=== PATIENT | female | born 1930 | race Caucasian/White ===

== ENCOUNTER → 2016-12-28 | Outpatient (CLI) | payer OTHER, MEDICARE ==
[~2016-12-28] MED LIST: ALLO100T PO; ASPCH81 PO; ERGO1CAP41 PO; HYDR25TA4 PO; LEVO50TA PO; LOSA50TA6 PO; METO25TA56 PO; OMEP20TA14 PO; OXYB10TA PO; [UNRECOGNIZED DRUG - CODE] GT
[2016-12-28 15:58] LABS: URINE APPEARANCE CLEAR (CLEAR); URINE BILIRUBIN NEG (NEG); URINE COLOR YELLOW; URINE EPITHELIAL CELL AUTO 0-5 /lpf (0-5); URINE NITRITE NEG (NEG); URINE SPECIFIC GRAVITY 1.001 (1.000-1.030); UROBILINOGEN NEG (NEG)
[2016-12-28 16:00] LABS: MANUAL MICROSCOPIC REQUIRED? NO; REVIEW REQ? NO
[2016-12-28 16:13] LABS: HEMATOCRIT 38.8 % (37-47); MEAN CELL VOLUME 90.7 fL (80-100); MEAN CORPUSCULAR HEMOGLOBIN 30.4 pg (25-34); MEAN CORPUSCULAR HGB CONC 33.5 g/dl (32-36); MEAN PLATELET VOLUME 13.1 fL (7.4-10.4); PLATELET COUNT 180 K/uL (130-400); RED BLOOD COUNT 4.28 M/uL (4.2-5.4)
[2016-12-28 16:24] LABS: ALT/SGPT 13 U/L (12-78); AST/SGOT 10 U/L (15-37); BLOOD UREA NITROGEN 27 mg/dl (7-18); BUN/CREATININE RATIO 18.2 (10-20); CALCIUM 9.2 mg/dl (8.5-10.1); CARBON DIOXIDE 29 mmol/L (21-32); CHLORIDE 106 mmol/L (98-107); GLUCOSE 86 mg/dl (70-99); PHOSPHORUS 2.7 mg/dl (2.5-4.9); POTASSIUM 4.4 mmol/L (3.5-5.1); SODIUM 142 mmol/L (136-145)
[2016-12-28 16:27] LABS: URINE TOTAL PROTEIN < 5.0 mg/dl (0-11.9)
[2016-12-28 16:34] LABS: ALKALINE PHOSPHATASE 136 U/L (45-117)
== END | disposition home or self-care (01) ==
LOC: C.LAB 14:07
PROVIDERS: ATTEND Internal Medicine Cardiovascular Disease
DX: I48.0 Paroxysmal atrial fibrillation (principal); Z51.81 Encounter for therapeutic drug level monitoring; I12.9 Hypertensive chronic kidney disease with stage 1 through stage 4 chronic kidney disease, or unspecified chronic kidney disease; N18.3 Chronic kidney disease, stage 3 (moderate); N25.81 Secondary hyperparathyroidism of renal origin; E55.9 Vitamin D deficiency, unspecified; D64.9 Anemia, unspecified

== ENCOUNTER → 2017-02-13 | Outpatient (CLI) | payer OTHER, MEDICARE ==
[~2017-02-13] MED LIST changes: -ERGO1CAP41 PO; +ERGO500011 PO
[2017-02-13 12:57] LABS: CHOLESTEROL/HDL RATIO 4.2; THYROID STIMULATING HORMONE 1.31 uIu/ml (0.300-4.500); URIC ACID 6.7 mg/dl (2.6-7.2)
== END | disposition home or self-care (01) ==
LOC: C.LAB 11:15
PROVIDERS: ATTEND Internal Medicine
DX: M10.9 Gout, unspecified (principal); I48.91 Unspecified atrial fibrillation

== ENCOUNTER → 2017-03-02 | Outpatient (CLI) | payer OTHER, MEDICARE ==
--- NOTE | 2017-03-02 12:04 | DIAGNOSTIC IMAGING REPORT ---
RIGHT HIP 2 VIEWS HISTORY: Right hip pain. COMPARISON: None. FINDINGS: There is no fracture or dislocation. Soft tissues are unremarkable. No radiopaque foreign bodies. Mild osteoarthritis within the right hip. IMPRESSION: No fractures. Mild right hip osteoarthritis. Electronically signed by: Gabriel Omalley M.D. 03/02/2017 12:03 PM Dictated Date/Time: 03/02/2017 11:59 AM
== END | disposition home or self-care (01) ==
LOC: C.RADBC 11:35
PROVIDERS: ATTEND Physician Assistant
DX: M25.551 Pain in right hip (principal)

== ENCOUNTER → 2017-07-04 | Outpatient (CLI) | payer OTHER, MEDICARE ==
[~2017-07-04] MED LIST changes: +ERGO1CAP41 PO; -ERGO500011 PO
[2017-07-04 15:42] LABS: HEMATOCRIT 40.1 % (37-47); MEAN CELL VOLUME 95.7 fL (80-100); MEAN CORPUSCULAR HEMOGLOBIN 29.6 pg (25-34); MEAN CORPUSCULAR HGB CONC 30.9 g/dl (32-36); MEAN PLATELET VOLUME 12.4 fL (7.4-10.4); PLATELET COUNT 219 K/uL (130-400); RED BLOOD COUNT 4.19 M/uL (4.2-5.4); WHITE BLOOD COUNT 8.26 K/uL (4.8-10.8)
[2017-07-04 15:46] LABS: URINE APPEARANCE CLEAR (CLEAR); URINE BILIRUBIN NEG (NEG); URINE COLOR YELLOW; URINE EPITHELIAL CELL AUTO 20-30 /lpf (0-5); URINE NITRITE NEG (NEG); URINE SPECIFIC GRAVITY 1.017 (1.000-1.030); UROBILINOGEN NEG (NEG)
[2017-07-04 15:47] LABS: MANUAL MICROSCOPIC REQUIRED? NO; REVIEW REQ? NO
[2017-07-04 16:10] LABS: URINE TOTAL PROTEIN < 5.0 mg/dl (0-11.9)
[2017-07-04 16:11] LABS: ALT/SGPT 12 U/L (12-78); AST/SGOT 7 U/L (15-37); BLOOD UREA NITROGEN 29 mg/dl (7-18); BUN/CREATININE RATIO 19.1 (10-20); CALCIUM 9.3 mg/dl (8.5-10.1); CARBON DIOXIDE 26 mmol/L (21-32); CHLORIDE 110 mmol/L (98-107); GLUCOSE 108 mg/dl (70-99); POTASSIUM 4.3 mmol/L (3.5-5.1); SODIUM 141 mmol/L (136-145)
[2017-07-04 16:13] LABS: ALB/GLOB RATIO 0.9 (0.9-2); ALKALINE PHOSPHATASE 143 U/L (45-117)
== END | disposition home or self-care (01) ==
LOC: C.LAB 14:43
PROVIDERS: ATTEND Internal Medicine Nephrology
DX: I12.9 Hypertensive chronic kidney disease with stage 1 through stage 4 chronic kidney disease, or unspecified chronic kidney disease (principal); N18.3 Chronic kidney disease, stage 3 (moderate); N25.81 Secondary hyperparathyroidism of renal origin; D64.9 Anemia, unspecified; E55.9 Vitamin D deficiency, unspecified

== ENCOUNTER → 2017-07-24 | Outpatient (CLI) | payer OTHER, MEDICARE | END | disposition home or self-care (01) | LOC: C.PATHSPEC 17:22 | PROVIDERS: ATTEND Dermatology | DX: L82.0 Inflamed seborrheic keratosis (principal) ==

== ENCOUNTER → 2017-10-12 | Outpatient (CLI) | payer OTHER, MEDICARE ==
[~2017-10-12] MED LIST changes: -ERGO1CAP41 PO; +ERGO500011 PO
== END | disposition home or self-care (01) ==
LOC: C.PATHSPEC 16:59
PROVIDERS: ATTEND Dermatology
DX: L82.0 Inflamed seborrheic keratosis (principal)

== ENCOUNTER 2017-10-30 00:45 | Emergency (ER) | payer OTHER, MEDICARE ==
[~2017-10-30] VITALS: Ht 154.9 cm; Wt 103.1 kg
[~2017-10-30 00:45] MED LIST changes: -ALLO100T PO; -ERGO500011 PO; +FURO-85 PO; -LEVO50TA PO; -LOSA50TA6 PO; -METO25TA56 PO
[2017-10-30 00:48] VITALS: Ht 154.9 cm; Wt 103.1 kg
[2017-10-30] MEDS ORDERED: ASPI81TA28 PO (01:11)
[2017-10-30] MEDS ORDERED: AMIO200T4 PO (01:11)
[2017-10-30] MEDS ORDERED: OXGN (01:11)
[2017-10-30] MEDS ORDERED: PRLSR20 PO (01:11)
--- NOTE | 2017-10-30 01:40 | EMERGENCY ROOM VISIT NOTE ---
History Report prepared by Miguel: Ashutosh Dotson Under the Supervision of: Dr. Page Prakash D.O. First contact with patient: 00:55 Chief Complaint: CARDIAC ASSESSMENT Stated Complaint: PACEMAKER? History of Present Illness The patient is an 87 year old female who presents to the Emergency Room with complaints of palpitations that occurred this evening. She has a past medical history of atrial fibrillation that required a pacemaker that was placed 8 years ago and replaced 2 year ago. Recently, the patient began to experience her heat beating strongly with what felt like a vibration. Her vision then dimmed, but eventually came back to normal. She denies any chest pain or shortness of breath during this episode. She denies any swelling in her hands, but noticed that she had some swelling to her ankles bilaterally. She notes that she has had some right ankle pain intermittently that resolves with ambulation. She has been eating and drinking normally but denies any increased caffeine intake. She has been taking her medications normally and has not missed any dosages. Source of History: patient Onset: this evening Position: chest Symptom Intensity: moderate Quality: other (Palpitations) Timing: resolved Associated Symptoms: No chest pain, No SOB Note: She has some mild ankle swelling bilaterally. Review of Systems See HPI for pertinent positives & negatives. A total of 10 systems reviewed and were otherwise negative. Past Medical & Surgical Medical Problems: (1) A-fib (2) Heart disease (3) Hypertension (4) Kidney disease (5) Pacemaker (6) Pneumonia Surgical Problems: (1) History of hysterectomy Family History Diabetes mellitus Gout Heart disease Hypertension Social History Smoking Status: Never Smoker Alcohol Use: none Drug Use: none Marital Status: Occupation Status: retired Current/Historical Medications Scheduled Allopurinol (Zyloprim), 100 MG PO DAILY Amiodarone Hcl (Cordarone), 100 MG PO DAILY Aspirin (Aspirin Ec), 81 MG PO BID Ergocalciferol (Vitamin D 09927 Unit), 50,000 INTER.UNIT PO WK Furosemide (Lasix), 20 MG PO Q2D Home O2 Therapy (Oxygen), 2 LITERS NA HS Levothyroxine Sodium (Synthroid), 50 MCG PO DAILY Losartan Potassium (Cozaar), 50 MG PO BID Metoprolol Tartrate (Lopressor) (Lopressor), 25 MG PO BID Omeprazole (Prilosec), 20 MG PO DAILY Allergies Coded Allergies: Adhesives (Verified Allergy, Severe, SEVERE REDNESS/PAIN, 02/15/17) Amlodipine (Verified Allergy, Intermediate, Rash, 10/30/17) Sulfa Antibiotics (Verified Allergy, Intermediate, Rash, 10/30/17) Indomethacin (Verified Allergy, Unknown, 02/15/17) Physical Exam Vital Signs Date Time Temp Pulse Resp B/P (MAP) Pulse Ox O2 Delivery O2 Flow Rate FiO2 10/30/17 03:46 36.5 66 20 171/104 94 10/30/17 02:52 70 20 157/80 93 Room Air 10/30/17 01:10 93 Room Air 10/30/17 00:48 36.5 79 18 192/85 94 Room Air Physical Exam HEENT: Head - normocephalic and atraumatic Pupils are equal, round, and reactive to light. Extraocular eye muscles are intact, and sclera are anicteric. Nose - moist nasal mucosa without discharge. Mouth - moist buccal mucosa. Oropharynx is nonerythematous and there is no tonsillar exudate or edema noted. Neck: Supple; no JVD, nuchal rigidity, cervical lymphadenopathy. Heart: Regular rate and rhythm. There is a normal S1 and S2 with no murmurs, clicks, or gallops appreciated. Lungs: Clear to auscultation bilaterally with no wheezes, rales, or rhonchi. Abdomen: Soft, completely nontender, nondistended, with good bowel sounds. There are no palpable pulsatile masses or hepatosplenomegaly. There is no guarding, rigidity, or rebound noted. Extremities: No evidence of cyanosis or clubbing. Trace pedal edema bilaterally. There are easily palpable peripheral pulses. Skin: warm and dry with good turgor and no rashes. Medical Decision & Procedures ER Provider Diagnostic Interpretation: Radiology results as stated below per my review: CHEST X-RAY 1 VIEW: Pacemaker in place, significantly rotated, mild pulmonary edema. Laboratory Results 10/30/17 01:10 Red Blood Count 4.15, Mean Corpuscular Volume 91.8, Mean Corpuscular Hemoglobin 29.2, Mean Corpuscular Hemoglobin Concent 31.8, Mean Platelet Volume 12.3, Neutrophils (%) (Auto) 69.2, Lymphocytes (%) (Auto) 16.4, Monocytes (%) (Auto) 9.9, Eosinophils (%) (Auto) 3.9, Basophils (%) (Auto) 0.2, Neutrophils # (Auto) 6.40, Lymphocytes # (Auto) 1.52, Monocytes # (Auto) 0.92, Eosinophils # (Auto) 0.36, Basophils # (Auto) 0.02 10/30/17 01:10 Test 10/30/17 01:10 White Blood Count 9.26 K/uL (4.8-10.8) Red Blood Count 4.15 M/uL (4.2-5.4) Hemoglobin 12.1 g/dL (12.0-16.0) Hematocrit 38.1 % (37-47) Mean Corpuscular Volume 91.8 fL (80-100) Mean Corpuscular Hemoglobin 29.2 pg (25-34) Mean Corpuscular Hemoglobin Concent 31.8 g/dl (32-36) Platelet Count 216 K/uL (130-400) Mean Platelet Volume 12.3 fL (7.4-10.4) Neutrophils (%) (Auto) 69.2 % Lymphocytes (%) (Auto) 16.4 % Monocytes (%) (Auto) 9.9 % Eosinophils (%) (Auto) 3.9 % Basophils (%) (Auto) 0.2 % Neutrophils # (Auto) 6.40 K/uL (1.4-6.5) Lymphocytes # (Auto) 1.52 K/uL (1.2-3.4) Monocytes # (Auto) 0.92 K/uL (0.11-0.59) Eosinophils # (Auto) 0.36 K/uL (0-0.5) Basophils # (Auto) 0.02 K/uL (0-0.2) RDW Standard Deviation 48.7 fL (36.4-46.3) RDW Coefficient of Variation 14.5 % (11.5-14.5) Immature Granulocyte % (Auto) 0.4 % Immature Granulocyte # (Auto) 0.04 K/uL (0.00-0.02) Anion Gap 4.0 mmol/L (3-11) Est Creatinine Clear Calc Drug Dose 30.7 ml/min Estimated GFR () 37.0 Estimated GFR (Non- 32.0 BUN/Creatinine Ratio 19.1 (10-20) Calcium Level 9.0 mg/dl (8.5-10.1) Total Bilirubin 0.3 mg/dl (0.2-1) Aspartate Amino Transf (AST/SGOT) 12 U/L (15-37) Alanine Aminotransferase (ALT/SGPT) 14 U/L (12-78) Alkaline Phosphatase 132 U/L (45-117) Total Creatine Kinase 65 U/L (26-192) Creatine Kinase MB 1.8 ng/ml (0.5-3.6) Creatine Kinase MB Ratio 2.8 (0-3.0) Troponin I < 0.015 ng/ml (0-0.045) Total Protein 6.8 gm/dl (6.4-8.2) Albumin 3.2 gm/dl (3.4-5.0) Globulin 3.6 gm/dl (2.5-4.0) Albumin/Globulin Ratio 0.9 (0.9-2) Thyroid Stimulating Hormone (TSH) 2.550 uIu/ml (0.300-4.500) Laboratory results per my review. ECG Indication: palpitations Rate (beats per minute): 80 Rhythm: other (Atrial paced) Findings: RBBB, no acute ischemic change, no ectopy Comparison ECG Date: 13 Sep 2015 Change: Ventricular paced (old) is now atrial paced ED Course 0055: Past medical records reviewed. The patient was evaluated in room B12B. A complete history and physical exam was performed. A twelve-lead EKG was obtained as described above. 0240: The patient's pacemaker was interrogated by [employer], but we cannot get a hold of the foreign language interpreter. 0313: We successfully were able to contact the foreign language interpreter who states that her pacemaker was completely normal. No dysrhythmias were identified. The patient and no further symptoms while here in the emergency department. 0400: Upon reevaluation, the patient is resting. I discussed findings and results with her. She verbalized agreement of the treatment plan. She was discharged home. Medical Decision The patient is a 87 year old female who presents to the ED with resolved palpitations. Differential diagnosis includes malfunctioning pacer, cardiac dysrhythmia, and episode of tachycardia with pacemaker override. Laboratory Results: Normal white count, normal H&H, BUN 28, creatinine 1.4 which is baseline, glucose 126, LFTs normal, TSH normal. This is an 87-year-old female patient who presents to emergency department after having a vibration sensation in her chest and palpitations with an associated episode of feeling as if her level of consciousness was dimming. She did not lose consciousness. She is asymptomatic at this time. The patient had her pacemaker replaced one year ago and has had no problems since that time. I encouraged patient to sit down. Whenever she still doing if she has another episode like this in the future. Otherwise, she should follow-up with her PCP or cosmetic sales over the next couple of days for recheck. Medication Reconcilliation Current Medication List: was personally reviewed by me Blood Pressure Screening Patient's blood pressure: Elevated blood pressure Blood pressure disposition: Referred to PCP Impression Primary Impression: Palpitations Scribe Attestation The scribe's documentation has been prepared under my direction and personally reviewed by me in its entirety. I confirm that the note above accurately reflects all work, treatment, procedures, and medical decision making performed by me. Departure Information Dispostion Home / Self-Care Referrals No Doctor, Assigned (PCP) Forms IMPORTANT VISIT INFORMATION Patient Instructions ED Palpitations, My [facility] [address] Additional Instructions Follow up with cardiology. return to the ER for worsening symptoms
[2017-10-30 01:42] LABS: BASO % 0.2 %; BASO ABS # 0.02 K/uL (0-0.2); COMPLETE YES; EOS % 3.9 %; HEMATOCRIT 38.1 % (37-47); IG% 0.4 %; LYMPH % 16.4 %; LYMPH ABS # 1.52 K/uL (1.2-3.4); MEAN CELL VOLUME 91.8 fL (80-100); MEAN CORPUSCULAR HEMOGLOBIN 29.2 pg (25-34); MEAN CORPUSCULAR HGB CONC 31.8 g/dl (32-36); MEAN PLATELET VOLUME 12.3 fL (7.4-10.4); MONO % 9.9 %; NEUT % 69.2 %; PLATELET COUNT 216 K/uL (130-400); RED BLOOD COUNT 4.15 M/uL (4.2-5.4); WHITE BLOOD COUNT 9.26 K/uL (4.8-10.8)
[2017-10-30 01:55] LABS: ALT/SGPT 14 U/L (12-78); AST/SGOT 12 U/L (15-37); BLOOD UREA NITROGEN 28 mg/dl (7-18); BUN/CREATININE RATIO 19.1 (10-20); CARBON DIOXIDE 27 mmol/L (21-32); CHLORIDE 110 mmol/L (98-107); CREATININE 1.48 mg/dl (0.60-1.20); GLUCOSE 126 mg/dl (70-99); SODIUM 141 mmol/L (136-145)
[2017-10-30 02:05] LABS: ALB/GLOB RATIO 0.9 (0.9-2); ALKALINE PHOSPHATASE 132 U/L (45-117); CKMB/CK RATIO 2.8 (0-3.0)
[2017-10-30 03:46] VITALS: BP 171/104; PULSE 66; TEMP 36.5; O2SAT 94
--- NOTE | 2017-10-30 07:18 | DIAGNOSTIC IMAGING REPORT ---
SINGLE VIEW CHEST CLINICAL HISTORY: Palpitations. FINDINGS: An AP, portable, upright chest radiograph is compared to study dated 06/16/2008. The examination is degraded by portable technique and patient rotation. A 2-lead cardiac pacemaker partially secures the left upper chest. The heart is markedly enlarged and there is atherosclerotic calcification of the thoracic aorta. Mild pulmonary vascular congestion is observed. There is bibasilar consolidation. Small pleural effusions are noted. No pneumothorax is seen. The skeletal structures are osteopenic. The bony thorax is grossly intact. IMPRESSION: 1. Cardiomegaly and cardiac pacemaker. There is mild pulmonary vascular congestion. 2. There are small pleural effusions with bibasilar consolidation. This could represent atelectasis and/or pneumonia. Clinical correlation will be required. Radiographic follow-up to resolution is recommended. Electronically signed by: Sarbjit Stiles M.D. 10/30/2017 7:17 AM Dictated Date/Time: 10/30/2017 7:16 AM
[2017-10-30] MEDS ORDERED: METO25TA56 PO (20:18)
[2017-10-30] MEDS ORDERED: ERGO500011 PO (20:18)
[2017-10-30] MEDS ORDERED: ALLO100T PO (20:18)
[2017-10-30] MEDS ORDERED: LOSA50TA6 PO (20:18)
[2017-10-30] MEDS ORDERED: LEVO50TA PO (20:18)
== END 2017-10-30 03:47 | disposition home or self-care (01) ==
LOC: C.EDB 00:46
DX: R00.2 Palpitations (principal); I48.91 Unspecified atrial fibrillation; I12.9 Hypertensive chronic kidney disease with stage 1 through stage 4 chronic kidney disease, or unspecified chronic kidney disease; N18.9 Chronic kidney disease, unspecified; I51.9 Heart disease, unspecified; Z95.0 Presence of cardiac pacemaker; Z90.710 Acquired absence of both cervix and uterus; Z79.899 Other long term (current) drug therapy; Z88.2 Allergy status to sulfonamides; Z88.8 Allergy status to other drugs, medicaments and biological substances; Z91.09 Other allergy status, other than to drugs and biological substances; Z83.3 Family history of diabetes mellitus; Z82.49 Family history of ischemic heart disease and other diseases of the circulatory system

== ENCOUNTER → 2018-01-08 | Outpatient (CLI) | payer OTHER, MEDICARE ==
[~2018-01-08] MED LIST changes: +ALLO100T PO; +AMIO200T4 PO; -ASPCH81 PO; +ASPI81TA28 PO; +ERGO500011 PO; -HYDR25TA4 PO; +LEVO50TA PO; +LOSA50TA6 PO; +METO25TA56 PO; -OMEP20TA14 PO; +OXGN; -OXYB10TA PO; +PRLSR20 PO; -[UNRECOGNIZED DRUG - CODE] GT
[2018-01-08 15:39] LABS: HEMATOCRIT 39.8 % (37-47); HEMOGLOBIN 12.9 g/dL (12.0-16.0); MEAN CELL VOLUME 92.1 fL (80-100); MEAN CORPUSCULAR HEMOGLOBIN 29.9 pg (25-34); MEAN CORPUSCULAR HGB CONC 32.4 g/dl (32-36); MEAN PLATELET VOLUME 12.3 fL (7.4-10.4); PLATELET COUNT 206 K/uL (130-400); RED CELL DISTRIBUTION WIDTH CV 14.5 % (11.5-14.5); WHITE BLOOD COUNT 12.17 K/uL (4.8-10.8)
[2018-01-08 16:16] LABS: ALBUMIN 3.5 gm/dl (3.4-5.0); BLOOD UREA NITROGEN 34 mg/dl (7-18); CALCIUM 9.6 mg/dl (8.5-10.1); CARBON DIOXIDE 26 mmol/L (21-32); CREATININE 1.37 mg/dl (0.60-1.20); GLUCOSE 94 mg/dl (70-99); POTASSIUM 4.4 mmol/L (3.5-5.1); SODIUM 137 mmol/L (136-145)
== END | disposition home or self-care (01) ==
LOC: C.LAB 13:58
PROVIDERS: ATTEND Internal Medicine Nephrology
DX: I12.9 Hypertensive chronic kidney disease with stage 1 through stage 4 chronic kidney disease, or unspecified chronic kidney disease (principal); N18.3 Chronic kidney disease, stage 3 (moderate); N25.81 Secondary hyperparathyroidism of renal origin; E55.9 Vitamin D deficiency, unspecified; D64.9 Anemia, unspecified

== ENCOUNTER → 2018-02-25 | Outpatient (CLI) | payer OTHER, MEDICARE ==
[2018-02-25 12:28] LABS: BASO % 0.4 %; BASO ABS # 0.03 K/uL (0-0.2); EOS % 3.3 %; EOS ABS # 0.28 K/uL (0-0.5); HEMATOCRIT 39.8 % (37-47); HEMOGLOBIN 12.8 g/dL (12.0-16.0); IG# 0.04 K/uL (0.00-0.02); LYMPH % 17.3 %; LYMPH ABS # 1.45 K/uL (1.2-3.4); MEAN CELL VOLUME 92.3 fL (80-100); MEAN CORPUSCULAR HEMOGLOBIN 29.7 pg (25-34); MEAN CORPUSCULAR HGB CONC 32.2 g/dl (32-36); MEAN PLATELET VOLUME 12.6 fL (7.4-10.4); MONO % 9.7 %; MONO ABS # 0.81 K/uL (0.11-0.59); NEUT % 68.8 %; NEUT ABS # 5.76 K/uL (1.4-6.5); PLATELET COUNT 184 K/uL (130-400); RED CELL DISTRIBUTION WIDTH CV 14.3 % (11.5-14.5); RED CELL DISTRIBUTION WIDTH SD 48.2 fL (36.4-46.3); WHITE BLOOD COUNT 8.37 K/uL (4.8-10.8)
== END | disposition home or self-care (01) ==
LOC: C.LABBFT 10:22
PROVIDERS: ATTEND Internal Medicine
DX: D72.829 Elevated white blood cell count, unspecified (principal); E03.9 Hypothyroidism, unspecified; M10.9 Gout, unspecified

== ENCOUNTER 2021-06-25 22:02 | Inpatient (IN) ==
[2021-06-25] MEDS ORDERED: OPTIRAY 320 100ml IV ONE (23:20)
[2021-06-25] MEDS ORDERED: PIPERACILL/TAZOBAC CONSULT ACTIVE PRN (23:24)
[2021-06-25] MEDS ORDERED: PIPERACILLIN/TAZOBACTAM 4.5 GM/120 ML BAG IV ONE (23:24)
[2021-06-25] MEDS ORDERED: SODIUM CHLORIDE 0.9% 1000ML 1,000 ML IV ONE (23:24)
[2021-06-25 23:37] LABS: Basophils # (auto) 0.04 K/uL (0-0.2); Basophils % (auto) 0.2 %; Eosinophils # (auto) 0.27 K/uL (0-0.5); Eosinophils % (auto) 1.4 %; Hematocrit (blood only) 37.9 % (37-47); Hemoglobin 12.1 g/dL (12.0-16.0); Immature Granulocytes # (auto) 0.23 K/uL (0.00-0.02); Immature Granulocytes % (auto) 1.2 %; Lymphocytes # (auto) 1.06 K/uL (1.2-3.4); Lymphocytes % (auto) 5.4 %; Mean Corpuscular Hgb Conc 31.9 g/dL (32-36); Mean Corpuscular Volume 100.3 fL (80-100); Mean Platelet Volume 11.7 fL (7.4-10.4); Monocytes % (auto) 7.6 %; Neutrophils # (auto) 16.64 K/uL (1.4-6.5); Neutrophils % (auto) 84.2 %; Platelet Count 327 K/uL (130-400); RDW Coefficient of Variation 14.5 % (11.5-14.5); RDW Standard Deviation 52.4 fL (36.4-46.3); Red Blood Count 3.78 M/uL (4.2-5.4); White Blood Count 19.74 K/uL (4.8-10.8)
[2021-06-25 23:57] LABS: INR 1.1 (0.9-1.1); Partial Thromboplastin Time 27.4 Seconds (21.0-31.0); Prothrombin Time 11.1 Seconds (9.0-12.0)
[2021-06-26 00:07] LABS: Alanine Aminotransferase 12 U/L (12-78); Albumin Level 2.9 gm/dl (3.4-5.0); Aspartate Aminotransferase 11 U/L (15-37); BUN Creatinine Ratio 27.8 (10-20); Blood Urea Nitrogen 65 mg/dl (7-18); Calcium 9.9 mg/dl (8.5-10.1); Carbon Dioxide 23 mmol/L (21-32); Chloride 109 mmol/L (98-107); Creatinine Clr Calc Pharmacy 15.9 ml/min; Est GFR (African American) 20.6 ml/min; Est GFR (Non-African American) 17.8 ml/min; Glucose 114 mg/dl (70-99); Magnesium 1.9 mg/dl (1.8-2.4); Potassium 4.7 mmol/L (3.5-5.1); Sodium 138 mmol/L (136-145)
[2021-06-26 00:11] LABS: Albumin Globulin Ratio 0.8 (0.9-2); Alkaline Phosphatase 98 U/L (45-117); Bilirubin,Total 0.9 mg/dl (0.2-1); Globulin 3.6 gm/dl (2.5-4.0); Total Protein 6.5 gm/dl (6.4-8.2); Troponin I < 0.015 ng/ml (0-0.045)
--- NOTE | 2021-06-26 00:50 | Emergency Department Note ---
History of Present Illness General Chief complaint: Abdominal Pain Stated complaint: ABDOMINAL PAIN Time Seen by Provider: 06/25/21 22:52 History of Present Illness Maximum Pain Intensity: 9 This 89-year-old presents to the ER complaining of upper abdominal pain for the past week that is gotten much worse today who is now febrile and feels short of breath Location: Abdomen Quality: Painful Severity: Moderate Duration: 1 week Timing: Started a week ago Context: Patient was concerned and came in Modifying factors: better with nothing; worse with activity Patient also states she feels constipated. She had a very small bowel movement yesterday. She is try some stool softeners. Patient denies chest pain, flulike illness, urinary symptoms. Home Medications Medication Instructions Recorded Confirmed Type allopurinol 100 mg tablet 100 mg PO DAILY #90 tab 08/01/19 06/25/21 History amiodarone 200 mg tablet 100 mg PO DAILY #15 tab 08/01/19 06/25/21 History levothyroxine 50 mcg tablet 50 mcg PO DAILY #30 tab 08/01/19 06/25/21 History losartan 50 mg tablet 50 mg PO BID #60 tab 08/01/19 06/25/21 History metoprolol tartrate 25 mg tablet 25 mg PO BID #180 tab 08/01/19 06/25/21 History omeprazole 40 mg capsule,delayed 40 mg PO DAILY #30 cap 08/01/19 06/25/21 History release calcitriol 0.25 mcg capsule 0.25 mcg PO DAILY #90 cap 04/07/21 06/25/21 Rx aspirin 81 mg tablet,delayed 81 mg PO DAILY 06/25/21 06/25/21 History release (Aspirin Low Dose) torsemide 10 mg tablet 10 mg PO DAILY 06/25/21 06/25/21 History Allergies Allergy/AdvReac Type Severity Reaction Status Date / Time adhesive Allergy Severe SEVERE Verified 06/25/21 23:09 REDNESS/PAIN amlodipine Allergy Intermediate Rash Verified 06/25/21 23:09 Sulfa (Sulfonamide Allergy Intermediate Rash Verified 06/25/21 23:09 Antibiotics) indomethacin Allergy Unknown Unknown Verified 06/25/21 23:09 Past Med/Surg History Medical History Chronic kidney disease, stage III (moderate) Sick sinus syndrome Skin lesion of cheek Vitamin D deficiency Surgical History S/P cardiac pacemaker procedure S/P hysterectomy Family History Aunt Colorectal cancer Breast cancer Brother Myocardial infarction Denies family history of Ovarian cancer Prostate cancer Social History Smoking Status: Never smoker Second Hand Exposure: No; Hx Alcohol Use: No Hx Substance Use: No Preferred Language: Pashto Visual Impairment: No Limitations Hearing Ability: Use of Hearing Aid marital status: / Current Living Situation: Alone current occupational status: retired Feels Safe at Home: Yes Dental Care, Regularly: No Physical Activity Frequency: Does not Exercise Seatbelt Use: sometimes Review of Systems A total of 10 systems reviewed and were otherwise negative Physical Exam Vital Signs Vital Signs - 24 hr 06/25/21 22:06 06/25/21 22:58 06/25/21 23:00 Temperature 37.9 C H Temperature Source Temporal Artery Scan Pulse Rate 69 74 Pulse Rate [Right Finger] 69 Pulse Rate from SpO2 Sensor Pulse Rhythm Regular Respiratory Rate 18 20 20 Respiratory Effort / Characteristics Non-Labored Spontaneous Non-Labored Spontaneous Respiratory Depth Normal Normal Respiratory Pattern Regular Regular Blood Pressure 152/69 H Blood Pressure [Left Radial Artery] 174/100 H Blood Pressure Mean 96 Blood Pressure Mean [Left Radial Artery] 124 Blood Pressure Position [Left Radial Artery] Lying Pulse Oximetry 95 96 Oxygen Delivery Method Room Air Room Air Oxygen Flow Rate Sepsis Recent Fever Within 48 Hours No Sepsis New/Unexplained Change in Mental Status No Sepsis Action Taken by Nursing No Action Required 06/25/21 23:02 06/25/21 23:03 06/25/21 23:30 Temperature Temperature Source Pulse Rate 63 Pulse Rate [Right Finger] Pulse Rate from SpO2 Sensor Pulse Rhythm Respiratory Rate 20 20 18 Respiratory Effort / Characteristics Non-Labored Spontaneous Non-Labored Respiratory Depth Respiratory Pattern Blood Pressure Blood Pressure [Left Radial Artery] Blood Pressure Mean Blood Pressure Mean [Left Radial Artery] Blood Pressure Position [Left Radial Artery] Pulse Oximetry 94 94 95 Oxygen Delivery Method Room Air Room Air Room Air Oxygen Flow Rate Sepsis Recent Fever Within 48 Hours Sepsis New/Unexplained Change in Mental Status Sepsis Action Taken by Nursing 06/25/21 23:32 06/25/21 23:45 06/26/21 00:00 Temperature Temperature Source Pulse Rate 70 78 78 Pulse Rate [Right Finger] Pulse Rate from SpO2 Sensor 78 78 Pulse Rhythm Respiratory Rate 18 18 20 Respiratory Effort / Characteristics Non-Labored Spontaneous Respiratory Depth Respiratory Pattern Blood Pressure Blood Pressure [Left Radial Artery] Blood Pressure Mean Blood Pressure Mean [Left Radial Artery] Blood Pressure Position [Left Radial Artery] Pulse Oximetry 94 93 Oxygen Delivery Method Room Air Oxygen Flow Rate Sepsis Recent Fever Within 48 Hours Sepsis New/Unexplained Change in Mental Status Sepsis Action Taken by Nursing 06/26/21 00:05 06/26/21 00:44 06/26/21 01:25 Temperature Temperature Source Pulse Rate Pulse Rate [Right Finger] 76 Pulse Rate from SpO2 Sensor Pulse Rhythm Respiratory Rate 20 18 16 Respiratory Effort / Characteristics Non-Labored Spontaneous Non-Labored Non-Labored Respiratory Depth Normal Respiratory Pattern Blood Pressure Blood Pressure [Left Radial Artery] 178/62 H Blood Pressure Mean Blood Pressure Mean [Left Radial Artery] 100 Blood Pressure Position [Left Radial Artery] Pulse Oximetry 94 93 91 Oxygen Delivery Method Room Air Room Air Room Air Oxygen Flow Rate Sepsis Recent Fever Within 48 Hours Sepsis New/Unexplained Change in Mental Status Sepsis Action Taken by Nursing 06/26/21 01:55 06/26/21 02:19 Temperature Temperature Source Pulse Rate Pulse Rate [Right Finger] Pulse Rate from SpO2 Sensor Pulse Rhythm Respiratory Rate 16 16 Respiratory Effort / Characteristics Non-Labored Spontaneous Non-Labored Respiratory Depth Respiratory Pattern Blood Pressure Blood Pressure [Left Radial Artery] Blood Pressure Mean Blood Pressure Mean [Left Radial Artery] Blood Pressure Position [Left Radial Artery] Pulse Oximetry 96 94 Oxygen Delivery Method Nasal Cannula Room Air Oxygen Flow Rate 2 Sepsis Recent Fever Within 48 Hours Sepsis New/Unexplained Change in Mental Status Sepsis Action Taken by Nursing VITALS: Vitals are noted on the nurse's note and reviewed by myself. Vital signs low-grade fever. GENERAL: Elderly female who appears in pain SKIN: The skin was without rashes, erythema, edema, or bruising. There is no tenting of the skin. Capillary reflex less than 2 seconds. HEAD: Normocephalic atraumatic. EARS: External auditory canals clear, EYES: Pupils equal round and reactive to light and accommodation. Conjunctivae without injection, sclerae without icterus. Extraocular movements intact. NOSE: Patent, turbinates without inflammation or discharge. MOUTH: Mucous membranes moist. Pharynx without erythema or exudate. Uvula midline. Airway patent. Tongue does not deviate. NECK: Supple without nuchal rigidity. No lymphadenopathy. No thyromegaly. Cervical spine is nontender. No JVD. HEART: Regular rate and rhythm LUNGS: Clear to auscultation bilaterally without wheezes, rales or rhonchi. No retractions or accessory muscle use. ABDOMEN: Positive bowel sounds x 4. Normal tympanic percussion. Soft, tender to palpation diffusely with increased pain in the upper abdomen, without masses or organomegaly. No guarding or rebound tenderness. No CVA tenderness MUSCULOSKELETAL: No muscle atrophy, erythema, or edema noted. NEURO: Patient was alert and oriented to person place and time. Normal sensation to light and sharp touch. No focal neurological deficits. Course Administered Medications Discontinued Medications Famotidine (Famotidine 20mg/5ml Iv Push) 20 mg IV ONE STA Stop: 06/26/21 01:14 Last Admin: 06/26/21 01:21 Dose: 20 mg Documented by: [id number] Piperacillin Sod/Tazobactam Sod (Zosyn) 4.5 gm in 120 mls @ 240 mls/hr IV NOW ONE Stop: 06/25/21 23:53 Last Infusion: 06/26/21 00:46 Dose: 0 mls/hr Documented by: [id number] Admin: 06/25/21 23:35 Dose: 240 mls/hr Documented by: [id number] Sodium Chloride (Nss 1000ml) 1,000 mls @ 999 mls/hr IV .Q1H1M ONE Stop: 06/26/21 00:24 Last Infusion: 06/26/21 00:55 Dose: 0 mls/hr Documented by: [id number] Admin: 06/25/21 23:40 Dose: 999 mls/hr Documented by: [id number] Ioversol (Optiray 320 100ml) 95 ml IV ONCE ONE Stop: 06/25/21 23:21 Last Admin: 06/25/21 23:20 Dose: 95 ml Documented by: [id number] Ondansetron HCl (Ondansetron Inj 2 Mg/Ml 2 Ml Vial) 4 mg IV NOW STA Stop: 06/26/21 01:14 Last Admin: 06/26/21 01:18 Dose: 4 mg Documented by: [id number] Medical Decision Making Medical Records Attestation: I reviewed the patient's medical records. Home Medications Current Medication List: was personally reviewed by me Laboratory Data Attestation: I reviewed the patient's lab results. Result diagrams: 06/25/21 23:28 06/25/21 23:36 Lab Results 06/25/21 06/25/21 06/25/21 Range/Units 23:28 23:36 23:36 WBC 19.74 H (4.8-10.8) K/uL RBC 3.78 L (4.2-5.4) M/uL Hgb 12.1 (12.0-16.0) g/dL Hct 37.9 (37-47) % MCV 100.3 H (80-100) fL MCH 32.0 (25-34) pg MCHC 31.9 L (32-36) g/dL RDW Std Deviation 52.4 H (36.4-46.3) fL RDW Coeff of Lorenzo 14.5 (11.5-14.5) % Plt Count 327 (130-400) K/uL MPV 11.7 H (7.4-10.4) fL Immature Gran % (Auto) 1.2 % Neut % (Auto) 84.2 % Lymph % (Auto) 5.4 % Broome % (Auto) 7.6 % Eos % (Auto) 1.4 % Baso % (Auto) 0.2 % Neut # (Auto) 16.64 H (1.4-6.5) K/uL Lymph # (Auto) 1.06 L (1.2-3.4) K/uL Broome # (Auto) 1.50 H (0.11-0.59) K/uL Eos # (Auto) 0.27 (0-0.5) K/uL Baso # (Auto) 0.04 (0-0.2) K/uL Immature Gran # (Auto) 0.23 H (0.00-0.02) K/uL PT 11.1 (9.0-12.0) Seconds INR 1.1 (0.9-1.1) APTT 27.4 (21.0-31.0) Seconds PTT Ratio 1.0 Sodium 138 (136-145) mmol/L Potassium 4.7 (3.5-5.1) mmol/L Chloride 109 H (98-107) mmol/L Carbon Dioxide 23 (21-32) mmol/L Anion Gap 6.0 (3-11) BUN 65 H (7-18) mg/dl Creatinine 2.35 H (0.6-1.2) mg/dl Est Cr Clr Drug Dosing 15.9 ml/min Est GFR ( Amer) 20.6 ml/min Est GFR (Non-Af Amer) 17.8 ml/min BUN/Creatinine Ratio 27.8 H (10-20) Glucose 114 H (70-99) mg/dl Lactate (0.4-2.0) mmol/L Calcium 9.9 (8.5-10.1) mg/dl Magnesium 1.9 (1.8-2.4) mg/dl Total Bilirubin 0.9 (0.2-1) mg/dl AST 11 L (15-37) U/L ALT 12 (12-78) U/L Alkaline Phosphatase 98 (45-117) U/L Troponin I < 0.015 (0-0.045) ng/ml Total Protein 6.5 (6.4-8.2) gm/dl Albumin 2.9 L (3.4-5.0) gm/dl Globulin 3.6 (2.5-4.0) gm/dl Albumin/Globulin Ratio 0.8 L (0.9-2) Urine Color Urine Appearance (Clear) Urine pH (4.5-7.5) Ur Specific Gabbs (1.000-1.030) Urine Protein (Negative) Urine Glucose (UA) (Negative) Urine Ketones (Negative) Urine Blood (Negative) Urine Nitrite (Negative) Urine Bilirubin (Negative) Urine Urobilinogen (Negative) Ur Leukocyte Esterase (Negative) Urine WBC (Auto) (0-5) /hpf Urine RBC (Auto) (0-4) /hpf U Hyaline Cast (Auto) (0-5) /lpf U Epithel Cells (Auto) (0-5) /lpf Urine Bacteria (Auto) (Negative) COVID-19 Eval Order SARS-CoV-2 (PCR) (Negative) 06/25/21 06/25/21 06/25/21 Range/Units 23:36 23:45 23:45 WBC (4.8-10.8) K/uL RBC (4.2-5.4) M/uL Hgb (12.0-16.0) g/dL Hct (37-47) % MCV (80-100) fL MCH (25-34) pg MCHC (32-36) g/dL RDW Std Deviation (36.4-46.3) fL RDW Coeff of Lorenzo (11.5-14.5) % Plt Count (130-400) K/uL MPV (7.4-10.4) fL Immature Gran % (Auto) % Neut % (Auto) % Lymph % (Auto) % Broome % (Auto) % Eos % (Auto) % Baso % (Auto) % Neut # (Auto) (1.4-6.5) K/uL Lymph # (Auto) (1.2-3.4) K/uL Broome # (Auto) (0.11-0.59) K/uL Eos # (Auto) (0-0.5) K/uL Baso # (Auto) (0-0.2) K/uL Immature Gran # (Auto) (0.00-0.02) K/uL PT (9.0-12.0) Seconds INR (0.9-1.1) APTT (21.0-31.0) Seconds PTT Ratio Sodium (136-145) mmol/L Potassium (3.5-5.1) mmol/L Chloride (98-107) mmol/L Carbon Dioxide (21-32) mmol/L Anion Gap (3-11) BUN (7-18) mg/dl Creatinine (0.6-1.2) mg/dl Est Cr Clr Drug Dosing ml/min Est GFR ( Amer) ml/min Est GFR (Non-Af Amer) ml/min BUN/Creatinine Ratio (10-20) Glucose (70-99) mg/dl Lactate 0.7 (0.4-2.0) mmol/L Calcium (8.5-10.1) mg/dl Magnesium (1.8-2.4) mg/dl Total Bilirubin (0.2-1) mg/dl AST (15-37) U/L ALT (12-78) U/L Alkaline Phosphatase (45-117) U/L Troponin I (0-0.045) ng/ml Total Protein (6.4-8.2) gm/dl Albumin (3.4-5.0) gm/dl Globulin (2.5-4.0) gm/dl Albumin/Globulin Ratio (0.9-2) Urine Color Urine Appearance (Clear) Urine pH (4.5-7.5) Ur Specific Gabbs (1.000-1.030) Urine Protein (Negative) Urine Glucose (UA) (Negative) Urine Ketones (Negative) Urine Blood (Negative) Urine Nitrite (Negative) Urine Bilirubin (Negative) Urine Urobilinogen (Negative) Ur Leukocyte Esterase (Negative) Urine WBC (Auto) (0-5) /hpf Urine RBC (Auto) (0-4) /hpf U Hyaline Cast (Auto) (0-5) /lpf U Epithel Cells (Auto) (0-5) /lpf Urine Bacteria (Auto) (Negative) COVID-19 Eval Order Covid19 at [facility] SARS-CoV-2 (PCR) NEGATIVE (Negative) 06/26/21 Range/Units 01:49 WBC (4.8-10.8) K/uL RBC (4.2-5.4) M/uL Hgb (12.0-16.0) g/dL Hct (37-47) % MCV (80-100) fL MCH (25-34) pg MCHC (32-36) g/dL RDW Std Deviation (36.4-46.3) fL RDW Coeff of Lorenzo (11.5-14.5) % Plt Count (130-400) K/uL MPV (7.4-10.4) fL Immature Gran % (Auto) % Neut % (Auto) % Lymph % (Auto) % Broome % (Auto) % Eos % (Auto) % Baso % (Auto) % Neut # (Auto) (1.4-6.5) K/uL Lymph # (Auto) (1.2-3.4) K/uL Broome # (Auto) (0.11-0.59) K/uL Eos # (Auto) (0-0.5) K/uL Baso # (Auto) (0-0.2) K/uL Immature Gran # (Auto) (0.00-0.02) K/uL PT (9.0-12.0) Seconds INR (0.9-1.1) APTT (21.0-31.0) Seconds PTT Ratio Sodium (136-145) mmol/L Potassium (3.5-5.1) mmol/L Chloride (98-107) mmol/L Carbon Dioxide (21-32) mmol/L Anion Gap (3-11) BUN (7-18) mg/dl Creatinine (0.6-1.2) mg/dl Est Cr Clr Drug Dosing ml/min Est GFR ( Amer) ml/min Est GFR (Non-Af Amer) ml/min BUN/Creatinine Ratio (10-20) Glucose (70-99) mg/dl Lactate (0.4-2.0) mmol/L Calcium (8.5-10.1) mg/dl Magnesium (1.8-2.4) mg/dl Total Bilirubin (0.2-1) mg/dl AST (15-37) U/L ALT (12-78) U/L Alkaline Phosphatase (45-117) U/L Troponin I (0-0.045) ng/ml Total Protein (6.4-8.2) gm/dl Albumin (3.4-5.0) gm/dl Globulin (2.5-4.0) gm/dl Albumin/Globulin Ratio (0.9-2) Urine Color Yellow Urine Appearance Clear (Clear) Urine pH 5.0 (4.5-7.5) Ur Specific Gabbs 1.016 (1.000-1.030) Urine Protein Negative (Negative) Urine Glucose (UA) Negative (Negative) Urine Ketones Negative (Negative) Urine Blood Negative (Negative) Urine Nitrite Negative (Negative) Urine Bilirubin Negative (Negative) Urine Urobilinogen Negative (Negative) Ur Leukocyte Esterase 1+ H (Negative) Urine WBC (Auto) 5-10 H (0-5) /hpf Urine RBC (Auto) 0-4 (0-4) /hpf U Hyaline Cast (Auto) 1-5 (0-5) /lpf U Epithel Cells (Auto) >30 H (0-5) /lpf Urine Bacteria (Auto) Negative (Negative) COVID-19 Eval Order SARS-CoV-2 (PCR) (Negative) Imaging Data Attestation: I personally reviewed and interpreted this imaging study as follows: MDM Narrative Prior records/ancillary studies reviewed. Triage Nursing notes reviewed. Additional history obtained from family. The patient's history was concerning for abdominal pain. Differential diagnosis: Etiologies such as appendicitis, diverticulitis, PUD, biliary pathology, UTI, pancreatitis, obstruction, mesenteric ischemia, aortic pathology, infections, inflammatory bowel disease, renal colic, as well as others were entertained. Physical examination findings: As above. ER treatment provided: An order was placed for continuous cardiac monitoring. The monitor shows a rate of 60-100 with a sinus rhythm. IV fluids, Zosyn On reassessment the patient felt better. Diagnostics interpreted by me: ECG: Ordered for upper abdominal pain EKG: Normal sinus, right bundle branch block, no acute ST-T wave changes, rate of 67. Impression right bundle branch block interpreted by myself I think arrhythmia is unlikely. EKG shows with no interval abnormalities such as QT prolongation or WPW. There are no findings to suggest Brugada syndrome. Cardiac monitoring in the emergency department reveals no tachycardic or bradycardic dysrhythmia. Hypertrophic cardiomyopathy was considered but there are no clear historical elements pointing toward this. EKG is not suggestive. The QRS voltage is not extremely large and there are no suggestive Q waves. The labs revealed leukocytosis, pending blood cultures Imaging studies: Chest x-ray with pleural effusions without free air or pneumothorax my interpretation Patient: DEBBIE CONDE (Female) : 34 Status: ER Date: 06/26/21 00:43 Room #: History: DIFFUSE BD PAIN , CONSTIPATION , APPENIDX PRESENT , NO CONTRAST DUE TO ELEVATED LABS Slices: [phone] Priors: Tech: CamitoyaMerynt @ [id number] Exams: CT ABDOMEN & PELVIS Without Contrast Contrast: Accession Numbers: [id number] Referring Physician: REFERRED SELF PreliminaryFindingsOnly See Final Report For Complete Findings CT ABDOMEN & PELVIS Without Contrast: Inflammatorychanges around the gallbladder consistent with cholecystitis. Likelystones in the gallbladder. Correlate with right upper quadrant ultrasound. Reactive mucosal thickening within the hepatic flexure. Hiatal hernia. Colonic diverticulosiswithout diverticulitis. Remainder of the organs are unremarkable. Radiologist: Delvin Dacosta MD Consultation: A consultation was placed with the surgeon Dr. Swain and recommends medical admission and he will evaluate the patient in the morning. Hospitalist was consulted. The case was discussed and diagnostics were reviewed. The patient was evaluated in the ER for further treatment. Exam and history seem consistent with cholecystitis. Patient was given antibiotics. Medicine and surgery were consulted. She was admitted to the medical service. Surgery will evaluate in the morning. All questions were answered and patient is agreeable. By the evaluation outlined above emergent etiologies such as appendicitis, diverticulitis, PUD, biliary pathology, UTI, pancreatitis, obstruction, mesenteric ischemia, aortic pathology, inflammatory bowel disease, renal colic, as well as others were deemed relatively unlikely. The pt informed about the findings as listed above. All questions were answered and pleased with the treatment. The chart was completed utilizing [employer] Speech voice recognition software. Grammatical errors, random word insertions, pronoun errors, and incomplete sentences are an occassional consequence of this system due to software limitations, ambient noise, and hardware issues. Any formal questions or concerns about the content, text, or information contained within the body of this dictation should be directly addressed to the physician assistant professor of english for clarification. Impression & Plan Cholecystitis, Abdominal pain Discharge Plan Visit Data Chief Complaint: Abdominal Pain Stated Complaint: ABDOMINAL PAIN ED Provider: Kindra Vieira ED Midlevel Provider: Brandy Devi Discharge Problem: Cholecystitis, Abdominal pain Patient Disposition: Admitted As Inpatient Condition: Fair Forms Stand Alone Forms: [employer] Prescriptions Prescriptions: No Action allopurinol 100 mg tablet 100 mg PO DAILY Qty: 90 RF: 0 amiodarone 200 mg tablet 100 mg PO DAILY Qty: 15 RF: 0 levothyroxine 50 mcg tablet 50 mcg PO DAILY Qty: 30 RF: 0 losartan 50 mg tablet 50 mg PO BID Qty: 60 RF: 0 metoprolol tartrate 25 mg tablet 25 mg PO BID Qty: 180 RF: 0 omeprazole 40 mg capsule,delayed release(DR/EC) 40 mg PO DAILY Qty: 30 RF: 0 calcitriol 0.25 mcg capsule 0.25 mcg PO DAILY Qty: 90 RF: 3 torsemide 10 mg tablet 10 mg PO DAILY RF: 0 aspirin [Aspirin Low Dose] 81 mg Tablet,Delayed Release (Dr/Ec) 81 mg PO DAILY RF: 0 Referrals Referrals: PCP,NO [Primary Care Provider] -
--- NOTE | 2021-06-26 00:50 | Emergency Department Note ---
ED Visit Note Patient seen and evaluated in conjunction with physician driller's assistant, Millie Devi. Please refer to her note for additional details. Patient with complaints of abdominal pain. On my exam patient declining additional pain medication. Labs and CT were pending at that time. Patient is hemodynamically stable. .
[2021-06-26] MEDS ORDERED: ONDANSETRON INJ 2 MG/ML 2 ML VIAL IV STA (01:13)
[2021-06-26] MEDS ORDERED: FAMOTIDINE 20MG/5ML IV PUSH IV STA (01:13)
[2021-06-26 02:00] LABS: Appearance Urine Clear (Clear); Bacteria Urine Automated Negative (Negative); Bilirubin Urine Negative (Negative); Blood Urine Negative (Negative); Color Urine Yellow; Epithelial Cell Urine Auto >30 /lpf (0-5); Glucose Urine UA Negative (Negative); Ketones Urine Negative (Negative); Leukocyte Esterase Urine 1+ (Negative); Nitrite Urine Negative (Negative); Protein Urine Negative (Negative); RBC Urine Automated 0-4 /hpf (0-4); Specific Gravity Urine 1.016 (1.000-1.030); Urobilinogen Urine Negative (Negative)
--- NOTE | 2021-06-26 02:39 | History & Physical Report ---
Date of Service June 26, 2021 Assessment & Plan (1) Cholecystitis: Plan: Acute Cholecystitis - CT A/P showing inflammation around gallbladder consistent with cholecystitis - surgery consulted -- to go for surgical removal AM of 06/26 - NPO - zosyn - NS @125 for fluids - WBC elevated w/o transaminitis - Temp 37.9 C in ER - lactate negative, not septic appearing - blood cultures pending - trend CBC/CMP to follow WBC and transaminases NILAM on CKD - baseline Cr !2 - 2.35 today - gentle hydration as above - monitor I/O - GFR ~17, baseline 22 Chronic Medical Conditions Afib with pacer: cont amiodarone, metoprolol HTN: losartan, torsemide CAD: cont asa, statin GERD: omeprazole converted to IV PPI Hypothyroidism: levothyroxine Gout: allopurinol OK to give amiodarone/metoprolol morning of surgery otherwise hold medications until not NPO. Patient's daughter states she has had severe nausea after receiving anesthesia with colonoscopy and pacemaker placement in the past. No allergic reactions to anesthesia noted. DVt ppx: heparin FEn/GI: NPO, ppi IV Code Status: full code Dispo: Med/tele (2) Sensorineural hearing loss (SNHL) of both ears: (3) Hypothyroidism: (4) Gout, joint: (5) Gastroesophageal reflux disease: (6) Urinary incontinence: (7) Depression with anxiety: (8) Chronic kidney disease, stage III (moderate): History of Present Illness Primary Care Provider: NO PCP 89 yo F with hx AFib with pacemaker, GERD, gout, hypothyroidism, CKD4, SNHL in ER for 3 weeks of ongoing abdominal pain. Thought it was constipation, however was refractory to use of milk of magnesia, miralax etc. States she's had little to no appetite for a while. Will eat 2 bites of something and then feel full. Does attest to on and off nausea but no emesis. Denies any correlation of pain with eating or not eating. Only febrile in ER today, otherwise no fevers, chills, night sweats. Intentionally lost 50 pounds over 4 years. No fhmx gallbladder disease. prior abdominal surgeries include partial hysterectomy. Allergies Allergy/AdvReac Type Severity Reaction Status Date / Time adhesive Allergy Severe SEVERE Verified 06/25/21 23:09 REDNESS/PAIN amlodipine Allergy Intermediate Rash Verified 06/25/21 23:09 Sulfa (Sulfonamide Allergy Intermediate Rash Verified 06/25/21 23:09 Antibiotics) indomethacin Allergy Unknown Unknown Verified 06/25/21 23:09 Home Medications Medication Instructions Recorded Confirmed Type allopurinol 100 mg tablet 100 mg PO DAILY #90 tab 08/01/19 06/25/21 History amiodarone 200 mg tablet 100 mg PO DAILY #15 tab 08/01/19 06/25/21 History levothyroxine 50 mcg tablet 50 mcg PO DAILY #30 tab 08/01/19 06/25/21 History losartan 50 mg tablet 50 mg PO BID #60 tab 08/01/19 06/25/21 History metoprolol tartrate 25 mg tablet 25 mg PO BID #180 tab 08/01/19 06/25/21 History omeprazole 40 mg capsule,delayed 40 mg PO DAILY #30 cap 08/01/19 06/25/21 History release calcitriol 0.25 mcg capsule 0.25 mcg PO DAILY #90 cap 04/07/21 06/25/21 Rx aspirin 81 mg tablet,delayed 81 mg PO DAILY 06/25/21 06/25/21 History release (Aspirin Low Dose) torsemide 10 mg tablet 10 mg PO DAILY 06/25/21 06/25/21 History Past Med/Surg History Medical History Chronic kidney disease, stage III (moderate) Sick sinus syndrome Skin lesion of cheek Vitamin D deficiency Surgical History S/P cardiac pacemaker procedure S/P hysterectomy Family History Aunt Colorectal cancer Breast cancer Brother Myocardial infarction Denies family history of Ovarian cancer Prostate cancer Social History Smoking Status: Never smoker Second Hand Exposure: No; Hx Alcohol Use: No Hx Substance Use: No Preferred Language: Jamaican Communication Ability: Effective Visual Impairment: No Limitations Hearing Ability: Use of Hearing Aid Trimming [place] Required: No Beliefs That Will Affect Care: None marital status: / Current Living Situation: Alone current occupational status: retired Other Information That Helps Us Care for You: No Feels Safe at Home: Yes Safety Concerns: Feels Safe At This Time Dental Care, Regularly: No Physical Activity Frequency: Does not Exercise Seatbelt Use: sometimes Assistive Devices: Denture - Upper, Denture - Lower, Glasses, Hearing Aid - Bilateral, Oxygen - at Night and Walker Assistive Devices Comment: does not wear hearing aids Review of Systems Constitutional: no fever, no chills, no sweats and no fatigue Eyes: no blind spots and no discharge Ear, Nose, Mouth, Throat: no hearing loss and no nasal congestion Respiratory: no cough and no dyspnea Cardiovascular: no chest pain, no dyspnea on exertion and no edema Gastrointestinal: + abdominal pain, + early satiety, + nausea and + constipation; no bloating, no heartburn, no vomiting, no diarrhea/loose stools and no blood in stools Genitourinary: no dysuria Musculoskeletal: no joint pain and no myalgia Neurologic: no tingling, no numbness and no headache(s) Endocrine: no fatigue Physical Exam Physical Exam: Constitutional: thin elderly woman, fatigued but well apperaing Throat: trachea midline Eyes: EOMI, pupils equal and reactive bilaterally, no scleral icterus Cardiac: RRR, no murmurs, gallops or rubs. Normal S1, S2 Pulm: CTA BL, no wheezes, rhonchi, crackles or rubs, moving air well throughout both lungs Abd: soft, +peace's sign,TTP in RUQ and RLQ, normal bowel sounds, no rebound or guarding Extremities: 2+ peripheral pulses, 2+ pitting edema to midshin Neuro: no focal deficits, moving all 4 limbs, A&Ox3 Skin: thin, without tears Results & Data Results & Data ([facility]) Vital Signs (Past 12 Hours) Vital Signs Temp Pulse Pulse Resp BP BP Pulse Ox 06/26/21 02:19 16 94 06/26/21 01:55 16 96 06/26/21 01:25 16 91 06/26/21 00:44 18 93 06/26/21 00:05 76 20 178/62 H 94 06/26/21 00:00 78 20 93 06/25/21 23:45 78 18 94 06/25/21 23:32 70 18 06/25/21 23:30 18 95 06/25/21 23:03 20 94 06/25/21 23:02 63 20 94 06/25/21 23:00 74 20 06/25/21 22:58 69 20 174/100 H 96 06/25/21 22:06 37.9 C H 69 18 152/69 H 95 Laboratory Results Laboratory Results WBC 19.74 K/uL (4.8-10.8) H 06/25/21 23:28 RBC 3.78 M/uL (4.2-5.4) L 06/25/21 23:28 Hgb 12.1 g/dL (12.0-16.0) 06/25/21 23: Hct 37.9 % (37-47) 06/25/21 23: MCV 100.3 fL (80-100) H 06/25/21 23: MCH 32.0 pg (25-34) 06/25/21 23: MCHC 31.9 g/dL (32-36) L 06/25/21 23: RDW Std Deviation 52.4 fL (36.4-46.3) H 06/25/21 23:28 RDW Coeff of Lorenzo 14.5 % (11.5-14.5) 06/25/21 23: Plt Count 327 K/uL (130-400) 06/25/21 23:28 MPV 11.7 fL (7.4-10.4) H 06/25/21 23:28 Immature Gran % (Auto) 1.2 % 06/25/21 23:28 Neut % (Auto) 84.2 % 06/25/21 23:28 Lymph % (Auto) 5.4 % 06/25/21 23:28 [place] % (Auto) 7.6 % 06/25/21 23:28 Eos % (Auto) 1.4 % 06/25/21 23:28 Baso % (Auto) 0.2 % 06/25/21 23:28 Neut # (Auto) 16.64 K/uL (1.4-6.5) H 06/25/21 23:28 Lymph # (Auto) 1.06 K/uL (1.2-3.4) L 06/25/21 23:28 [place] # (Auto) 1.50 K/uL (0.11-0.59) H 06/25/21 23:28 Eos # (Auto) 0.27 K/uL (0-0.5) 06/25/21 23:28 Baso # (Auto) 0.04 K/uL (0-0.2) 06/25/21 23:28 Immature Gran # (Auto) 0.23 K/uL (0.00-0.02) H 06/25/21 23:28 PT 11.1 Seconds (9.0-12.0) 06/25/21 23:36 INR 1.1 (0.9-1.1) 06/25/21 23:36 APTT 27.4 Seconds (21.0-31.0) 06/25/21 23:36 PTT Ratio 1.0 06/25/21 23:36 Sodium 138 mmol/L (136-145) 06/25/21 23:36 Potassium 4.7 mmol/L (3.5-5.1) 06/25/21 23:36 Chloride 109 mmol/L (98-107) H 06/25/21 23:36 Carbon Dioxide 23 mmol/L (21-32) 06/25/21 23:36 Anion Gap 6.0 (3-11) 06/25/21 23:36 BUN 65 mg/dl (7-18) H 06/25/21 23:36 Creatinine 2.35 mg/dl (0.6-1.2) H 06/25/21 23:36 Est Cr Clr Drug Dosing 15.9 ml/min 06/25/21 23:36 Est GFR ( Amer) 20.6 ml/min 06/25/21 23:36 Est GFR (Non-Af Amer) 17.8 ml/min 06/25/21 23:36 BUN/Creatinine Ratio 27.8 (10-20) H 06/25/21 23:36 Glucose 114 mg/dl (70-99) H 06/25/21 23:36 Lactate 0.7 mmol/L (0.4-2.0) 06/25/21 23:36 Calcium 9.9 mg/dl (8.5-10.1) 06/25/21 23:36 Magnesium 1.9 mg/dl (1.8-2.4) 06/25/21 23:36 Total Bilirubin 0.9 mg/dl (0.2-1) 06/25/21 23:36 AST 11 U/L (15-37) L 06/25/21 23:36 ALT 12 U/L (12-78) 06/25/21 23:36 Alkaline Phosphatase 98 U/L (45-117) 06/25/21 23:36 Troponin I < 0.015 ng/ml (0-0.045) 06/25/21 23:36 Total Protein 6.5 gm/dl (6.4-8.2) 06/25/21 23:36 Albumin 2.9 gm/dl (3.4-5.0) L 06/25/21 23:36 Globulin 3.6 gm/dl (2.5-4.0) 06/25/21 23:36 Albumin/Globulin Ratio 0.8 (0.9-2) L 06/25/21 23:36 Urine Color Yellow 06/26/21 01:49 Urine Appearance Clear (Clear) 06/26/21 01:49 Urine pH 5.0 (4.5-7.5) 06/26/21 01:49 Ur Specific [place] 1.016 (1.000-1.030) 06/26/21 01:49 Urine Protein Negative (Negative) 06/26/21 01:49 Urine Glucose (UA) Negative (Negative) 06/26/21 01:49 Urine Ketones Negative (Negative) 06/26/21 01:49 Urine Blood Negative (Negative) 06/26/21 01:49 Urine Nitrite Negative (Negative) 06/26/21 01:49 Urine Bilirubin Negative (Negative) 06/26/21 01:49 Urine Urobilinogen Negative (Negative) 06/26/21 01:49 Ur Leukocyte Esterase 1+ (Negative) H 06/26/21 01:49 Urine WBC (Auto) 5-10 /hpf (0-5) H 06/26/21 01:49 Urine RBC (Auto) 0-4 /hpf (0-4) 06/26/21 01:49 U Hyaline Cast (Auto) 1-5 /lpf (0-5) 06/26/21 01:49 U Epithel Cells (Auto) >30 /lpf (0-5) H 06/26/21 01:49 Urine Bacteria (Auto) Negative (Negative) 06/26/21 01:49 COVID-19 Eval Order Covid19 at [facility] 06/25/21 23:45 SARS-CoV-2 (PCR) NEGATIVE (Negative) 06/25/21 23:45 Medications Administered Discontinued Medications Famotidine (Famotidine 20mg/5ml Iv Push) 20 mg IV ONE STA Stop: 06/26/21 01:14 Last Admin: 06/26/21 01:21 Dose: 20 mg Documented by: [id number] Piperacillin Sod/Tazobactam Sod (Zosyn) 4.5 gm in 120 mls @ 240 mls/hr IV NOW ONE Stop: 06/25/21 23:53 Last Infusion: 06/26/21 00:46 Dose: 0 mls/hr Documented by: [id number] Admin: 06/25/21 23:35 Dose: 240 mls/hr Documented by: [id number] Sodium Chloride (Nss 1000ml) 1,000 mls @ 999 mls/hr IV .Q1H1M ONE Stop: 06/26/21 00:24 Last Infusion: 06/26/21 00:55 Dose: 0 mls/hr Documented by: [id number] Admin: 06/25/21 23:40 Dose: 999 mls/hr Documented by: [id number] Ioversol (Optiray 320 100ml) 95 ml IV ONCE ONE Stop: 06/25/21 23:21 Last Admin: 06/25/21 23:20 Dose: 95 ml Documented by: [id number] Ondansetron HCl (Ondansetron Inj 2 Mg/Ml 2 Ml Vial) 4 mg IV NOW STA Stop: 06/26/21 01:14 Last Admin: 06/26/21 01:18 Dose: 4 mg Documented by: [id number] Supervising Physician Co-Signing Physician Notes Attending addendum: I have physically seen this patient, have supervised the medical residents activities, and agree with the H&P unless as otherwise noted. Assessment and Plan: Acute cholecystitis- NPO Zosyn 4.5 g IV every 8 hours NSS at 125 mils per hour Famotidine 20 mg IV every 12 hours Zofran 4 mg IV every 6 hours as needed General surgery consult, already aware NILAM on CKD- Creatinine 2.35 today, with baseline 1.2 Rehydrating with NSS, and recheck laboratories in a.m. Remaining orders and notations as noted Resident Activity Tracking Resident Involvement: Resident Care Provided Care Provided: Adult Hospital Medicine
[2021-06-26] MEDS ORDERED: PIPERACILL/TAZOBAC CONSULT ACTIVE PRN (03:58)
[2021-06-26] MEDS ORDERED: MAGNESIUM HYDROXIDE SUSP 30 ML UDC PO PRN (03:58)
[2021-06-26] MEDS ORDERED: ACETAMINOPHEN 325 MG TAB PO PRN (03:58)
[2021-06-26] MEDS: SODIUM CHLORIDE 0.9% 1000ML 1,000 ML IV SCH ×2 (04:30→16:03)
[2021-06-26] MEDS: LEVOTHYROXINE SODIUM 50 MCG TABLET PO SCH (06:24)
--- NOTE | 2021-06-26 06:48 | Hospitalist Progress Note ---
Date of Service June 26, 2021 Assessment & Plan (1) Cholecystitis: Plan: *cont IV fluids tonight, recheck labs in morning d/c fluids cont diet Acute Cholecystitis - CT A/P = inflammation around gallbladder consistent with cholecystitis - WBC elevated w/o transaminitis, Temp 37.9 C in ER, lactate negative, not septic appearing - placed NPO, zosyn, NS @125 for fluids - surgery consulted -- cholestectomy 06/26 - blood cultures pending - trend CBC/CMP to follow WBC and transaminases - currently liquid diet advance as tolerated, continue IVF and abx, - started IV acetaminophen 1000mg for pain control, PRN morphine oxycodone NILAM on CKD - baseline Cr 2 --> 2.35 -->2.17 (06/26) - gentle hydration as above, may be secondary to poor appetite - monitor I/O S/P Cholestecomy - trend CBC/CMP to follow WBC and transaminases - currently liquid diet advance as tolerated, continue IVF and abx, - started IV acetaminophen 1000mg for pain control, PRN morphine oxycodone - continue to check wound and drainage Chronic Medical Conditions Afib with pacer: cont amiodarone, metoprolol HTN: losartan, torsemide CAD: cont asa, statin GERD: omeprazole converted to IV PPI Hypothyroidism: levothyroxine Gout: allopurinol DVt ppx: heparin FEn/GI: clear liquid, ppi IV Code Status: full code Dispo: Med/tele (2) Sensorineural hearing loss (SNHL) of both ears: (3) Hypothyroidism: (4) Gout, joint: (5) Gastroesophageal reflux disease: (6) Urinary incontinence: (7) Depression with anxiety: (8) Chronic kidney disease, stage III (moderate): Admission and Anticipated Discharge Date Admission Date: June 26, 2021 Supervising Physician Co-Signing Physician Notes I personally examined the patient and verified all jensen points of history and exam, discussed case, and agree with decision making with Dr Blanco. Resting and a little bit sedated with medicinesapparently was having rather significant pain postop. Received several doses of IV narcotics, and is now more comfortable. No HPI review of systems obtainable from patient, nursing notes that she has settled quite nicely, and otherwise is appearing stable. Daughter at the bedsideupdated the best my ability/answered questions to the best my ability. Vitals noted, in general she is sedate but breathing unlabored and appears in no distress. HEENT normocephalic atraumatic mucous membranes moist. Breathing is unlabored, regular good chest rise and fall. No focal neuro deficits. Skin without rashes/pallor/icterus. Cholecystitisnow status post cholecystectomy. Pain control (follow clinically, unable to utilize NSAIDs due to CKD, will schedule Tylenol to try to reduce need for narcotics). Appreciate surgical input DVT prophylaxisheparin subcu Otherwise as above. Subjective 89yo Female presents to hospital with 3wks of abdominal pain, states last night the pain was so bad so had daughter bring her in. PMH afib with pacer, HTN, CAD, GERD, hypothyroidism, gout, partial hysterectomy. She originally thought pain due to constipation tried fiber milk of magnesium did not help, limited appetite during that time. Patient seen at bedside, pain well controlled on medication, calm cooperative pleasant to talk to. She understood the need for surgery to remove her gallbladder, underwent surgery in morning. Per telemetry she was sinus rate/rhythm with occasional IVC's. In afternoon patient laying in bed sleeping, daughter at bedside. Per nurse morphine and oxycodone have helped her post op pain, also would like a heating pad for her back. Review of Systems Review of Systems: Positive abd pain Positive constipation, chronic Negative fever chills Negative headache dizziness Negative chest pain palpitations SOB Negative nausea vomitting diarrhea Negative numbness tingling rash swelling Physical Exam Physical Exam: General: Well appearing, age appropriate, obese Heart: RRR, +S1 S2, no murmurs/gallops/rubs Lungs: cta b/l, no wheezes/rales/rhonchi Abd: tender to palpation RUQ, soft, nondistended, +BS --> post surgery drainage tube in place Extremities: no swelling, no rashes Results & Data Results & Data ([facility]) Vital Signs (Past 12 Hours) Vital Signs Temp Pulse Pulse Resp BP BP Pulse Ox 06/26/21 04:03 36.8 C 74 18 127/74 98 06/26/21 04:02 36.8 C 74 18 127/74 98 06/26/21 03:45 75 06/26/21 03:06 72 16 147/58 H 93 06/26/21 02:19 16 94 06/26/21 02:00 76 16 161/73 H 95 06/26/21 01:55 16 96 06/26/21 01:31 77 12 150/56 H 93 06/26/21 01:25 16 91 06/26/21 01:16 78 22 152/65 H 93 06/26/21 01:01 78 20 131/58 L 92 06/26/21 00:45 68 21 164/47 H 93 06/26/21 00:44 18 93 06/26/21 00:15 76 23 159/62 H 93 06/26/21 00:05 76 20 178/62 H 94 06/26/21 00:00 78 20 93 06/25/21 23:45 78 18 94 06/25/21 23:32 70 18 06/25/21 23:30 18 95 06/25/21 23:03 20 94 06/25/21 23:02 63 20 94 06/25/21 23:00 74 20 06/25/21 22:58 69 20 174/100 H 96 06/25/21 22:06 37.9 C H 69 18 152/69 H 95 Laboratory Results 06/26/21 06/26/21 06/26/21 Range/Units 07:44 07:44 01:49 WBC 13.45 H (4.8-10.8) K/uL RBC 3.16 L (4.2-5.4) M/uL Hgb 9.9 L (12.0-16.0) g/dL Hct 31.8 L (37-47) % MCV 100.6 H (80-100) fL MCH 31.3 (25-34) pg MCHC 31.1 L (32-36) g/dL RDW Std Deviation 52.4 H (36.4-46.3) fL RDW Coeff of Lorenzo 14.3 (11.5-14.5) % Plt Count 285 (130-400) K/uL MPV 11.7 H (7.4-10.4) fL Immature Gran % (Auto) 1.3 % Neut % (Auto) 82.8 % Lymph % (Auto) 6.1 % Sawyer % (Auto) 8.8 % Eos % (Auto) 0.9 % Baso % (Auto) 0.1 % Neut # (Auto) 11.13 H (1.4-6.5) K/uL Lymph # (Auto) 0.82 L (1.2-3.4) K/uL Sawyer # (Auto) 1.19 H (0.11-0.59) K/uL Eos # (Auto) 0.12 (0-0.5) K/uL Baso # (Auto) 0.01 (0-0.2) K/uL Immature Gran # (Auto) 0.18 H (0.00-0.02) K/uL PT (9.0-12.0) Seconds INR (0.9-1.1) APTT (21.0-31.0) Seconds PTT Ratio Sodium 143 (136-145) mmol/L Potassium 4.6 (3.5-5.1) mmol/L Chloride 111 H (98-107) mmol/L Carbon Dioxide 27 (21-32) mmol/L Anion Gap 5.0 (3-11) BUN 60 H (7-18) mg/dl Creatinine 2.17 H (0.6-1.2) mg/dl Est Cr Clr Drug Dosing 17.5 ml/min Est GFR ( Amer) 22.7 ml/min Est GFR (Non-Af Amer) 19.6 ml/min BUN/Creatinine Ratio 27.7 H (10-20) Glucose 103 H (70-99) mg/dl Lactate (0.4-2.0) mmol/L Calcium 9.2 (8.5-10.1) mg/dl Magnesium (1.8-2.4) mg/dl Total Bilirubin 0.6 (0.2-1) mg/dl AST 8 L (15-37) U/L ALT 8 L (12-78) U/L Alkaline Phosphatase 80 (45-117) U/L Troponin I (0-0.045) ng/ml Total Protein 5.3 L (6.4-8.2) gm/dl Albumin 2.2 L (3.4-5.0) gm/dl Globulin 3.1 (2.5-4.0) gm/dl Albumin/Globulin Ratio 0.7 L (0.9-2) Urine Color Yellow Urine Appearance Clear (Clear) Urine pH 5.0 (4.5-7.5) Ur Specific Stendal 1.016 (1.000-1.030) Urine Protein Negative (Negative) Urine Glucose (UA) Negative (Negative) Urine Ketones Negative (Negative) Urine Blood Negative (Negative) Urine Nitrite Negative (Negative) Urine Bilirubin Negative (Negative) Urine Urobilinogen Negative (Negative) Ur Leukocyte Esterase 1+ H (Negative) Urine WBC (Auto) 5-10 H (0-5) /hpf Urine RBC (Auto) 0-4 (0-4) /hpf U Hyaline Cast (Auto) 1-5 (0-5) /lpf U Epithel Cells (Auto) >30 H (0-5) /lpf Urine Bacteria (Auto) Negative (Negative) COVID-19 Eval Order SARS-CoV-2 (PCR) (Negative) 06/25/21 06/25/21 06/25/21 Range/Units 23:45 23:45 23:36 WBC (4.8-10.8) K/uL RBC (4.2-5.4) M/uL Hgb (12.0-16.0) g/dL Hct (37-47) % MCV (80-100) fL MCH (25-34) pg MCHC (32-36) g/dL RDW Std Deviation (36.4-46.3) fL RDW Coeff of Lorenzo (11.5-14.5) % Plt Count (130-400) K/uL MPV (7.4-10.4) fL Immature Gran % (Auto) % Neut % (Auto) % Lymph % (Auto) % Sawyer % (Auto) % Eos % (Auto) % Baso % (Auto) % Neut # (Auto) (1.4-6.5) K/uL Lymph # (Auto) (1.2-3.4) K/uL Sawyer # (Auto) (0.11-0.59) K/uL Eos # (Auto) (0-0.5) K/uL Baso # (Auto) (0-0.2) K/uL Immature Gran # (Auto) (0.00-0.02) K/uL PT (9.0-12.0) Seconds INR (0.9-1.1) APTT (21.0-31.0) Seconds PTT Ratio Sodium (136-145) mmol/L Potassium (3.5-5.1) mmol/L Chloride (98-107) mmol/L Carbon Dioxide (21-32) mmol/L Anion Gap (3-11) BUN (7-18) mg/dl Creatinine (0.6-1.2) mg/dl Est Cr Clr Drug Dosing ml/min Est GFR ( Amer) ml/min Est GFR (Non-Af Amer) ml/min BUN/Creatinine Ratio (10-20) Glucose (70-99) mg/dl Lactate 0.7 (0.4-2.0) mmol/L Calcium (8.5-10.1) mg/dl Magnesium (1.8-2.4) mg/dl Total Bilirubin (0.2-1) mg/dl AST (15-37) U/L ALT (12-78) U/L Alkaline Phosphatase (45-117) U/L Troponin I (0-0.045) ng/ml Total Protein (6.4-8.2) gm/dl Albumin (3.4-5.0) gm/dl Globulin (2.5-4.0) gm/dl Albumin/Globulin Ratio (0.9-2) Urine Color Urine Appearance (Clear) Urine pH (4.5-7.5) Ur Specific Stendal (1.000-1.030) Urine Protein (Negative) Urine Glucose (UA) (Negative) Urine Ketones (Negative) Urine Blood (Negative) Urine Nitrite (Negative) Urine Bilirubin (Negative) Urine Urobilinogen (Negative) Ur Leukocyte Esterase (Negative) Urine WBC (Auto) (0-5) /hpf Urine RBC (Auto) (0-4) /hpf U Hyaline Cast (Auto) (0-5) /lpf U Epithel Cells (Auto) (0-5) /lpf Urine Bacteria (Auto) (Negative) COVID-19 Eval Order Covid19 at [facility] SARS-CoV-2 (PCR) NEGATIVE (Negative) 06/25/21 06/25/21 06/25/21 Range/Units 23:36 23:36 23:28 WBC 19.74 H (4.8-10.8) K/uL RBC 3.78 L (4.2-5.4) M/uL Hgb 12.1 (12.0-16.0) g/dL Hct 37.9 (37-47) % MCV 100.3 H (80-100) fL MCH 32.0 (25-34) pg MCHC 31.9 L (32-36) g/dL RDW Std Deviation 52.4 H (36.4-46.3) fL RDW Coeff of Lorenzo 14.5 (11.5-14.5) % Plt Count 327 (130-400) K/uL MPV 11.7 H (7.4-10.4) fL Immature Gran % (Auto) 1.2 % Neut % (Auto) 84.2 % Lymph % (Auto) 5.4 % Sawyer % (Auto) 7.6 % Eos % (Auto) 1.4 % Baso % (Auto) 0.2 % Neut # (Auto) 16.64 H (1.4-6.5) K/uL Lymph # (Auto) 1.06 L (1.2-3.4) K/uL Sawyer # (Auto) 1.50 H (0.11-0.59) K/uL Eos # (Auto) 0.27 (0-0.5) K/uL Baso # (Auto) 0.04 (0-0.2) K/uL Immature Gran # (Auto) 0.23 H (0.00-0.02) K/uL PT 11.1 (9.0-12.0) Seconds INR 1.1 (0.9-1.1) APTT 27.4 (21.0-31.0) Seconds PTT Ratio 1.0 Sodium 138 (136-145) mmol/L Potassium 4.7 (3.5-5.1) mmol/L Chloride 109 H (98-107) mmol/L Carbon Dioxide 23 (21-32) mmol/L Anion Gap 6.0 (3-11) BUN 65 H (7-18) mg/dl Creatinine 2.35 H (0.6-1.2) mg/dl Est Cr Clr Drug Dosing 15.9 ml/min Est GFR ( Amer) 20.6 ml/min Est GFR (Non-Af Amer) 17.8 ml/min BUN/Creatinine Ratio 27.8 H (10-20) Glucose 114 H (70-99) mg/dl Lactate (0.4-2.0) mmol/L Calcium 9.9 (8.5-10.1) mg/dl Magnesium 1.9 (1.8-2.4) mg/dl Total Bilirubin 0.9 (0.2-1) mg/dl AST 11 L (15-37) U/L ALT 12 (12-78) U/L Alkaline Phosphatase 98 (45-117) U/L Troponin I < 0.015 (0-0.045) ng/ml Total Protein 6.5 (6.4-8.2) gm/dl Albumin 2.9 L (3.4-5.0) gm/dl Globulin 3.6 (2.5-4.0) gm/dl Albumin/Globulin Ratio 0.8 L (0.9-2) Urine Color Urine Appearance (Clear) Urine pH (4.5-7.5) Ur Specific Stendal (1.000-1.030) Urine Protein (Negative) Urine Glucose (UA) (Negative) Urine Ketones (Negative) Urine Blood (Negative) Urine Nitrite (Negative) Urine Bilirubin (Negative) Urine Urobilinogen (Negative) Ur Leukocyte Esterase (Negative) Urine WBC (Auto) (0-5) /hpf Urine RBC (Auto) (0-4) /hpf U Hyaline Cast (Auto) (0-5) /lpf U Epithel Cells (Auto) (0-5) /lpf Urine Bacteria (Auto) (Negative) COVID-19 Eval Order SARS-CoV-2 (PCR) (Negative) Diagnostic Findings Abdomen/Pelvis CT 06/25/21 22:58 CT OF THE ABDOMEN AND PELVIS WITHOUT CONTRAST CLINICAL HISTORY: Abdominal pain and fever. COMPARISON STUDY: Renal ultrasound May 21, 2016. TECHNIQUE: Axial images of the abdomen and pelvis were obtained without IV contrast. Images were reviewed in the axial, sagittal, and coronal planes. Aut omated exposure control was utilized for the study. A dose lowering technique was utilized adhering to the principles of ALARA. FINDINGS: A moderate sized hiatal hernia is present. Cardiomegaly is noted. Pacer lead is partially imaged. No pneumatosis, free air or portal venous gas is present. There is no biliary or pancreatic ductal dilatation. Evaluation of the abdomen and pelvis is suboptimal on this unenhanced exam. The gallbladder is distended. There is gallbladder wall thickening with moderate pericholecystic infiltration. There are gallstones within the gallbladder. There is no gas within the gallbladder wall. Wall thickening of the adjacent portion of the colon is likely secondary to cholecystitis. There is also possible edema within the adjacent portion of the liver. Spleen is borderline enlarged. There is colonic diverticulosis without evidence for acute diverticulitis. There is no evidence for a bowel obstruction. There is no lymphadenopathy. No acute fracture or suspicious lesion is identified within the visualized skeletal structures. IMPRESSION: 1. Findings consistent with moderate to severe acute cholecystitis. 2. Hiatal hernia. 3. Colonic diverticulosis without evidence for acute diverticulitis. ACT 112: Negative or not required by law. Electronically signed by: Pravin Bobby M.D. 06/26/2021 8:28 AM Chest X-Ray 06/25/21 22:58 XR chest 1V portable CLINICAL HISTORY: SEPSIS COMPARISON STUDY: Chest radiograph October 30, 2017. FINDINGS: Dual lead left subclavian pacemaker is in place. There is cardiomegaly without evidence for pulmonary edema. Minimal bibasilar opacities favor atelectasis. There is no pneumothorax or pleural effusion. A hiatal hernia is present. No consolidation is identified. IMPRESSION: No acute cardiopulmonary findings. ACT 112: Negative or not required by law. Electronically signed by: Pravin Bobby M.D. 06/26/2021 8:54 AM Medications Administered Current Inpatient Medications Allopurinol (Allopurinol 100 Mg Tab) 100 mg PO DAILY [facility] Stop: 07/26/21 08:59 Last Admin: 06/26/21 09:29 Dose: Not Given Documented by: Amiodarone HCl (Amiodarone 200 Mg Tab) 100 mg PO DAILY [facility] Stop: 07/26/21 08:59 Last Admin: 06/26/21 09:24 Dose: 100 mg Documented by: Aspirin (Aspirin 81 Mg Ectab) 81 mg PO DAILY [facility] Stop: 07/26/21 08:59 Last Admin: 06/26/21 09:29 Dose: Not Given Documented by: Atropine Sulfate (Atropine Sulfate 0.1 Mg/Ml 10ml Syr) 0.5 mg IV Q1M PRN PRN Reason: PACU Use-HR<40 &/or Bradycardi Stop: 06/26/21 19:08 Calcitriol (Calcitriol 0.25 Mcg Capsule) 0.25 mcg PO DAILY [facility] Stop: 07/26/21 08:59 Last Admin: 06/26/21 09:29 Dose: Not Given Documented by: Ephedrine Sulfate (Ephedrine Sulfate 50 Mg/Ml Amp) 5 mg IV Q5M PRN PRN Reason: PACU Use Only-SBP<90 mmHg Stop: 06/26/21 19:08 Fentanyl Citrate (Fentanyl Citrate 100 Mcg/2 Ml Vial) 25 mcg IV Q5M PRN PRN Reason: PACU Use Only-Pain Stop: 06/26/21 19:08 Last Admin: 06/26/21 13:18 Dose: 25 mcg Documented by: Heparin Sodium (Porcine) (Heparin Sod 5,000 Unit/0.5 Ml Vial) 5,000 units SQ Q12 [facility] Stop: 07/26/21 08:59 Last Admin: 06/26/21 09:29 Dose: Not Given Documented by: Piperacillin Sod/Tazobactam (Sod 4.5 gm/ Dextrose) 120 mls @ 30 mls/hr IV Q12H [facility]; Protocol Stop: 07/06/21 07:59 Last Infusion: 06/26/21 14:48 Dose: Infused Documented by: Pantoprazole Sodium 40 mg/ (Syringe) 10 mls @ 5 mls/min IV DAILY@1100 [facility] Stop: 07/26/21 10:59 Last Admin: 06/26/21 14:05 Dose: 5 mls/min Documented by: Sodium Chloride (Nss 1000ml) 1,000 mls @ 125 mls/hr IV .Q8H [facility] Stop: 06/26/21 19:57 Last Admin: 06/26/21 16:03 Dose: 125 mls/hr Documented by: Acetaminophen (Ofirmev) 1,000 mg in 100 mls @ 400 mls/hr IV Q8H [facility] Stop: 06/29/21 14:59 Last Admin: 06/26/21 16:03 Dose: 400 mls/hr Documented by: Levothyroxine Sodium (Levothyroxine Sodium 50 Mcg Tablet) 50 mcg PO DAILYBB [facility] Stop: 07/26/21 06:29 Last Admin: 06/26/21 06:24 Dose: Not Given Documented by: Losartan Potassium (Losartan Potassium 50 Mg Tab) 50 mg PO BID [facility] Stop: 07/26/21 08:59 Last Admin: 06/26/21 09:29 Dose: Not Given Documented by: Magnesium Hydroxide (Magnesium Hydroxide Susp 30 Ml Udc) 30 ml PO Q12H PRN PRN Reason: Constipation Stop: 07/26/21 03:57 Metoprolol Tartrate (Metoprolol Tartrate 25 Mg Tab) 25 mg PO BID [facility] Stop: 07/26/21 08:59 Last Admin: 06/26/21 09:24 Dose: 25 mg Documented by: Miscellaneous Information (Piperacill/Tazobac Consult Active) 1 ea N/A UD PRN PRN Reason: Consult Stop: 07/26/21 03:57 Morphine Sulfate (Morphine Sulfate 2 Mg/Ml Carp) 2 mg IV Q3H PRN PRN Reason: Pain (1,2,3,4,5) & Pre PT Stop: 07/10/21 13:56 Last Admin: 06/26/21 14:01 Dose: 2 mg Documented by: Morphine Sulfate (Morphine Sulfate 4 Mg/Ml 1 Ml Carp\Vial) 4 mg IV Q3H PRN PRN Reason: Pain (6,7,8,9,10) Stop: 07/10/21 13:56 Ondansetron HCl (Ondansetron Inj 2 Mg/Ml 2 Ml Vial) 4 mg IV Q6H PRN PRN Reason: Nausea Stop: 07/26/21 03:57 Ondansetron HCl (Ondansetron Inj 2 Mg/Ml 2 Ml Vial) 4 mg IV ONCE PRN PRN Reason: PACU Use Only-Nausea/Vomiting Stop: 06/26/21 19:08 Last Admin: 06/26/21 13:19 Dose: 4 mg Documented by: Oxycodone HCl (Oxycodone Hcl Ir 5 Mg Tab (Immediate Release)) 5 mg PO Q4H PRN PRN Reason: MODERATE Pain (4,5,6) & Pre PT Stop: 07/10/21 13:56 Last Admin: 06/26/21 14:45 Dose: 5 mg Documented by: Oxycodone HCl (Oxycodone Hcl Ir 5 Mg Tab (Immediate Release)) 10 mg PO Q4H PRN PRN Reason: SEVERE Pain (7,8,9,10) Stop: 07/10/21 13:56 Polyethylene Glycol (Polyethylene (Miralax) 17 Gm Pack) 17 gm PO DAILY@1400 [facility] Stop: 07/26/21 13:59 Last Admin: 06/26/21 14:11 Dose: Not Given Documented by: Torsemide (Torsemide 10 Mg Tab) 10 mg PO DAILY [facility] Stop: 07/26/21 08:59 Last Admin: 06/26/21 09:29 Dose: Not Given Documented by: Resident Activity Tracking Resident Involvement: Resident Care Provided Care Provided: Adult Hospital Medicine
--- NOTE | 2021-06-26 07:58 | Anesthesiology Consultation ---
Date of Service June 26, 2021 Assessment & Plan Chart Review Chart Review: Acceptable Risk for Surgery and Patient NOT seen in Pre Admission Testing Consults Requested none History Surgery Operation Date: 06/26/21 13:00 Proposed Procedures p Laparoscopic Cholecystectomy - Rupert Duong MD Height/Weight Height: 5 ft 1.5 in Weight: 84.3 kg Allergies Allergy/AdvReac Type Severity Reaction Status Date / Time adhesive Allergy Severe SEVERE Verified 06/25/21 23:09 REDNESS/PAIN amlodipine Allergy Intermediate Rash Verified 06/25/21 23:09 Sulfa (Sulfonamide Allergy Intermediate Rash Verified 06/25/21 23:09 Antibiotics) indomethacin Allergy Unknown Unknown Verified 06/25/21 23:09 Medications Home Medications Medication Instructions Recorded Confirmed Last Taken allopurinol 100 mg tablet 100 mg PO DAILY #90 tab 08/01/19 06/25/21 Unknown amiodarone 200 mg tablet 100 mg PO DAILY #15 tab 08/01/19 06/25/21 Unknown levothyroxine 50 mcg tablet 50 mcg PO DAILY #30 tab 08/01/19 06/25/21 Unknown losartan 50 mg tablet 50 mg PO BID #60 tab 08/01/19 06/25/21 Unknown metoprolol tartrate 25 mg tablet 25 mg PO BID #180 tab 08/01/19 06/25/21 Unknown omeprazole 40 mg capsule,delayed 40 mg PO DAILY #30 cap 08/01/19 06/25/21 Unknown release calcitriol 0.25 mcg capsule 0.25 mcg PO DAILY #90 cap 04/07/21 06/25/21 Unknown aspirin 81 mg tablet,delayed 81 mg PO DAILY 06/25/21 06/25/21 Unknown release (Aspirin Low Dose) torsemide 10 mg tablet 10 mg PO DAILY 06/25/21 06/25/21 Unknown Active Medications Generic Name Dose Route Start Last Admin Trade Name Freq PRN Reason Stop Dose Admin Sodium Chloride 1,000 mls @ 125 mls/hr 06/26/21 03:58 06/26/21 04:30 Nss 1000ml IV 06/26/21 19:57 125 mls/hr .Q8H [facility] Administration Levothyroxine Sodium 50 mcg 06/26/21 06:30 06/26/21 06:24 Levothyroxine Sodium 50 Mcg Tablet PO 07/26/21 06:29 Not Given DAILYBB [facility]IZA NPO Date Last Intake of Solids: 06/25/21 Past Medical History Medical History Chronic kidney disease, stage III (moderate) Sick sinus syndrome Skin lesion of cheek Vitamin D deficiency Past Family History Family History Aunt Colorectal cancer Breast cancer Brother Myocardial infarction Denies family history of Ovarian cancer Prostate cancer Past Surgical History Surgical History S/P cardiac pacemaker procedure S/P hysterectomy Past Anesthesia History No Hx of Anesthesia Complications History of PONV History of PONV Social History Smoking Status: Never smoker Hx Alcohol Use: No Hx Substance Use: No Physical Exam Vital Signs Last Vital Signs Temp 36.8 C 06/26/21 04:03 Pulse 74 06/26/21 04:03 Resp 18 06/26/21 04:03 BP 127/74 06/26/21 04:03 Pulse Ox 98 06/26/21 04:03 Testing Laboratory Results 06/25/21 23:28 06/25/21 23:36 PT 11.1 Seconds (9.0-12.0) 06/25/21 23:36 INR 1.1 (0.9-1.1) 06/25/21 23:36 APTT 27.4 Seconds (21.0-31.0) 06/25/21 23:36 Urine Color Yellow 06/26/21 01:49 Urine Appearance Clear (Clear) 06/26/21 01:49 Urine pH 5.0 (4.5-7.5) 06/26/21 01:49 Ur Specific Krypton 1.016 (1.000-1.030) 06/26/21 01:49 Urine Protein Negative (Negative) 06/26/21 01:49 Urine Glucose (UA) Negative (Negative) 06/26/21 01:49 Urine Ketones Negative (Negative) 06/26/21 01:49 Urine Nitrite Negative (Negative) 06/26/21 01:49 Ur Leukocyte Esterase 1+ (Negative) H 06/26/21 01:49 Urine WBC (Auto) 5-10 /hpf (0-5) H 06/26/21 01:49 Urine RBC (Auto) 0-4 /hpf (0-4) 06/26/21 01:49 U Hyaline Cast (Auto) 1-5 /lpf (0-5) 06/26/21 01:49 U Epithel Cells (Auto) >30 /lpf (0-5) H 06/26/21 01:49 Urine Bacteria (Auto) Negative (Negative) 06/26/21 01:49
[2021-06-26 08:14] LABS: Basophils # (auto) 0.01 K/uL (0-0.2); Basophils % (auto) 0.1 %; Eosinophils # (auto) 0.12 K/uL (0-0.5); Eosinophils % (auto) 0.9 %; Hematocrit (blood only) 31.8 % (37-47); Hemoglobin 9.9 g/dL (12.0-16.0); Immature Granulocytes # (auto) 0.18 K/uL (0.00-0.02); Immature Granulocytes % (auto) 1.3 %; Lymphocytes # (auto) 0.82 K/uL (1.2-3.4); Lymphocytes % (auto) 6.1 %; Mean Corpuscular Hemoglobin 31.3 pg (25-34); Mean Corpuscular Hgb Conc 31.1 g/dL (32-36); Mean Corpuscular Volume 100.6 fL (80-100); Mean Platelet Volume 11.7 fL (7.4-10.4); Monocytes # (auto) 1.19 K/uL (0.11-0.59); Monocytes % (auto) 8.8 %; Neutrophils # (auto) 11.13 K/uL (1.4-6.5); Neutrophils % (auto) 82.8 %; Platelet Count 285 K/uL (130-400); RDW Coefficient of Variation 14.3 % (11.5-14.5); RDW Standard Deviation 52.4 fL (36.4-46.3); Red Blood Count 3.16 M/uL (4.2-5.4); White Blood Count 13.45 K/uL (4.8-10.8)
--- NOTE | 2021-06-26 08:29 | CT Scan Report ---
CT OF THE ABDOMEN AND PELVIS WITHOUT CONTRAST CLINICAL HISTORY: Abdominal pain and fever. COMPARISON STUDY: Renal ultrasound May 21, 2016. TECHNIQUE: Axial images of the abdomen and pelvis were obtained without IV contrast. Images were revi ewed in the axial, sagittal, and coronal planes. Automated exposure control was utilized for the natali dy. A dose lowering technique was utilized adhering to the principles of ALARA. FINDINGS: A moderate sized hiatal hernia is present. Cardiomegaly is noted. Pacer lead is partially i janae. No pneumatosis, free air or portal venous gas is present. There is no biliary or pancreatic du ctal dilatation. Evaluation of the abdomen and pelvis is suboptimal on this unenhanced exam. The gall bladder is distended. There is gallbladder wall thickening with moderate pericholecystic infiltration . There are gallstones within the gallbladder. There is no gas within the gallbladder wall. Wall thic kening of the adjacent portion of the colon is likely secondary to cholecystitis. There is also possi ble edema within the adjacent portion of the liver. Spleen is borderline enlarged. There is colonic d iverticulosis without evidence for acute diverticulitis. There is no evidence for a bowel obstruction . There is no lymphadenopathy. No acute fracture or suspicious lesion is identified within the visual ized skeletal structures. IMPRESSION: 1. Findings consistent with moderate to severe acute cholecystitis. 2. Hiatal hernia. 3. Colonic diverticulosis without evidence for acute diverticulitis. ACT 112: Negative or not required by law. Electronically signed by: Pravin Bobby M.D. 06/26/2021 8:28 AM
[2021-06-26 08:48] LABS: Albumin Level 2.2 gm/dl (3.4-5.0); BUN Creatinine Ratio 27.7 (10-20); Calcium 9.2 mg/dl (8.5-10.1); Creatinine Clr Calc Pharmacy 17.5 ml/min; Est GFR (African American) 22.7 ml/min; Est GFR (Non-African American) 19.6 ml/min; Potassium 4.6 mmol/L (3.5-5.1)
[2021-06-26 08:54] LABS: Albumin Globulin Ratio 0.7 (0.9-2); Bilirubin,Total 0.6 mg/dl (0.2-1); Globulin 3.1 gm/dl (2.5-4.0); Total Protein 5.3 gm/dl (6.4-8.2)
--- NOTE | 2021-06-26 08:55 | XRay Report ---
XR chest 1V portable CLINICAL HISTORY: SEPSIS COMPARISON STUDY: Chest radiograph October 30, 2017. FINDINGS: Dual lead left subclavian pacemaker is in place. There is cardiomegaly without evidence for pulmonary edema. Minimal bibasilar opacities favor atelectasis. There is no pneumothorax or pleural effusion. A hiatal hernia is present. No consolidation is identified. IMPRESSION: No acute cardiopulmonary findings. ACT 112: Negative or not required by law. Electronically signed by: Pravin Bobby M.D. 06/26/2021 8:54 AM
--- NOTE | 2021-06-26 09:23 | Surgery Consultation ---
Date of Consultation June 26, 2021 Assessment & Plan (1) Cholecystitis: IVF and IV abx medically cleared to OR for lap johnny consent obtained History of Present Illness Attending Physician: Woody Champion DO History of Present Illness This is a 89 yo seen in ED for 3 weeks of ongoing abdominal pain. She has hac nausea but no vomiting. Subjective fevers but no chills, night sweats, dysuria or back pain. Has had a prior MNOROE. The pain not associated with food intake and no radiation. A CT scan shows acute cholecystitis and has elevated WBC, but down this AM. Allergies Allergy/AdvReac Type Severity Reaction Status Date / Time adhesive Allergy Severe SEVERE Verified 06/25/21 23:09 REDNESS/PAIN amlodipine Allergy Intermediate Rash Verified 06/25/21 23:09 Sulfa (Sulfonamide Allergy Intermediate Rash Verified 06/25/21 23:09 Antibiotics) indomethacin Allergy Unknown Unknown Verified 06/25/21 23:09 Home Medications Medication Instructions Recorded Confirmed Type allopurinol 100 mg tablet 100 mg PO DAILY #90 tab 08/01/19 06/25/21 History amiodarone 200 mg tablet 100 mg PO DAILY #15 tab 08/01/19 06/25/21 History levothyroxine 50 mcg tablet 50 mcg PO DAILY #30 tab 08/01/19 06/25/21 History losartan 50 mg tablet 50 mg PO BID #60 tab 08/01/19 06/25/21 History metoprolol tartrate 25 mg tablet 25 mg PO BID #180 tab 08/01/19 06/25/21 History omeprazole 40 mg capsule,delayed 40 mg PO DAILY #30 cap 08/01/19 06/25/21 History release calcitriol 0.25 mcg capsule 0.25 mcg PO DAILY #90 cap 04/07/21 06/25/21 Rx aspirin 81 mg tablet,delayed 81 mg PO DAILY 06/25/21 06/25/21 History release (Aspirin Low Dose) torsemide 10 mg tablet 10 mg PO DAILY 06/25/21 06/25/21 History Patient History Medical History Chronic kidney disease, stage III (moderate) Sick sinus syndrome Skin lesion of cheek Vitamin D deficiency Surgical History S/P cardiac pacemaker procedure S/P hysterectomy Family History Aunt Colorectal cancer Breast cancer Brother Myocardial infarction Denies family history of Ovarian cancer Prostate cancer Social History Smoking Status: Never smoker Second Hand Exposure: No; Hx Alcohol Use: No Hx Substance Use: No Preferred Language: Khmer Communication Ability: Effective Visual Impairment: No Limitations Hearing Ability: Use of Hearing Aid Search Consultant Required: No Beliefs That Will Affect Care: None marital status: / Current Living Situation: Alone current occupational status: retired Other Information That Helps Us Care for You: No Feels Safe at Home: Yes Safety Concerns: Feels Safe At This Time Dental Care, Regularly: No Physical Activity Frequency: Does not Exercise Seatbelt Use: sometimes Assistive Devices: Denture - Upper, Denture - Lower, Glasses and Hearing Aid - Bilateral Assistive Devices Comment: does not wear hearing aids Review of Systems Constitutional: + fever and + anorexia; no chills and no sweats Respiratory: no dyspnea Cardiovascular: no chest pain Gastrointestinal: + abdominal pain and + nausea; no vomiting and no change in bowel habits Genitourinary: no dysuria Musculoskeletal: no back pain Integumentary: no rash and no yellowing of the skin Neurologic: no localized weakness and no generalized weakness Endocrine: no fatigue Hematologic / Lymphatic: no easy bleeding and no easy bruising Physical Exam Constitutional: well developed and well nourished; no acute distress Eyes: PERRL, conjunctivae normal, anicteric sclerae ENMT: external ear and nose normal, oropharynx normal Neck: trachea midline Respiratory: normal respiratory effort, lungs clear to auscultation Cardiovascular: RRR, no murmur, no edema Gastrointestinal (Abdomen): Inspection/Auscultation: abdomen normal to inspection, normal bowel sounds and + abdominal surgical scar (low midline); abdomen not distended Percussion/Palpation: + abdomen tender and abdomen soft; no guarding and abdomen not rigid Musculoskeletal: Head/Neck/Chest: normocephalic and head atraumatic Skin: no rashes, warm and dry no jaundice Psychiatric: Orientation: alert and oriented x 3 Results & Data ([facility]) Vital Signs (Past 12 Hours) Vital Signs Temp Pulse Pulse Resp BP BP BP 06/26/21 08:00 36.4 C L 65 18 114/64 06/26/21 04:03 36.8 C 74 18 127/74 06/26/21 04:02 36.8 C 74 18 127/74 06/26/21 03:45 75 06/26/21 03:06 72 16 147/58 H 06/26/21 02:19 16 06/26/21 02:00 76 16 161/73 H 06/26/21 01:55 16 06/26/21 01:31 77 12 150/56 H 06/26/21 01:25 16 06/26/21 01:16 78 22 152/65 H 06/26/21 01:01 78 20 131/58 L 06/26/21 00:45 68 21 164/47 H 06/26/21 00:44 18 06/26/21 00:15 76 23 159/62 H 06/26/21 00:05 76 20 178/62 H 06/26/21 00:00 78 20 06/25/21 23:45 78 18 06/25/21 23:32 70 18 06/25/21 23:30 18 06/25/21 23:03 20 06/25/21 23:02 63 20 06/25/21 23:00 74 20 06/25/21 22:58 69 20 174/100 H 06/25/21 22:06 37.9 C H 69 18 152/69 H Pulse Ox 06/26/21 08:00 97 06/26/21 04:03 98 06/26/21 04:02 98 06/26/21 03:45 06/26/21 03:06 93 06/26/21 02:19 94 06/26/21 02:00 95 06/26/21 01:55 96 06/26/21 01:31 93 06/26/21 01:25 91 06/26/21 01:16 93 06/26/21 01:01 92 06/26/21 00:45 93 06/26/21 00:44 93 06/26/21 00:15 93 06/26/21 00:05 94 06/26/21 00:00 93 06/25/21 23:45 94 06/25/21 23:32 06/25/21 23:30 95 06/25/21 23:03 94 06/25/21 23:02 94 06/25/21 23:00 06/25/21 22:58 96 06/25/21 22:[address] OF THE ABDOMEN AND PELVIS WITHOUT CONTRAST CLINICAL HISTORY: Abdominal pain and fever. COMPARISON STUDY: Renal ultrasound May 21, 2016. TECHNIQUE: Axial images of the abdomen and pelvis were obtained without IV contrast. Images were reviewed in the axial, sagittal, and coronal planes. Automated exposure control was utilized for the study. A dose lowering technique was utilized adhering to the principles of ALARA. FINDINGS: A moderate sized hiatal hernia is present. Cardiomegaly is noted. Pacer lead is partially imaged. No pneumatosis, free air or portal venous gas is present. There is no biliary or pancreatic ductal dilatation. Evaluation of the abdomen and pelvis is suboptimal on this unenhanced exam. The gallbladder is distended. There is gallbladder wall thickening with moderate pericholecystic infiltration. There are gallstones within the gallbladder. There is no gas within the gallbladder wall. Wall thickening of the adjacent portion of the colon is likely secondary to cholecystitis. There is also possible edema within the adjacent portion of the liver. Spleen is borderline enlarged. There is colonic diverticulosis without evidence for acute diverticulitis. There is no evidence for a bowel obstruction. There is no lymphadenopathy. No acute fracture or suspicious lesion is identified within the visualized skeletal structures. IMPRESSION: 1. Findings consistent with moderate to severe acute cholecystitis. 2. Hiatal hernia. 3. Colonic diverticulosis without evidence for acute diverticulitis.
[2021-06-26] MEDS: METOPROLOL TARTRATE 25 MG TAB PO SCH ×2 (09:24→21:15)
[2021-06-26] MEDS: AMIODARONE 200 MG TAB PO SCH (09:24)
[2021-06-26] MEDS: TORSEMIDE 10 MG TAB PO SCH (09:29)
[2021-06-26] MEDS: allopurinoL 100 MG TAB PO SCH (09:29)
[2021-06-26] MEDS: HEPARIN SOD 5,000 UNIT/0.5 ML VIAL SQ SCH ×2 (09:29→21:18)
[2021-06-26] MEDS: CALCITRIOL 0.25 MCG CAPSULE PO SCH (09:29)
[2021-06-26] MEDS: LOSARTAN POTASSIUM 50 MG TAB PO SCH ×2 (09:29→21:18)
[2021-06-26] MEDS: ASPIRIN 81 MG ECTAB PO SCH (09:29)
[2021-06-26] MEDS ORDERED: PROPOFOL IV EMULSION 10 MG/ML 20 ML VIAL IV ONE (09:33)
[2021-06-26] MEDS ORDERED: LIDOCAINE 2% 2 ML VIAL/AMP(20MG/ML) INFIL ONE (09:33)
[2021-06-26] MEDS ORDERED: ONDANSETRON INJ 2 MG/ML 2 ML VIAL ONE ×2 (09:33→11:02)
[2021-06-26] MEDS ORDERED: fentaNYL citrate 100 MCG/2 ML VIAL ONE ×2 (09:34→12:23)
[2021-06-26] MEDS ORDERED: EPINEPHrine INJ 1 MG/ML AMP ONE (10:43)
[2021-06-26] MEDS ORDERED: BUPIVACAINE 0.5 % 5 MG/1 ML MPF 30ML VIAL ONE (10:44)
[2021-06-26] MEDS: PIPERACILLIN/TAZOBACTAM 4.5 GM in DEXTROSE 5% 100 ML IV SCH ×2 (10:48→21:12)
[2021-06-26] MEDS ORDERED: DEXAMETHASONE SOD INJ 4 MG/ML VIAL ONE (11:01)
[2021-06-26] MEDS ORDERED: fentaNYL citrate 100 MCG/2 ML VIAL IV PRN (11:08)
[2021-06-26] MEDS ORDERED: ePHEDrine sulfate 50 MG/ML AMP IV PRN (11:08)
[2021-06-26] MEDS ORDERED: ONDANSETRON INJ 2 MG/ML 2 ML VIAL IV PRN (11:08)
[2021-06-26] MEDS ORDERED: ATROPINE SULFATE 0.1 MG/ML 10ML SYR IV PRN (11:08)
[2021-06-26] MEDS ORDERED: GLYCOPYRROLATE 0.2 MG/ML VIAL ONE (11:13)
[2021-06-26] MEDS ORDERED: NEOSTIGMINE METHYLSULFATE 1 MG/ML 10ML VIAL ONE (11:13)
--- NOTE | 2021-06-26 12:37 | Post Operative Brief Note ---
Immediate Post Op Note v1 Date of Surgery June 26, 2021 Pre & Post Diagnosis Operation Date: 06/26/21 13:00 Pre-Op Diagnosis: Acute Cholecystitis Post-Op Diagnosis: Acute Gangrenous Cholecystitis with abscess I identified the patient and participated in the time-out.: Yes Procedure Operation Date: 06/26/21 13:00 Actual Procedures p Laparoscopic Cholecystectomy(Not Applicable) - Rupert Duong MD Surgeon Rupert Duong MD Electrical Estimator none Estimated Blood Loss 75 Findings See Below Gangrenous perforated cholecystitis with abscess cavity between transverse colon and GB Drains Lito-Richardson Drain
--- NOTE | 2021-06-26 13:18 | Operative Report (OR) ---
DATE OF PROCEDURE: 06/26/2021. PREOPERATIVE DIAGNOSIS: Acute cholecystitis. POSTOPERATIVE DIAGNOSIS: Acute gangrenous cholecystitis with perforation and abscess. PROCEDURE PERFORMED: Laparoscopic cholecystectomy, difficult procedure. SURGEON: Rupert Duong MD. ANESTHESIA: General endotracheal with 0.5% Marcaine with epinephrine local. BREAKER TABLE WORKER: None. DRAINS: ASHLEY drain left in the abscess cavity and gallbladder fossa. ESTIMATED BLOOD LOSS: 75 mL. COMPLICATIONS: None. INDICATIONS FOR THE PROCEDURE: This is an 89-year-old female admitted through the ED last night with acute abdominal pain, which has been going on for a week. She had a workup, which included a CT sca n, which showed acute cholecystitis. She was placed on the medicine service. She was medically na red and will be taken to the OR for laparoscopic cholecystectomy. We talked about the risk of open p rocedure, common bile duct injury, retained common bile duct stones, bleeding, infection, bowel and b lood vessel injury. She understands this and wishes to proceed. DESCRIPTION OF PROCEDURE: The patient was taken to the OR and underwent excellent general endotrache al anesthesia. Abdomen was prepped and draped in normal sterile fashion. Transverse supraumbilical incision was made. Dissection was taken down to identify her fascia. 2-0 Vicryls were placed on eit her side of the midline fascia. The fascia was excised. The peritoneal cavity was entered then blun tly. Jayme trocar was inserted. Good pneumoperitoneum was achieved to 15 mmHg pressure. An 11 sub xiphoid and two 5 lateral ports were space in a normal fashion. She was placed in head up and rolled to the left. There was an obvious inflammatory process in her right upper quadrant. The gallbladder could be iden tified with transverse colon appeared to be adherent. Using blunt dissection, this was entered. Th ere was an obvious abscess cavity here. Using blunt dissection and no cautery and any kind of heat a t all, this was taken down sharply and bluntly using hydrodissection and sharp dissection. The absce ss cavity was then taken down to the base of the gallbladder neck. This was an extremely difficult d issection, took more than 30 minutes to completely dissect this and make sure that no injury was made to the transverse colon. The gallbladder itself was incredibly inflamed. A grasper was then used to grasp the fundus of the g allbladder and this was retracted superiorly. The neck was then taken down. There were dense adhesi ons, which were taken down slowly with cautery. This was done along the medial and lateral wall of t he gallbladder. A window was then created between the gallbladder fossa and the gallbladder. In thi s dissection, a small injury was made to the artery and bleeding could be seen. This was then clippe d with a clip speech professor. Once this was done, using lateral tension on the neck, dissection was taken down and a critical view was seen where the cystic duct was identified. It was extremely inflamed and dilated. Because of th e tissues, it was elected to place a GARRY stapler across the cystic duct. Therefore, a 12 port repla frank the 11 port in the subxiphoid incision. An Endo-GARRY vascular 30 load was then used and this was placed across the cystic duct. This was done after the critical view was seen with the medial and la teral windows showing the structure going straight to the gallbladder. The GARRY stapler was then used to transect the duct. Once this was done, cautery was then used to remove the gallbladder off the g allbladder fossa. This was also a difficult dissection, but the entire gallbladder was removed witho ut difficulty. The gallbladder was brought out with an Endobag and sent for pathologic evaluation. The pneumoperitoneum was reestablished. The abdomen was then irrigated and suctioned to clear. Ther e was no active bleeding. There was about 75 mL of blood loss. The abscess cavity was checked. No further infection was seen. The transverse colon could be seen with no obvious injury. Once this wa s done, a Valentin drain was then placed in the abscess bed also adjacent to the gallbladder fossa. Thi s was secured with a nylon suture. Pneumoperitoneum was then decompressed. The ports were removed. Fascia was then closed with interrupted 0 Vicryl sutures. The skin was closed with interrupted Vicr yl sutures. Steri-Strips and benzoin were used to reinforce the incision. Sterile dressings were ap plied. The patient tolerated the procedure without any complications and sent to the postop recovery for a period of observation and will be sent to the floor for her care. Job ID: [id number]
--- NOTE | 2021-06-26 13:30 | Anesthesiology Progress Note ---
Date of Service June 26, 2021 Anesthesia Post Procedure Vital Signs Vital Signs: Temp Pulse Pulse Pulse Resp BP BP 06/26/21 13:25 60 16 124/55 L 06/26/21 13:15 36.2 C L 63 16 113/48 L 06/26/21 13:05 64 16 116/47 L 06/26/21 12:55 62 16 102/32 L 06/26/21 12:45 74 16 94/38 L 06/26/21 12:39 36.0 C L 64 16 105/48 L 06/26/21 09:00 65 06/26/21 08:00 36.4 C L 65 18 114/64 06/26/21 04:03 36.8 C 74 18 06/26/21 04:02 36.8 C 74 18 06/26/21 03:45 75 06/26/21 03:06 72 16 147/58 H 06/26/21 02:19 16 06/26/21 02:00 76 16 161/73 H 06/26/21 01:55 16 06/26/21 01:31 77 12 150/56 H 06/26/21 01:25 16 06/26/21 01:16 78 22 152/65 H 06/26/21 01:01 78 20 131/58 L 06/26/21 00:45 68 21 164/47 H 06/26/21 00:44 18 06/26/21 00:15 76 23 159/62 H 06/26/21 00:05 76 20 06/26/21 00:00 78 20 06/25/21 23:45 78 18 06/25/21 23:32 70 18 06/25/21 23:30 18 06/25/21 23:03 20 06/25/21 23:02 63 20 06/25/21 23:00 74 20 06/25/21 22:58 69 20 06/25/21 22:06 37.9 C H 69 18 152/69 H BP Pulse Ox 06/26/21 13:25 94 06/26/21 13:15 93 06/26/21 13:05 95 06/26/21 12:55 95 06/26/21 12:45 92 06/26/21 12:39 92 06/26/21 09:00 06/26/21 08:00 97 06/26/21 04:03 127/74 98 08/22/21 04:02 127/74 98 06/26/21 03:45 06/26/21 03:06 93 06/26/21 02:19 94 06/26/21 02:00 95 06/26/21 01:55 96 06/26/21 01:31 93 06/26/21 01:25 91 06/26/21 01:16 93 06/26/21 01:01 92 06/26/21 00:45 93 06/26/21 00:44 93 06/26/21 00:15 93 06/26/21 00:05 178/62 H 94 06/26/21 00:00 93 06/25/21 23:45 94 06/25/21 23:32 06/25/21 23:30 95 06/25/21 23:03 94 06/25/21 23:02 94 06/25/21 23:00 06/25/21 22:58 174/100 H 96 06/25/21 22:06 95 Pain Intensity Abdomen: Pain Intensity: 6 Transfer of Care Handoff Completed per policy Notes Mental Status: alert / awake / arousable and participated in evaluation Patient Amnestic to Procedure: Yes Nausea / Vomiting: adequately controlled Pain: improving with treatment Airway Patency, RR, SpO2: stable & adequate BP & HR: stable & adequate Hydration State: stable & adequate Anesthetic Complications: no major complications apparent and Pt Satisfied with anesthetic care
[2021-06-26] MEDS ORDERED: oxyCODONE HCL IR 5 MG TAB (IMMEDIATE RELEASE) PO PRN (13:57)
[2021-06-26] MEDS ORDERED: MoRPHine SULFATE 2 MG/ML CARP IV PRN (13:57)
[2021-06-26] MEDS ORDERED: MoRPHine SULFATE 4 MG/ML 1 ML CARP\\VIAL IV PRN (13:57)
[2021-06-26] MEDS: PANTOprazole 40 MG in SYRINGE 0 ML IV SCH (14:05)
[2021-06-26] MEDS: POLYETHYLENE (MIRALAX) 17 GM PACK PO SCH (14:11)
[2021-06-26] MEDS: oxyCODONE HCL IR 5 MG TAB (IMMEDIATE RELEASE) PO PRN (14:45)
[2021-06-26] MEDS: ACETAMINOPHEN 1,000 MG/100 ML VIAL IV SCH (16:03)
--- NOTE | 2021-06-26 17:28 | Billing Data ---
Date of Service June 26, 2021 Coding Level of Care Code 03307 Subseq Hosp Care Lvl 2
--- NOTE | 2021-06-26 21:25 | Billing Data ---
Date of Service June 26, 2021 Coding Level of Care Code 53703 Initial Inpt Care Lvl 3
[2021-06-26] MEDS: ONDANSETRON INJ 2 MG/ML 2 ML VIAL IV PRN (21:47)
[2021-06-27] MEDS: ACETAMINOPHEN 1,000 MG/100 ML VIAL IV SCH ×3 (00:21→18:56)
[2021-06-27] MEDS: LEVOTHYROXINE SODIUM 50 MCG TABLET PO SCH (06:11)
[2021-06-27] MEDS: oxyCODONE HCL IR 5 MG TAB (IMMEDIATE RELEASE) PO PRN (06:14)
[2021-06-27] MEDS: ASPIRIN 81 MG ECTAB PO SCH (08:19)
[2021-06-27] MEDS: CALCITRIOL 0.25 MCG CAPSULE PO SCH (08:19)
[2021-06-27] MEDS: AMIODARONE 200 MG TAB PO SCH (08:19)
[2021-06-27] MEDS: METOPROLOL TARTRATE 25 MG TAB PO SCH (08:22)
[2021-06-27] MEDS: TORSEMIDE 10 MG TAB PO SCH (08:22)
[2021-06-27] MEDS: allopurinoL 100 MG TAB PO SCH (08:23)
[2021-06-27] MEDS: HEPARIN SOD 5,000 UNIT/0.5 ML VIAL SQ SCH ×2 (08:23→20:45)
[2021-06-27] MEDS: LOSARTAN POTASSIUM 50 MG TAB PO SCH (08:24)
[2021-06-27] MEDS: ONDANSETRON INJ 2 MG/ML 2 ML VIAL IV PRN (08:29)
[2021-06-27] MEDS: PIPERACILLIN/TAZOBACTAM 4.5 GM in DEXTROSE 5% 100 ML IV SCH ×2 (08:32→20:42)
[2021-06-27] MEDS: PANTOprazole 40 MG in SYRINGE 0 ML IV SCH (12:11)
--- NOTE | 2021-06-27 12:43 | Hospitalist Progress Note ---
Date of Service June 27, 2021 Assessment & Plan (1) Cholecystitis: Plan: Acute gangrenous cholecystitis with intraabdominal abscess - s/p johnny -S/p cholecystectomy yesterday 06/26/2021 - tolerated procedure well -Pain controlled this morning but has some discomfort. -Pt is not tolerating current diet, discontinue morphine, reassess later today -continue IV zosyn -Trend CBC/CMP. -Continue IV tylenol 1000mg for pain control -Continue checking surgical wounds Elevated WBC in the setting of having vomited -WBC 26.93 today. -possibly sec to aspiration/intraabdominal infection/demargination sec to stress reaction. -Blood Cultures ordered -KUB and chest Xray done today, pleural effusions noted b/l, no SBO seen. -Switched to NPO, reassess in AM NILAM on CKD 3 -Creatinine 2.48 today, continue to monitor Atrial Fibrillation -amiodarone, blockers on hold due to NPO status. follow HTN -losarton on hold while NPO. - unclear why on Torsemide- on hold. follow. DVt ppx: heparin Diet: NPO Code Status: full code Dispo: Med/tele (2) Elevated white blood cell count: (3) Acute kidney injury superimposed on chronic kidney disease: Admission and Anticipated Discharge Date Admission Date: June 26, 2021 Supervising Physician Co-Signing Physician Notes Resident Physician Supervision Note: I independently interviewed and examined the patient and verified the jensen history and physical, reviewed labs and image studies and agree with resident Dr. Mtital findings and care plan. Subjective 89yo Female s/p cholecystectomy seen at bedside this morning. Pt is cooperative and is pleasant. Pt states she feels well, but she has been unable to keep any of her diet down this morning. She states that as soon as she swallows it, the food comes right back up. At her bedside is a gordon with regurgitated jello. She denies nausea, she just seems to think it is simply regurgitation. She reports some abdominal pain and lower back pain. She feels it may have to do with sliding down in her bed when she is sat up. She states that this pain is tolerable and she has had no pain medication this morning. Review of Systems Review of Systems: Positive abd pain Positive constipation, chronic Negative fever chills Negative headache dizziness Negative chest pain palpitations SOB Negative nausea vomitting diarrhea Negative numbness tingling rash swelling Gastrointestinal: + abdominal pain, + early satiety, + nausea and + constipation; no bloating, no heartburn, no vomiting, no diarrhea/loose stools and no blood in stools Genitourinary: no dysuria Physical Exam Constitutional: well developed, well nourished, cooperative and comfortable; no acute distress Eyes: + anicteric sclerae ENMT: Ears: + hearing impairment Neck: trachea midline Respiratory: normal respiratory effort, lungs clear to auscultation Cardiovascular: RRR, no murmur, no edema Gastrointestinal (Abdomen): normal bowel sounds, soft, nontender, no hepatosplenomegaly Skin: no rashes, warm and dry Psychiatric: A+Ox3, euthymic affect Speech: normal rate/rhythm/volume of speech Results & Data Results & Data ([facility]) Vital Signs (Past 12 Hours) Vital Signs Temp Pulse Pulse Pulse Resp BP Pulse Ox 06/27/21 11:18 36.6 C 77 16 138/80 95 06/27/21 07:20 36.4 C L 68 16 115/63 90 06/27/21 04:10 36.7 C 63 18 123/65 92 06/27/21 00:58 61
[2021-06-27 13:32] LABS: Hematocrit (blood only) 37.8 % (37-47); Hemoglobin 11.6 g/dL (12.0-16.0); Mean Corpuscular Hemoglobin 31.4 pg (25-34); Mean Corpuscular Hgb Conc 30.7 g/dL (32-36); Mean Corpuscular Volume 102.4 fL (80-100); Mean Platelet Volume 11.8 fL (7.4-10.4); Platelet Count 338 K/uL (130-400); RDW Coefficient of Variation 14.6 % (11.5-14.5); RDW Standard Deviation 53.8 fL (36.4-46.3); Red Blood Count 3.69 M/uL (4.2-5.4); White Blood Count 26.93 K/uL (4.8-10.8)
[2021-06-27 13:40] LABS: Est GFR (African American) 19.3 ml/min; Potassium 4.5 mmol/L (3.5-5.1)
[2021-06-27 13:41] LABS: Albumin Level 2.4 gm/dl (3.4-5.0); BUN Creatinine Ratio 23.6 (10-20); Calcium 9.5 mg/dl (8.5-10.1); Creatinine Clr Calc Pharmacy 15.3 ml/min; Est GFR (Non-African American) 16.6 ml/min
[2021-06-27 13:43] LABS: Albumin Globulin Ratio 0.6 (0.9-2); Bilirubin,Total 0.7 mg/dl (0.2-1); Globulin 3.7 gm/dl (2.5-4.0); Total Protein 6.1 gm/dl (6.4-8.2)
--- NOTE | 2021-06-27 15:07 | Surgery Progress Note ---
Date of Service June 27, 2021 Assessment & Plan (1) Cholecystitis: Plan: POD # 1 s/p laparoscopic cholecystectomy (severe cholecystitis with contained perforation and transverse colon adhered to gallbladder) -afebrile, vss - belem drain with 575 cc output, bloody - Hg down to 9.9 from 12.1 but hemodynamically stable - leukocytosis improved Plan: continue pain management as needed, IV Tylenol added Continue IV Zofran Continue clear liquids given the vomiting Continue belem drain to bulb suction Continue IV Abx repeat am labs continue scds/heparin for dvt prophylaxis Dr. Sandhu has seen patient and agrees with above Admission and Anticipated Discharge Date Admission Date: June 26, 2021 Subjective feeling tired this morning having some pain at incision sites and right side of abdomen but pain medicaiton helped unable to keep her liquids down this morning, vomited the jell-o back up urinating okay no bowel movement or flatus no chest pain or shortness of breath Physical Exam Constitutional: no acute distress and not ill appearing Respiratory: normal respiratory effort; no respiratory distress, no labored breathing and no retractions Gastrointestinal (Abdomen): Inspection/Auscultation: abdomen normal to inspection, + abdominal surgical drain present (bloody output) and + hypoactive bowel sounds; abdomen not distended and + abnormal bowel sounds Percussion/Palpation: + abdomen tender (at incision sites and drain site) and abdomen soft; no guarding and abdomen not rigid Skin: no rashes, warm and dry + incision (covered with dry dressings) Psychiatric: Orientation: alert, oriented to person and oriented to place Results & Data ([facility]) Vital Signs (Past 12 Hours) Vital Signs Temp Pulse Pulse Resp BP Pulse Ox 06/27/21 11:18 36.6 C 77 16 138/80 95 06/27/21 07:20 36.4 C L 68 16 115/63 90 06/27/21 04:10 36.7 C 63 18 123/65 92 Laboratory Results 06/27/21 06/27/21 Range/Units 13:01 13:01 WBC 26.93 H (4.8-10.8) K/uL RBC 3.69 L (4.2-5.4) M/uL Hgb 11.6 L (12.0-16.0) g/dL Hct 37.8 (37-47) % MCV 102.4 H (80-100) fL MCH 31.4 (25-34) pg MCHC 30.7 L (32-36) g/dL RDW Std Deviation 53.8 H (36.4-46.3) fL RDW Coeff of Lorenzo 14.6 H (11.5-14.5) % Plt Count 338 (130-400) K/uL MPV 11.8 H (7.4-10.4) fL Sodium 140 (136-145) mmol/L Potassium 4.5 (3.5-5.1) mmol/L Chloride 109 H (98-107) mmol/L Carbon Dioxide 23 (21-32) mmol/L Anion Gap 8.0 (3-11) BUN 59 H (7-18) mg/dl Creatinine 2.48 H D (0.6-1.2) mg/dl Est Cr Clr Drug Dosing 15.3 ml/min Est GFR ( Amer) 19.3 ml/min Est GFR (Non-Af Amer) 16.6 ml/min BUN/Creatinine Ratio 23.6 H (10-20) Glucose 149 H (70-99) mg/dl Calcium 9.5 (8.5-10.1) mg/dl Total Bilirubin 0.7 (0.2-1) mg/dl AST 22 (15-37) U/L ALT 17 (12-78) U/L Alkaline Phosphatase 71 (45-117) U/L Total Protein 6.1 L (6.4-8.2) gm/dl Albumin 2.4 L (3.4-5.0) gm/dl Globulin 3.7 (2.5-4.0) gm/dl Albumin/Globulin Ratio 0.6 L (0.9-2)
--- NOTE | 2021-06-27 16:22 | XRay Report ---
SINGLE VIEW CHEST CLINICAL HISTORY: Leukocytosis. FINDINGS: An AP, portable, semi-erect chest radiograph is compared to study dated 06/25/2021. The exam ination is degraded by portable technique and patient rotation. A 2-lead cardiac pacemaker partially obscures the left upper chest. The heart is enlarged noting atherosclerotic calcification of the thor acic aorta. The pulmonary vascular structures noncongested. Small pleural effusions are suspected wit h dependent atelectasis. No airspace consolidation is seen typical for pneumonia. No pneumothorax is seen. The skeletal structures are osteopenic. The bony thorax is grossly intact. IMPRESSION: 1. Cardiomegaly and cardiac pacemaker. There is no radiographic evidence of congestive failure. 2. Suspect small pleural effusions. ACT 112: Negative or not required by law. Electronically signed by: Sarbjit Stiles M.D. 06/27/2021 4:20 PM
--- NOTE | 2021-06-27 16:53 | XRay Report ---
KUB HISTORY: elevated WBC COMPARISON: Abdomen and pelvis CT 06/26/2021. FINDINGS: There is a surgical drain within the right side the abdomen. No dilated loops of bowel to s uggest an obstruction. Evidence for interval cholecystectomy. A pacemaker wire is noted. No renal ca lculi. No ureteral calculi. No pneumoperitoneum or pneumatosis. IMPRESSION: Interval cholecystectomy with a surgical drain within the right side of the abdomen. No evidence for bowel obstruction. ACT 112: Negative or not required by law. Electronically signed by: Gabriel Omalley M.D. 06/27/2021 4:52 PM
[2021-06-27] MEDS: POLYETHYLENE (MIRALAX) 17 GM PACK PO SCH (17:20)
[2021-06-28] MEDS: ACETAMINOPHEN 1,000 MG/100 ML VIAL IV SCH ×3 (00:33→16:25)
[2021-06-28] MEDS: DICLOFENAC SOD 1% GEL 100 GM TUBE EXT PRN (05:51)
[2021-06-28 07:25] LABS: Hematocrit (blood only) 32.7 % (37-47); Hemoglobin 10.1 g/dL (12.0-16.0); Mean Corpuscular Hemoglobin 31.3 pg (25-34); Mean Corpuscular Hgb Conc 30.9 g/dL (32-36); Mean Corpuscular Volume 101.2 fL (80-100); Mean Platelet Volume 11.6 fL (7.4-10.4); Platelet Count 313 K/uL (130-400); RDW Coefficient of Variation 14.8 % (11.5-14.5); RDW Standard Deviation 54.3 fL (36.4-46.3); Red Blood Count 3.23 M/uL (4.2-5.4); White Blood Count 25.67 K/uL (4.8-10.8)
--- NOTE | 2021-06-28 07:50 | XRay Report ---
XR chest 1V portable HISTORY: 89 years-old Female elevated WBC acute leukocytosis COMPARISON: Chest radiograph 06/27/2021 TECHNIQUE: Portable AP view of the chest FINDINGS: Cardiac silhouette is enlarged, unchanged. Left subclavian pacer. Layering pleural effusions. Linear bibasilar opacities. No pneumothorax or overt pulmonary edema. Mild chronic interstitial coarsening. Degenerative changes of the shoulders and spine. IMPRESSION: 1. Cardiomegaly without pulmonary edema. 2. Unchanged small pleural effusions with bibasilar atelectasis. ACT 112: Negative or not required by law. The above report was generated using voice recognition software. It may contain grammatical, syntax o r spelling errors. Electronically signed by: Braxton Martinez M.D. 06/28/2021 7:48 AM
[2021-06-28 07:59] LABS: Albumin Level 1.9 gm/dl (3.4-5.0); BUN Creatinine Ratio 22.3 (10-20); Calcium 9.2 mg/dl (8.5-10.1); Creatinine Clr Calc Pharmacy 13.1 ml/min; Est GFR (Non-African American) 13.8 ml/min; Potassium 4.6 mmol/L (3.5-5.1)
[2021-06-28 08:02] LABS: Albumin Globulin Ratio 0.6 (0.9-2); Bilirubin,Total 0.5 mg/dl (0.2-1); Globulin 3.4 gm/dl (2.5-4.0); Total Protein 5.3 gm/dl (6.4-8.2)
--- NOTE | 2021-06-28 08:22 | XRay Report ---
KUB HISTORY: elevated wbc COMPARISON: KUB 06/27/2021. FINDINGS: Prior cholecystectomy. A right mid abdominal drain is again noted. This is unchanged in pos ition. There are small bilateral pleural effusions. Pacemaker wires are noted. No dilated loops of concepción wel to suggest an obstruction. No renal calculi. No ureteral calculi. No pneumoperitoneum or pneumat osis. IMPRESSION: No significant change compared to the prior study. No evidence of bowel obstruction. A right-sided poole rgical drain is unchanged in position. ACT 112: Negative or not required by law. Electronically signed by: Gabriel Omalley M.D. 06/28/2021 8:21 AM
[2021-06-28] MEDS: HEPARIN SOD 5,000 UNIT/0.5 ML VIAL SQ SCH ×2 (08:37→20:23)
[2021-06-28] MEDS: PIPERACILLIN/TAZOBACTAM 4.5 GM in DEXTROSE 5% 100 ML IV SCH ×2 (08:42→20:21)
[2021-06-28] MEDS ORDERED: SODIUM CHLORIDE 0.9% 1000ML 250 ML IV ONE (09:00)
[2021-06-28] MEDS: SODIUM CHLORIDE 0.9% 1000ML 1,000 ML IV SCH ×2 (10:40→19:44)
--- NOTE | 2021-06-28 11:14 | Hospitalist Progress Note ---
Date of Service June 28, 2021 Assessment & Plan (1) Cholecystitis: Plan: Acute Cholecystitis -S/p cholecystectomy 2 days ago, tolerated procedure well -Pain controlled this morning but has some discomfort. -Advanced diet to clear liquids, general surgery is agreeable, resume home medications. -Trend CBC/CMP. -Switched scheduled IV tylenol to oral prn tylenol for mild pain -Continue checking surgical wounds Elevated WBC -WBC 25.67 today. -Blood Cultures pending -KUB and chest Xray done today, pleural effusions noted b/l, no SBO seen, no changes from yesterday. -Ordered Procalcitonin which came back at over 20. MRSA nasal swab was negative -clinically stable. follow wbc. NILAM on CKD -Creatinine 2.90 today, -likely prerenal in nature -IVF maintenance and follow bmp RLE Swelling -2+ pitting edema of RLE -Well's score of 3 putting her at high risk for DVT -US doppler of RLE revealed no DVT Atrial Fibrillation -resume amiodarone and beta franklin as she is now on clear liquids. follow HTN -resume losartan and torsemide. DVt ppx: heparin Diet: Clear liquids Code Status: full code Dispo: Med/tele (2) Elevated white blood cell count: (3) Acute kidney injury superimposed on chronic kidney disease: (4) Right leg swelling: Admission and Anticipated Discharge Date Admission Date: June 26, 2021 Supervising Physician Co-Signing Physician Notes Resident Physician Supervision Note: I independently interviewed and examined the patient and verified the jensen history and physical, reviewed labs and image studies and agree with resident Dr. Mittal findings and care plan. Subjective Pt is a pleasant 89 year old female seen at bedside. Today she states that she is overall well, but she had difficulty with sleeping last night. She states that she had some abdominal discomfort throughout the night that was moderately relieved with IV tylenol. She otherwise has no new complaints that she would like to go over. She denies n/v, sob, fevers, chills, or chest pain. Review of Systems Review of Systems: All systems reviewed & are unremarkable except as noted in HPI & below Physical Exam Constitutional: WD/WN, vitals as above cooperative and comfortable Eyes: + anicteric sclerae Neck: trachea midline, no thyromegaly Respiratory: normal respiratory effort, lungs clear to auscultation Cardiovascular: Rate/Rhythm: regular rate and regular rhythm Heart Sounds: normal S1 and normal S2 Extremities: + edema (2+ pitting edema on the RLE. Negative Lizz Sign.); no calf tenderness Gastrointestinal (Abdomen): Inspection/Auscultation: normal bowel sounds, + abdominal surgical incision and + abdominal surgical drain present Percussion/Palpation: + abdomen tender (Mild tenderness to palpation on the R abdomen) and + dullness to percussion Skin: no rashes, warm and dry Psychiatric: A+Ox3, euthymic affect Results & Data Results & Data ([facility]) Vital Signs (Past 12 Hours) Vital Signs Temp Pulse Pulse Resp BP BP Pulse Ox 06/28/21 08:15 36.6 C 68 20 120/70 93 06/28/21 07:27 64 06/28/21 03:30 36.5 C 71 20 138/83 96 06/27/21 23:36 60 06/27/21 23:15 36.4 C L 66 20 115/67 97 Resident Activity Tracking Resident Involvement: Resident Care Provided Care Provided: Adult Hospital Medicine
--- NOTE | 2021-06-28 11:23 | Ultrasound Report ---
RIGHT LOWER EXTREMITY VENOUS DOPPLER HISTORY: Right leg swelling. COMPARISON STUDY: None. FINDINGS: There is normal compressibility, flow, and augmentation within the right lower extremity de ep venous system. IMPRESSION: No DVT within the right lower extremity ACT 112: Negative or not required by law. Electronically signed by: Gabriel Omalley M.D. 06/28/2021 11:22 AM
[2021-06-28] MEDS: PANTOprazole 40 MG in SYRINGE 0 ML IV SCH (11:50)
--- NOTE | 2021-06-28 13:31 | Surgery Progress Note ---
Date of Service June 28, 2021 Assessment & Plan (1) Cholecystitis: Plan: POD # 2 s/p laparoscopic cholecystectomy (severe cholecystitis with contained perforation and transverse colon adhered to gallbladder) - afebrile, vss - belem drain with 105 cc output, serosanguineous - Hg down to stable 10.1 today - leukocytosis up to 26K yesterday afternoon, stable this morning at 25K, procalcitonin elevated at 20 Plan: continue pain management as needed Continue IV Zofran Continue belem drain to bulb suction Continue IV Abx repeat am labs, monitor wbc okay for clear liquids, no signs of obstruction on KUB continue scds/heparin for dvt prophylaxis Admission and Anticipated Discharge Date Admission Date: June 26, 2021 Subjective sleeping sitting up in chair upon entering room feeling okay today, some soreness in abdomen, had rough night with abdominal pain but controlled with pain medication no n/v no chest pain or shortness of breath has not passed flatus or bowel movement yet Physical Exam Constitutional: WD/WN, vitals as above no acute distress Gastrointestinal (Abdomen): Inspection/Auscultation: abdomen normal to inspection and + abdominal surgical drain present (serosanguineous ); abdomen not distended Percussion/Palpation: + abdomen tender (at incision sites) and abdomen soft; no guarding and abdomen not rigid Skin: no rashes, warm and dry + incision (covered with dry intact dressings) Psychiatric: A+Ox3, euthymic affect Results & Data ([facility]) Vital Signs (Past 12 Hours) Vital Signs Temp Pulse Pulse Resp BP BP Pulse Ox 06/28/21 12:55 36.3 C L 69 20 121/71 92 06/28/21 08:15 36.6 C 68 20 120/70 93 06/28/21 07:27 64 06/28/21 03:30 36.5 C 71 20 138/83 96 Laboratory Results 06/28/21 06/28/21 06/28/21 Range/Units 10:30 07:02 07:02 WBC 25.67 H (4.8-10.8) K/uL RBC 3.23 L (4.2-5.4) M/uL Hgb 10.1 L (12.0-16.0) g/dL Hct 32.7 L (37-47) % MCV 101.2 H (80-100) fL MCH 31.3 (25-34) pg MCHC 30.9 L (32-36) g/dL RDW Std Deviation 54.3 H (36.4-46.3) fL RDW Coeff of Lorenzo 14.8 H (11.5-14.5) % Plt Count 313 (130-400) K/uL MPV 11.6 H (7.4-10.4) fL Sodium 141 (136-145) mmol/L Potassium 4.6 (3.5-5.1) mmol/L Chloride 109 H (98-107) mmol/L Carbon Dioxide 22 (21-32) mmol/L Anion Gap 9.0 (3-11) BUN 65 H (7-18) mg/dl Creatinine 2.90 H D (0.6-1.2) mg/dl Est Cr Clr Drug Dosing 13.1 ml/min Est GFR ( Amer) 16.0 ml/min Est GFR (Non-Af Amer) 13.8 ml/min BUN/Creatinine Ratio 22.3 H (10-20) Glucose 99 (70-99) mg/dl Calcium 9.2 (8.5-10.1) mg/dl Total Bilirubin 0.5 (0.2-1) mg/dl AST 12 L (15-37) U/L ALT 14 (12-78) U/L Alkaline Phosphatase 60 (45-117) U/L Total Protein 5.3 L (6.4-8.2) gm/dl Albumin 1.9 L (3.4-5.0) gm/dl Globulin 3.4 (2.5-4.0) gm/dl Albumin/Globulin Ratio 0.6 L (0.9-2) Procalcitonin 20.55 H (0-0.5) ng/ml 06/27/21 06/27/21 Range/Units 13:01 13:01 WBC 26.93 H (4.8-10.8) K/uL RBC 3.69 L (4.2-5.4) M/uL Hgb 11.6 L (12.0-16.0) g/dL Hct 37.8 (37-47) % MCV 102.4 H (80-100) fL MCH 31.4 (25-34) pg MCHC 30.7 L (32-36) g/dL RDW Std Deviation 53.8 H (36.4-46.3) fL RDW Coeff of Lorenzo 14.6 H (11.5-14.5) % Plt Count 338 (130-400) K/uL MPV 11.8 H (7.4-10.4) fL Sodium 140 (136-145) mmol/L Potassium 4.5 (3.5-5.1) mmol/L Chloride 109 H (98-107) mmol/L Carbon Dioxide 23 (21-32) mmol/L Anion Gap 8.0 (3-11) BUN 59 H (7-18) mg/dl Creatinine 2.48 H D (0.6-1.2) mg/dl Est Cr Clr Drug Dosing 15.3 ml/min Est GFR ( Amer) 19.3 ml/min Est GFR (Non-Af Amer) 16.6 ml/min BUN/Creatinine Ratio 23.6 H (10-20) Glucose 149 H (70-99) mg/dl Calcium 9.5 (8.5-10.1) mg/dl Total Bilirubin 0.7 (0.2-1) mg/dl AST 22 (15-37) U/L ALT 17 (12-78) U/L Alkaline Phosphatase 71 (45-117) U/L Total Protein 6.1 L (6.4-8.2) gm/dl Albumin 2.4 L (3.4-5.0) gm/dl Globulin 3.7 (2.5-4.0) gm/dl Albumin/Globulin Ratio 0.6 L (0.9-2) Procalcitonin (0-0.5) ng/ml Diagnostic Findings KUB HISTORY: elevated wbc COMPARISON: KUB 06/27/2021. FINDINGS: Prior cholecystectomy. A right mid abdominal drain is again noted. This is unchanged in position. There are small bilateral pleural effusions. Pacemaker wires are noted. No dilated loops of bowel to suggest an obstruction. No renal calculi. No ureteral calculi. No pneumoperitoneum or pneumatosis. IMPRESSION: No significant change compared to the prior study. No evidence of bowel obstruction. A right-sided surgical drain is unchanged in position.
[2021-06-28] MEDS ORDERED: ACETAMINOPHEN 325 MG TAB PO PRN (18:22)
[2021-06-28] MEDS ORDERED: COUGH DROP (SUGAR FREE) LOZ 24 LOZ/1 BOX BUCCAL PRN (20:06)
[2021-06-28] MEDS ORDERED: CHLORASEPTIC 1.4% SOLN 180 ML BTL MT PRN (20:06)
[2021-06-28] MEDS ORDERED: COUGH DROP (SUGAR FREE) LOZ 24 LOZ/1 BOX BUCCAL ONE (20:32)
[2021-06-29] MEDS ORDERED: Nursing to Pharmacy Communication SCH (02:45)
[2021-06-29] MEDS: SODIUM CHLORIDE 0.9% 1000ML 1,000 ML IV SCH ×3 (05:27→21:50)
[2021-06-29 08:28] LABS: Hematocrit (blood only) 33.6 % (37-47); Hemoglobin 10.4 g/dL (12.0-16.0); Mean Corpuscular Hemoglobin 31.4 pg (25-34); Mean Corpuscular Volume 101.5 fL (80-100); Mean Platelet Volume 11.6 fL (7.4-10.4); Platelet Count 335 K/uL (130-400); RDW Standard Deviation 55.2 fL (36.4-46.3); Red Blood Count 3.31 M/uL (4.2-5.4); White Blood Count 23.67 K/uL (4.8-10.8)
[2021-06-29 09:06] LABS: BUN Creatinine Ratio 19.4 (10-20); Basophils # (auto) 0.02 K/uL (0-0.2); Basophils % (auto) 0.1 %; Calcium 9.3 mg/dl (8.5-10.1); Creatinine Clr Calc Pharmacy 10.9 ml/min; Eosinophils % (auto) 0.8 %; Est GFR (African American) 12.5 ml/min; Est GFR (Non-African American) 10.8 ml/min; Immature Granulocytes # (auto) 0.17 K/uL (0.00-0.02); Immature Granulocytes % (auto) 0.7 %; Lymphocytes # (auto) 1.13 K/uL (1.2-3.4); Lymphocytes % (auto) 4.8 %; Monocytes # (auto) 1.27 K/uL (0.11-0.59); Monocytes % (auto) 5.4 %; Neutrophils # (auto) 20.88 K/uL (1.4-6.5); Neutrophils % (auto) 88.2 %; Potassium 4.3 mmol/L (3.5-5.1)
[2021-06-29] MEDS: PIPERACILLIN/TAZOBACTAM 4.5 GM in DEXTROSE 5% 100 ML IV SCH ×2 (09:17→21:39)
[2021-06-29] MEDS: allopurinoL 100 MG TAB PO SCH (09:18)
[2021-06-29] MEDS: ASPIRIN 81 MG ECTAB PO SCH (09:19)
[2021-06-29] MEDS: AMIODARONE 200 MG TAB PO SCH (09:19)
[2021-06-29] MEDS: HEPARIN SOD 5,000 UNIT/0.5 ML VIAL SQ SCH ×2 (09:20→21:49)
[2021-06-29] MEDS: LOSARTAN POTASSIUM 50 MG TAB PO SCH (09:20)
[2021-06-29] MEDS: METOPROLOL TARTRATE 25 MG TAB PO SCH ×2 (09:21→21:50)
[2021-06-29] MEDS: TORSEMIDE 10 MG TAB PO SCH (09:22)
--- NOTE | 2021-06-29 09:35 | Electrocardiogram Report ---
Test Reason : Blood Pressure : / mmHG Vent. Rate : 067 BPM Atrial Rate : 067 BPM P-R Int : 182 ms QRS Dur : 140 ms QT Int : 492 ms P-R-T Axes : 074 047 038 degrees QTc Int : 519 ms Poor data quality, interpretation may be adversely affected Normal sinus rhythm Right bundle branch block Abnormal ECG When compared with ECG of 30-OCT-2017 00:59, Sinus rhythm has replaced Electronic atrial pacemaker Confirmed by Marcos Wright [id number]) on 06/29/2021 9:34:35 AM Referred By: REFERRED SELF Confirmed By:Marcos Wright
[2021-06-29] MEDS: PANTOprazole 40 MG in SYRINGE 0 ML IV SCH (10:33)
[2021-06-29] MEDS: SENNA 8.6 MG TAB PO SCH (11:39)
[2021-06-29] MEDS: POLYETHYLENE (MIRALAX) 17 GM PACK PO SCH ×6 (11:39→21:52)
--- NOTE | 2021-06-29 11:58 | Hospitalist Progress Note ---
Date of Service June 29, 2021 Assessment & Plan (1) Cholecystitis: Plan: Acute Cholecystitis -S/p cholecystectomy 3 days ago, tolerated procedure well -Pain controlled this morning but has minimal discomfort over surgical incisions. -Pt still on clear liquid diet. -oral prn tylenol for mild pain -Continue checking surgical wounds Constipation -Aggressive bowel regimen -continue clear liquid diet in the meantime. NILAM on CKD -Worse Creatinine level - 2.9 to 3.58 today, -? ATN with prerenal -IVF maintenance and follow. -recheck bmp in the afternoon. Leukocytosis -WBC 23.67 today. -Blood Cultures came back negative -clinically stable. follow wbc. RLE Swelling -US doppler of RLE yesterday revealed no DVT Atrial Fibrillation -resume amiodarone and beta franklin as she is now on clear liquids. follow HTN -holding losartan and torsemide because of NILAM DVt ppx: heparin Diet: Clear liquids Code Status: full code Dispo: Med/tele Admission and Anticipated Discharge Date Admission Date: June 26, 2021 Supervising Physician Co-Signing Physician Notes Resident Physician Supervision Note: I independently interviewed and examined the patient and verified the jensen history and physical, reviewed labs and image studies and agree with resident Dr. Mittal findings and care plan. Subjective Pt is a pleasant 89 year old female seen at bedside. Today she states that she is overall well, and she slept much better last night. She states that she had less abdominal discomfort than yesterday. Her only complaint is that she would like more foods than liquids. She states that she has not had a bowel movement in almost 10 days and is concerned that she has not gone. She denies n/v, sob, fevers, chills, or chest pain. Pt has no other complaints today. Review of Systems Review of Systems: Positive abd pain Positive constipation, chronic Negative fever chills Negative headache dizziness Negative chest pain palpitations SOB Negative nausea vomitting diarrhea Negative numbness tingling rash swelling Constitutional: no fever, no chills, no sweats and no fatigue Eyes: no blind spots and no discharge Ear, Nose, Mouth, Throat: no hearing loss and no nasal congestion Respiratory: no cough and no dyspnea Cardiovascular: no chest pain, no dyspnea on exertion and no edema Gastrointestinal: + abdominal pain, + early satiety, + nausea and + constipation; no bloating, no heartburn, no vomiting, no diarrhea/loose stools and no blood in stools Genitourinary: no dysuria Musculoskeletal: no joint pain and no myalgia Neurologic: no tingling, no numbness and no headache(s) Endocrine: no fatigue Physical Exam Constitutional: WD/WN, vitals as above well developed, well nourished, cooperative and comfortable; no acute distress Eyes: + anicteric sclerae ENMT: Ears: + hearing impairment Neck: trachea midline, no thyromegaly trachea midline Respiratory: normal respiratory effort, lungs clear to auscultation Cardiovascular: RRR, no murmur, no edema Rate/Rhythm: regular rate and regular rhythm Heart Sounds: normal S1 and normal S2 Extremities: + edema (2+ pitting edema on the RLE. Negative Lizz Sign.); no calf tenderness Gastrointestinal (Abdomen): normal bowel sounds, soft, nontender, no hepatosplenomegaly Inspection/Auscultation: normal bowel sounds, + abdominal surgical incision and + abdominal surgical drain present Percussion/Palpation: + abdomen tender (Mild tenderness to palpation on the R abdomen) and + dullness to percussion Skin: no rashes, warm and dry Psychiatric: A+Ox3, euthymic affect Speech: normal rate/rhythm/volume of speech Results & Data Results & Data ([facility]) Vital Signs (Past 12 Hours) Vital Signs Temp Pulse Pulse Pulse Resp BP Pulse Ox 06/29/21 11:27 36.5 C 62 15 114/66 95 06/29/21 08:00 36.6 C 66 16 132/68 95 06/29/21 06:53 36.7 C 65 19 99/62 L 94 06/29/21 02:55 36.7 C 71 19 129/75 93 06/29/21 01:35 88
--- NOTE | 2021-06-29 12:59 | Surgery Progress Note ---
Date of Service June 29, 2021 Assessment & Plan (1) Cholecystitis: Plan: POD # 3 s/p laparoscopic cholecystectomy (severe cholecystitis with contained perforation and transverse colon adhered to gallbladder) - afebrile, vss - belem drain with 30 cc output, bloody serosanguineous - Hgb stable 10.4 today - leukocytosis persists but improving 23K today Plan: continue pain management as needed Continue IV Zofran Continue belem drain to bulb suction Continue IV Abx repeat am labs, monitor wbc okay for clear liquids, no signs of obstruction on KUB continue scds/heparin for dvt prophylaxis needs bowel regimen given constipation and now bowel movement for [address] Sandhu has seen patient on rounds and agrees with above Admission and Anticipated Discharge Date Admission Date: June 26, 2021 Subjective feeling okay abdominal soreness at incision sites no nausea or vomiting tolerated clear liquids passed some gas but no bowel movement for past 10 days. Physical Exam Constitutional: WD/WN, vitals as above no acute distress and not ill appearing Respiratory: normal respiratory effort; no respiratory distress, no labored breathing and no retractions Gastrointestinal (Abdomen): Inspection/Auscultation: abdomen normal to inspection, normal bowel sounds, + abdominal surgical incision (clean and intact) and + abdominal surgical drain present (serosanguineous adn bloody); abdomen not distended Percussion/Palpation: + abdomen tender (at incisions and drain site) and abdomen soft; no guarding and abdomen not rigid Skin: no rashes, warm and dry Psychiatric: Orientation: alert and oriented x 3 Results & Data ([facility]) Vital Signs (Past 12 Hours) Vital Signs Temp Pulse Pulse Pulse Resp BP Pulse Ox 06/29/21 11:27 36.5 C 62 15 114/66 95 06/29/21 08:00 36.6 C 66 16 132/68 95 06/29/21 06:53 36.7 C 65 19 99/62 L 94 06/29/21 02:55 36.7 C 71 19 129/75 93 06/29/21 01:35 88 Laboratory Results 06/29/21 06/29/21 06/29/21 Range/Units 08:04 08:04 08:04 WBC 23.67 H (4.8-10.8) K/uL RBC 3.31 L (4.2-5.4) M/uL Hgb 10.4 L (12.0-16.0) g/dL Hct 33.6 L (37-47) % MCV 101.5 H (80-100) fL MCH 31.4 (25-34) pg MCHC 31.0 L (32-36) g/dL RDW Std Deviation 55.2 H (36.4-46.3) fL RDW Coeff of Lorenzo 15.0 H (11.5-14.5) % Plt Count 335 (130-400) K/uL MPV 11.6 H (7.4-10.4) fL Immature Gran % (Auto) 0.7 % Neut % (Auto) 88.2 % Lymph % (Auto) 4.8 % Dickinson % (Auto) 5.4 % Eos % (Auto) 0.8 % Baso % (Auto) 0.1 % Neut # (Auto) 20.88 H (1.4-6.5) K/uL Lymph # (Auto) 1.13 L (1.2-3.4) K/uL Dickinson # (Auto) 1.27 H (0.11-0.59) K/uL Eos # (Auto) 0.20 (0-0.5) K/uL Baso # (Auto) 0.02 (0-0.2) K/uL Immature Gran # (Auto) 0.17 H (0.00-0.02) K/uL Sodium 139 (136-145) mmol/L Potassium 4.3 (3.5-5.1) mmol/L Chloride 110 H (98-107) mmol/L Carbon Dioxide 19 L (21-32) mmol/L Anion Gap 10.0 (3-11) BUN 69 H (7-18) mg/dl Creatinine 3.56 H D (0.6-1.2) mg/dl Est Cr Clr Drug Dosing 10.9 ml/min Est GFR ( Amer) 12.5 ml/min Est GFR (Non-Af Amer) 10.8 ml/min BUN/Creatinine Ratio 19.4 (10-20) Glucose 89 (70-99) mg/dl Calcium 9.3 (8.5-10.1) mg/dl Procalcitonin 14.34 H (0-0.5) ng/ml Nasal Screen MRSA (PCR) (Negative) 06/28/21 Range/Units 15:00 WBC (4.8-10.8) K/uL RBC (4.2-5.4) M/uL Hgb (12.0-16.0) g/dL Hct (37-47) % MCV (80-100) fL MCH (25-34) pg MCHC (32-36) g/dL RDW Std Deviation (36.4-46.3) fL RDW Coeff of Lorenzo (11.5-14.5) % Plt Count (130-400) K/uL MPV (7.4-10.4) fL Immature Gran % (Auto) % Neut % (Auto) % Lymph % (Auto) % Dickinson % (Auto) % Eos % (Auto) % Baso % (Auto) % Neut # (Auto) (1.4-6.5) K/uL Lymph # (Auto) (1.2-3.4) K/uL Dickinson # (Auto) (0.11-0.59) K/uL Eos # (Auto) (0-0.5) K/uL Baso # (Auto) (0-0.2) K/uL Immature Gran # (Auto) (0.00-0.02) K/uL Sodium (136-145) mmol/L Potassium (3.5-5.1) mmol/L Chloride (98-107) mmol/L Carbon Dioxide (21-32) mmol/L Anion Gap (3-11) BUN (7-18) mg/dl Creatinine (0.6-1.2) mg/dl Est Cr Clr Drug Dosing ml/min Est GFR ( Amer) ml/min Est GFR (Non-Af Amer) ml/min BUN/Creatinine Ratio (10-20) Glucose (70-99) mg/dl Calcium (8.5-10.1) mg/dl Procalcitonin (0-0.5) ng/ml Nasal Screen MRSA (PCR) Negative (Negative)
[2021-06-29 14:49] LABS: BUN Creatinine Ratio 19.5 (10-20); Creatinine Clr Calc Pharmacy 10.8 ml/min; Est GFR (African American) 12.4 ml/min; Est GFR (Non-African American) 10.7 ml/min; Potassium 4.3 mmol/L (3.5-5.1)
[2021-06-29] MEDS: DICLOFENAC SOD 1% GEL 100 GM TUBE EXT PRN (22:01)
[2021-06-30] MEDS: LEVOTHYROXINE SODIUM 50 MCG TABLET PO SCH (05:42)
[2021-06-30 08:10] LABS: Basophils # (auto) 0.01 K/uL (0-0.2); Basophils % (auto) 0.1 %; Eosinophils # (auto) 0.21 K/uL (0-0.5); Eosinophils % (auto) 1.3 %; Hematocrit (blood only) 32.2 % (37-47); Hemoglobin 9.8 g/dL (12.0-16.0); Immature Granulocytes # (auto) 0.15 K/uL (0.00-0.02); Immature Granulocytes % (auto) 0.9 %; Lymphocytes % (auto) 3.7 %; Mean Corpuscular Hemoglobin 31.4 pg (25-34); Mean Corpuscular Hgb Conc 30.4 g/dL (32-36); Mean Corpuscular Volume 103.2 fL (80-100); Mean Platelet Volume 11.9 fL (7.4-10.4); Monocytes # (auto) 1.51 K/uL (0.11-0.59); Monocytes % (auto) 9.2 %; Neutrophils # (auto) 13.94 K/uL (1.4-6.5); Neutrophils % (auto) 84.8 %; Nucleated RBC # (auto) 0.03 K/uL (0-0); Nucleated RBC % (auto) 0.2 %; Platelet Count 323 K/uL (130-400); RDW Coefficient of Variation 15.2 % (11.5-14.5); RDW Standard Deviation 57.5 fL (36.4-46.3); Red Blood Count 3.12 M/uL (4.2-5.4); White Blood Count 16.42 K/uL (4.8-10.8)
[2021-06-30 08:44] LABS: BUN Creatinine Ratio 18.3 (10-20); Calcium 9.2 mg/dl (8.5-10.1); Creatinine Clr Calc Pharmacy 9.8 ml/min; Est GFR (Non-African American) 9.5 ml/min; Potassium 4.4 mmol/L (3.5-5.1)
[2021-06-30 08:47] LABS: Albumin Globulin Ratio 0.6 (0.9-2); Bilirubin,Total 0.5 mg/dl (0.2-1); Globulin 3.3 gm/dl (2.5-4.0); Total Protein 5.3 gm/dl (6.4-8.2)
[2021-06-30] MEDS: CALCITRIOL 0.25 MCG CAPSULE PO SCH (08:47)
[2021-06-30] MEDS: ASPIRIN 81 MG ECTAB PO SCH (08:48)
[2021-06-30] MEDS: allopurinoL 100 MG TAB PO SCH (08:48)
[2021-06-30] MEDS: AMIODARONE 200 MG TAB PO SCH (08:48)
[2021-06-30] MEDS: SENNA 8.6 MG TAB PO SCH (08:49)
[2021-06-30] MEDS: HEPARIN SOD 5,000 UNIT/0.5 ML VIAL SQ SCH ×2 (08:50→21:12)
[2021-06-30] MEDS: PIPERACILLIN/TAZOBACTAM 4.5 GM in DEXTROSE 5% 100 ML IV SCH ×2 (08:51→19:49)
[2021-06-30] MEDS: POLYETHYLENE (MIRALAX) 17 GM PACK PO SCH ×6 (08:52→22:49)
--- NOTE | 2021-06-30 11:47 | Surgery Progress Note ---
Date of Service June 30, 2021 Assessment & Plan (1) Cholecystitis: Plan: POD # 4 s/p laparoscopic cholecystectomy (severe cholecystitis with contained perforation and transverse colon adhered to gallbladder) - afebrile, vss - belem drain with 85 cc output, serosanguineous - leukocytosis improving 16K today (23 K yesterday) NILAM creatinine continues to increase up to 3.95 today Plan: continue pain management as needed, try to limit narcotics Continue IV Zofran Continue belem drain to bulb suction Continue IV Abx repeat am labs, monitor wbc Nephrology consulted for NILAM okay to advance to low sodium/fiber diet continue bowel regimen Dr. Sandhu has seen patient on rounds and agrees with above Admission and Anticipated Discharge Date Admission Date: June 26, 2021 Subjective very tired today, did not get much sleep last night having pain at incision sites no n/v tolerated clear liquids had two liquid bowel movements Physical Exam Constitutional: + obese, + frail appearing and + lethargic; no acute distress, not ill appearing and not in distress Respiratory: normal respiratory effort; no respiratory distress, no labored breathing and no retractions Gastrointestinal (Abdomen): Inspection/Auscultation: abdomen normal to inspection, normal bowel sounds, + abdominal surgical incision (clean/dry/intact) and + abdominal surgical drain present (serosanguineous); a bdomen not distended Percussion/Palpation: + abdomen tender (at incision sites and drain site) and abdomen soft; no guarding and abdomen not rigid Skin: no rashes, warm and dry Psychiatric: Orientation: alert and oriented x 3 Results & Data ([facility]) Vital Signs (Past 12 Hours) Vital Signs Temp Pulse Pulse Resp BP BP Pulse Ox 06/30/21 11:21 36.3 C L 60 18 119/62 92 06/30/21 08:05 36.7 C 60 18 92/42 L 90 06/30/21 07:19 75 06/30/21 03:14 36.4 C L 60 18 97/59 L 96 06/30/21 02:37 60 Laboratory Results 06/30/21 06/30/21 06/29/21 Range/Units 07:13 07:13 14:10 WBC 16.42 H (4.8-10.8) K/uL RBC 3.12 L (4.2-5.4) M/uL Hgb 9.8 L (12.0-16.0) g/dL Hct 32.2 L (37-47) % MCV 103.2 H (80-100) fL MCH 31.4 (25-34) pg MCHC 30.4 L (32-36) g/dL RDW Std Deviation 57.5 H (36.4-46.3) fL RDW Coeff of Lorenzo 15.2 H (11.5-14.5) % Plt Count 323 (130-400) K/uL MPV 11.9 H (7.4-10.4) fL Immature Gran % (Auto) 0.9 % Neut % (Auto) 84.8 % Lymph % (Auto) 3.7 % Fergus % (Auto) 9.2 % Eos % (Auto) 1.3 % Baso % (Auto) 0.1 % Neut # (Auto) 13.94 H (1.4-6.5) K/uL Lymph # (Auto) 0.60 L (1.2-3.4) K/uL Fergus # (Auto) 1.51 H (0.11-0.59) K/uL Eos # (Auto) 0.21 (0-0.5) K/uL Baso # (Auto) 0.01 (0-0.2) K/uL Immature Gran # (Auto) 0.15 H (0.00-0.02) K/uL Absolute Nucleated RBC 0.03 H (0-0) K/uL Nucleated RBC % (auto) 0.2 % Sodium 139 139 (136-145) mmol/L Potassium 4.4 4.3 (3.5-5.1) mmol/L Chloride 112 H 110 H (98-107) mmol/L Carbon Dioxide 19 L 21 (21-32) mmol/L Anion Gap 8.0 9.0 (3-11) BUN 72 H 70 H (7-18) mg/dl Creatinine 3.95 H D 3.58 H (0.6-1.2) mg/dl Est Cr Clr Drug Dosing 9.8 10.8 ml/min Est GFR ( Amer) 11.0 12.4 ml/min Est GFR (Non-Af Amer) 9.5 10.7 ml/min BUN/Creatinine Ratio 18.3 19.5 (10-20) Glucose 94 106 H (70-99) mg/dl Calcium 9.2 9.0 (8.5-10.1) mg/dl Total Bilirubin 0.5 (0.2-1) mg/dl AST 9 L (15-37) U/L ALT 13 (12-78) U/L Alkaline Phosphatase 65 (45-117) U/L Total Protein 5.3 L (6.4-8.2) gm/dl Albumin 2.0 L (3.4-5.0) gm/dl Globulin 3.3 (2.5-4.0) gm/dl Albumin/Globulin Ratio 0.6 L (0.9-2) Microbiology 06/27/21 16:44 Aerobic Blood Culture - Preliminary Blood No growth in Aerobic bottle after 48 hours. Anaerobic Blood Culture - Preliminary No growth in Anaerobic bottle after 48 hours. 06/27/21 16:44 Aerobic Blood Culture - Preliminary Blood No growth in Aerobic bottle after 48 hours. Anaerobic Blood Culture - Final
--- NOTE | 2021-06-30 13:25 | Nephrology Consultation ---
Date of Consultation June 30, 2021 Assessment & Plan (1) Acute kidney injury superimposed on chronic kidney disease: (2) Hypertension: (3) Chronic kidney disease, stage 4 (severe): (4) Cholecystitis: (5) Secondary hyperparathyroidism: 89-year-old female with stage IV CKD, hypertension, AFib, admitted to the hospital with acute cholecystitis and had laparoscopic cholecystectomy On 06/26/2021. Baseline creatinine has been 1.8-2.0 with no significant proteinuria, was on ARB. Admission creatinine was slightly above baseline at 2.2 which rapidly worsened over last 4 days to 4.0 this morning. became oliguric over last 24-48 hours and has more than 9 L net positive since admiss ion. Acute kidney injury most likely prerenal versus ATN with repeated episodes of hypotension, variability in blood pressure. Non gap metabolic acidosis with acute kidney injury. -- discontinue IV fluid, maintain normal p.o. intake -- continue to monitor renal function and volume status. So far respiratory status has been acceptable, if there is any worsening of respiratory status, okay to use diuretics. If renal function worsen and urine output remains low may need to consider dialysis in next 24-48 hours however no indication at this time. -- Recommend Stinson catheter for accurate intake and output -- dose all medications for GFR less than 10, continue to hold losartan and torsemide for now. Will follow Thank you for allowing me to participate in your patient's care. It was a pleasure to see Carine. History of Present Illness Reason for Consultation: Oliguric Acute kidney injury with history of CKD. Attending Physician: Abena Mckeon MD History of Present Illness Mrs Carine Paniagua is a 89-year-old female with past medical history significant for stage IV CKD, hypertension, AFib, GERD admitted to the hospital with acute cholecystitis. Nephrology consult was requested to manage oliguric NILAM. EMR records are reviewed in detail during patient's visit. Carine presented to hospital on 06/26/2021 with several days history of abdominal pain which progressively worsened. on admission imaging showed acute cholecystitis and she had cholecystectomy on the same day. She has been slowly recovering from the surgery, has been tolerating liquid diet. She still has drainage 2 with minimum output. 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 Lopez). Urinalysis previously showed low-grade proteinuria, has been on losartan. Prior renal imaging showed bilateral otherwise normal size kidney. Has history of secondary hyperparathyroidism, has been on calcitriol. On admission creatinine was 2.2 which worsened rather rapidly over last few days and creatinine this morning was 4.0. Has non gap metabolic acidosis but potassium has been normal. Urinalysis on admission was negative for proteinuria hematuria. CT abdomen pelvis on admission was done without contrast. No NSAID exposure. Her blood pressure was quite variable throat hospital course with repeated episode of hypotension. Because of surgery and NPO status her p.o. intake was low she so she was continued on IV Normal saline which was stopped this morning. She is total net positive more than 9 L since admission. Her urine output has dropped over last 24-48 hours, overnight she had only 85 cc urine output however intake and output is not measured correctly as she had some unmeasured void. Chest x-ray yesterday was otherwise unremarkable without any significant pulmonary vascular congestion. Hypertension seems to be well controlled, at home she was on losartan 50 twice a day and metoprolol 25 twice a day as well as torsemide 10 mg daily. Has history of AFib however off of anticoagulation because of prior history of fall. On amiodarone and beta-franklin. Has history of gout, has been on allopurinol 100 mg daily. On levothyroxine 50 mcg for hypothyroidism. She does report some shortness of breath but not overtly volume overloaded clinically. Both torsemide and losartan currently on hold. Allergies Allergy/AdvReac Type Severity Reaction Status Date / Time adhesive Allergy Severe SEVERE Verified 06/25/21 23:09 REDNESS/PAIN amlodipine Allergy Intermediate Rash Verified 06/25/21 23:09 Sulfa (Sulfonamide Allergy Intermediate Rash Verified 06/25/21 23:09 Antibiotics) indomethacin Allergy Unknown Unknown Verified 06/25/21 23:09 Home Medications Medication Instructions Recorded Confirmed Type allopurinol 100 mg tablet 100 mg PO DAILY #90 tab 08/01/19 06/25/21 History amiodarone 200 mg tablet 100 mg PO DAILY #15 tab 08/01/19 06/25/21 History levothyroxine 50 mcg tablet 50 mcg PO DAILY #30 tab 08/01/19 06/25/21 History losartan 50 mg tablet 50 mg PO BID #60 tab 08/01/19 06/25/21 History metoprolol tartrate 25 mg tablet 25 mg PO BID #180 tab 08/01/19 06/25/21 History omeprazole 40 mg capsule,delayed 40 mg PO DAILY #30 cap 08/01/19 06/25/21 History release calcitriol 0.25 mcg capsule 0.25 mcg PO DAILY #90 cap 04/07/21 06/25/21 Rx aspirin 81 mg tablet,delayed 81 mg PO DAILY 06/25/21 06/25/21 History release (Aspirin Low Dose) torsemide 10 mg tablet 10 mg PO DAILY 06/25/21 06/25/21 History Patient History Medical History (Updated 06/30/21 @ 13:38 by Laney Rahman MD) Chronic kidney disease, stage 4 (severe) Chronic kidney disease, stage III (moderate) Sick sinus syndrome Skin lesion of cheek Vitamin D deficiency Surgical History S/P cardiac pacemaker procedure S/P hysterectomy Family History Aunt Colorectal cancer Breast cancer Brother Myocardial infarction Denies family history of Ovarian cancer Prostate cancer Social History Smoking Status: Never smoker Second Hand Exposure: No; Hx Alcohol Use: No Hx Substance Use: No Preferred Language: Chinese Communication Ability: Effective Visual Impairment: No Limitations Hearing Ability: Use of Hearing Aid [employer] Operator Required: No Beliefs That Will Affect Care: None marital status: / Current Living Situation: Alone current occupational status: retired Other Information That Helps Us Care for You: No Feels Safe at Home: Yes Safety Concerns: Feels Safe At This Time Dental Care, Regularly: No Physical Activity Frequency: Does not Exercise Seatbelt Use: sometimes Assistive Devices: Oxygen - Continuous and Walker Assistive Devices Comment: does not wear hearing aids Review of Systems Review of Systems: Detailed review of system was otherwise unremarkable except mentioned in HPI. Physical Exam Constitutional: WD/WN, vitals as above well developed and well nourished; no acute distress Eyes: PERRL, conjunctivae normal, anicteric sclerae ENMT: external ear and nose normal, oropharynx normal Ears: no hearing impairment Neck: trachea midline Respiratory: no cough Auscultation: + diminished lung sounds and + crackles; no wheezes Mild conversational dyspnea. Cardiovascular: RRR, no murmur, no edema Gastrointestinal (Abdomen): normal bowel sounds, soft, nontender, no hepatosplenomegaly Percussion/Palpation: abdomen nontender, no guarding and abdomen not rigid Musculoskeletal: Extremities: extremities normal to inspection Skin: no rashes, warm and dry Neurologic: no focal motor deficits and not confused Psychiatric: A+Ox3, euthymic affect Results & Data ([facility]) Vital Signs (Past 12 Hours) Vital Signs Temp Pulse Pulse Resp BP BP Pulse Ox 06/30/21 11:21 36.3 C L 60 18 119/62 92 06/30/21 08:05 36.7 C 60 18 92/42 L 90 06/30/21 07:19 75 06/30/21 03:14 36.4 C L 60 18 97/59 L 96 06/30/21 02:37 60 PG Care Time/CCT Total # of Minutes Spent Total Time Spent with Patient: Total time spent is greater than 50% in coordination of care (as documented) at patient's floor/unit and/or counseling patient: Coding Level of Care Code 37712 Initial Inpt Care Lvl 3 Diagnoses Acute kidney injury superimposed on chronic kidney disease N17.9; N18.9 Hypertension I10 Chronic kidney disease, stage 4 (severe) N18.4 Cholecystitis K81.9 Secondary hyperparathyroidism N25.81
[2021-06-30] MEDS: METOPROLOL TARTRATE 25 MG TAB PO SCH ×2 (13:44→21:13)
[2021-06-30] MEDS: PANTOprazole 40 MG in SYRINGE 0 ML IV SCH (13:44)
--- NOTE | 2021-06-30 16:17 | Hospitalist Progress Note ---
Date of Service June 30, 2021 Assessment & Plan (1) Cholecystitis: Plan: Acute gangrenous cholecystitis with intra-abdominal abscess -S/p cholecystectomy 4 days ago, tolerated procedure well -Pain controlled this morning but has some mild discomfort. -Pt moved from liquids to low sodium, low fiber diet. NILAM on CKD 4 -Creatinine 3.98 today. -Prerenal vs ATN -nephrology consultation ordered. They recommended discontinuation of IV fluids and if there is no improvement in NILAM in 24-48 hours, she may require dialysis. -I and Os. -Daily BMP and follow creatinine. Leukocytosis -WBC 16.42 today. -Blood Cultures came back negative -clinically stable. follow wbc. RLE Swelling -2+ pitting edema LE b/l -IV fluids d/c'd -stable Atrial Fibrillation -continue beta franklin and amiodarone HTN -discontinued losartan and torsemide because of NILAM DVt ppx: heparin Diet: low fiber, low sodium Code Status: full code Dispo: Med/tele Admission and Anticipated Discharge Date Admission Date: June 26, 2021 Supervising Physician Co-Signing Physician Notes Resident Physician Supervision Note: I independently interviewed and examined the patient and verified the jensen history and physical, reviewed labs and image studies and agree with resident Dr. Mittal findings and care plan. Subjective Pt is a pleasant 89 year old female seen at bedside. She is crying when I came to see her at bedside today. She states she is a little depressed today and she gets sad sometimes. She reports that this happens to her some times and she fe els it is a combination of being in the hospital and wanting a full meal rather than liquids. She states that she had less abdominal discomfort than yesterday. Her only complaint is that she would like more foods than liquids. She reports that she had 2 bowel movements last night. She denies n/v, sob, fevers, chills, or chest pain. Pt has no other complaints today. Review of Systems Review of Systems: All systems reviewed & are unremarkable except as noted in HPI & below Physical Exam Constitutional: WD/WN, vitals as above well developed, well nourished, cooperative and comfortable Eyes: + anicteric sclerae ENMT: Ears: + hearing impairment Neck: trachea midline, no thyromegaly trachea midline Respiratory: normal respiratory effort, lungs clear to auscultation Cardiovascular: RRR, no murmur, no edema Rate/Rhythm: regular rate and regular rhythm Heart Sounds: normal S1 and normal S2 Extremities: + edema (2+ pitting edema to knee b/l); no calf tenderness Gastrointestinal (Abdomen): normal bowel sounds, soft, nontender, no hepatosplenomegaly Inspection/Auscultation: normal bowel sounds, + abdominal surgical incision and + abdominal surgical drain present Percussion/Palpation: + abdomen tender (Mild tenderness to palpation on the R abdomen) and + dullness to percussion Skin: no rashes, warm and dry Psychiatric: A+Ox3, euthymic affect Speech: normal rate/rhythm/volume of speech Results & Data Results & Data ([facility]) Vital Signs (Past 12 Hours) Vital Signs Temp Pulse Pulse Pulse Resp BP BP 06/30/21 15:37 60 06/30/21 15:00 36.6 C 62 18 118/64 06/30/21 11:21 36.3 C L 60 18 119/62 06/30/21 08:05 36.7 C 60 18 92/42 L 06/30/21 07:19 75 Pulse Ox 06/30/21 15:37 06/30/21 15:00 90 06/30/21 11:21 92 06/30/21 08:05 90 06/30/21 07:19
[2021-06-30] MEDS: SODIUM CHLORIDE 0.9% 1000ML 1,000 ML IV SCH (18:59)
[2021-06-30] MEDS: oxyCODONE HCL IR 5 MG TAB (IMMEDIATE RELEASE) PO PRN (23:14)
[2021-07-01] MEDS: POLYETHYLENE (MIRALAX) 17 GM PACK PO SCH ×3 (02:56→13:27)
[2021-07-01] MEDS: LEVOTHYROXINE SODIUM 50 MCG TABLET PO SCH (05:43)
[2021-07-01 07:26] LABS: Basophils # (auto) 0.02 K/uL (0-0.2); Basophils % (auto) 0.1 %; Eosinophils # (auto) 0.24 K/uL (0-0.5); Eosinophils % (auto) 1.5 %; Hematocrit (blood only) 32.8 % (37-47); Hemoglobin 10.1 g/dL (12.0-16.0); Immature Granulocytes # (auto) 0.38 K/uL (0.00-0.02); Immature Granulocytes % (auto) 2.3 %; Lymphocytes # (auto) 0.63 K/uL (1.2-3.4); Lymphocytes % (auto) 3.8 %; Mean Corpuscular Hemoglobin 30.9 pg (25-34); Mean Corpuscular Hgb Conc 30.8 g/dL (32-36); Mean Corpuscular Volume 100.3 fL (80-100); Mean Platelet Volume 11.4 fL (7.4-10.4); Monocytes # (auto) 1.27 K/uL (0.11-0.59); Monocytes % (auto) 7.8 %; Neutrophils # (auto) 13.83 K/uL (1.4-6.5); Neutrophils % (auto) 84.5 %; Nucleated RBC # (auto) 0.04 K/uL (0-0); Nucleated RBC % (auto) 0.2 %; Platelet Count 287 K/uL (130-400); RDW Coefficient of Variation 15.1 % (11.5-14.5); RDW Standard Deviation 55.6 fL (36.4-46.3); Red Blood Count 3.27 M/uL (4.2-5.4); White Blood Count 16.37 K/uL (4.8-10.8)
[2021-07-01] MEDS: allopurinoL 100 MG TAB PO SCH (08:39)
[2021-07-01] MEDS: AMIODARONE 200 MG TAB PO SCH (08:39)
[2021-07-01] MEDS: CALCITRIOL 0.25 MCG CAPSULE PO SCH (08:40)
[2021-07-01] MEDS: HEPARIN SOD 5,000 UNIT/0.5 ML VIAL SQ SCH ×2 (08:40→20:44)
[2021-07-01] MEDS: ASPIRIN 81 MG ECTAB PO SCH (08:40)
[2021-07-01] MEDS: SENNA 8.6 MG TAB PO SCH (08:40)
[2021-07-01] MEDS: METOPROLOL TARTRATE 25 MG TAB PO SCH ×2 (08:40→20:43)
[2021-07-01 08:41] LABS: Albumin Level 1.9 gm/dl (3.4-5.0); Creatinine Clr Calc Pharmacy 8.4 ml/min; Est GFR (African American) 9.1 ml/min; Est GFR (Non-African American) 7.9 ml/min; Ferritin 278.1 ng/ml (8-388); Phosphorus 5.8 mg/dl (2.5-4.9); Potassium 4.6 mmol/L (3.5-5.1)
[2021-07-01] MEDS: PIPERACILLIN/TAZOBACTAM 4.5 GM in DEXTROSE 5% 100 ML IV SCH ×2 (08:42→20:43)
--- NOTE | 2021-07-01 10:33 | Nephrology Progress Note ---
Date of Service July 01, 2021 Assessment & Plan (1) Acute kidney injury superimposed on chronic kidney disease: (2) Hypertension: (3) Chronic kidney disease, stage 4 (severe): (4) Cholecystitis: (5) Secondary hyperparathyroidism: Plan: 89-year-old female with stage IV CKD, hypertension, AFib, admitted to the hospital with acute cholecystitis and had laparoscopic cholecystectomy On 06/26/2021. Baseline creatinine has been 1.8-2.0 with no significant prote inuria, was on ARB. Admission creatinine was slightly above baseline at 2.2 which rapidly worsened over last 4 days to 4.0 this morning. became oliguric over last 24-48 hours and has more than 9 L net positive since admission. Acute kidney injury most likely secondary to ATN with repeated episodes of hypotension, variability in blood pressure, although nephrotoxicity from Zosyn ( Incidence is pretty rare anyway) is a possibility however seems less likely. Non gap metabolic acidosis with acute kidney injury. Rapid rise in creatinine consistent with ATN, considering recent abdominal poole rgery, will get ultrasound to exclude possibility for any intra-abdominal pathology causing postrenal obstruction. -- continue to monitor renal function and volume status. Respiratory status has been acceptable, has been making urine and no significant uremic symptoms. Potassium has been normal. No acute indication for dialysis at this time. -- Recommend Stinson catheter for accurate intake and output -- dose all medications for GFR less than 10, continue to hold losartan and torsemide for now. Will follow. Admission and Anticipated Discharge Date Admission Date: June 26, 2021 Subjective Carine was seen this morning, she was very anxious, tearful and fell ov erwhelmed with so many things going on at the same time. denies shortness of breath or chest pain. Blood pressure has been stable. Had 1 L urine output. renal function continues to worsen rapidly creatinine up to 4.6 this morning. Potassium normal. Review of Systems Review of Systems: Review of system otherwise negative except mentioned above. Physical Exam Constitutional: + ill appearing; no acute distress Respiratory: normal respiratory effort; no respiratory distress Auscultation: + diminished lung sounds; no crackles and no wheezes Cardiovascular: RRR, no murmur, no edema Neurologic: awake; no focal motor deficits and not confused Psychiatric: Affect: + anxious affect and + tearful affect Results & Data ([facility]) Vital Signs (Past 12 Hours) Vital Signs Temp Pulse Pulse Resp BP BP Pulse Ox 07/01/21 07:59 36.4 C L 60 16 125/72 91 07/01/21 00:19 36.5 C 60 18 130/64 90 06/30/21 23:21 60 PG Care Time/CCT Total # of Minutes Spent Total Time Spent with Patient: Total time spent is greater than 50% in coordination of care (as documented) at patient's floor/unit and/or counseling patient: Coding Level of Care Code 67182 Subseq Hosp Care Lvl 3 Diagnoses Acute kidney injury superimposed on chronic kidney disease N17.9; N18.9 Hypertension I10 Chronic kidney disease, stage 4 (severe) N18.4 Cholecystitis K81.9 Secondary hyperparathyroidism N25.81
--- NOTE | 2021-07-01 11:15 | Surgery Progress Note ---
Date of Service July 01, 2021 Assessment & Plan (1) Cholecystitis: Plan: POD # 5 s/p laparoscopic cholecystectomy (severe cholecystitis with contained perforation and transverse colon adhered to gallbladder) - afebrile, vss - belem drain with 150 cc output, serosanguineous - leukocytosis stable at 16K today (23 K yesterday) NILAM creatinine continues to increase up to 4.60 today Plan: continue pain management as needed, try to limit narcotics Continue IV Zofran Continue belem drain to bulb suction Continue IV Abx repeat am labs, monitor wbc Nephrology on board for NILAM Continue low sodium/fiber diet, boost supplementation BID recommended PT/OT DVT prohylaxis with heparin and SCDs continue bowel regimen as needed Dr. Burris with [facility] covering this weekend Dr. Sandhu was present during my examination and agrees with above. Admission and Anticipated Discharge Date Admission Date: June 26, 2021 Subjective feeling overwhelmed with everything going on at once not having any abdominal pain right now no nausea or vomiting able to urinate on her own had liquid bowel movements Physical Exam Constitutional: + ill appearing, + obese, + frail appearing and + lethargic; no acute distress Respiratory: normal respiratory effort; no respiratory distress, no labored breathing, no retractions and no cough Gastrointestinal (Abdomen): Inspection/Auscultation: normal bowel sounds, + abdominal wall ecchymosis (at site of Heparin injections), + abdominal surgical incision (clean/dry/intact) and + abdominal surgical drain present (serosanguineous output); abdomen not distended Percussion/Palpation: abdomen soft; abdomen nontender, no guarding and abdomen not rigid Skin: no rashes, warm and dry Psychiatric: Orientation: alert, oriented to person and cooperative Affect: + depressed affect and + tearful affect Results & Data ([facility]) Vital Signs (Past 12 Hours) Vital Signs Temp Pulse Pulse Resp BP BP Pulse Ox 07/01/21 07:59 36.4 C L 60 16 125/72 91 07/01/21 00:19 36.5 C 60 18 130/64 90 06/30/21 23:21 60 Laboratory Results 07/01/21 07/01/21 Range/Units 07:05 07:05 WBC 16.37 H (4.8-10.8) K/uL RBC 3.27 L (4.2-5.4) M/uL Hgb 10.1 L (12.0-16.0) g/dL Hct 32.8 L (37-47) % MCV 100.3 H (80-100) fL MCH 30.9 (25-34) pg MCHC 30.8 L (32-36) g/dL RDW Std Deviation 55.6 H (36.4-46.3) fL RDW Coeff of Lorenzo 15.1 H (11.5-14.5) % Plt Count 287 (130-400) K/uL MPV 11.4 H (7.4-10.4) fL Immature Gran % (Auto) 2.3 % Neut % (Auto) 84.5 % Lymph % (Auto) 3.8 % Billings % (Auto) 7.8 % Eos % (Auto) 1.5 % Baso % (Auto) 0.1 % Neut # (Auto) 13.83 H (1.4-6.5) K/uL Lymph # (Auto) 0.63 L (1.2-3.4) K/uL Billings # (Auto) 1.27 H (0.11-0.59) K/uL Eos # (Auto) 0.24 (0-0.5) K/uL Baso # (Auto) 0.02 (0-0.2) K/uL Immature Gran # (Auto) 0.38 H (0.00-0.02) K/uL Absolute Nucleated RBC 0.04 H (0-0) K/uL Nucleated RBC % (auto) 0.2 % Sodium 137 (136-145) mmol/L Potassium 4.6 (3.5-5.1) mmol/L Chloride 110 H (98-107) mmol/L Carbon Dioxide 19 L (21-32) mmol/L Anion Gap 8.0 (3-11) BUN 78 H (7-18) mg/dl Creatinine 4.60 H* D (0.6-1.2) mg/dl Est Cr Clr Drug Dosing 8.4 ml/min Est GFR ( Amer) 9.1 ml/min Est GFR (Non-Af Amer) 7.9 ml/min BUN/Creatinine Ratio 17.0 (10-20) Glucose 84 (70-99) mg/dl Calcium 9.0 (8.5-10.1) mg/dl Phosphorus 5.8 H (2.5-4.9) mg/dl Iron 40 (35-150) mcg/dl Transferrin 128 L (200-360) mg/dl Transferrin % Sat 22 (15-50) % Ferritin 278.1 (8-388) ng/ml Albumin 1.9 L (3.4-5.0) gm/dl
[2021-07-01] MEDS: PANTOprazole 40 MG in SYRINGE 0 ML IV SCH (12:07)
--- NOTE | 2021-07-01 12:21 | Hospitalist Progress Note ---
Date of Service July 01, 2021 Assessment & Plan (1) Cholecystitis: Plan: Acute gangrenous cholecystitis with intra-abdominal abscess -S/p cholecystectomy 5 days ago, tolerated procedure well -Pain controlled this morning. -Pt on low sodium, low fiber diet. -Trend CBC/BMP. -oral prn tylenol for mild pain -Continue checking surgical wounds NILAM on CKD -Creatinine 4.6 today. -nephrology suspects ATN. At this time, dialysis is not indicated. -Stinson catheter ordered for accurate I&O's -Daily BMP, follow creatinine. Leukocytosis -WBC 16.37 today. -Blood Cultures came back negative -clinically stable. follow wbc. RLE Swelling -1+ pitting edema LE b/l -No SOB -stable Atrial Fibrillation -continue beta franklin and amiodarone HTN -discontinued losartan and torsemide because of NILAM DVt ppx: heparin Diet: low fiber, low sodium Code Status: full code Dispo: Med/tele Admission and Anticipated Discharge Date Admission Date: June 26, 2021 Supervising Physician Co-Signing Physician Notes Resident Physician Supervision Note: I independently interviewed and examined the patient and verified the jensen history and physical, reviewed labs and image studies and agree with resident Dr. Mittal findings and care plan. Subjective Pt seen at bedside while she is eating her breakfast. Pt is pleasant today, but seems more tired than normal. She is happy about being able to eat solid food without any issues. She reports that she has had several bowel movements and would like her laxatives reduced or discontinued. They have been soft, reports no blood in the stool. She denies n/v, fevers, chills, or fatigue. Pt is curious about whether or not she needs dialysis. Otherwise she has no complaints at this time. Review of Systems Constitutional: no fever, no chills, no sweats and no fatigue Eyes: no blind spots and no discharge Ear, Nose, Mouth, Throat: no hearing loss and no nasal congestion Respiratory: no cough and no dyspnea Cardiovascular: no chest pain, no dyspnea on exertion and no edema Gastrointestinal: + abdominal pain, + early satiety, + nausea and + constipation; no bloating, no heartburn, no vomiting, no diarrhea/loose stools and no blood in stools Genitourinary: no dysuria Musculoskeletal: no joint pain and no myalgia Neurologic: no tingling, no numbness and no headache(s) Endocrine: no fatigue Physical Exam Constitutional: WD/WN, vitals as above well developed, well nourished, cooperative and comfortable Eyes: + anicteric sclerae ENMT: Ears: + hearing impairment Neck: trachea midline, no thyromegaly trachea midline Respiratory: normal respiratory effort, lungs clear to auscultation Cardiovascular: RRR, no murmur, no edema Rate/Rhythm: regular rate and regular rhythm Heart Sounds: normal S1 and normal S2 Extremities: + edema (2+ pitting edema to knee b/l); no calf tenderness Gastrointestinal (Abdomen): normal bowel sounds, soft, nontender, no hepatosplenomegaly Inspection/Auscultation: normal bowel sounds, + abdominal surgical incision and + abdominal surgical drain present Percussion/Palpation: + abdomen tender (Mild tenderness to palpation on the R abdomen) and + dullness to percussion Skin: no rashes, warm and dry Psychiatric: A+Ox3, euthymic affect Speech: normal rate/rhythm/volume of speech Results & Data Results & Data ([facility]) Vital Signs (Past 12 Hours) Vital Signs Temp Pulse Resp BP BP Pulse Ox 07/01/21 11:23 36.8 C 62 16 139/75 99 07/01/21 07:59 36.4 C L 60 16 125/72 91 07/01/21 00:19 36.5 C 60 18 130/64 90
--- NOTE | 2021-07-01 15:58 | Ultrasound Report ---
RENAL ULTRASOUND CLINICAL HISTORY: Acute kidney injury. COMPARISON STUDY: CT of the abdomen and pelvis June 26, 2021. Renal ultrasound May 21, 2006. TECHNIQUE: Sonography of the kidneys and the urinary bladder was performed. FINDINGS: There is no hydronephrosis. The right kidney measures 8.3 x 3.8 x 3.8 cm and the left measu res 8.3 x 3.8 x 4 cm. There is mild renal atrophy. A 7 mm left renal cyst is noted. Spleen is at the upper limits of normal for size. The liver is heterogeneous. Septated perihepatic fluid collection is partially imaged on this examination. This measures 2 cm in thickness. IMPRESSION: 1. No hydronephrosis. Mild bilateral renal atrophy. 2. Heterogeneity of the liver with irregularity of the liver surface. This may reflect cirrhosis. 3. Partially visualized septated perihepatic fluid collection. The sonographic appearance is nonspeci fic, but this may reflect a resolving hematoma. ACT 112: Negative or not required by law. Electronically signed by: Pravin Bobby M.D. 07/01/2021 3:57 PM
[2021-07-02] MEDS: LEVOTHYROXINE SODIUM 50 MCG TABLET PO SCH (05:41)
--- NOTE | 2021-07-02 06:18 | Surgery Progress Note ---
Date of Service July 02, 2021 Assessment & Plan (1) Cholecystitis: Plan: Postop day #6 laparoscopic cholecystectomy Continue ASHLEY drain while patient is in the hospital Continue analgesics Continue antiemetics Continue antibiotics in form of Zosyn Continue diet as tolerated Mobilize as able Acute kidney injury Nephrology is following Labs this morning are pending Stinson is in place for accurate I's and O's Subcu heparin is in place for DVT prevention pt seen. as above. will continue to follow from the periphery. nothing to add surgically at this time Admission and Anticipated Discharge Date Admission Date: June 26, 2021 Subjective Patient is resting comfortably in bed. She denies any abdominal pain. She denies any nausea or vomiting. I discussed with the rn case management RN. She denies any issues that are surgical in nature. She notes that the patient is tolerating regular diet without difficulty. Physical Exam Gastrointestinal (Abdomen): Incisions are noted to be clean, dry, and intact. Abdomen is soft and nondistended. Bowel sounds are present. There is minimal pain with palpation. A ASHLEY drain is in place with serous drainage. Has drained approximately 160 cc last 24 hours and 80 cc last shift. Results & Data ([facility]) Vital Signs (Past 12 Hours) Vital Signs Temp Pulse Resp BP Pulse Ox 07/02/21 02:51 36.6 C 62 18 121/64 91 07/01/21 22:18 36.6 C 60 18 121/57 L 93 07/01/21 19:26 36.8 C 62 18 124/71 95 PG Care Time/CCT Total # of Minutes Spent Total Time Spent with Patient: Total time spent is greater than 50% in coordination of care (as documented) at patient's floor/unit and/or counseling patient: Coding Level of Care Code None Diagnoses Cholecystitis K81.9
[2021-07-02 07:53] LABS: Hematocrit (blood only) 32.3 % (37-47); Hemoglobin 10.4 g/dL (12.0-16.0); Mean Corpuscular Hemoglobin 31.7 pg (25-34); Mean Corpuscular Hgb Conc 32.2 g/dL (32-36); Mean Corpuscular Volume 98.5 fL (80-100); Mean Platelet Volume 11.3 fL (7.4-10.4); Nucleated RBC # (auto) 0.04 K/uL (0-0); Nucleated RBC % (auto) 0.2 %; Platelet Count 360 K/uL (130-400); RDW Standard Deviation 53.4 fL (36.4-46.3); Red Blood Count 3.28 M/uL (4.2-5.4); White Blood Count 17.27 K/uL (4.8-10.8)
[2021-07-02] MEDS: METOPROLOL TARTRATE 25 MG TAB PO SCH ×2 (07:59→20:34)
[2021-07-02] MEDS: allopurinoL 100 MG TAB PO SCH (08:00)
[2021-07-02] MEDS: CALCITRIOL 0.25 MCG CAPSULE PO SCH (08:00)
[2021-07-02] MEDS: AMIODARONE 200 MG TAB PO SCH (08:01)
[2021-07-02] MEDS: ONDANSETRON INJ 2 MG/ML 2 ML VIAL IV PRN ×2 (08:17→16:36)
[2021-07-02] MEDS: ASPIRIN 81 MG ECTAB PO SCH (08:24)
[2021-07-02 08:26] LABS: BUN Creatinine Ratio 18.2 (10-20); Calcium 9.3 mg/dl (8.5-10.1); Creatinine Clr Calc Pharmacy 8.1 ml/min; Est GFR (African American) 8.7 ml/min; Est GFR (Non-African American) 7.5 ml/min; Potassium 4.4 mmol/L (3.5-5.1)
[2021-07-02] MEDS: HEPARIN SOD 5,000 UNIT/0.5 ML VIAL SQ SCH ×2 (08:30→20:34)
[2021-07-02] MEDS: PIPERACILLIN/TAZOBACTAM 4.5 GM in DEXTROSE 5% 100 ML IV SCH ×2 (08:34→20:35)
[2021-07-02] MEDS ORDERED: IRON SUCROSE 200 MG in 0.9 % SODIUM CHLORIDE 100 ML IV SCH (09:00)
--- NOTE | 2021-07-02 11:39 | Nephrology Progress Note ---
Date of Service July 02, 2021 Assessment & Plan (1) Acute kidney injury superimposed on chronic kidney disease: Plan: * NILAM on CKD related to severe inflammation related to gangrenous cholecystitis in the setting of ARB therapy. * 07/01/21 Renal US: No hydronephrosis. R 8.3, L 8.3 cm * Continue to hold Losartan * Patient is net 10L volume positive. Hold IVF. Encourage oral hydration * UO 175 cc overnight. Cr relatively stable at 4.8. Electrolyte balance is acceptable. No acute indication for HD. Will monitor. Patient may be nearing recovery stage * Will start NaHCO3 650 mg po BID to correct metabolic acidosis (2) Chronic kidney disease, stage 4 (severe): Plan: * Baseline Cr 1.8 - 2.0 (3) Hypertension: Plan: * Hold Losartan due to NILAM * BP is acceptable. Continue Metoprolol therapy (4) Cholecystitis: Plan: * Gangrenous cholecystitis w/ perforation and abscess formation s/p laparoscopic cholecystectomy 06/26/21 * Remains on IV Zosyn * 07/01 US reveals a septated perihepatic fluid collection measuring 2 cm in thickness - possible resolving hematoma (5) Secondary hyperparathyroidism: Plan: * On oral Calcitriol therapy Admission and Anticipated Discharge Date Admission Date: June 26, 2021 Subjective Ms. Paniagua was evaluated in her hospital room this morning. She awoke to voice but is extremely SHISHMAREF IRA. She voiced no medical concerns. Review of Systems Constitutional: + weakness; no fever Eyes: no problem reported Ear, Nose, Mouth, Throat: no problem reported Respiratory: no dyspnea Cardiovascular: no chest pain Gastrointestinal: no abdominal pain Physical Exam Constitutional: + frail appearing; not in distress Eyes: PERRL, conjunctivae normal, anicteric sclerae ENMT: external ear and nose normal, oropharynx normal Neck: trachea midline, no thyromegaly Respiratory: normal respiratory effort, lungs clear to auscultation Cardiovascular: RRR, no murmur, no edema Gastrointestinal (Abdomen): Inspection/Auscultation: + hypoactive bowel sounds (RUQ drain in place) Percussion/Palpation: no guarding Results & Data ([facility]) Vital Signs (Past 12 Hours) Vital Signs Temp Pulse Pulse Pulse Resp BP BP 07/02/21 11:30 36.6 C 63 20 148/83 H 07/02/21 07:44 36.4 C L 68 20 132/64 07/02/21 07:21 64 07/02/21 02:51 36.6 C 62 18 121/64 Pulse Ox 07/02/21 11:30 92 07/02/21 07:44 90 07/02/21 07:21 07/02/21 02:51 91 Laboratory Results Laboratory Tests 06/26/21 07/02/21 07/02/21 01:49 07:27 07:27 WBC 17.27 H Hgb 10.4 L Hct 32.3 L Plt Count 360 Sodium 138 Potassium 4.4 Chloride 110 H Carbon Dioxide 16 L BUN 83 H Creatinine 4.78 H* Calcium 9.3 Phosphorus 6.0 H Albumin 2.0 L Urine Color Yellow Ur Specific [place] 1.016 Urine Protein Negative Urine Glucose (UA) Negative Urine Blood Negative Urine Nitrite Negative Urine WBC (Auto) 5-10 H Urine RBC (Auto) 0-4 PG Care Time/CCT Total # of Minutes Spent Total Time Spent with Patient: Total time spent is greater than 50% in coordination of care (as documented) at patient's floor/unit and/or counseling patient: Coding Level of Care Code 48153 Subseq Hosp Care Lvl 3 Diagnoses Acute kidney injury superimposed on chronic kidney disease N17.9; N18.9 Hypertension I10 Chronic kidney disease, stage 4 (severe) N18.4 Cholecystitis K81.9 Secondary hyperparathyroidism N25.81
[2021-07-02] MEDS: PANTOprazole 40 MG in SYRINGE 0 ML IV SCH (12:23)
[2021-07-02] MEDS: SODIUM BICARBONATE 650 MG TAB PO SCH ×2 (12:43→20:34)
[2021-07-02] MEDS: POLYETHYLENE (MIRALAX) 17 GM PACK PO SCH (14:22)
--- NOTE | 2021-07-02 16:23 | Hospitalist Progress Note ---
Date of Service July 02, 2021 Assessment & Plan (1) Cholecystitis: Plan: Acute gangrenous cholecystitis with intra-abdominal abscess -S/p cholecystectomy 6 days ago, tolerated procedure well -Pain controlled this morning. -Pt on low sodium, low fiber diet. -Trend CBC/BMP. -oral prn tylenol for mild pain -Continue checking surgical wounds NILAM on CKD -Creatinine 4.78 today. -nephrology suspects ATN. At this time, dialysis is not indicated as electrolytes are stable. -Stinson catheter present for accurate I&O's -Daily BMP, follow creatinine. -Nephro added IV iron supplementation for anemia, as the anemia has been stable and a second IV could not be established, iron was placed on hold. Nausea -Poor oral intake -? sec to amiodarone. has been on it for a while though. (causes cholestasis as well) -follow. -Zofran prn -If continue to not able to tolerate PO, may need IVF supplementation. Leukocytosis -WBC 17.27 today. -Blood Cultures are negative. -possibly sec to poor oral intake -clinically stable. follow wbc. RLE Swelling -1+ pitting edema LE b/l -No SOB -stable Atrial Fibrillation -continue beta franklin and amiodarone HTN -discontinued losartan and torsemide because of NILAM DVt ppx: heparin Diet: low fiber, low sodium Code Status: full code Dispo: Med/tele Admission and Anticipated Discharge Date Admission Date: June 26, 2021 Supervising Physician Co-Signing Physician Notes Resident Physician Supervision Note: I independently interviewed and examined the patient and verified the jensen history and physical, reviewed labs and image studies and agree with resident Dr. Mittal findings and care plan. Subjective Patient seen today at bedside. Patient seems to be a bit more confused than usual. She recognizes who I am and where she is, but she reports that she is upset because she did not get her typical amount of sleep last night because there were attempts at getting a second IV site in 4 additional IV medications that were ordered. She states that she was left in an elevator for what seems like a long period of time to her. She keeps claiming that she feels like e veryone thinks that she is crazy. She is very frustrated about still being in the hospital and wants to go home so that she can be with her sister. Patient's daughter was called today to update her about the patient. The daughter states that when she calls her mom she feels that she has been more confused than normal and is concerned. She reports that the patient seems to be paranoid and making claims that "there is something really wrong with me and they will not tell me what ". Pt keeps attempting to bargain to get discharged today. She reports no medical complaints today. Review of Systems Review of Systems: All systems reviewed & are unremarkable except as noted in HPI & below Physical Exam Constitutional: WD/WN, vitals as above well developed, well nourished, + frail appearing and cooperative Eyes: + anicteric sclerae ENMT: Ears: + hearing impairment Neck: trachea midline, no thyromegaly Respiratory: normal respiratory effort, lungs clear to auscultation Cardiovascular: RRR, no murmur, no edema Rate/Rhythm: regular rate and regular rhythm Heart Sounds: normal S1 and normal S2 Extremities: + edema (1+ pitting edema to knee b/l); no calf tenderness Gastrointestinal (Abdomen): normal bowel sounds, soft, nontender, no hepatosplenomegaly Inspection/Auscultation: normal bowel sounds, + abdominal surgical incision and + abdominal surgical drain present Percussion/Palpation: + abdomen tender (Mild tenderness to palpation on the R abdomen) and + dullness to percussion Skin: no rashes, warm and dry Psychiatric: A+Ox3, euthymic affect Speech: normal rate/rhythm/volume of speech Genitourinary: Stinson catheter present with yellow, clear urine present. Results & Data Results & Data ([facility]) Vital Signs (Past 12 Hours) Vital Signs Temp Pulse Pulse Resp BP Pulse Ox 07/02/21 16:00 69 07/02/21 15:00 36.5 C 61 20 120/66 92 07/02/21 11:30 36.6 C 63 20 148/83 H 92 07/02/21 07:44 36.4 C L 68 20 132/64 90 07/02/21 07:21 64
[2021-07-02] MEDS ORDERED: D5W AND NSS 1,000 ML IV SCH (18:45)
--- NOTE | 2021-07-02 18:57 | Communication Note ---
Date of Service: July 02, 2021 Added IV fluids for the night due to poor PO today in the form of 5% Dextrose in NSS at 50cc per hour. 1 L bag.
[2021-07-02 22:19] LABS: Cdiff Antigen Positive; Cdiff Toxin A+B Negative Cdiff Toxin (Negative)
--- NOTE | 2021-07-03 06:30 | Surgery Progress Note ---
Date of Service July 03, 2021 Assessment & Plan (1) Cholecystitis: Plan: Postop day #7 laparoscopic cholecystectomy. Continue analgesics Continue antiemetics Continue ASHLEY drain while in the hospital. Continue to mobilize as able Acute kidney injury Nephrology is following A.m. labs are pending. Patient's nausea vomiting may be related to her underlying acute kidney injury. At the present time her abdominal exam is benign. Admission and Anticipated Discharge Date Admission Date: June 26, 2021 Subjective Patient is resting in bed. The present time she does not report any nausea or vomiting and denies any abdominal pain. She is having loose bowel movements Discussed with nurse. Patient is having some nausea without vomiting and is not eating very much. She also notes patient is having loose bowel movements. No other issues noted. Physical Exam Gastrointestinal (Abdomen): Abdomen is soft and nondistended. There is minimal pain with palpation. Her incisions are clean dry and intact. ASHLEY drain is in place it is drained 135 cc over last 24 hours. Results & Data ([facility]) Vital Signs (Past 12 Hours) Vital Signs Temp Pulse Resp BP Pulse Ox 07/02/21 22:32 36.6 C 65 18 120/64 92 07/02/21 19:56 36.5 C 69 20 122/58 L 91 PG Care Time/CCT Total # of Minutes Spent Total Time Spent with Patient: Total time spent is greater than 50% in coordination of care (as documented) at patient's floor/unit and/or counseling patient: Coding Level of Care Code None Diagnoses Cholecystitis K81.9
[2021-07-03] MEDS: LEVOTHYROXINE SODIUM 50 MCG TABLET PO SCH (06:34)
[2021-07-03 07:45] LABS: Basophils # (auto) 0.02 K/uL (0-0.2); Basophils % (auto) 0.1 %; Eosinophils # (auto) 0.16 K/uL (0-0.5); Eosinophils % (auto) 1.2 %; Hematocrit (blood only) 31.2 % (37-47); Hemoglobin 9.9 g/dL (12.0-16.0); Immature Granulocytes # (auto) 0.23 K/uL (0.00-0.02); Immature Granulocytes % (auto) 1.7 %; Lymphocytes # (auto) 1.07 K/uL (1.2-3.4); Lymphocytes % (auto) 7.7 %; Mean Corpuscular Hgb Conc 31.7 g/dL (32-36); Mean Corpuscular Volume 97.8 fL (80-100); Mean Platelet Volume 11.4 fL (7.4-10.4); Monocytes # (auto) 1.08 K/uL (0.11-0.59); Monocytes % (auto) 7.8 %; Neutrophils # (auto) 11.29 K/uL (1.4-6.5); Neutrophils % (auto) 81.5 %; Nucleated RBC # (auto) 0.03 K/uL (0-0); Nucleated RBC % (auto) 0.2 %; Platelet Count 333 K/uL (130-400); RDW Coefficient of Variation 14.8 % (11.5-14.5); RDW Standard Deviation 53.1 fL (36.4-46.3); Red Blood Count 3.19 M/uL (4.2-5.4); White Blood Count 13.85 K/uL (4.8-10.8)
[2021-07-03 08:26] LABS: BUN Creatinine Ratio 18.6 (10-20); Calcium 9.2 mg/dl (8.5-10.1); Creatinine Clr Calc Pharmacy 8.5 ml/min; Est GFR (African American) 9.2 ml/min; Potassium 4.5 mmol/L (3.5-5.1)
[2021-07-03] MEDS: METOPROLOL TARTRATE 25 MG TAB PO SCH ×2 (10:32→20:06)
[2021-07-03] MEDS: allopurinoL 100 MG TAB PO SCH (10:32)
[2021-07-03] MEDS: AMIODARONE 200 MG TAB PO SCH (10:32)
[2021-07-03] MEDS: CALCITRIOL 0.25 MCG CAPSULE PO SCH (10:33)
[2021-07-03] MEDS: ASPIRIN 81 MG ECTAB PO SCH (10:33)
[2021-07-03] MEDS: SODIUM BICARBONATE 650 MG TAB PO SCH ×3 (10:35→20:05)
--- NOTE | 2021-07-03 11:37 | Nephrology Progress Note ---
Date of Service July 03, 2021 Assessment & Plan (1) Acute kidney injury superimposed on chronic kidney disease: Plan: * NILAM on CKD related to severe inflammation related to gangrenous cholecystitis in the setting of ARB therapy. * 07/01/21 Renal US: No hydronephrosis. R 8.3, L 8.3 cm * Continue to hold Losartan * Patient is net 10L volume positive. Hold IVF. Encourage oral hydration * UO 375 cc overnight. Cr relatively stable at 4.8. Electrolyte balance is acceptable. No acute indication for HD. Will monitor. Patient may be nearing recovery stage * Increase NaHCO3 to 650 mg po TID to correct metabolic acidosis (2) Chronic kidney disease, stage 4 (severe): Plan: * Baseline Cr 1.8 - 2.0 (3) Hypertension: Plan: * Hold Losartan due to NILAM * BP is acceptable. Continue Metoprolol therapy (4) Cholecystitis: Plan: * Gangrenous cholecystitis w/ perforation and abscess formation s/p laparoscopic cholecystectomy 06/26/21 * Remains on IV Zosyn * 07/01 US reveals a septated perihepatic fluid collection measuring 2 cm in thickness - possible resolving hematoma (5) Secondary hyperparathyroidism: Plan: * On oral Calcitriol therapy Admission and Anticipated Discharge Date Admission Date: June 26, 2021 Subjective Ms. Paniagua was evaluated in her hospital room this morning. She was sitting up in a chair. She voiced no new medical concerns. Review of Systems Review of Systems: Review of system otherwise negative except mentioned above. Constitutional: + weakness; no fever Eyes: no problem reported Ear, Nose, Mouth, Throat: no problem reported Respiratory: no dyspnea Cardiovascular: no chest pain Gastrointestinal: no abdominal pain Physical Exam Constitutional: + frail appearing; not in distress Eyes: PERRL, conjunctivae normal, anicteric sclerae ENMT: external ear and nose normal, oropharynx normal Neck: trachea midline, no thyromegaly Respiratory: normal respiratory effort, lungs clear to auscultation Cardiovascular: RRR, no murmur, no edema Gastrointestinal (Abdomen): Inspection/Auscultation: + hypoactive bowel sounds (RUQ drain in place) Percussion/Palpation: no guarding Results & Data ([facility]) Vital Signs (Past 12 Hours) Vital Signs Temp Pulse Resp BP Pulse Ox 07/03/21 07:28 36.4 C L 72 20 155/76 H 93 Laboratory Results Laboratory Tests 07/03/21 07/03/21 07:16 07:16 WBC 13.85 H Hgb 9.9 L Hct 31.2 L Plt Count 333 Sodium 139 Potassium 4.5 Chloride 112 H Carbon Dioxide 16 L Creatinine 4.56 H* Glucose 103 H Calcium 9.2 PG Care Time/CCT Total # of Minutes Spent Total Time Spent with Patient: Total time spent is greater than 50% in coordination of care (as documented) at patient's floor/unit and/or counseling patient: Coding Level of Care Code 01137 Subseq Hosp Care Lvl 3 Diagnoses Acute kidney injury superimposed on chronic kidney disease N17.9; N18.9 Chronic kidney disease, stage 4 (severe) N18.4 Hypertension I10 Cholecystitis K81.9 Secondary hyperparathyroidism N25.81
[2021-07-03] MEDS: PANTOprazole 40 MG in SYRINGE 0 ML IV SCH (11:50)
[2021-07-03] MEDS: HEPARIN SOD 5,000 UNIT/0.5 ML VIAL SQ SCH ×2 (11:50→20:01)
[2021-07-03] MEDS: PIPERACILLIN/TAZOBACTAM 4.5 GM in DEXTROSE 5% 100 ML IV SCH ×2 (11:50→20:00)
--- NOTE | 2021-07-03 12:05 | Hospitalist Progress Note ---
Date of Service July 03, 2021 Assessment & Plan (1) Cholecystitis: Plan: Acute gangrenous cholecystitis with intra-abdominal abscess -S/p cholecystectomy 7 days ago, tolerated procedure well -Continue Zosyn -Pain controlled this morning. -Pt on low sodium, low fiber diet. -Trend CBC/BMP. -oral prn tylenol for mild pain -Continue checking surgical wounds -Leukocytosis improved from 17.27 to 13.85 today -Pt had 2-3 loose stools last night, Cdiff gene was positive, toxin negative -No BM today, loose stools yesterday likely related to cholecystectomy -D/C'd daily miralax NILAM on CKD -Creatinine 4.56 today which is an improvement from yesterday. -nephrology suspects ATN. At this time, dialysis is not indicated as electrolytes are stable. -Stinson catheter present for accurate I&O's -Daily BMP, follow creatinine. -Nephro added IV iron supplementation for anemia, as the anemia has been stable and a second IV could not be established, iron was placed on hold. Nausea -Poor oral intake yesterday, seems to improved today. Pt ate breakfast and half of lunch, no nausea reported. D/C IVF. -Cardiology recommended continuing amiodarone as they have low suspicion of it causing pt's nausea -Zofran prn Chronic CHF -Positive fluid balance -Monitor for now until renal function improves -Holding diuretics Atrial Fibrillation -continue beta franklin and amiodarone -Cardiology recommended continuation of amiodarone. HTN -discontinued losartan and torsemide because of NILAM DVt ppx: heparin Diet: low fiber, low sodium Code Status: full code Dispo: Med/tele Admission and Anticipated Discharge Date Admission Date: June 26, 2021 Supervising Physician Co-Signing Physician Notes Resident Physician Supervision Note: I independently interviewed and examined the patient and verified the jensen history and physical, reviewed labs and image studies and agree with resident Dr. Mittal findings and care plan. Subjective Patient seen at bedside this morning prior to being paced. Patient states that she is doing okay this morning. The patient is seems to be a little bit more quiet than usual as she usually holds some sort of conversation in the morning, but seems not to want to converse today. She is aware of where she is and what she is here for. She reports that her stools have been loose but the last one being last night. She had been tested for C. difficile due to concern by the nurses and she came back positive for the C. difficile gene, but not the C. difficile toxin. She is now currently on contact isolation. She reports that she has not had a bowel movement this morning. She denies any abdominal pain and she reports that she was able to eat her breakfast this morning without difficulty. Patient has no other complaints at this time. Review of Systems Review of Systems: All systems reviewed & are unremarkable except as noted in HPI & below Physical Exam Constitutional: WD/WN, vitals as above well nourished and + frail appearing Eyes: + anicteric sclerae Neck: trachea midline, no thyromegaly Respiratory: normal respiratory effort, lungs clear to auscultation Cardiovascular: Rate/Rhythm: regular rate and regular rhythm Extremities: + edema (2+ on RLE, 1+ LLE) Gastrointestinal (Abdomen): normal bowel sounds, soft, nontender, no hepatosplenomegaly Skin: no rashes, warm and dry Surgical incisions present on the R abdomen. Healing well. Surgical drain is present. Neurologic: moves all extremities Psychiatric: A+Ox3, euthymic affect Results & Data Results & Data ([facility]) Vital Signs (Past 12 Hours) Vital Signs Temp Pulse Resp BP Pulse Ox 07/03/21 07:28 36.4 C L 72 20 155/76 H 93 Resident Activity Tracking Resident Involvement: Resident Care Provided Care Provided: Adult Hospital Medicine
--- NOTE | 2021-07-03 12:42 | Cardiology Consultation ---
Date of Consultation July 03, 2021 Assessment & Plan (1) Paroxysmal atrial fibrillation: (2) On amiodarone therapy: (3) S/P cholecystectomy: (4) Acute kidney injury superimposed on chronic kidney disease: Complex 89-year-old female reports resolution of abdominal discomfort. Amiodarone is an unlikely cause of patient's abdominal pain given her current medical issues including acute gangrenous cholecystitis status post cholecystectomy. Episodes of paroxysmal atrial fibrillation recorded per most recent pacemaker interrogation 04/21/2021 with a total burden of 16%. Longest episode lasting 20 hours. I would recommend continuing low-dose amiodarone 100 mg daily. She has maintained sinus rhythm throughout hospitalization. Per review of records, she is not a candidate for long-term anticoagulation due to fall risk. More than 4 years of pacemaker battery life noted per most recent interrogation. Prominent edema noted on exam. Diuretic on hold per direction of nephrology due to acute on chronic renal insufficiency. Recommend resuming diuretic therapy, however, will defer to nephrology at this time. Thank you for allow me to participate in the care of your patient. History of Present Illness Reason for Consultation: Abdominal discomfort, questionable side effect of amiodarone Requesting Physician: Dr. Mckeon Attending Physician: Abena Mckeon MD History of Present Illness 89-year-old female admitted to the hospital 06/26/2021 with acute cholecystitis and acute on chronic renal insufficiency. She was taken to the OR 06/26/[address] Duong. Found to have acute gangrenous cholecystitis with perforation and abscess. A ASHLEY drain was placed in the left abscess cavity and gallbladder fossa. Complex cardiovascular history listed below. Consult is requested due to chronic amiodarone use and ongoing abdominal discomfort postoperative c holecystectomy. Creatinine has trended upward significantly since admission. Her baseline creatinine was approximately 1.7-2.0 prior to admission. Currently her creatinine is 4.56. Diuretic therapy currently on hold per direction of nephrology. Patient seen exam at the bedside. She denies any abdominal discomfort today. States that she had pain and discomfort yesterday, however, this has im proved/resolved. She has been treated with low-dose amiodarone for several years due to symptomatic paroxysmal atrial fibrillation. Anticoagulation discontinued in the past due to fall risk. Telemetry since admission demonstrates sinus rhythm with ventricular pacing. She notes mild improvement of her appetite today. No orthopnea or PND, however, significant bilateral lower extremity edema is present. Denies chest pain or shortness of breath. Medical problems as copied from the [facility] cardiology medical record: 1. Angiographically normal coronary arteries by June 2005 cardiac catheterization. 2. Symptomatic paroxysmal atrial fibrillation with a rapid ventricular response, controlled on low dose amiodarone. 3. Coumadin previously discontinued secondary to ambulatory dysfunction, following multiple falls. 4. 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 5. Hypertensive cardiovascular disease. 6. Moderate renal insufficiency, followed by Dr. Lopez. 7. Osteoarthritis, chronic lower back pain. 8. Gout. 9. Depression/anxiety. 10. GERD, followed by Dr. Alejandre. Allergies Allergy/AdvReac Type Severity Reaction Status Date / Time adhesive Allergy Severe SEVERE Verified 06/25/21 23:09 REDNESS/PAIN amlodipine Allergy Intermediate Rash Verified 06/25/21 23:09 Sulfa (Sulfonamide Allergy Intermediate Rash Verified 06/25/21 23:09 Antibiotics) indomethacin Allergy Unknown Unknown Verified 06/25/21 23:09 Home Medications Medication Instructions Recorded Confirmed Type allopurinol 100 mg tablet 100 mg PO DAILY #90 tab 08/01/19 06/25/21 History amiodarone 200 mg tablet 100 mg PO DAILY #15 tab 08/01/19 06/25/21 History levothyroxine 50 mcg tablet 50 mcg PO DAILY #30 tab 08/01/19 06/25/21 History losartan 50 mg tablet 50 mg PO BID #60 tab 08/01/19 06/25/21 History metoprolol tartrate 25 mg tablet 25 mg PO BID #180 tab 08/01/19 06/25/21 History omeprazole 40 mg capsule,delayed 40 mg PO DAILY #30 cap 08/01/19 06/25/21 History release calcitriol 0.25 mcg capsule 0.25 mcg PO DAILY #90 cap 04/07/21 06/25/21 Rx aspirin 81 mg tablet,delayed 81 mg PO DAILY 06/25/21 06/25/21 History release (Aspirin Low Dose) torsemide 10 mg tablet 10 mg PO DAILY 06/25/21 06/25/21 History Patient History Medical History Chronic kidney disease, stage 4 (severe) Chronic kidney disease, stage III (moderate) Sick sinus syndrome Skin lesion of cheek Vitamin D deficiency Surgical History S/P cardiac pacemaker procedure S/P hysterectomy Family History Aunt Colorectal cancer Breast cancer Brother Myocardial infarction Denies family history of Ovarian cancer Prostate cancer Social History Smoking Status: Never smoker Second Hand Exposure: No; Hx Alcohol Use: No Hx Substance Use: No Preferred Language: Cymraes Communication Ability: Effective Visual Impairment: No Limitations Hearing Ability: Use of Hearing Aid [employer] Required: No Beliefs That Will Affect Care: None marital status: / Current Living Situation: Alone current occupational status: retired Other Information That Helps Us Care for You: No Feels Safe at Home: Yes Safety Concerns: Feels Safe At This Time Dental Care, Regularly: No Physical Activity Frequency: Does not Exercise Seatbelt Use: sometimes Assistive Devices: Walker Assistive Devices Comment: does not wear hearing aids Review of Systems Review of Systems: All systems reviewed & are unremarkable except as noted in Subjective Physical Exam Constitutional: well developed, well nourished and + obese; no acute distress Respiratory: normal respiratory effort; no respiratory distress and no labored breathing Auscultation: lungs clear to auscultation bilaterally; no crackles, no rales, no rhonchi and no wheezes Cardiovascular: Rate/Rhythm: regular rate and regular rhythm Heart Sounds: normal S1 and normal S2; no murmur Vessels: radial pulses present; no JVD Extremities: + edema (2+ bilateral pretibial edema) Gastrointestinal (Abdomen): Inspection/Auscultation: + abdomen distended and normal bowel sounds Percussion/Palpation: abdomen nontender, no guarding and abdomen not rigid Neurologic: moves all extremities; no focal motor deficits Motor/Sensory: no tremor Results & Data ([facility]) Vital Signs (Past 12 Hours) Vital Signs Temp Pulse Resp BP Pulse Ox 07/03/21 12:02 36.6 C 105 H 20 158/89 H 99 07/03/21 07:28 36.4 C L 72 20 155/76 H 93
[2021-07-04] MEDS: LEVOTHYROXINE SODIUM 50 MCG TABLET PO SCH (06:40)
[2021-07-04 07:33] LABS: Hematocrit (blood only) 29.8 % (37-47); Hemoglobin 9.5 g/dL (12.0-16.0); Mean Corpuscular Hgb Conc 31.9 g/dL (32-36); Mean Corpuscular Volume 97.4 fL (80-100); Mean Platelet Volume 11.7 fL (7.4-10.4); Platelet Count 334 K/uL (130-400); RDW Coefficient of Variation 14.9 % (11.5-14.5); RDW Standard Deviation 52.9 fL (36.4-46.3); Red Blood Count 3.06 M/uL (4.2-5.4); White Blood Count 15.48 K/uL (4.8-10.8)
[2021-07-04 08:07] LABS: BUN Creatinine Ratio 18.9 (10-20); Calcium 9.4 mg/dl (8.5-10.1); Est GFR (Non-African American) 8.6 ml/min; Potassium 4.4 mmol/L (3.5-5.1)
--- NOTE | 2021-07-04 08:34 | Progress Note ---
Date of Service July 04, 2021 Assessment & Plan (1) Cholecystitis: Plan: POD # 5 s/p laparoscopic cholecystectomy (severe cholecystitis with contained perforation and transverse colon adhered to gallbladder) - afebrile, vss - belem drain with 150 cc output, serosanguineous - leukocytosis stable at 16K today (23 K yesterday) NILAM creatinine continues to increase up to 4.60 today Plan: continue pain management as needed, try to limit narcotics Continue IV Zofran Continue belem drain to bulb suction Continue IV Abx repeat am labs, monitor wbc Nephrology on board for NILAM Continue low sodium/fiber diet, boost supplementation BID recommended PT/OT DVT prohylaxis with heparin and SCDs continue bowel regimen as needed Dr. Burris with [place] [facility] covering this weekend Dr. Sandhu was present during my examination and agrees with above. 07/04/2021 8:32AM stable, tolerated diet, continue treatment, will F/U Admission and Anticipated Discharge Date Admission Date: June 26, 2021 Supervising Physician Co-Signing Physician Notes Resident Physician Supervision Note: I independently interviewed and examined the patient and verified the jensen history and physical, reviewed labs and image studies and agree with resident Dr. Mittal findings and care plan. Subjective Patient seen at bedside this morning prior to being paced. Patient states that she is doing okay this morning. The patient is seems to be a little bit more quiet than usual as she usually holds some sort of conversation in the morning, but seems not to want to converse today. She is aware of where she is and what she is here for. She reports that her stools have been loose but the last one being last night. She had been tested for C. difficile due to concern by the nurses and she came back positive for the C. difficile gene, but not the C. difficile toxin. She is now currently on contact isolation. She reports that she has not had a bowel movement this morning. She denies any abdominal pain and she reports that she was able to eat her breakfast this morning without difficulty. Patient has no other complaints at this time. 07/04/2021 8:[address] Sandhu doing better, tolerated diet, no nausea, no vomiting, no abdominal pain, BELEM 60ml clear, Review of Systems Constitutional: + fever and + anorexia; no chills and no sweats Respiratory: no dyspnea Cardiovascular: no chest pain Gastrointestinal: + abdominal pain and + nausea; no vomiting and no change in bowel habits Genitourinary: no dysuria Musculoskeletal: no back pain Integumentary: no rash and no yellowing of the skin Neurologic: no localized weakness and no generalized weakness Endocrine: no fatigue Hematologic / Lymphatic: no easy bleeding and no easy bruising Physical Exam Constitutional: WD/WN, vitals as above Eyes: PERRL, conjunctivae normal, anicteric sclerae Neck: trachea midline, no thyromegaly Respiratory: normal respiratory effort, lungs clear to auscultation Gastrointestinal (Abdomen): fost, NT, ND BELEM intact, incision heals well, no redness, Skin: no rashes, warm and dry Neurologic: patellar DTR's 2+ bilat, sensation intact Psychiatric: A+Ox3, euthymic affect Results & Data ([facility]) Vital Signs (Past 12 Hours) Vital Signs Temp Pulse Pulse Resp BP BP Pulse Ox 07/04/21 07:51 36.3 C L 66 18 159/74 H 96 07/04/21 03:11 36.3 C L 68 20 165/82 H 90 07/03/21 23:19 36.5 C 59 L 16 139/74 95 Laboratory Results Abnormal lab results 07/04/21 07/04/21 Range/Units 06:51 06:51 WBC 15.48 H (4.8-10.8) K/uL RBC 3.06 L (4.2-5.4) M/uL Hgb 9.5 L (12.0-16.0) g/dL Hct 29.8 L (37-47) % MCHC 31.9 L (32-36) g/dL RDW Std Deviation 52.9 H (36.4-46.3) fL RDW Coeff of Lorenzo 14.9 H (11.5-14.5) % MPV 11.7 H (7.4-10.4) fL Chloride 109 H (98-107) mmol/L Carbon Dioxide 19 L (21-32) mmol/L BUN 81 H (7-18) mg/dl Creatinine 4.28 H (0.6-1.2) mg/dl
[2021-07-04] MEDS: PIPERACILLIN/TAZOBACTAM 4.5 GM in DEXTROSE 5% 100 ML IV SCH ×2 (08:55→19:40)
[2021-07-04] MEDS: AMIODARONE 200 MG TAB PO SCH (09:26)
[2021-07-04] MEDS: CALCITRIOL 0.25 MCG CAPSULE PO SCH (09:26)
[2021-07-04] MEDS: allopurinoL 100 MG TAB PO SCH (09:26)
[2021-07-04] MEDS: METOPROLOL TARTRATE 25 MG TAB PO SCH ×2 (09:26→19:41)
[2021-07-04] MEDS: ASPIRIN 81 MG ECTAB PO SCH (09:27)
[2021-07-04] MEDS: SODIUM BICARBONATE 650 MG TAB PO SCH ×3 (09:27→19:41)
[2021-07-04] MEDS: HEPARIN SOD 5,000 UNIT/0.5 ML VIAL SQ SCH ×2 (09:28→19:41)
--- NOTE | 2021-07-04 10:05 | Nephrology Progress Note ---
Date of Service July 04, 2021 Assessment & Plan (1) Acute kidney injury superimposed on chronic kidney disease: Plan: * NILAM on CKD related to severe inflammation from gangrenous cholecystitis in the setting of ARB therapy * 07/01/21 Renal US: No hydronephrosis. R 8.3, L 8.3 cm * Continue to hold Losartan * Hold IVF. Encourage oral hydration * Patient is entering the recovery phase of ATN. UO 550 cc overnight. Cr has improved from 4.8 down to 4.2. Electrolyte balance is acceptable. No acute indication for HD today * Continue NaHCO3 650 mg po TID to correct metabolic acidosis (2) Chronic kidney disease, stage 4 (severe): Plan: * Baseline Cr 1.8 - 2.0 (3) Hypertension: Plan: * Hold Losartan due to NILAM * BP is acceptable. Continue Metoprolol therapy (4) Cholecystitis: Plan: * Gangrenous cholecystitis w/ perforation and abscess formation s/p laparoscopic cholecystectomy 06/26/21 * Remains on IV Zosyn * 07/01 US reveals a septated perihepatic fluid collection measuring 2 cm in thickness - possible resolving hematoma (5) Secondary hyperparathyroidism: Plan: * On oral Calcitriol therapy Admission and Anticipated Discharge Date Admission Date: June 26, 2021 Subjective Ms. Paniagua was evaluated in her hospital room this morning. She remains weak but voices no new medical concerns. Review of Systems Constitutional: + weakness; no fever Eyes: no problem reported Ear, Nose, Mouth, Throat: no problem reported Respiratory: no dyspnea Cardiovascular: no chest pain Gastrointestinal: no abdominal pain Physical Exam Constitutional: + frail appearing; not in distress Eyes: PERRL, conjunctivae normal, anicteric sclerae ENMT: external ear and nose normal, oropharynx normal Neck: trachea midline, no thyromegaly Respiratory: normal respiratory effort, lungs clear to auscultation Cardiovascular: RRR, no murmur, no edema Gastrointestinal (Abdomen): Inspection/Auscultation: + hypoactive bowel sounds (RUQ drain in place) Percussion/Palpation: no guarding Results & Data ([facility]) Vital Signs (Past 12 Hours) Vital Signs Temp Pulse Pulse Resp BP BP Pulse Ox 07/04/21 07:51 36.3 C L 66 18 159/74 H 96 07/04/21 03:11 36.3 C L 68 20 165/82 H 90 07/03/21 23:19 36.5 C 59 L 16 139/74 95 Laboratory Results Laboratory Tests 07/04/21 07/04/21 06:51 06:51 WBC 15.48 H Hgb 9.5 L Hct 29.8 L Plt Count 334 Sodium 137 Potassium 4.4 Chloride 109 H Carbon Dioxide 19 L BUN 81 H Creatinine 4.28 H Glucose 85 Calcium 9.4 PG Care Time/CCT Total # of Minutes Spent Total Time Spent with Patient: Total time spent is greater than 50% in coordination of care (as documented) at patient's floor/unit and/or counseling patient: Coding Level of Care Code 41396 Subseq Hosp Care Lvl 3 Diagnoses Acute kidney injury superimposed on chronic kidney disease N17.9; N18.9 Chronic kidney disease, stage 4 (severe) N18.4 Hypertension I10 Cholecystitis K81.9 Secondary hyperparathyroidism N25.81
--- NOTE | 2021-07-04 12:03 | Cardiology Progress Note ---
Date of Service July 04, 2021 Assessment & Plan (1) Paroxysmal atrial fibrillation: (2) On amiodarone therapy: (3) S/P cholecystectomy: (4) Acute kidney injury superimposed on chronic kidney disease: Plan: Continue low-dose amiodarone 100 mg daily. Restart diuretic therapy per direction of nephrology. No further inpatient cardiology testing or intervention at this time. Thank you for allow me to participate in the care of your patient. Cardiology will sign off. Please call with questions. Admission and Anticipated Discharge Date Admission Date: June 26, 2021 Subjective Patient seen examined the bedside. Denies recurrent abdominal discomfort. Telemetry reveals atrial paced rhythm in the 60s. No evidence of atrial fibr illation. No chest pain or unusual shortness of breath. Edema unchanged. Review of Systems Review of Systems: All systems reviewed & are unremarkable except as noted in Subjective Physical Exam Constitutional: well developed, well nourished and + obese; no acute distress Respiratory: normal respiratory effort; no respiratory distress and no labored breathing Auscultation: lungs clear to auscultation bilaterally; no crackles, no rales, no rhonchi and no wheezes Cardiovascular: Rate/Rhythm: regular rate and regular rhythm Heart Sounds: normal S1 and normal S2; no murmur Vessels: radial pulses present; no JVD Extremities: + edema (2+ bilateral pretibial edema) Gastrointestinal (Abdomen): Inspection/Auscultation: + abdomen distended and normal bowel sounds Percussion/Palpation: abdomen nontender, no guarding and abdomen not rigid Neurologic: moves all extremities; no focal motor deficits Motor/Sensory: no tremor Results & Data ([facility]) Vital Signs (Past 12 Hours) Vital Signs Temp Pulse Pulse Resp BP Pulse Ox 07/04/21 11:36 36.7 C 66 18 130/75 99 07/04/21 07:51 36.3 C L 66 18 159/74 H 96 07/04/21 03:11 36.3 C L 68 20 165/82 H 90
[2021-07-04] MEDS: PANTOprazole 40 MG in SYRINGE 0 ML IV SCH (13:12)
[2021-07-04] MEDS: ADVANCED PROBIOTIC 1250 MG CAPSULE PO SCH (17:57)
--- NOTE | 2021-07-04 18:09 | Hospitalist Progress Note ---
Date of Service July 04, 2021 Assessment & Plan (1) Cholecystitis: Plan: Acute gangrenous cholecystitis with intra-abdominal abscess -S/p cholecystectomy 7 days ago, tolerated procedure well -Continue Zosyn -Pain controlled this morning. -Pt on low sodium, low fiber diet. Added Boost for additional nutrients. -Trend CBC/BMP. -oral prn tylenol for mild pain -Continue checking surgical wounds -Leukocytosis, WBC: 15.48 today -Cdiff gene was positive, toxin negative, likely a carrier -One loose stool today. Added Probiotic. -D/C'd daily miralax NILAM on CKD -Creatinine 4.28 today which is an improvement from yesterday. -nephrology suspects ATNin the recovery phase. At this time, dialysis is not indicated as electrolytes are stable. -Stinson catheter present for accurate I&O's -Daily BMP, follow creatinine. -Nephro added IV iron supplementation for anemia, as the anemia has been stable and a second IV could not be established, iron was placed on hold. Nausea -Pt ate some breakfast, added Boost as noted above. -Cardiology recommended continuing amiodarone as they have low suspicion of it causing pt's nausea -follow. -Zofran prn -If she is unable to tolerate PO intake, consider adding IVF again. RLE Swelling -2+ pitting edema b/l -No SOB -stable Atrial Fibrillation -continue beta franklin and amiodarone -Cardiology recommended continuation of amiodarone. HTN -discontinued losartan and torsemide because of NILAM DVt ppx: heparin Diet: low fiber, low sodium Code Status: full code Dispo: Med/tele Admission and Anticipated Discharge Date Admission Date: June 26, 2021 Supervising Physician Co-Signing Physician Notes I personally examined the patient and verified all jensen points of history and exam, discussed case, and agree with decision making with Dr Mittal. Sleeping, awakens a little in grunts whenever I examine her. That said, minimal real HPI or review of systems obtainable. Vitals noted, in general she is sleeping in no distress, stirs with some gr unting. Does not appear to be in any pain, discomfort, respiratory distress. Breathing unlabored no accessory muscle use good effort. Abdomen soft nontender no guarding rebound or rigidity. Extremities with bilateral approximately 1+ edema, not asymmetric, no erythema. Gangrenous cholecystitis with abscessnow greater than a week postop. Appears to overall be recovering physically, leukocytosis somewhat nonspecificdoubt ongoing infection, but ongoing vigilance. Likely physiologic stress response. ARFmost likely ATN. Continue to follow closely. Hopefully is starting to improve. Withdrawn mentationcontinue to follow closelynot clear if she has a little bit of situational depression versus a mild hospital-acquired delirium. Reassurance/supportive care. Otherwise as above. Subjective Patient seen at bedside this morning. Patient had defecated herself prior to my arrival. Help patient get to the bathroom and get cleaned up with assistance from nurses aide. After this was completed had a discussion with her about how she was feeling today. Patient says that she is doing "fine ". She seems to be nonengaging today and appears to not want to have a discussion today. The nurses aide reports that she has been eating very little of her meals. She reports that this is not due to feeling nauseous, but just does not have an appetite. When asked if she is having any pain, she reports that she is not. She reports not having any bowel movements overnight. She is not appear enthusiastic when stating that her kidney function has improved and we are headed in the right direction. Patient denies chest pain, shortness of breath, nausea, vomiting, or calf pain. Patient has no other complaints at this time Review of Systems Review of Systems: All systems reviewed & are unremarkable except as noted in HPI & below Physical Exam Constitutional: WD/WN, vitals as above Respiratory: normal respiratory effort, lungs clear to auscultation Cardiovascular: Rate/Rhythm: regular rate and regular rhythm Extremities: + edema (2+ LE edema b/l) Gastrointestinal (Abdomen): normal bowel sounds, soft, nontender, no hepatosplenomegaly Skin: no rashes, warm and dry There are 3 healing incisions on the right abdomen with a drain present. There is no purulent fluid in the drain. Neurologic: moves all extremities Psychiatric: Orientation: alert and oriented x 3 Eye Contact: + fair eye contact Affect: + depressed affect Results & Data Results & Data ([facility]) Vital Signs (Past 12 Hours) Vital Signs Temp Pulse Resp BP Pulse Ox 07/04/21 11:36 36.7 C 66 18 130/75 99 07/04/21 07:51 36.3 C L 66 18 159/74 H 96
--- NOTE | 2021-07-04 18:30 | Billing Data ---
Date of Service July 04, 2021 Coding Level of Care Code 89021 Subseq Hosp Care Lvl 2
[2021-07-05] MEDS: LEVOTHYROXINE SODIUM 50 MCG TABLET PO SCH (05:28)
[2021-07-05] MEDS: CALCITRIOL 0.25 MCG CAPSULE PO SCH (08:45)
[2021-07-05] MEDS: METOPROLOL TARTRATE 25 MG TAB PO SCH ×2 (08:45→21:16)
[2021-07-05] MEDS: PIPERACILLIN/TAZOBACTAM 4.5 GM in DEXTROSE 5% 100 ML IV SCH (08:45)
[2021-07-05] MEDS: HEPARIN SOD 5,000 UNIT/0.5 ML VIAL SQ SCH ×2 (08:45→21:16)
[2021-07-05] MEDS: ASPIRIN 81 MG ECTAB PO SCH (08:45)
[2021-07-05] MEDS: SODIUM BICARBONATE 650 MG TAB PO SCH ×3 (08:45→21:17)
[2021-07-05] MEDS: allopurinoL 100 MG TAB PO SCH (08:46)
[2021-07-05] MEDS: ADVANCED PROBIOTIC 1250 MG CAPSULE PO SCH (08:46)
[2021-07-05] MEDS: AMIODARONE 200 MG TAB PO SCH (08:46)
[2021-07-05 09:09] LABS: Basophils # (auto) 0.02 K/uL (0-0.2); Basophils % (auto) 0.1 %; Eosinophils # (auto) 0.44 K/uL (0-0.5); Eosinophils % (auto) 2.8 %; Hemoglobin 9.9 g/dL (12.0-16.0); Immature Granulocytes # (auto) 0.27 K/uL (0.00-0.02); Immature Granulocytes % (auto) 1.7 %; Lymphocytes % (auto) 6.3 %; Mean Corpuscular Hemoglobin 31.2 pg (25-34); Mean Corpuscular Hgb Conc 31.9 g/dL (32-36); Mean Corpuscular Volume 97.8 fL (80-100); Mean Platelet Volume 11.6 fL (7.4-10.4); Monocytes # (auto) 1.16 K/uL (0.11-0.59); Monocytes % (auto) 7.3 %; Neutrophils # (auto) 13.02 K/uL (1.4-6.5); Neutrophils % (auto) 81.8 %; Nucleated RBC # (auto) 0.04 K/uL (0-0); Nucleated RBC % (auto) 0.3 %; Platelet Count 339 K/uL (130-400); RDW Coefficient of Variation 15.2 % (11.5-14.5); RDW Standard Deviation 54.6 fL (36.4-46.3); Red Blood Count 3.17 M/uL (4.2-5.4); White Blood Count 15.91 K/uL (4.8-10.8)
[2021-07-05 09:35] LABS: BUN Creatinine Ratio 18.5 (10-20); Calcium 9.2 mg/dl (8.5-10.1); Est GFR (African American) 9.9 ml/min; Est GFR (Non-African American) 8.5 ml/min; Potassium 4.4 mmol/L (3.5-5.1)
--- NOTE | 2021-07-05 11:00 | Nephrology Progress Note ---
Date of Service July 05, 2021 Assessment & Plan (1) Acute kidney injury superimposed on chronic kidney disease: Plan: * NILAM on CKD related to severe inflammation from gangrenous cholecystitis in the setting of ARB therapy * 07/01/21 Renal US: No hydronephrosis. R 8.3, L 8.3 cm * Continue to hold Losartan * Hold IVF. Encourage oral hydration * Patient is entering the recovery phase of ATN. UO 650 cc overnight. Cr has improved from 4.8 down to 4.2. Electrolyte balance is acceptable. No acute indication for HD today * Continue NaHCO3 650 mg po TID to correct metabolic acidosis (2) Chronic kidney disease, stage 4 (severe): Plan: * Baseline Cr 1.8 - 2.0 (3) Hypertension: Plan: * Hold Losartan due to NILAM * BP is acceptable. Continue Metoprolol therapy (4) Cholecystitis: Plan: * Gangrenous cholecystitis w/ perforation and abscess formation s/p laparoscopic cholecystectomy 06/26/21 * Remains on IV Zosyn * 07/01 US reveals a septated perihepatic fluid collection measuring 2 cm in thickness - possible resolving hematoma (5) Secondary hyperparathyroidism: Plan: * On oral Calcitriol therapy Admission and Anticipated Discharge Date Admission Date: June 26, 2021 Subjective Ms. Paniagua was evaluated in her hospital room this morning. She reports that she is tolerating her diet, UO is improving Review of Systems Constitutional: + weakness; no fever Eyes: no problem reported Ear, Nose, Mouth, Throat: no problem reported Respiratory: no dyspnea Cardiovascular: no chest pain Gastrointestinal: no abdominal pain Physical Exam Constitutional: + frail appearing; not in distress Eyes: PERRL, conjunctivae normal, anicteric sclerae ENMT: external ear and nose normal, oropharynx normal Neck: trachea midline, no thyromegaly Respiratory: normal respiratory effort, lungs clear to auscultation Cardiovascular: RRR, no murmur, no edema Gastrointestinal (Abdomen): Inspection/Auscultation: + hypoactive bowel sounds (RUQ drain in place) Percussion/Palpation: no guarding Results & Data ([facility]) Vital Signs (Past 12 Hours) Vital Signs Temp Pulse Pulse Pulse Resp BP Pulse Ox 07/05/21 07:00 36.3 C L 69 18 130/56 L 96 07/05/21 03:01 36.8 C 60 18 122/60 97 08/30/21 23:45 60 07/04/21 23:02 36.3 C L 64 18 120/64 98 Laboratory Results Laboratory Tests 07/05/21 07/05/21 08:47 08:47 WBC 15.91 H Hgb 9.9 L Hct 31.0 L Plt Count 339 Sodium 138 Potassium 4.4 Chloride 110 H Carbon Dioxide 22 BUN 80 H Creatinine 4.31 H Glucose 147 H Calcium 9.2 PG Care Time/CCT Total # of Minutes Spent Total Time Spent with Patient: Total time spent is greater than 50% in coordination of care (as documented) at patient's floor/unit and/or counseling patient: Coding Level of Care Code 71367 Subseq Hosp Care Lvl 3 Diagnoses Acute kidney injury superimposed on chronic kidney disease N17.9; N18.9 Chronic kidney disease, stage 4 (severe) N18.4 Hypertension I10 Cholecystitis K81.9 Secondary hyperparathyroidism N25.81
[2021-07-05] MEDS: PANTOprazole 40 MG in SYRINGE 0 ML IV SCH (11:39)
--- NOTE | 2021-07-05 12:16 | Progress Note ---
Date of Service July 05, 2021 Assessment & Plan (1) Cholecystitis: Plan: POD # 5 s/p laparoscopic cholecystectomy (severe cholecystitis with contained perforation and transverse colon adhered to gallbladder) - afebrile, vss - belem drain with 150 cc output, serosanguineous - leukocytosis stable at 16K today (23 K yesterday) NILAM creatinine continues to increase up to 4.60 today Plan: continue pain management as needed, try to limit narcotics Continue IV Zofran Continue belem drain to bulb suction Continue IV Abx repeat am labs, monitor wbc Nephrology on board for NILAM Continue low sodium/fiber diet, boost supplementation BID recommended PT/OT DVT prohylaxis with heparin and SCDs continue bowel regimen as needed Dr. Burris with [facility] covering this weekend Dr. Rodarte was present during my examination and agrees with above. 07/04/2021 8:32AM stable, tolerated diet, continue treatment, will F/U 07/05/2021 12:14PM Dr. rodarte stable, tolerated diet, stop zosyn, add on Cipro + flagyl, continue treatment, will F/U Admission and Anticipated Discharge Date Admission Date: June 26, 2021 Supervising Physician Co-Signing Physician Notes I personally examined the patient and verified all jensen points of history and exam, discussed case, and agree with decision making with Dr Mittal. Sleeping, awakens a little in grunts whenever I examine her. That said, minimal real HPI or review of systems obtainable. Vitals noted, in general she is sleeping in no distress, stirs with some grunting. Does not appear to be in any pain, discomfort, respiratory distress. Breathing unlabored no accessory muscle use good effort. Abdomen soft nontender no guarding rebound or rigidity. Extremities with bilateral approximately 1+ edema, not asymmetric, no erythema. Gangrenous cholecystitis with abscessnow greater than a week postop. Appears to overall be recovering physically, leukocytosis somewhat nonspecificdoubt ongoing infection, but ongoing vigilance. Likely physiologic stress response. ARFmost likely ATN. Continue to follow closely. Hopefully is starting to improve. Withdrawn mentationcontinue to follow closelynot clear if she has a little bit of situational depression versus a mild hospital-acquired delirium. Reassurance/supportive care. Otherwise as above. Subjective Ms. Paniagua was evaluated in her hospital room this morning. She reports that she is tolerating her diet, UO is improving 07/05/2021 12:12PM Dr. Rodarte stable, tolerated diet, no nausea, no vomiting, no fever, WBC 15.000, BELEM 140ml, clear color Review of Systems Constitutional: + fever and + anorexia; no chills and no sweats Respiratory: no dyspnea Cardiovascular: no chest pain Gastrointestinal: + abdominal pain and + nausea; no vomiting and no change in bowel habits Genitourinary: no dysuria Musculoskeletal: no back pain Integumentary: no rash and no yellowing of the skin Neurologic: no localized weakness and no generalized weakness Endocrine: no fatigue Hematologic / Lymphatic: no easy bleeding and no easy bruising Physical Exam Constitutional: WD/WN, vitals as above Eyes: PERRL, conjunctivae normal, anicteric sclerae Neck: trachea midline, no thyromegaly Respiratory: normal respiratory effort, lungs clear to auscultation Gastrointestinal (Abdomen): soft, nT, ND, BELEM intact, BS + Skin: no rashes, warm and dry Neurologic: patellar DTR's 2+ bilat, sensation intact Psychiatric: A+Ox3, euthymic affect Results & Data ([facility]) Vital Signs (Past 12 Hours) Vital Signs Temp Pulse Pulse Resp BP Pulse Ox 07/05/21 11:00 36.2 C L 61 20 109/63 96 07/05/21 07:00 36.3 C L 69 18 130/56 L 96 07/05/21 03:01 36.8 C 60 18 122/60 97 Laboratory Results Abnormal lab results 07/05/21 07/05/21 07/05/21 Range/Units 08:47 08:47 08:47 WBC 15.91 H (4.8-10.8) K/uL RBC 3.17 L (4.2-5.4) M/uL Hgb 9.9 L (12.0-16.0) g/dL Hct 31.0 L (37-47) % MCHC 31.9 L (32-36) g/dL RDW Std Deviation 54.6 H (36.4-46.3) fL RDW Coeff of Lorenzo 15.2 H (11.5-14.5) % MPV 11.6 H (7.4-10.4) fL Neut # (Auto) 13.02 H (1.4-6.5) K/uL Lymph # (Auto) 1.00 L (1.2-3.4) K/uL [place] # (Auto) 1.16 H (0.11-0.59) K/uL Immature Gran # (Auto) 0.27 H (0.00-0.02) K/uL Absolute Nucleated RBC 0.04 H (0-0) K/uL Chloride 110 H (98-107) mmol/L BUN 80 H (7-18) mg/dl Creatinine 4.31 H (0.6-1.2) mg/dl Glucose 147 H (70-99) mg/dl Procalcitonin 1.00 H (0-0.5) ng/ml
--- NOTE | 2021-07-05 19:05 | Hospitalist Progress Note ---
Date of Service July 05, 2021 Assessment & Plan (1) Cholecystitis: Plan: Acute gangrenous cholecystitis with intra-abdominal abscess -S/p cholecystectomy 7 days ago, tolerated procedure well -Continue Zosyn, today is last day-->surgery recommends Flagyl and cipro for oral continuation of antibiotics. -Pain controlled this morning. -Pt on low sodium, low fiber diet. Added Boost for additional nutrients. -Trend CBC/BMP. 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 -nephrology suspects ATN in the recovery phase. At this time, dialysis is not indicated as electrolytes are stable. -Stinson catheter present for accurate I&O's -Daily BMP, follow creatinine. -Nephro added IV iron supplementation for anemia, as the anemia has been stable and a second IV could not be established, iron was placed on hold. Nausea -Pt has had some ow meal consumption, Boost supplementation in orders. -Cardiology recommended continuing amiodarone as they have low suspicion of it causing pt's nausea -follow. -Zofran prn -If she is unable to tolerate PO intake, consider adding IVF again. RLE Swelling -2+ pitting edema b/l -No SOB -stable Atrial Fibrillation -continue beta franklin and amiodarone -Cardiology recommended continuation of amiodarone. HTN -discontinued losartan and torsemide because of NILAM DVt ppx: heparin Diet: low fiber, low sodium Code Status: full code Dispo: Med/tele Admission and Anticipated Discharge Date Admission Date: June 26, 2021 Supervising Physician Co-Signing Physician Notes I personally examined the patient and verified all jensen points of history and exam, discussed case, and agree with decision making with Dr Mittal. Sitting up eating, in good spirits. Notes no abdominal pain or nausea. Notes she was nauseated this morning but not now. Wonders about being able to get home, but understands what we are watching for. No other new complaints. Vitals noted, in general she is awake alert pleasant no distress. HEENT normocephalic atraumatic mucous membranes moist. Breathing unlabored no accessory muscle use good effort. Skin shows no rashes no pallor or icterus. Neuro without focal deficits. Gangrenous cholecystitis with abscessnow greater than a week postop. Appears to overall be recovering physically, leukocytosis somewhat nonspecificdoubt ongoing infection, but ongoing vigilance. Likely physiologic stress response, particularly with pro calcitonin level improving so dramatically, that said low threshold for repeat imaging given that intra-abdominal abscesses can sometimes create a smoldering picture like this. Continue antibiotics. Reassuring input from surgery. ARFmost likely ATN. Continue to follow closely. Hopefully is starting to improve, but right now creatinine has stalled out. Fortunately no acute indications for dialysis. Withdrawn mentationcontinue to follow closelynot clear if she has a little bit of situational depression versus a mild hospital-acquired delirium. Reassurance/supportive care. Today she is much better. Otherwise as above. Subjective Patient seen at bedside this morning. Patient reports no overnight events. Patient states that she really wants to go home so she can be with her sister. She reports a loose bowel movement overnight. She states that she has been eating her meals okay, but SLIDE FASTENER CHAIN ASSEMBLER reports that she has only been eating about one third of her trays. In comparison to last week this is decreased that she was eating her entire meals at that time. She reports that she feels "fine ", but she seems apprehensive about talking once again today. Patient voices no other complaints at this time. Review of Systems Review of Systems: Positive abd pain Positive constipation, chronic Negative fever chills Negative headache dizziness Negative chest pain palpitations SOB Negative nausea vomitting diarrhea Negative numbness tingling rash swelling Constitutional: no fever, no chills, no sweats and no fatigue Eyes: no blind spots and no discharge Ear, Nose, Mouth, Throat: no hearing loss and no nasal congestion Respiratory: no cough and no dyspnea Cardiovascular: no chest pain, no dyspnea on exertion and no edema Gastrointestinal: + abdominal pain, + early satiety, + nausea and + constipat ion; no bloating, no heartburn, no vomiting, no diarrhea/loose stools and no blood in stools Genitourinary: no dysuria Musculoskeletal: no joint pain and no myalgia Neurologic: no tingling, no numbness and no headache(s) Endocrine: no fatigue Physical Exam Constitutional: WD/WN, vitals as above well developed, well nourished, + frail appearing and cooperative Eyes: + anicteric sclerae ENMT: Ears: + hearing impairment Neck: trachea midline, no thyromegaly trachea midline Respiratory: normal respiratory effort, lungs clear to auscultation Cardiovascular: RRR, no murmur, no edema Rate/Rhythm: regular rate and regular rhythm Heart Sounds: normal S1 and normal S2 Extremities: + edema (2+ LE edema b/l); no calf tenderness Gastrointestinal (Abdomen): normal bowel sounds, soft, nontender, no hepatosplenomegaly Inspection/Auscultation: normal bowel sounds, + abdominal surgical incision and + abdominal surgical drain present Percussion/Palpation: + abdomen tender (Mild tenderness to palpation on the R abdomen) and + dullness to percussion Skin: no rashes, warm and dry Neurologic: moves all extremities Psychiatric: A+Ox3, euthymic affect Orientation: alert and oriented x 3 Eye Contact: + fair eye contact Speech: normal rate/rhythm/volume of speech Affect: + depressed affect Results & Data Results & Data ([facility]) Vital Signs (Past 12 Hours) Vital Signs Temp Pulse Pulse Resp BP Pulse Ox 07/05/21 16:00 70 07/05/21 15:00 36.6 C 64 18 137/73 100 07/05/21 11:00 36.2 C L 61 20 109/63 96 07/05/21 08:00 63 07/05/21 07:00 36.3 C L 69 18 130/56 L 96
--- NOTE | 2021-07-05 19:16 | Billing Data ---
Date of Service July 05, 2021 Coding Level of Care Code 04030 Subseq Hosp Care Lvl 2
[2021-07-05] MEDS: CIPROFLOXACIN 500 MG TAB PO SCH (21:16)
[2021-07-06] MEDS: LEVOTHYROXINE SODIUM 50 MCG TABLET PO SCH (05:43)
[2021-07-06 07:24] LABS: Basophils # (auto) 0.01 K/uL (0-0.2); Basophils % (auto) 0.1 %; Eosinophils # (auto) 0.38 K/uL (0-0.5); Eosinophils % (auto) 3.1 %; Hematocrit (blood only) 28.9 % (37-47); Hemoglobin 9.2 g/dL (12.0-16.0); Immature Granulocytes # (auto) 0.19 K/uL (0.00-0.02); Immature Granulocytes % (auto) 1.6 %; Lymphocytes # (auto) 0.78 K/uL (1.2-3.4); Lymphocytes % (auto) 6.4 %; Mean Corpuscular Hemoglobin 31.3 pg (25-34); Mean Corpuscular Hgb Conc 31.8 g/dL (32-36); Mean Corpuscular Volume 98.3 fL (80-100); Mean Platelet Volume 11.7 fL (7.4-10.4); Monocytes # (auto) 1.26 K/uL (0.11-0.59); Monocytes % (auto) 10.4 %; Neutrophils % (auto) 78.4 %; Platelet Count 282 K/uL (130-400); RDW Coefficient of Variation 15.2 % (11.5-14.5); Red Blood Count 2.94 M/uL (4.2-5.4); White Blood Count 12.12 K/uL (4.8-10.8)
[2021-07-06 07:50] LABS: BUN Creatinine Ratio 18.4 (10-20); Est GFR (Non-African American) 8.6 ml/min; Potassium 4.2 mmol/L (3.5-5.1)
[2021-07-06] MEDS: METOPROLOL TARTRATE 25 MG TAB PO SCH ×2 (08:34→21:43)
[2021-07-06] MEDS: AMIODARONE 200 MG TAB PO SCH (08:34)
[2021-07-06] MEDS: CALCITRIOL 0.25 MCG CAPSULE PO SCH (08:34)
[2021-07-06] MEDS: SODIUM BICARBONATE 650 MG TAB PO SCH ×3 (08:34→21:43)
[2021-07-06] MEDS: allopurinoL 100 MG TAB PO SCH (08:34)
[2021-07-06] MEDS: ADVANCED PROBIOTIC 1250 MG CAPSULE PO SCH (08:35)
[2021-07-06] MEDS: HEPARIN SOD 5,000 UNIT/0.5 ML VIAL SQ SCH ×2 (08:35→21:45)
[2021-07-06] MEDS: ASPIRIN 81 MG ECTAB PO SCH (08:35)
[2021-07-06] MEDS: metroNIDAZOLE 500 MG TAB PO SCH ×3 (08:35→21:43)
--- NOTE | 2021-07-06 10:01 | Progress Note ---
Date of Service July 06, 2021 Assessment & Plan (1) Cholecystitis: Plan: POD # 5 s/p laparoscopic cholecystectomy (severe cholecystitis with contained perforation and transverse colon adhered to gallbladder) - afebrile, vss - belem drain with 150 cc output, serosanguineous - leukocytosis stable at 16K today (23 K yesterday) NILAM creatinine continues to increase up to 4.60 today Plan: continue pain management as needed, try to limit narcotics Continue IV Zofran Continue belem drain to bulb suction Continue IV Abx repeat am labs, monitor wbc Nephrology on board for NILAM Continue low sodium/fiber diet, boost supplementation BID recommended PT/OT DVT prohylaxis with heparin and SCDs continue bowel regimen as needed Dr. Burris with [place] [facility] surgery covering this weekend Dr. Rodarte was present during my examination and agrees with above. 07/04/2021 8:32AM stable, tolerated diet, continue treatment, will F/U 07/05/2021 12:14PM Dr. rodarte stable, tolerated diet, stop zosyn, add on Cipro + flagyl, continue treatment, will F/U 07/06/2021 10:00AM DR. Rodarte continue treatment, may pull out BELEM tomorrow, case camillee consult for plan discharge, will F/U Admission and Anticipated Discharge Date Admission Date: June 26, 2021 Supervising Physician Co-Signing Physician Notes I personally examined the patient and verified all jensen points of history and exam, discussed case, and agree with decision making with Dr Mittal. Sitting up eating, in good spirits. Notes no abdominal pain or nausea. Notes she was nauseated this morning but not now. Wonders about being able to get home, but understands what we are watching for. No other new complaints. Vitals noted, in general she is awake alert pleasant no distress. HEENT normocephalic atraumatic mucous membranes moist. Breathing unlabored no accessory muscle use good effort. Skin shows no rashes no pallor or icterus. Neuro without focal deficits. Gangrenous cholecystitis with abscessnow greater than a week postop. Appears to overall be recovering physically, leukocytosis somewhat nonspecificdoubt ongoing infection, but ongoing vigilance. Likely physiologic stress response, particularly with pro calcitonin level improving so dramatically, that said low threshold for repeat imaging given that intra-abdominal abscesses can sometimes create a smoldering picture like this. Continue antibiotics. Reassuring input from surgery. ARFmost likely ATN. Continue to follow closely. Hopefully is starting to improve, but right now creatinine has stalled out. Fortunately no acute indications for dialysis. Withdrawn mentationcontinue to follow closelynot clear if she has a little bit of situational depression versus a mild hospital-acquired delirium. Reassurance/supportive care. Today she is much better. Otherwise as above. Subjective Patient seen at bedside this morning. Patient reports no overnight events. Patient states that she really wants to go home so she can be with her sister. She reports a loose bowel movement overnight. She states that she has been eating her meals okay, but TRUCK LEASING MANAGER reports that she has only been eating about one third of her trays. In comparison to last week this is decreased that she was eating her entire meals at that time. She reports that she feels "fine ", but she seems apprehensive about talking once again today. Patient voices no other complaints at this time. 07/06/2021 9:[address] Rodarte, doing fine, no abdominal pain, tolerated diet, no fever, WBC down to 12,000, BELEM 160ml clear color, Review of Systems Constitutional: + fever and + anorexia; no chills and no sweats Respiratory: no dyspnea Cardiovascular: no chest pain Gastrointestinal: + abdominal pain and + nausea; no vomiting and no change in bowel habits Genitourinary: no dysuria Musculoskeletal: no back pain Integumentary: no rash and no yellowing of the skin Neurologic: no localized weakness and no generalized weakness Endocrine: no fatigue Hematologic / Lymphatic: no easy bleeding and no easy bruising Physical Exam Constitutional: WD/WN, vitals as above Eyes: PERRL, conjunctivae normal, anicteric sclerae Neck: trachea midline, no thyromegaly Respiratory: normal respiratory effort, lungs clear to auscultation Gastrointestinal (Abdomen): normal bowel sounds, soft, nontender, no hepatosplenomegaly all incision heal well. Skin: no rashes, warm and dry Neurologic: patellar DTR's 2+ bilat, sensation intact Psychiatric: A+Ox3, euthymic affect Results & Data ([facility]) Vital Signs (Past 12 Hours) Vital Signs Temp Pulse Pulse Resp BP Pulse Ox 07/06/21 07:41 63 07/06/21 07:04 36.5 C 63 18 126/69 95 07/06/21 02:37 36.4 C L 63 18 122/68 97 07/06/21 00:55 63 07/05/21 22:24 36.4 C L 66 18 157/69 H 97 Laboratory Results Abnormal lab results 07/06/21 07/06/21 Range/Units 06:47 06:47 WBC 12.12 H (4.8-10.8) K/uL RBC 2.94 L (4.2-5.4) M/uL Hgb 9.2 L (12.0-16.0) g/dL Hct 28.9 L (37-47) % MCHC 31.8 L (32-36) g/dL RDW Std Deviation 54.0 H (36.4-46.3) fL RDW Coeff of Lorenzo 15.2 H (11.5-14.5) % MPV 11.7 H (7.4-10.4) fL Neut # (Auto) 9.50 H (1.4-6.5) K/uL Lymph # (Auto) 0.78 L (1.2-3.4) K/uL [place] # (Auto) 1.26 H (0.11-0.59) K/uL Immature Gran # (Auto) 0.19 H (0.00-0.02) K/uL Chloride 108 H (98-107) mmol/L BUN 79 H (7-18) mg/dl Creatinine 4.28 H (0.6-1.2) mg/dl
--- NOTE | 2021-07-06 10:19 | Nephrology Progress Note ---
Date of Service July 06, 2021 Assessment & Plan (1) Acute kidney injury superimposed on chronic kidney disease: Plan: * NILAM on CKD related to severe inflammation from gangrenous cholecystitis in the setting of ARB therapy * 07/01/21 Renal US: No hydronephrosis. R 8.3, L 8.3 cm * Continue to hold Losartan * Hold IVF. Encourage oral hydration * Patient is entering the recovery phase of ATN. UO 840 cc overnight. Cr has improved from 4.8 down to 4.2. Electrolyte balance is acceptable. No acute indication for HD today * Continue NaHCO3 650 mg po TID to correct metabolic acidosis (2) Chronic kidney disease, stage 4 (severe): Plan: * Baseline Cr 1.8 - 2.0 (3) Hypertension: Plan: * Hold Losartan due to NILAM * BP is acceptable. Continue Metoprolol therapy (4) Cholecystitis: Plan: * Gangrenous cholecystitis w/ perforation and abscess formation s/p laparoscopic cholecystectomy 06/26/21 * Completed course of IV Zosyn * 07/01 US reveals a septated perihepatic fluid collection measuring 2 cm in thi ckness - possible resolving hematoma (5) Secondary hyperparathyroidism: Plan: * On oral Calcitriol therapy Admission and Anticipated Discharge Date Admission Date: June 26, 2021 Subjective Ms. Paniagua was evaluated in her hospital room this morning. She reports that she is tolerating small meals without abdominal pain or GI upset. She denies fever, abdominal discomfort, angina or dyspnea Review of Systems Constitutional: + weakness; no fever Eyes: no problem reported Ear, Nose, Mouth, Throat: no problem reported Respiratory: no dyspnea Cardiovascular: no chest pain Gastrointestinal: no abdominal pain Physical Exam Constitutional: + frail appearing; not in distress Eyes: PERRL, conjunctivae normal, anicteric sclerae ENMT: external ear and nose normal, oropharynx normal Neck: trachea midline, no thyromegaly Respiratory: normal respiratory effort, lungs clear to auscultation Cardiovascular: RRR, no murmur, no edema Gastrointestinal (Abdomen): Inspection/Auscultation: + hypoactive bowel sounds (RUQ drain in place) Percussion/Palpation: no guarding Results & Data ([facility]) Vital Signs (Past 12 Hours) Vital Signs Temp Pulse Pulse Resp BP Pulse Ox 07/06/21 07:41 63 07/06/21 07:04 36.5 C 63 18 126/69 95 07/06/21 02:37 36.4 C L 63 18 122/68 97 07/06/21 00:55 63 07/05/21 22:24 36.4 C L 66 18 157/69 H 97 Laboratory Results Laboratory Tests 07/06/21 07/06/21 06:47 06:47 WBC 12.12 H Hgb 9.2 L Hct 28.9 L Plt Count 282 Sodium 137 Potassium 4.2 Chloride 108 H Carbon Dioxide 21 BUN 79 H Creatinine 4.28 H Glucose 85 PG Care Time/CCT Total # of Minutes Spent Total Time Spent with Patient: Total time spent is greater than 50% in coordination of care (as documented) at patient's floor/unit and/or counseling patient: Coding Level of Care Code 28631 Subseq Hosp Care Lvl 3 Diagnoses Acute kidney injury superimposed on chronic kidney disease N17.9; N18.9 Chronic kidney disease, stage 4 (severe) N18.4 Hypertension I10 Cholecystitis K81.9 Secondary hyperparathyroidism N25.81
[2021-07-06] MEDS: PANTOprazole 40 MG in SYRINGE 0 ML IV SCH (13:01)
[2021-07-06] MEDS ORDERED: MELATONIN 3 MG TAB PO PRN (14:20)
[2021-07-06] MEDS: SUCRALFATE 1 GM/10 ML UDC PO SCH ×2 (16:48→21:45)
--- NOTE | 2021-07-06 18:37 | Hospitalist Progress Note ---
Date of Service July 06, 2021 Assessment & Plan (1) Cholecystitis: Plan: Acute gangrenous cholecystitis with intra-abdominal abscess -S/p cholecystectomy 9 days ago, tolerated procedure well -Zosyn changed to Flagyl and cipro for oral continuation of antibiotics. -Pain controlled this morning. -Pt on low sodium, low fiber diet. Added Boost for additional nutrients. -Trend CBC/BMP. 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 -nephrology suspects ATN in the recovery phase. At this time, dialysis is not indicated as electrolytes are stable. -Stinson catheter present for accurate I&O's -Daily BMP, follow creatinine. -Nephro added IV iron supplementation for anemia, as the anemia has been stable and a second IV could not be established, iron was placed on hold. Nausea -Pt has had some low meal consumption, Boost supplementation in orders. -Cardiology recommended continuing amiodarone as they have low suspicion of it causing pt's nausea -follow. -Zofran prn -If she is unable to tolerate PO intake, consider adding IVF again. RLE Swelling -2+ pitting edema b/l -No SOB -stable Atrial Fibrillation -continue beta franklin and amiodarone -Cardiology recommended continuation of amiodarone. HTN -discontinued losartan and torsemide because of NILAM DVt ppx: heparin Diet: low fiber, low sodium Code Status: full code Dispo: Med/tele Admission and Anticipated Discharge Date Admission Date: June 26, 2021 Supervising Physician Co-Signing Physician Notes I personally examined the patient and verified all jensen points of history and exam, discussed case, and agree with decision making with Dr Mittal. Sitting up and eating lunch. Notes that she has had early satiety for quite a while. She did mention it yesterday, but notes that actually right after I left was about the last that she was able to eat. She occasionally feels a little bit of nausea although that is not a dominant part of the picturemostly it is just the fact she feels full very easily. She notes this was going on probably about a month prior to admission. Vitals noted, in general she is awake alert pleasant no distress. HEENT no rmocephalic atraumatic mucous membranes moist. Breathing unlabored no accessory muscle use good effort. Epigastric tenderness without guarding rebound or rigidity. Skin shows no rashes no pallor or icterus. Neuro without focal deficits. Gangrenous cholecystitis with abscessnow greater than a week postop. Appears to overall be recovering physically, leukocytosis somewhat nonspecificdoubt on going infection, but ongoing vigilance. Is showing improvement, was likely physiologic stress response, particularly with pro calcitonin level improving so dramatically as additional reassurance. Low threshold for repeat imaging if she has any worsening, but does not appear indicated at this time. Early satietygiven that comes in the context of gangrenous cholecystitis, and she does not seem to show anything else overly ominoushopefully just indigestion/reflux. We will give a trial of aggressive acid suppression and stomach management with Pepcid and Protonix twice daily and Carafate 4 times dailyif this does not help over few days, then we may need to investigate further. ARFmost likely ATN. Continue to follow closely. Not showing any acute indications for dialysis, but also not really showing any improvement either. Withdrawn mentationcontinue to follow closelynot clear if she has a little bit of situational depression versus a mild hospital-acquired delirium. Reassura nce/supportive care. The last 2 days she has been much brighter. Otherwise as above. Subjective Patient seen at bedside this morning. Patient seems to be in better spirits than she was yesterday. She reports that she is feeling well, but wonders when she is going to be able to go home. After some talking [id number] she seems to understand that she is here because of her kidney function that we are trying to get back to baseline. She reports that her bowel movements have still been a little bit loose but have been improving. She states that she has the occasional nausea every once in a while, but for the most part this seems to have resolved. When she eats her meals, she does report that she gets full relatively quickly. She has been drinking her boost supplementation. Patient has no other complaints at this time. Review of Systems Review of Systems: All systems reviewed & are unremarkable except as noted in HPI & below Physical Exam Constitutional: WD/WN, vitals as above well developed, well nourished, + frail appearing and cooperative Eyes: + anicteric sclerae ENMT: Ears: + hearing impairment Neck: trachea midline, no thyromegaly Respiratory: normal respiratory effort, lungs clear to auscultation Cardiovascular: RRR, no murmur, no edema Rate/Rhythm: regular rate and regular rhythm Heart Sounds: normal S1 and normal S2 Extremities: + edema (2+ LE edema b/l); no calf tenderness Gastrointestinal (Abdomen): normal bowel sounds, soft, nontender, no hepatosplenomegaly Inspection/Auscultation: normal bowel sounds, + abdominal surgical incision and + abdominal surgical drain present Percussion/Palpation: + abdomen tender (Mild tenderness to palpation on the R abdomen) and + dullness to percussion Skin: no rashes, warm and dry Neurologic: moves all extremities Psychiatric: A+Ox3, euthymic affect Orientation: alert and oriented x 3 Eye Contact: + fair eye contact Speech: normal rate/rhythm/volume of speech Affect: + depressed affect Results & Data Results & Data ([facility]) Vital Signs (Past 12 Hours) Vital Signs Temp Pulse Pulse Pulse Resp BP BP 07/06/21 16:00 36.4 C L 60 20 112/62 07/06/21 15:17 60 07/06/21 11:00 36.5 C 64 22 114/62 07/06/21 07:41 63 07/06/21 07:04 36.5 C 63 18 126/69 Pulse Ox 07/06/21 16:00 97 07/06/21 15:17 07/06/21 11:00 97 07/06/21 07:41 07/06/21 07:04 95 Resident Activity Tracking Resident Involvement: Resident Care Provided Care Provided: Adult Hospital Medicine
--- NOTE | 2021-07-06 19:02 | Billing Data ---
Date of Service July 06, 2021 Coding Level of Care Code 08988 Subseq Hosp Care Lvl 3
[2021-07-06] MEDS: CIPROFLOXACIN 500 MG TAB PO SCH (21:43)
[2021-07-06] MEDS: PANTOprazole 40 MG TAB PO SCH (21:43)
[2021-07-06] MEDS: FAMOTIDINE 20 MG TAB PO SCH (21:43)
[2021-07-07] MEDS: LEVOTHYROXINE SODIUM 50 MCG TABLET PO SCH (05:20)
[2021-07-07 07:21] LABS: Basophils # (auto) 0.01 K/uL (0-0.2); Basophils % (auto) 0.1 %; Eosinophils # (auto) 0.24 K/uL (0-0.5); Eosinophils % (auto) 2.1 %; Hematocrit (blood only) 26.7 % (37-47); Hemoglobin 8.6 g/dL (12.0-16.0); Immature Granulocytes # (auto) 0.13 K/uL (0.00-0.02); Immature Granulocytes % (auto) 1.1 %; Lymphocytes # (auto) 0.78 K/uL (1.2-3.4); Lymphocytes % (auto) 6.8 %; Mean Corpuscular Hemoglobin 31.6 pg (25-34); Mean Corpuscular Hgb Conc 32.2 g/dL (32-36); Mean Corpuscular Volume 98.2 fL (80-100); Mean Platelet Volume 12.1 fL (7.4-10.4); Monocytes # (auto) 1.16 K/uL (0.11-0.59); Monocytes % (auto) 10.1 %; Neutrophils % (auto) 79.8 %; Platelet Count 256 K/uL (130-400); RDW Coefficient of Variation 15.2 % (11.5-14.5); RDW Standard Deviation 53.7 fL (36.4-46.3); Red Blood Count 2.72 M/uL (4.2-5.4); White Blood Count 11.52 K/uL (4.8-10.8)
[2021-07-07 07:49] LABS: BUN Creatinine Ratio 20.2 (10-20); Creatinine Clr Calc Pharmacy 10.9 ml/min; Est GFR (African American) 12.1 ml/min; Est GFR (Non-African American) 10.4 ml/min; Potassium 4.2 mmol/L (3.5-5.1)
[2021-07-07] MEDS: SUCRALFATE 1 GM/10 ML UDC PO SCH ×3 (08:47→17:43)
[2021-07-07] MEDS: allopurinoL 100 MG TAB PO SCH (08:48)
[2021-07-07] MEDS: AMIODARONE 200 MG TAB PO SCH (08:48)
[2021-07-07] MEDS: SODIUM BICARBONATE 650 MG TAB PO SCH ×3 (08:49→21:04)
[2021-07-07] MEDS: METOPROLOL TARTRATE 25 MG TAB PO SCH ×2 (08:49→21:03)
[2021-07-07] MEDS: CALCITRIOL 0.25 MCG CAPSULE PO SCH (08:49)
[2021-07-07] MEDS: ASPIRIN 81 MG ECTAB PO SCH (08:49)
[2021-07-07] MEDS: metroNIDAZOLE 500 MG TAB PO SCH ×3 (08:50→21:04)
[2021-07-07] MEDS: ADVANCED PROBIOTIC 1250 MG CAPSULE PO SCH (08:50)
[2021-07-07] MEDS: PANTOprazole 40 MG TAB PO SCH ×2 (08:51→21:05)
[2021-07-07] MEDS: HEPARIN SOD 5,000 UNIT/0.5 ML VIAL SQ SCH ×2 (08:52→21:04)
--- NOTE | 2021-07-07 10:50 | Nephrology Progress Note ---
Date of Service July 07, 2021 Assessment & Plan (1) Acute kidney injury superimposed on chronic kidney disease: Plan: * NILAM on CKD related to severe inflammation from gangrenous cholecystitis in the setting of ARB therapy * 07/01/21 Renal US: No hydronephrosis. R 8.3, L 8.3 cm * Continue to hold Losartan * Hold IVF. Encourage oral hydration * Patient is entering the recovery phase of ATN. UO 735 cc overnight. Cr has improved from 4.8 down to 3.6. Electrolyte balance is acceptable. No acute indication for HD today * Continue NaHCO3 650 mg po TID to correct metabolic acidosis (2) Chronic kidney disease, stage 4 (severe): Plan: * Baseline Cr 1.8 - 2.0 (3) Hypertension: Plan: * Hold Losartan due to NILAM * BP is acceptable. Continue Metoprolol therapy (4) Cholecystitis: Plan: * Gangrenous cholecystitis w/ perforation and abscess formation s/p laparoscopic cholecystectomy 06/26/21 * Completed course of IV Zosyn * 07/01 US reveals a septated perihepatic fluid collection measuring 2 cm in thi ckness - possible resolving hematoma (5) Secondary hyperparathyroidism: Plan: * On oral Calcitriol therapy Admission and Anticipated Discharge Date Admission Date: June 26, 2021 Subjective Ms. Paniagua was evaluated in her hospital room this morning. She c/o diarrhea but reports that she is tolerating small meals without abdominal pain. She denies fever, abdominal discomfort, angina or dyspnea Review of Systems Constitutional: + weakness; no fever Eyes: no problem reported Ear, Nose, Mouth, Throat: no problem reported Respiratory: no dyspnea Cardiovascular: no chest pain Gastrointestinal: no abdominal pain Physical Exam Constitutional: + frail appearing; not in distress Eyes: PERRL, conjunctivae normal, anicteric sclerae ENMT: external ear and nose normal, oropharynx normal Neck: trachea midline, no thyromegaly Respiratory: normal respiratory effort, lungs clear to auscultation Cardiovascular: Rate/Rhythm: regular rate and regular rhythm Extremities: + edema (3+ pretibial pitting edema) Gastrointestinal (Abdomen): Inspection/Auscultation: + hypoactive bowel sounds (RUQ drain in place) Percussion/Palpation: no guarding Results & Data ([facility]) Vital Signs (Past 12 Hours) Vital Signs Temp Pulse Pulse Resp BP BP Pulse Ox 07/07/21 07:41 68 07/07/21 07:00 36.4 C L 67 18 149/64 H 96 07/07/21 03:00 36.5 C 67 16 114/63 96 07/06/21 23:33 36.4 C L 60 18 115/69 98 Laboratory Results Laboratory Tests 07/07/21 07/07/21 06:36 06:36 WBC 11.52 H Hgb 8.6 L Hct 26.7 L Plt Count 256 Sodium 136 Potassium 4.2 Chloride 108 H Carbon Dioxide 19 L BUN 74 H Creatinine 3.65 H D Glucose 86 PG Care Time/CCT Total # of Minutes Spent Total Time Spent with Patient: Total time spent is greater than 50% in coordination of care (as documented) at patient's floor/unit and/or counseling patient: Coding Level of Care Code 61628 Subseq Hosp Care Lvl 3 Diagnoses Acute kidney injury superimposed on chronic kidney disease N17.9; N18.9 Chronic kidney disease, stage 4 (severe) N18.4 Hypertension I10 Cholecystitis K81.9 Secondary hyperparathyroidism N25.81
--- NOTE | 2021-07-07 12:24 | Progress Note ---
Date of Service July 07, 2021 Assessment & Plan (1) Cholecystitis: Plan: POD # 5 s/p laparoscopic cholecystectomy (severe cholecystitis with contained perforation and transverse colon adhered to gallbladder) - afebrile, vss - belem drain with 150 cc output, serosanguineous - leukocytosis stable at 16K today (23 K yesterday) NILAM creatinine continues to increase up to 4.60 today Plan: continue pain management as needed, try to limit narcotics Continue IV Zofran Continue belem drain to bulb suction Continue IV Abx repeat am labs, monitor wbc Nephrology on board for NILAM Continue low sodium/fiber diet, boost supplementation BID recommended PT/OT DVT prohylaxis with heparin and SCDs continue bowel regimen as needed Dr. Burris with [place] [facility] covering this weekend Dr. Rodarte was present during my examination and agrees with above. 07/04/2021 8:32AM stable, tolerated diet, continue treatment, will F/U 07/05/2021 12:14PM Dr. rodarte stable, tolerated diet, stop zosyn, add on Cipro + flagyl, continue treatment, will F/U 07/06/2021 10:00AM DR. Rodarte continue treatment, may pull out BELEM tomorrow, case mange consult for plan discharge, will F/U 07/07/2021 12:20PM DR. Rodarte, pulled BELEM, WBC down to 11.9 sign off today, F/U Dr. Duong 2-3 weeks, or Dr. Rodarte please call with questions, Thanks, Admission and Anticipated Discharge Date Admission Date: June 26, 2021 Supervising Physician Co-Signing Physician Notes I personally examined the patient and verified all jensen points of history and exam, discussed case, and agree with decision making with Dr Mittal. Sitting up and eating lunch. Notes that she has had early satiety for quite a while. She did mention it yesterday, but notes that actually right after I left was about the last that she was able to eat. She occasionally feels a little bit of nausea although that is not a dominant part of the picturemostly it is just the fact she feels full very easily. She notes this was going on probably about a month prior to admission. Vitals noted, in general she is awake alert pleasant no distress. HEENT normocephalic atraumatic mucous membranes moist. Breathing unlabored no accessory muscle use good effort. Epigastric tenderness without guarding rebound or rigidity. Skin shows no rashes no pallor or icterus. Neuro without focal deficits. Gangrenous cholecystitis with abscessnow greater than a week postop. Appears to overall be recovering physically, leukocytosis somewhat nonspecificdoubt ongoing infection, but ongoing vigilance. Is showing improvement, was likely physiologic stress response, particularly with pro calcitonin level improving so dramatically as additional reassurance. Low threshold for repeat imaging if she has any worsening, but does not appear indicated at this time. Early satietygiven that comes in the context of gangrenous cholecystitis, and she does not seem to show anything else overly ominoushopefully just indigestion/reflux. We will give a trial of aggressive acid suppression and stomach management with Pepcid and Protonix twice daily and Carafate 4 times dailyif this does not help over few days, then we may need to investigate further. ARFmost likely ATN. Continue to follow closely. Not showing any acute indications for dialysis, but also not really showing any improvement either. Withdrawn mentationcontinue to follow closelynot clear if she has a little bit of situational depression versus a mild hospital-acquired delirium. Reassurance/supportive care. The last 2 days she has been much brighter. Otherwise as above. Subjective Ms. Paniagua was evaluated in her hospital room this morning. She c/o diarrhea but reports that she is tolerating small meals without abdominal pain. She denies fever, abdominal discomfort, angina or dyspnea 07/07/2021 12:20PM Dr. Rodarte, stable, no fever, tolerated diet, no abdominal pain, BELEM 130ml clear color, Review of Systems Constitutional: + fever and + anorexia; no chills and no sweats Respiratory: no dyspnea Cardiovascular: no chest pain Gastrointestinal: + abdominal pain and + nausea; no vomiting and no change in bowel habits Genitourinary: no dysuria Musculoskeletal: no back pain Integumentary: no rash and no yellowing of the skin Neurologic: no localized weakness and no generalized weakness Endocrine: no fatigue Hematologic / Lymphatic: no easy bleeding and no easy bruising Physical Exam Constitutional: WD/WN, vitals as above Eyes: PERRL, conjunctivae normal, anicteric sclerae Neck: trachea midline, no thyromegaly Respiratory: normal respiratory effort, lungs clear to auscultation Gastrointestinal (Abdomen): normal bowel sounds, soft, nontender, no hepatosplenomegaly the incisions heal well, Skin: no rashes, warm and dry Neurologic: patellar DTR's 2+ bilat, sensation intact Psychiatric: A+Ox3, euthymic affect Results & Data ([facility]) Vital Signs (Past 12 Hours) Vital Signs Temp Pulse Pulse Resp BP BP Pulse Ox 07/07/21 11:42 36.3 C L 60 20 146/55 H 98 07/07/21 07:41 68 07/07/21 07:00 36.4 C L 67 18 149/64 H 96 07/07/21 03:00 36.5 C 67 16 114/63 96 Laboratory Results Abnormal lab results 07/07/21 07/07/21 Range/Units 06:36 06:36 WBC 11.52 H (4.8-10.8) K/uL RBC 2.72 L (4.2-5.4) M/uL Hgb 8.6 L (12.0-16.0) g/dL Hct 26.7 L (37-47) % RDW Std Deviation 53.7 H (36.4-46.3) fL RDW Coeff of Lorenzo 15.2 H (11.5-14.5) % MPV 12.1 H (7.4-10.4) fL Neut # (Auto) 9.20 H (1.4-6.5) K/uL Lymph # (Auto) 0.78 L (1.2-3.4) K/uL [place] # (Auto) 1.16 H (0.11-0.59) K/uL Immature Gran # (Auto) 0.13 H (0.00-0.02) K/uL Chloride 108 H (98-107) mmol/L Carbon Dioxide 19 L (21-32) mmol/L BUN 74 H (7-18) mg/dl Creatinine 3.65 H D (0.6-1.2) mg/dl BUN/Creatinine Ratio 20.2 H (10-20)
--- NOTE | 2021-07-07 20:12 | Hospitalist Progress Note ---
Date of Service July 07, 2021 Assessment & Plan (1) Cholecystitis: Plan: Acute gangrenous cholecystitis with intra-abdominal abscess -Now well over a week from cholecystectomy, was on Zosyn for about a week, now Cipro Flagyl, overall appears to be improving from this standpoint. NILAM on CKD -Most likely ATN, fortunately with creatinine starting to improve significantly and urine output picking up, does appear to be in recovery phase. Continue to follow. Nausea and early satiety and metallic taste -Escalated acid suppression medicines due to the strong possibility she is having some upper GI distress simply related to having had cholecystitis, likely ongoing some reflux/indigestion pathologycontinue twice daily H2 and PPI, given that the Carafate does not taste very good, will switch to Mylanta before meals at bedtime. Continue to follow stoolsit is also possible she has a bit of constipation with overflowlow threshold to check KUB. RLE Swelling - most consistent with venous stasis Atrial Fibrillation -continue beta franklin and amiodarone -Cardiology recommended continuation of amiodarone. -Rate controlled HTN -discontinued losartan and torsemide because of NILAM DVt ppx: heparin Diet: low fiber, low sodium Code Status: full code Dispo: Hopefully home as renal recovery improves. Admission and Anticipated Discharge Date Admission Date: June 26, 2021 Subjective Feeling about the samenotes that she has some loose stools whenever she eats. Still early satiety, still metallic taste in her mouth. Did not particularly like the Carafate. Otherwise no new complaints. Appears she has made about 800 mL of urine since last emptied, which she believes was no more than 2 hours ago. Review of Systems Review of Systems: All systems reviewed & are unremarkable except as noted in HPI & below Physical Exam Physical Exam: In general she is awake and alert pleasant no distress. HEENT normocephalic atraumatic mucous membranes moist. Breathing unlabored no accessory muscle use good effort. Skin shows no rashes no pallor or icterus. Neuro without focal deficits. Abdomen soft mild distention no guarding or rebound Results & Data Results & Data ([facility]) Vital Signs (Past 12 Hours) Vital Signs Temp Pulse Pulse Pulse Resp BP BP 07/07/21 19:49 97.3 F L 63 18 163/72 H 07/07/21 16:00 59 L 07/07/21 15:00 97.5 F L 62 20 137/57 L 07/07/21 11:42 97.3 F L 60 20 146/55 H 07/07/21 09:22 Pulse Ox 07/07/21 19:49 95 07/07/21 16:00 07/07/21 15:00 98 07/07/21 11:42 98 07/07/21 09:22 97 PG Care Time/CCT Total # of Minutes Spent Total Time Spent with Patient: Total time spent is greater than 50% in coordination of care (as documented) at patient's floor/unit and/or counseling patient: Coding Level of Care Code 45329 Subseq Hosp Care Lvl 3 Diagnoses Cholecystitis K81.9
[2021-07-07] MEDS: ALUMINUM/MAGNESIUM/SIMETH (MAALOX MAX) 30 ML UDC PO SCH (21:04)
[2021-07-07] MEDS: FAMOTIDINE 20 MG TAB PO SCH (21:05)
[2021-07-07] MEDS: CIPROFLOXACIN 500 MG TAB PO SCH (22:07)
[2021-07-08] MEDS: LEVOTHYROXINE SODIUM 50 MCG TABLET PO SCH (05:50)
[2021-07-08 07:11] LABS: BUN Creatinine Ratio 23.2 (10-20); Calcium 8.9 mg/dl (8.5-10.1); Creatinine Clr Calc Pharmacy 13.9 ml/min; Est GFR (African American) 16.7 ml/min; Est GFR (Non-African American) 14.4 ml/min; Potassium 4.1 mmol/L (3.5-5.1)
[2021-07-08] MEDS: ALUMINUM/MAGNESIUM/SIMETH (MAALOX MAX) 30 ML UDC PO SCH ×2 (08:57→12:16)
[2021-07-08] MEDS: allopurinoL 100 MG TAB PO SCH (08:57)
[2021-07-08] MEDS: AMIODARONE 200 MG TAB PO SCH (08:57)
[2021-07-08] MEDS: ASPIRIN 81 MG ECTAB PO SCH (08:58)
[2021-07-08] MEDS: HEPARIN SOD 5,000 UNIT/0.5 ML VIAL SQ SCH (08:58)
[2021-07-08] MEDS: CALCITRIOL 0.25 MCG CAPSULE PO SCH (08:58)
[2021-07-08] MEDS: metroNIDAZOLE 500 MG TAB PO SCH ×2 (08:59→14:13)
[2021-07-08] MEDS: ADVANCED PROBIOTIC 1250 MG CAPSULE PO SCH (08:59)
[2021-07-08] MEDS: METOPROLOL TARTRATE 25 MG TAB PO SCH (08:59)
[2021-07-08] MEDS: PANTOprazole 40 MG TAB PO SCH (09:00)
[2021-07-08] MEDS: SODIUM BICARBONATE 650 MG TAB PO SCH (09:00)
[2021-07-08 09:03] LABS: Hematocrit (blood only) 26.6 % (37-47); Hemoglobin 8.6 g/dL (12.0-16.0); Mean Corpuscular Hemoglobin 31.5 pg (25-34); Mean Corpuscular Hgb Conc 32.3 g/dL (32-36); Mean Corpuscular Volume 97.4 fL (80-100); Mean Platelet Volume 12.5 fL (7.4-10.4); Platelet Count 284 K/uL (130-400); RDW Coefficient of Variation 15.5 % (11.5-14.5); RDW Standard Deviation 53.6 fL (36.4-46.3); Red Blood Count 2.73 M/uL (4.2-5.4); White Blood Count 12.43 K/uL (4.8-10.8)
--- NOTE | 2021-07-08 10:58 | Nephrology Progress Note ---
Date of Service July 08, 2021 Assessment & Plan (1) Acute kidney injury superimposed on chronic kidney disease: Plan: * NILAM on CKD related to severe inflammation from gangrenous cholecystitis in the setting of ARB therapy * 07/01/21 Renal US: No hydronephrosis. R 8.3, L 8.3 cm * Continue to hold Losartan * Hold IVF. Encourage oral hydration * Patient is now in the recovery phase of ATN. UO 950 cc overnight. Cr has improved from 4.8 down to 2.8. Electrolyte balance is acceptable. No acute indication for HD today * Continue NaHCO3 650 mg po daily to correct metabolic acidosis * If discharge is anticipated, please have patient follow up in my office in ~2 weeks for reevaluation [phone] (2) Chronic kidney disease, stage 4 (severe): Plan: * Baseline Cr 1.8 - 2.0 (3) Hypertension: Plan: * Hold Losartan due to NILAM * BP is acceptable. Continue Metoprolol therapy (4) Cholecystitis: Plan: * Gangrenous cholecystitis w/ perforation and abscess formation s/p laparoscopic cholecystectomy 06/26/21 * Completed course of IV Zosyn * 07/01 US reveals a septated perihepatic fluid collection measuring 2 cm in thickness - possible resolving hematoma (5) Secondary hyperparathyroidism: Plan: * On oral Calcitriol therapy Admission and Anticipated Discharge Date Admission Date: June 26, 2021 Subjective Ms. Paniagua was evaluated in her hospital room this morning. She is tolerating small meals without abdominal pain. She denies fever, abdominal discomfort, angina or dyspnea Review of Systems Constitutional: + weakness; no fever Eyes: no problem reported Ear, Nose, Mouth, Throat: no problem reported Respiratory: no dyspnea Cardiovascular: no chest pain Gastrointestinal: no abdominal pain Physical Exam Constitutional: + frail appearing; not in distress Eyes: PERRL, conjunctivae normal, anicteric sclerae ENMT: external ear and nose normal, oropharynx normal Neck: trachea midline, no thyromegaly Respiratory: normal respiratory effort, lungs clear to auscultation Cardiovascular: RRR, no murmur, no edema Rate/Rhythm: regular rate and regular rhythm Extremities: + edema (3+ pretibial pitting edema) Gastrointestinal (Abdomen): Inspection/Auscultation: + hypoactive bowel sounds (RUQ drain in place) Percussion/Palpation: no guarding Results & Data ([facility]) Vital Signs (Past 12 Hours) Vital Signs Temp Pulse Resp BP Pulse Ox 07/08/21 06:55 36.7 C 69 18 146/72 H 96 07/08/21 02:40 36.5 C 63 18 146/69 H 96 Laboratory Results Laboratory Tests 07/07/21 07/08/21 06:36 06:14 WBC 11.52 H Hgb 8.6 L Hct 26.7 L Plt Count 256 Sodium 138 Potassium 4.1 Chloride 111 H Carbon Dioxide 21 BUN 65 H Creatinine 2.79 H D Glucose 96 PG Care Time/CCT Total # of Minutes Spent Total Time Spent with Patient: Total time spent is greater than 50% in coordination of care (as documented) at patient's floor/unit and/or counseling patient: Coding Level of Care Code 41769 Subseq Hosp Care Lvl 3 Diagnoses Acute kidney injury superimposed on chronic kidney disease N17.9; N18.9 Chronic kidney disease, stage 4 (severe) N18.4 Hypertension I10 Cholecystitis K81.9 Secondary hyperparathyroidism N25.81
--- NOTE | 2021-07-08 16:20 | Discharge Summary ---
Date of Service July 08, 2021 Admission HPI Per Admitting Provider 89 yo F with hx AFib with pacemaker, GERD, gout, hypothyroidism, CKD4, SNHL in ER for 3 weeks of ongoing abdominal pain. Thought it was constipation, however was refractory to use of milk of magnesia, miralax etc. States she's had little to no appetite for a while. Will eat 2 bites of something and then feel full. Does attest to on and off nausea but no emesis. Denies any correlation of pain with eating or not eating. Only febrile in ER today, otherwise no fevers, chills, night sweats. Intentionally lost 50 pounds over 4 years. No fhmx gallbladder disease. prior abdominal surgeries include partial hysterectomy. Principal Diagnosis Cholecystitis, status post cholecystectomy postop day 12. Discharge Exam Constitutional WD/WN, vitals as above well developed, well nourished, + frail appearing and cooperative Eyes + anicteric sclerae ENMT Ears: + hearing impairment Neck trachea midline, no thyromegaly trachea midline Respiratory normal respiratory effort, lungs clear to auscultation Cardiovascular RRR, no murmur, no edema Rate/Rhythm: regular rate and regular rhythm Heart Sounds: normal S1 and normal S2 Extremities: + edema (2+ LE edema b/l); no calf tenderness Gastrointestinal (Abdomen) normal bowel sounds, soft, nontender, no hepatosplenomegaly Inspection/Auscultation: normal bowel sounds, + abdominal surgical incision and + abdominal surgical drain present Percussion/Palpation: + abdomen tender (Mild tenderness to palpation on the R abdomen) and + dullness to percussion Skin no rashes, warm and dry Neurologic moves all extremities Psychiatric A+Ox3, euthymic affect Orientation: alert and oriented x 3 Eye Contact: good eye contact and + fair eye contact Speech: normal rate/rhythm/volume of speech Affect: euthymic affect Discharge Data Allergies Allergy/AdvReac Type Severity Reaction Status Date / Time adhesive Allergy Severe SEVERE Verified 06/25/21 23:09 REDNESS/PAIN amlodipine Allergy Intermediate Rash Verified 06/25/21 23:09 Sulfa (Sulfonamide Allergy Intermediate Rash Verified 06/25/21 23:09 Antibiotics) indomethacin Allergy Unknown Unknown Verified 06/25/21 23:09 Consultations 06/26/21 02:28 ED Decision to Admit Stat 06/30/21 09:06 Consult Nephrology Routine 07/03/21 08:56 Consult Cardiology Routine Procedures Performed Operation Date: 06/26/21 13:00 Actual Procedures p Laparoscopic Cholecystectomy(Not Applicable) - Rupert Duong MD Ordered Studies 06/25/21 22:58 CT abd pelvis wo con Urgent 06/28/21 11:00 US venous doppler LE RT Stat 07/01/21 15:00 US renal/blad retro comp Routine Hospital Course (1) Cholecystitis: Acute gangrenous cholecystitis with intra-abdominal abscess -S/p cholecystectomy 9 days ago, tolerated procedure well -Zosyn changed to Flagyl and cipro for oral continuation of antibiotics continue this for 2 days after discharge. -Pain controlled this morning. -BMP 2 days and 4 days from now for NILAM -oral prn tylenol for mild pain -Leukocytosis, WBC: 12.43 today, stable -Cdiff gene was positive, toxin negative, likely a carrier -Probiotic on order for loose stools -D/C'd daily miralax NILAM on CKD -Creatinine 2.85 which is approaching her baseline. -nephrology suspects ATN in the recovery phase. -Stinson catheter removed and the patient was able to void. Nausea -Pt has had some low meal consumption, Boost supplementation recommended until consumption increases. -Cardiology recommended continuing amiodarone as they have low suspicion of it causing pt's nausea RLE Swelling -2+ pitting edema b/l -No SOB -stable Atrial Fibrillation -continue beta franklin and amiodarone HTN -discontinued losartan and torsemide because of NILAM DVt ppx: home eliquis Diet: low fat, low sodium Code Status: full code Dispo: Home with home pt Total Time Total Time Spent Total Time Spent (In Minutes): <30 Discharge Plan Discharge Items Patient Disposition: Home - Self-Care Reason For Visit: CHOLECYSTITIS Discharge Diagnosis: Cholecystitis/ S/p cholecystectomy Condition on Discharge: Fair Activity: Per Instructions section Non-emergency contact: Primary Care Provider, Surgeon and Cutting Machine Tender Call non-emergency contact if: you have any medication questions, your symptoms worsen and your temperature is above 101 Follow-up/Referrals: Merle Snell PARicharC [Primary Care Provider] - Rupert Duong MD [Physician] - Diet: Low Fat and Low Sodium (2gm) Ambulatory Orders: Basic Metabolic Panel (Routine) Timeframe: 4 Days Location: Determined by Patient Ordered By: Kristian Mittal Basic Metabolic Panel (Routine) Timeframe: 2 Days Location: Determined by Patient Ordered By: Kristian Gonzales Attending Provider Instructions: You were seen in the hospital for cholecystitis. It was deemed that you needed a cholecystectomy or a removal of your gallbladder. When he had the gallbladder removed by your surgeon it was found that your gallbladder was gangrenous and had a surrounding abscess. After your surgery you developed an acute kidney injury. You were treated with antibiotics for after the surgery and you were given IV fluids for the acute kidney injury. Two additional days of antibiotics were sent to your pharmacy in [place]. As you stayed in the hospital, your acute kidney injury eventually improved to the point that it was deemed safe for you to return home. Please do not take your torsemide or losartan until you follow-up with your primary care provider as this may worsen your acute kidney injury. To monitor the progression of your kidney recovery, you are to have a BMP done both 2 days from now and 4 days from now at the lab of your choice. You had worked with physical therapy who deemed it was appropriate for you to return home with home physical therapy. It was a pleasure to participate in your care and we wish you the best in your recovery. Janet Disease Case Manager Rn Provider Instructions: Post-Surgical ~Discharge Instructions Activity Recommendations: - lifting limitation: (20 pounds for 4 weeks), - exercise/sex/sports limit: (nonstrenuous for 2 weeks), - driving or machine use limit: (none for 1 week or until pain free), - Shower/bathe limit: (may shower) Diet: - Resume previous diet SPECIAL CARE INSTRUCTIONS: - May shower. Let water run over area and pat dry. - Steri strips can be removed 7 days after your surgery - Drain site will heal on its own. Keep covered and change daily until healed. - Call the surgeon's office with any questions or concerns - - (ex. temperature higher than 101 degrees F, excessive bleeding or pain). MEDICATIONS: - Resume previous medications unless instructed otherwise by your surgeon - May take extra strength Tylenol as needed for pain -500 mg every 6 hours as needed FOLLOW UP VISIT: - If not already scheduled, please call the office to schedule a 1 week follow- up appointment. Office number Pending Studies at Discharge: No Stand-Alone Forms: [facility] [employer], Smoking Cessation Medications and DC Order Prescriptions: New metronidazole 500 mg Tablet 500 mg PO TID Qty: 2 RF: 0 ciprofloxacin HCl 500 mg Tablet 500 mg PO Q24H Qty: 2 RF: 0 Continued allopurinol 100 mg tablet 100 mg PO DAILY Qty: 90 RF: 0 amiodarone 200 mg tablet 100 mg PO DAILY Qty: 15 RF: 0 levothyroxine 50 mcg tablet 50 mcg PO DAILY Qty: 30 RF: 0 metoprolol tartrate 25 mg tablet 25 mg PO BID Qty: 180 RF: 0 omeprazole 40 mg capsule,delayed release(DR/EC) 40 mg PO DAILY Qty: 30 RF: 0 calcitriol 0.25 mcg capsule 0.25 mcg PO DAILY Qty: 90 RF: 3 aspirin [Aspirin Low Dose] 81 mg Tablet,Delayed Release (Dr/Ec) 81 mg PO DAILY RF: 0 Discontinued losartan 50 mg tablet 50 mg PO BID Qty: 60 RF: 0 torsemide 10 mg tablet 10 mg PO DAILY RF: 0 Discharge Orders: Discharge Order (Routine); Ordered 07/08/21 Ordered By: Kristian Mittal Admission Data Admit Date/Time: 06/26/21 02:34 Attending Provider: Woody Champion Admit Provider: Marina Birch Primary Care Provider: Merle Snell Other Providers: Matthew Wiggins ; Woody Champion ; [facility] ; Laney Rahman ; Nik Royal ; Abena Mckeon Other Interventions: Discharge Summary Assessment (RN) Last Done: 07/08/21 16:08 Supervising Physician Co-Signing Physician Notes I personally examined the patient and verified all jensen points of history and exam, discussed case, and agree with decision making with Dr Mittal. Feeling better. Still not eating great, but definitely feels up to going home. Comfortable with following up as an outpatient. Vitals noted, in general she is awake alert pleasant no distress. HEENT normocephalic atraumatic mucous membranes moist. Breathing unlabored no accessory muscle use good effort. Skin shows no rashes no pallor or icterus. Neuro without focal deficits. Gangrenous cholecystitis with abscessnow greater than a week postop. Finally appearing stable for home. Finish out 14 days of antibioticsCipro Flagyl. Early satietygiven that comes in the context of gangrenous cholecystitis, and she does not seem to show anything else overly ominoushopefully just indigestion/reflux. We will continue a trial of aggressive acid suppression and stomach management with Pepcid and Protonix twice daily and Mylanta 4 times tami lyif this does not help over the next week or so, then at follow-up further investigation may be warranted ARFmost likely ATN. Finally improving, appears to be stable for home. Otherwise as above.
--- NOTE | 2021-07-08 17:47 | Billing Data ---
Date of Service July 08, 2021 Coding Level of Care Code D/C DAY MANAGEMENT <30 MINS
[2021-07-09] MEDS ORDERED: SODIUM BICARBONATE 650 MG TAB PO SCH (09:00)
== END 2021-07-08 16:41 | disposition home health service (06) | DRG 417 ==
LOC: ED 22:02 → SUATTDRO 06-26 02:34 → 2W 06-26 02:34
DX: E66.9 Obesity, unspecified; N17.9 Acute kidney failure, unspecified; Z88.2 Allergy status to sulfonamides; K82.8 Other specified diseases of gallbladder; E55.9 Vitamin D deficiency, unspecified; Z68.37 Body mass index [BMI] 37.0-37.9, adult; K65.1 Peritoneal abscess; Z51.81 Encounter for therapeutic drug level monitoring; K21.9 Gastro-esophageal reflux disease without esophagitis; K81.0 Acute cholecystitis; E87.2 Acidosis; D72.829 Elevated white blood cell count, unspecified; K82.A1 Gangrene of gallbladder in cholecystitis; M10.9 Gout, unspecified; K82.A2 Perforation of gallbladder in cholecystitis; I48.0 Paroxysmal atrial fibrillation; I25.10 Atherosclerotic heart disease of native coronary artery without angina pectoris; Z79.82 Long term (current) use of aspirin; Z79.899 Other long term (current) drug therapy; Z95.0 Presence of cardiac pacemaker; E03.9 Hypothyroidism, unspecified; N18.4 Chronic kidney disease, stage 4 (severe); Z22.1 Carrier of other intestinal infectious diseases; Z91.048 Other nonmedicinal substance allergy status; N17.0 Acute kidney failure with tubular necrosis; R11.0 Nausea; H90.3 Sensorineural hearing loss, bilateral; Z79.890 Hormone replacement therapy; I49.5 Sick sinus syndrome; K59.09 Other constipation; I13.0 Hypertensive heart and chronic kidney disease with heart failure and stage 1 through stage 4 chronic kidney disease, or unspecified chronic kidney disease; M79.89 Other specified soft tissue disorders; N25.81 Secondary hyperparathyroidism of renal origin; I50.9 Heart failure, unspecified; Z88.8 Allergy status to other drugs, medicaments and biological substances; Z82.49 Family history of ischemic heart disease and other diseases of the circulatory system

== ENCOUNTER 2022-02-07 16:01 | Inpatient (IN) ==
[2022-02-07 17:27] LABS: Hemoglobin 11.6 g/dL (12.0-16.0); Mean Corpuscular Hemoglobin 30.4 pg (25-34); Mean Corpuscular Hgb Conc 31.4 g/dL (32-36); Mean Corpuscular Volume 96.9 fL (80-100); Mean Platelet Volume 12.1 fL (7.4-10.4); Platelet Count 225 K/uL (130-400); RDW Coefficient of Variation 16.4 % (11.5-14.5); RDW Standard Deviation 57.3 fL (36.4-46.3); Red Blood Count 3.82 M/uL (4.2-5.4); White Blood Count 23.83 K/uL (4.8-10.8)
[2022-02-07] MEDS ORDERED: VANCOMYCIN CONSULT ACTIVE PRN (17:37)
[2022-02-07] MEDS ORDERED: VANCOMYCIN HCL 2,250 MG in SODIUM CHLORIDE 0.9% 500 ML IV ONE (17:37)
--- NOTE | 2022-02-07 17:37 | Emergency Department Note ---
History of Present Illness General Chief complaint: Leg Injury/Pain Stated complaint: EDEMA/INFECTION IN R LEG Time Seen by Provider: 02/07/22 16:14 History of Present Illness Provider complaint: Right leg redness and swelling Onset (ago): day(s) 2 Location: lower extremity and right Radiation: non-radiation Severity: moderate Pain Consistency: + constant Quality: + stabbing and + aching Relieved By: + none Exacerbated By: + none Associated symptoms: no chest pain, no cough, no fever/chills, no headaches, no nausea/vomiting or no shortness of breath 89-year-old female presents emergency department for right lower extremity swelling and redness. Daughter states the symptoms are gone for last 2 days. Patient's daughter states the patient has lymphedema however the redness is very significant and streaking all the way up her thigh. No fevers reported. There is drainage from both bilateral lower extremities. Home Medications Medication Instructions Recorded Confirmed Type allopurinol 100 mg tablet 100 mg PO DAILY #90 tab 08/01/19 12/10/21 History levothyroxine 50 mcg tablet 50 mcg PO DAILY #30 tab 08/01/19 12/10/21 History metoprolol tartrate 25 mg tablet 25 mg PO BID #180 tab 08/01/19 12/10/21 History calcitriol 0.25 mcg capsule 0.25 mcg PO DAILY #90 cap 07/22/21 12/10/21 Rx torsemide 20 mg tablet 20 mg PO DAILY 08/18/21 12/10/21 History acetaminophen 500 mg tablet 1,000 mg PO BID PRN tab 10/07/21 12/10/21 History (Tylenol Extra Strength) omeprazole 40 mg capsule,delayed 40 mg PO DAILY #30 cap 10/07/21 12/10/21 History release apixaban 2.5 mg tablet (Eliquis) 2.5 mg PO BID 12/10/21 12/10/21 History Allergies Allergy/AdvReac Type Severity Reaction Status Date / Time adhesive Allergy Severe SEVERE Verified 12/10/21 15:26 REDNESS/PAIN amlodipine Allergy Intermediate Rash Verified 12/10/21 15:26 Sulfa (Sulfonamide Allergy Intermediate Rash Verified 12/10/21 15:26 Antibiotics) indomethacin Allergy Unknown Unknown Verified 12/10/21 15:26 Past Med/Surg History Medical History Chronic kidney disease, stage 4 (severe) Chronic kidney disease, stage III (moderate) Sick sinus syndrome Skin lesion of cheek Vitamin D deficiency Surgical History S/P cardiac pacemaker procedure S/P hysterectomy Family History Aunt Colorectal cancer Breast cancer Brother Myocardial infarction Denies family history of Ovarian cancer Prostate cancer Social History Smoking Status: Never smoker Second Hand Exposure: No; Hx Alcohol Use: No Hx Substance Use: No Preferred Language: Namibian Communication Ability: Effective Visual Impairment: No Limitations Hearing Ability: Use of Hearing Aid Net Web Developer Required: No Beliefs That Will Affect Care: None marital status: / Current Living Situation: Alone current occupational status: retired Feels Safe at Home: Yes Dental Care, Regularly: No Physical Activity Frequency: Does not Exercise Seatbelt Use: sometimes Assistive Devices: Walker Review of Systems A total of 10 systems reviewed and were otherwise negative Physical Exam Vital Signs Vital Signs - 24 hr 02/07/22 16:08 02/07/22 17:21 02/07/22 18:25 Temperature 36.9 C Temperature Source Temporal Artery Scan Pulse Rate 89 Pulse Rate [Apical] 80 Pulse Rhythm [Apical] Irregular Respiratory Rate 18 16 Blood Pressure 98/57 L Blood Pressure [Right Arm] 101/64 Blood Pressure Mean 70 Blood Pressure Mean [Right Arm] 76 Blood Pressure Position Sitting Blood Pressure Position [Right Arm] Lying Pulse Oximetry 98 99 94 Oxygen Delivery Method Room Air Room Air Sepsis Recent Fever Within 48 Hours No Sepsis New/Unexplained Change in Mental Status No Sepsis Action Taken by Nursing No Action Required 02/07/22 19:10 Temperature Temperature Source Pulse Rate Pulse Rate [Apical] 121 H Pulse Rhythm [Apical] Respiratory Rate 16 Blood Pressure Blood Pressure [Right Arm] 109/63 Blood Pressure Mean Blood Pressure Mean [Right Arm] 78 Blood Pressure Position Blood Pressure Position [Right Arm] Lying Pulse Oximetry Oxygen Delivery Method Sepsis Recent Fever Within 48 Hours Sepsis New/Unexplained Change in Mental Status Sepsis Action Taken by Nursing Physical Exam HENT: Exam performed. -Head: Normocephalic and atraumatic. -Right Ear: External ear normal. No mastoid tenderness. -Left Ear: External ear normal. No mastoid tenderness. -Mouth/Throat: The oropharynx is clear and moist. No trismus in the jaw. No dental abscesses or uvula swelling. No oropharyngeal exudate or tonsillar abscesses. EYES: Conjunctivae and EOM are normal. Pupils are equal, round, and reactive to light. Right eye exhibits no discharge. Left eye exhibits no discharge. No scleral icterus. NECK: Normal range of motion. Neck supple. No JVD present. No spinous process tenderness present. No carotid bruit present. No rigidity. No tracheal deviation and normal range of motion present. No Brudzinski's sign and no Kernig's sign noted. CV: Normal rate, regular rhythm, normal heart sounds and intact distal pulses. Palpable radial pulses bue. PULM/CHEST: Effort normal and breath sounds normal. No respiratory distress. No stridor. She has no wheezes. She has no rales. -Chest Wall: She exhibits no tenderness. ABD: The abdomen is soft. Bowel sounds are normal. She has no distension. No mass is present. There is no tenderness. There is no rebound, no guarding, no Ruelas's sign and no tenderness at McBurney's point. Rovsig negative MUSC/SKEL: Edema of the bilateral lower extremities. There is drainage and weeping from bilateral lower extremities 3 bandages. The right lower extremity is markedly more swollen than left lower extremity with erythema streaking up the thigh. Palpable DP pulses bilateral lower extremities. LYMPH: No cervical adenopathy. NEURO: She has normal strength. No cranial nerve deficit or sensory deficit. GCS eye subscore is 4. GCS verbal subscore is 5. GCS motor subscore is 6. Cerebellar tests wnl. Course Course 161: The patient was evaluated in room C2. A complete history and physical exam was performed Cardiac monitoring: An order was placed for continuous cardiac monitoring. The monitor shows a rate of 90 with sinus rhythm 1958: Vital signs stable. Labs show leukocytosis of 23. Creatinine elevated at 3.12 up from her baseline of around 2. Potassium 5.9. Patient treated with vancomycin for cellulitis and calcium gluconate for hyperkalemia. Patient will be admitted to the [facility]ist team Dr. duran has been notified. Administered Medications Vancomycin HCl 2,250 mg/ (Sodium Chloride) 545 mls @ 200 mls/hr IV NOW ONE Stop: 02/07/22 20:20 Last Admin: 02/07/22 18:42 Dose: 200 mls/hr Documented by: [id number] Miscellaneous Information (Vancomycin Consult Active) 1 ea N/A UD PRN PRN Reason: Consult Stop: 03/09/22 17:36 Last Admin: 02/07/22 18:42 Dose: 1 ea Documented by: [id number] Discontinued Medications Calcium Gluconate 1,000 mg/ (Dextrose) 60 mls @ 240 mls/hr IV ONCE STA Stop: 02/07/22 18:15 Last Infusion: 02/07/22 18:56 Dose: 0 mls/hr Documented by: [id number] Admin: 02/07/22 18:42 Dose: 240 mls/hr Documented by: [id number] Miscellaneous (Stat Iv) 1 ea N/A NOW STA Stop: 02/07/22 18:02 Last Admin: 02/07/22 18:42 Dose: 1 ea Documented by: [id number] Medical Decision Making Laboratory Data Result diagrams: 02/07/22 17:14 02/07/22 17:14 Lab Results 02/07/22 02/07/22 02/07/22 Range/Units 16:28 17:14 17:14 WBC 23.83 H (4.8-10.8) K/uL RBC 3.82 L (4.2-5.4) M/uL Hgb 11.6 L (12.0-16.0) g/dL Hct 37.0 (37-47) % MCV 96.9 (80-100) fL MCH 30.4 (25-34) pg MCHC 31.4 L (32-36) g/dL RDW Std Deviation 57.3 H (36.4-46.3) fL RDW Coeff of Lorenzo 16.4 H (11.5-14.5) % Plt Count 225 (130-400) K/uL MPV 12.1 H (7.4-10.4) fL Immature Gran % (Auto) 0.3 % Neut % (Auto) 91.4 % Lymph % (Auto) 3.0 % Bryan % (Auto) 5.0 % Eos % (Auto) 0.3 % Baso % (Auto) 0.0 % Neut # (Auto) 21.76 H (1.4-6.5) K/uL Lymph # (Auto) 0.72 L (1.2-3.4) K/uL Bryan # (Auto) 1.18 H (0.11-0.59) K/uL Eos # (Auto) 0.08 (0-0.5) K/uL Baso # (Auto) 0.01 (0-0.2) K/uL Immature Gran # (Auto) 0.08 H (0.00-0.02) K/uL Ovalocytes 1+ Echinocytes 1+ Sodium 136 (136-145) mmol/L Potassium 5.9 H (3.5-5.1) mmol/L Chloride 101 (98-107) mmol/L Carbon Dioxide 26 (21-32) mmol/L Anion Gap 9 (3-11) BUN 73 H (6-23) mg/dl Creatinine 3.12 H (0.6-1.2) mg/dl Est Cr Clr Drug Dosing 12.3 ml/min Est GFR ( Amer) 14.6 ml/min Est GFR (Non-Af Amer) 12.6 ml/min BUN/Creatinine Ratio 23.4 H (10-20) Glucose 113 H (70-99(Fasting)) mg/dl Lactate (0.4-2.0) mmol/L Calcium 10.0 (8.5-10.1) mg/dl SARS-CoV-2, RNA, NAAT NEGATIVE (NEGATIVE) 02/07/22 Range/Units 17:14 WBC (4.8-10.8) K/uL RBC (4.2-5.4) M/uL Hgb (12.0-16.0) g/dL Hct (37-47) % MCV (80-100) fL MCH (25-34) pg MCHC (32-36) g/dL RDW Std Deviation (36.4-46.3) fL RDW Coeff of Lorenzo (11.5-14.5) % Plt Count (130-400) K/uL MPV (7.4-10.4) fL Immature Gran % (Auto) % Neut % (Auto) % Lymph % (Auto) % Bryan % (Auto) % Eos % (Auto) % Baso % (Auto) % Neut # (Auto) (1.4-6.5) K/uL Lymph # (Auto) (1.2-3.4) K/uL Bryan # (Auto) (0.11-0.59) K/uL Eos # (Auto) (0-0.5) K/uL Baso # (Auto) (0-0.2) K/uL Immature Gran # (Auto) (0.00-0.02) K/uL Ovalocytes Echinocytes Sodium (136-145) mmol/L Potassium (3.5-5.1) mmol/L Chloride (98-107) mmol/L Carbon Dioxide (21-32) mmol/L Anion Gap (3-11) BUN (6-23) mg/dl Creatinine (0.6-1.2) mg/dl Est Cr Clr Drug Dosing ml/min Est GFR ( Amer) ml/min Est GFR (Non-Af Amer) ml/min BUN/Creatinine Ratio (10-20) Glucose (70-99(Fasting)) mg/dl Lactate 2.0 (0.4-2.0) mmol/L Calcium (8.5-10.1) mg/dl SARS-CoV-2, RNA, NAAT (NEGATIVE) Imaging Data Radiologist's Impression: Venous Doppler Study 02/07/22 16:24 US venous doppler LE BI CLINICAL HISTORY: ro dvt TECHNIQUE: Bilateral lower extremity real-time compression venous ultrasound with Color Doppler imaging. Utilizing real-time ultrasonic imaging multiple real time high-resolution ultrasonic images with compression and noncompression maneuvers of the deep venous system in addition to color doppler imaging were performed from the common femoral vein through the proximal calf veins. COMPARISON: None available at the time of this dictation. FINDINGS: Currently there is normal compressibility of the deep venous system from the common femoral vein through the proximal calf veins. No current evidence of acute thrombosis is identified. Exam is limited by soft tissue edema bilaterally. Impression: No evidence of deep venous thrombus. ACT 112: Negative or not required by law. Electronically signed by: Montrell Anand M.D. 02/07/2022 7:53 PM ECG Data Indication: + other (arrythmia) Rate (beats per minute): 80 Rhythm: + atrial fibrillation ECG Intervals/blocks: + Right Bundle branch block ECG ST segments: + Normal ST segments Additional Comments: QRS 140 QTC 501 MDM Narrative Vital signs stable. Labs show leukocytosis of 23. Creatinine elevated at 3.12 up from her baseline of around 2. Potassium 5.9. Patient treated with vancomycin for cellulitis and calcium gluconate for hyperkalemia. Patient will be admitted to the [facility] hospitalist team Dr. duran has been notified. Impression & Plan Cellulitis, Acute hyperkalemia Discharge Plan Visit Data Chief Complaint: Leg Injury/Pain Stated Complaint: EDEMA/INFECTION IN R LEG ED Provider: Jose Patrick Discharge Problem: Cellulitis, Acute hyperkalemia Patient Disposition: Admitted As Inpatient Forms Stand Alone Forms: [facility] Prescriptions Prescriptions: No Action calcitriol 0.25 mcg capsule 0.25 mcg PO DAILY Qty: 90 RF: 3 allopurinol 100 mg tablet 100 mg PO DAILY Qty: 90 RF: 0 levothyroxine 50 mcg tablet 50 mcg PO DAILY Qty: 30 RF: 0 metoprolol tartrate 25 mg tablet 25 mg PO BID Qty: 180 RF: 0 omeprazole 40 mg capsule,delayed release(DR/EC) 40 mg PO DAILY Qty: 30 RF: 0 torsemide 20 mg tablet 20 mg PO DAILY RF: 0 acetaminophen [Tylenol Extra Strength] 500 mg tablet 1,000 mg PO BID PRN (Reason: Pain) RF: 0 Eliquis 2.5 mg tablet 2.5 mg PO BID RF: 0 Referrals Referrals: Amalia Thomas MD [Primary Care Provider] -
[2022-02-07 17:48] LABS: BUN Creatinine Ratio 23.4 (10-20); Creatinine Clr Calc Pharmacy 12.3 ml/min; Est GFR (African American) 14.6 ml/min; Est GFR (Non-African American) 12.6 ml/min; Potassium 5.9 mmol/L (3.5-5.1)
[2022-02-07 17:51] LABS: Basophils # (auto) 0.01 K/uL (0-0.2); Echinocytes 1+; Eosinophils # (auto) 0.08 K/uL (0-0.5); Eosinophils % (auto) 0.3 %; Immature Granulocytes # (auto) 0.08 K/uL (0.00-0.02); Immature Granulocytes % (auto) 0.3 %; Lymphocytes # (auto) 0.72 K/uL (1.2-3.4); Monocytes # (auto) 1.18 K/uL (0.11-0.59); Neutrophils # (auto) 21.76 K/uL (1.4-6.5); Neutrophils % (auto) 91.4 %; Ovalocytes 1+
[2022-02-07] MEDS ORDERED: CALCIUM GLUCONATE 10% 1,000 MG in DEXTROSE 5% 50 ML IV STA (18:01)
[2022-02-07] MEDS ORDERED: STAT IV STA (18:01)
--- NOTE | 2022-02-07 19:54 | Ultrasound Report ---
US venous doppler LE BI CLINICAL HISTORY: ro dvt TECHNIQUE: Bilateral lower extremity real-time compression venous ultrasound with Color Doppler imagi ng. Utilizing real-time ultrasonic imaging multiple real time high-resolution ultrasonic images with compression and noncompression maneuvers of the deep venous system in addition to color doppler imagi ng were performed from the common femoral vein through the proximal calf veins. COMPARISON: None available at the time of this dictation. FINDINGS: Currently there is normal compressibility of the deep venous system from the common femoral vein thro ugh the proximal calf veins. No current evidence of acute thrombosis is identified. Exam is limited b y soft tissue edema bilaterally. Impression: No evidence of deep venous thrombus. ACT 112: Negative or not required by law. Electronically signed by: Montrell Anand M.D. 02/07/2022 7:53 PM
[2022-02-07] MEDS ORDERED: SODIUM POLYSTYRENE SULFONATE 15G/60ML SUSP PO STA (21:32)
[2022-02-07] MEDS ORDERED: NovoLIN-R INSULIN PER UNIT CHARGE IV STA (21:32)
[2022-02-07] MEDS ORDERED: DEXTROSE 50% 50 ML SYRINGE IV STA (21:32)
--- NOTE | 2022-02-07 23:02 | History and Physical Report ---
CHIEF COMPLAINT: Right lower extremity pain and swelling. HISTORY OF PRESENT ILLNESS: This is an 89-year-old female with past medical history significant for multinodular goiter; hypothyroidism; sinus node dysfunction; atrial fibrillation, status post pacemaker; hypertension; obesity; chronic kidney disease, stage IV; bilateral lower extremity edema; lymphedema; noncardiac chest pain; who lives alone at home, ambulates with a walker, presents with right lower extremity erythematous changes and pain. The patient has lymphedema because she has been wrapped lower extremity, there is redness noted from friction in right lower extremity upto knee, but the swelling and erythema were spread up to groin region, which prompted her daughter to bring her to the hospital. Leg is also weeping as per daughter. Denies any fevers or chills.Left leg is also swollen with mild erythematous changes present.Has pain in the legs. Denies any other complaints. Takes MiraLax,and bowel movements are okay. Denies black stools. Micturating fine. Denies any abdominal pain. No chest pain. Had short of breath with minimal exertion, no cough, no fevers. She has a headache for the last couple of days on and off. Vision is okay. There is some runny nose from allergies and some sore throat. Appetite is okay. The patient is somewhat hard of hearing. ALLERGIES: ADHESIVES, AMLODIPINE, SULFA ANTIBIOTICS, AND INDOMETHACIN. PAST MEDICAL HISTORY: As mentioned above. PAST SURGICAL HISTORY: Colonoscopy, dual chamber pacemaker insertion. Partial hysterectomy. MEDICATIONS: The patient is on Tylenol 1000 mg p.o. b.i.d. p.r.n., allopurinol 100 mg p.o. daily, Eliquis 2.5 mg p.o. b.i.d., calcitriol 0.25 mcg p.o. daily, levothyroxine 50 mcg p.o. daily, metoprolol tartrate 100mg p.o. b.i.d., omeprazole 40 mg p.o. daily, torsemide 20 mg p.o. daily. FAMILY HISTORY: Significant for brother has heart disorder, father has hypertension, cerebral hemorrhage; mother has CHF. SOCIAL HISTORY: , lives alone. No smoking, no alcohol, no drug use. REVIEW OF SYSTEMS: As per HPI. Rest of review of systems is negative. PHYSICAL EXAMINATION: GENERAL: The patient is old, not in acute distress. VITAL SIGNS: Temperature 36.9, pulse 92, respiratory rate 18, blood pressure 118/57, oxygen 96% on room air. HEENT: Pupils equal, round and reactive to light. Oral mucosa dry. NECK: No JVD. No neck masses. CARDIOVASCULAR: S1 and S2 heard. Regular rate and rhythm. No murmur, no gallop. RESPIRATORY SYSTEM: Normal AP diameter. No accessory muscle use. No wheezing or crackles. ABDOMEN: Soft, bowel sounds present, no distention. CENTRAL NERVOUS SYSTEM: Cranial nerves II-XII are grossly intact, nonfocal. EXTREMITIES: Bilateral lower extremity lymphedema present, reddish erythematous changes on the right lower extremity up to the knee and somewhat mild erythematous changes and swelling until the groin region. The left lower extremity are swollen and mild erythematous changes seen on the smith region. LABORATORY DATA: WBC 23, hemoglobin 11.6, hematocrit 37, platelets 225. Sodium 136, potassium 5.9, chloride 101, bicarbonate 26, BUN 37 with creatinine 3.12, serum glucose 113. Lactate 2, calcium 10. Rapid COVID test negative. IMAGING DATA: Bilateral lower extremity venous Doppler, no DVT. EKG: Poor quality interpretation, atrial fibrillation with PVCs at a rate of 84, right bundle-branch block. ASSESSMENT AND PLAN: An 89-year-old female who presents with worsening right lower extremity redness and swelling and found to have acute kidney injury and hyperkalemia. 1. Bilateral lower extremity cellulitis. White count is 23,000, will place, ER started on vancomycin. Continue vancomycin and will also start on iv zosyn and follow the response. Monitor in the hospital, PT, OT when stable. 2. Acute kidney injury on chronic kidney disease stage IV. Baseline creatinine around 2-2.9, presently with creatinine of 3.1. Holding her torsemide. We will follow the repeat labs and consult nephrology in the a.m. 3. Hyperkalemia, potassium 5.9. Emergency Room gave a dose of calcium gluconate. We will give one dose of Kayexalate and also insulin/dextrose, low- potassium diet. Consult nephrology in the a.m. 4. Hypothyroidism: Continue Synthroid. 5. Atrial fibrillation, sick sinus syndrome, status post pacemaker, on metoprolol and Eliquis. Monitor the heart rates. 6. Deep venous thrombosis prophylaxis, on Eliquis. DISPOSITION: Closely monitor in the tele floor. Level 1 full code. PT/OT prior to discharge. Social service to help with discharge planning. Job ID: [id number] [facility]
[2022-02-07] MEDS ORDERED: POLYETHYLENE (MIRALAX) 17 GM PACK PO PRN (23:34)
[2022-02-07] MEDS ORDERED: PIPERACILL/TAZOBAC CONSULT ACTIVE PRN (23:34)
[2022-02-07] MEDS ORDERED: ACETAMINOPHEN 325 MG TAB PO PRN (23:34)
[2022-02-07] MEDS ORDERED: NITROGLYCERIN SL 0.4 MG/TAB TAB SL PRN (23:34)
[2022-02-08] MEDS ORDERED: PIPERACILLIN/TAZOBACTAM 3.375 GM in DEXTROSE 5% 100 ML IV ONE (01:00)
[2022-02-08] MEDS: APIXABAN 2.5 MG TAB PO SCH ×3 (01:41→20:35)
[2022-02-08] MEDS: LEVOTHYROXINE SODIUM 50 MCG TABLET PO SCH (06:04)
[2022-02-08 07:54] LABS: Creatinine Clr Calc Pharmacy 11.5 ml/min; Est GFR (Non-African American) 12.1 ml/min
[2022-02-08] MEDS: PIPERACILLIN/TAZOBACTAM 3.375 GM in DEXTROSE 5% 100 ML IV SCH ×2 (09:32→20:26)
[2022-02-08] MEDS: PANTOprazole 40 MG TAB PO SCH (09:32)
[2022-02-08] MEDS: allopurinoL 100 MG TAB PO SCH (09:32)
[2022-02-08] MEDS: CALCITRIOL 0.25 MCG CAPSULE PO SCH (09:32)
[2022-02-08] MEDS: METOPROLOL TARTRATE 100 MG TAB PO SCH ×2 (09:35→20:34)
[2022-02-08 09:53] LABS: Albumin Level 2.8 gm/dl (3.4-5.0); BUN Creatinine Ratio 23.6 (10-20); Calcium 9.6 mg/dl (8.5-10.1); Creatinine Clr Calc Pharmacy 11.7 ml/min; Est GFR (African American) 14.3 ml/min; Est GFR (Non-African American) 12.3 ml/min; Potassium 4.8 mmol/L (3.5-5.1)
--- NOTE | 2022-02-08 10:19 | Nephrology Consultation ---
Date of Consultation February 08, 2022 Assessment & Plan (1) Acute hyperkalemia: (2) Acute kidney injury superimposed on chronic kidney disease: (3) Cellulitis: (4) Secondary hyperparathyroidism: (5) Hypertension: 89-year-old female with stage IV CKD, baseline creatinine around 2, secondary to microvascular disease, admitted to the hospital with lower extremity cellulitis with history of lymphedema, noted to have AK and hyperkalemia. Creatinine was 3.2 and potassium was 5.9 on admission, renal function stayed relatively stable, potassium improved after receiving 1 dose of Kayexalate. NILAM most likely hemodynamically mediated with increased ostomy output and volume depletion. --Encouraged to increase fluid intake, monitor intake and output, continue to hold torsemide and keep net even. -- low-potassium diet -- avoid hypotension,If blood pressure remained low, suggest starting on IV fluid -- continue calcitriol Will follow Thank you for allowing me to participate in your patient's care. It was a pleasure to see Carine History of Present Illness Reason for Consultation: Acute kidney injury and hyperkalemia with history of advanced CKD. Attending Physician: Kong Bustamante MD History of Present Illness Carine Paniagua Is a 89-year-old female with past medical history significant for stage IIIB/4 CKD, hypertension, hypothyroidism, lymphedema admitted to the hospital with right lower extremity cellulitis and NILAM. Nephrology consult was requested to manage NILAM. EMR records are reviewed in detail during patient's visit. Carine has history of chronic lymphedema, at home she has been on torsemide 20 mg/d. She was noted to have worsening lower extremity edema associated with erythema and brought to ER by her daughter for further evaluation. Lower extremity Doppler was negative for DVT. She was empirically started on vancomycin and Zosyn for cellulitis. On admission she was noted to have NILAM with creatinine 3.2, potassium was 5.9. She reports eating drinking her usual and voiding normally. She does have ileostomy with high output recently. 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 no significant proteinuria hematuria. Prior renal imaging was otherwise unremarkable. Never smoker. No known family history of CKD or ESRD. Has secondary hyperparathyroidism with advanced CKD, has been on calcitriol. Past medical history also includes hypothyroidism, multinodular goiter, AFib, on anticoagulation and beta-franklin, sinus node dysfunction s/p pacemaker, hypertension. This morning overall she is feeling better, appetite decent. Has been voiding normally. Denies any shortness of breath or chest pain at rest. No fever or chills. Allergies Allergy/AdvReac Type Severity Reaction Status Date / Time adhesive Allergy Severe SEVERE Verified 02/07/22 21:14 REDNESS/PAIN amlodipine Allergy Intermediate Rash Verified 02/07/22 21:14 Sulfa (Sulfonamide Allergy Intermediate Rash Verified 02/07/22 21:14 Antibiotics) indomethacin Allergy Unknown Unknown Verified 02/07/22 21:14 Home Medications Medication Instructions Recorded Confirmed Type allopurinol 100 mg tablet 100 mg PO DAILY #90 tab 08/01/19 02/07/22 History levothyroxine 50 mcg tablet 50 mcg PO DAILY #30 tab 08/01/19 02/07/22 History calcitriol 0.25 mcg capsule 0.25 mcg PO DAILY #90 cap 07/22/21 02/07/22 Rx acetaminophen 500 mg tablet 1,000 mg PO BID PRN tab 10/07/21 02/07/22 History (Tylenol Extra Strength) omeprazole 40 mg capsule,delayed 40 mg PO DAILY #30 cap 10/07/21 02/07/22 History release apixaban 2.5 mg tablet (Eliquis) 2.5 mg PO BID 12/10/21 02/07/22 History metoprolol tartrate 100 mg tablet 100 mg PO BID 02/07/22 02/07/22 History torsemide 10 mg tablet 20 mg PO DAILY 02/07/22 02/07/22 History Patient History Medical History Chronic kidney disease, stage 4 (severe) Chronic kidney disease, stage III (moderate) Sick sinus syndrome Skin lesion of cheek Vitamin D deficiency Surgical History S/P cardiac pacemaker procedure S/P hysterectomy Family History Aunt Colorectal cancer Breast cancer Brother Myocardial infarction Denies family history of Ovarian cancer Prostate cancer Social History Smoking Status: Never smoker Second Hand Exposure: No; Do You Dip or Chew Tobacco: No; Hx Alcohol Use: No Hx Substance Use: No Preferred Language: Hungarian Communication Ability: Effective Visual Impairment: No Limitations Hearing Ability: Use of Hearing Aid Legal Examiner Required: No Beliefs That Will Affect Care: None marital status: / Current Living Situation: Alone current occupational status: retired Feels Safe at Home: Yes Safety Concerns: Feels Safe At This Time Dental Care, Regularly: No Physical Activity Frequency: Does not Exercise Seatbelt Use: sometimes Assistive Devices: Denture - Upper, Denture - Lower, Glasses and Walker Review of Systems Review of Systems: Detailed review of system was otherwise unremarkable. Physical Exam Constitutional: WD/WN, vitals as above no acute distress Eyes: + anicteric sclerae Neck: normal visual inspection Respiratory: no respiratory distress and no cough Auscultation: lungs clear to auscultation bilaterally Cardiovascular: Heart Sounds: normal S1 and normal S2 Extremities: no edema Gastrointestinal (Abdomen): Inspection/Auscultation: normal bowel sounds Percussion/Palpation: abdomen soft; abdomen nontender Skin: + rash, + ulcer and + erythema; turgor not decreased Neurologic: no focal motor deficits and not confused Psychiatric: Orientation: alert and oriented x 3 Affect: euthymic affect Results & Data ([facility]) Vital Signs (Past 12 Hours) Vital Signs Temp Pulse Pulse Resp BP Pulse Ox 02/08/22 09:30 84/54 L 02/08/22 09:00 101/57 L 02/08/22 07:49 36.4 C L 100 H 19 93/57 L 95 02/08/22 05:30 35 C L 94 H 18 99/65 L 95 02/07/22 23:45 35 C L 92 H 18 103/67 97 02/07/22 23:00 89 02/07/22 22:15 74 27 H 96 PG Care Time/CCT Total # of Minutes Spent Total Time Spent with Patient: Total time spent is greater than 50% in coordination of care (as documented) at patient's floor/unit and/or counseling patient: Coding Level of Care Code 89584 Initial Inpt Care Lvl 3 Diagnoses Acute hyperkalemia E87.5 Acute kidney injury superimposed on chronic kidney disease N17.9; N18.9 Cellulitis L03.115 Laterality: right Site of cellulitis: extremity Site of cellulitis of extremity: lower extremity Secondary hyperparathyroidism N25.81 Hypertension I10 (1) Cellulitis Laterality: right Site of cellulitis: extremity Site of cellulitis of extremity: lower extremity Qualified Code(s): L03.115 - Cellulitis of right lower limb
--- NOTE | 2022-02-08 11:57 | Nephrology Consultation ---
Date of Consultation February 08, 2022 Assessment & Plan (1) Acute hyperkalemia: (2) Acute kidney injury superimposed on chronic kidney disease: (3) Cellulitis: (4) Secondary hyperparathyroidism: (5) Hypertension: 89-year-old female with stage IV CKD, baseline creatinine around 2, secondary to microvascular disease, admitted to the hospital with lower extremity cellulitis with history of lymphedema, noted to have NILAM and hyperkalemia. Creatinine was 3.2 and potassium was 5.9 on admission, renal function stayed relatively stable, potassium improved after receiving 1 dose of Kayexalate. NILAM most likely hemodynamically mediated. --Encouraged to increase fluid intake, monitor intake and output, continue to hold torsemide and keep net even. -- low-potassium diet -- avoid hypotension,If blood pressure remained low, suggest starting on IV fluid -- continue calcitriol Will follow Thank you for allowing me to participate in your patient's care. It was a pleasure to see Carine History of Present Illness Reason for Consultation: Acute kidney injury and hyperkalemia with history of advanced CKD. Attending Physician: Kong Bustamante MD History of Present Illness Carine Paniagua Is a 89-year-old female with past medical history significant for stage IIIB/4 CKD, hypertension, hypothyroidism, lymphedema admitted to the hospital with right lower extremity cellulitis and NILAM. Nephrology consult was requested to manage NILAM. EMR records are reviewed in detail during patient's visit. Carine has history of chronic lymphedema, at home she has been on torsemide 20 mg/d. She was noted to have worsening lower extremity edema associated with erythema and brought to ER by her daughter for further evaluation. Lower extremity Doppler was negative for DVT. She was empirically started on vancomycin and Zosyn for cellulitis. On admission she was noted to have NILAM with creatinine 3.2, potassium was 5.9. She reports eating drinking her usual and voiding normally. 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 no significant proteinuria hematuria. Prior renal imaging was otherwise unremarkable. Never smoker. No known family history of CKD or ESRD. Has secondary hyperparathyroidism with advanced CKD, has been on calcitriol. Past medical history also includes hypothyroidism, multinodular goiter, AFib, on anticoagulation and beta-franklin, sinus node dysfunction s/p pacemaker, hyp ertension. This morning overall she is feeling better, appetite decent. Has been voiding normally. Denies any shortness of breath or chest pain at rest. No fever or chills. Allergies Allergy/AdvReac Type Severity Reaction Status Date / Time adhesive Allergy Severe SEVERE Verified 02/07/22 21:14 REDNESS/PAIN amlodipine Allergy Intermediate Rash Verified 02/07/22 21:14 Sulfa (Sulfonamide Allergy Intermediate Rash Verified 02/07/22 21:14 Antibiotics) indomethacin Allergy Unknown Unknown Verified 02/07/22 21:14 Home Medications Medication Instructions Recorded Confirmed Type allopurinol 100 mg tablet 100 mg PO DAILY #90 tab 08/01/19 02/07/22 History levothyroxine 50 mcg tablet 50 mcg PO DAILY #30 tab 08/01/19 02/07/22 History calcitriol 0.25 mcg capsule 0.25 mcg PO DAILY #90 cap 07/22/21 02/07/22 Rx acetaminophen 500 mg tablet 1,000 mg PO BID PRN tab 10/07/21 02/07/22 History (Tylenol Extra Strength) omeprazole 40 mg capsule,delayed 40 mg PO DAILY #30 cap 10/07/21 02/07/22 History release apixaban 2.5 mg tablet (Eliquis) 2.5 mg PO BID 12/10/21 02/07/22 History metoprolol tartrate 100 mg tablet 100 mg PO BID 02/07/22 02/07/22 History torsemide 10 mg tablet 20 mg PO DAILY 02/07/22 02/07/22 History Patient History Medical History Chronic kidney disease, stage 4 (severe) Chronic kidney disease, stage III (moderate) Sick sinus syndrome Skin lesion of cheek Vitamin D deficiency Surgical History S/P cardiac pacemaker procedure S/P hysterectomy Family History Aunt Colorectal cancer Breast cancer Brother Myocardial infarction Denies family history of Ovarian cancer Prostate cancer Social History Smoking Status: Never smoker Second Hand Exposure: No; Do You Dip or Chew Tobacco: No; Hx Alcohol Use: No Hx Substance Use: No Preferred Language: [place] Korean Communication Ability: Effective Visual Impairment: No Limitations Hearing Ability: Use of Hearing Aid In School Suspension Aide Required: No Beliefs That Will Affect Care: None marital status: / Current Living Situation: Alone current occupational status: retired Feels Safe at Home: Yes Safety Concerns: Feels Safe At This Time Dental Care, Regularly: No Physical Activity Frequency: Does not Exercise Seatbelt Use: sometimes Assistive Devices: Denture - Upper, Denture - Lower, Glasses and Walker Review of Systems Review of Systems: detailed review of system was otherwise unremarkable. Physical Exam Constitutional: WD/WN, vitals as above no acute distress Eyes: + anicteric sclerae Neck: normal visual inspection Respiratory: no respiratory distress and no cough Auscultation: lungs clear to auscultation bilaterally Cardiovascular: Rate/Rhythm: regular rate and regular rhythm Heart Sounds: normal S1 and normal S2 Extremities: no edema Gastrointestinal (Abdomen): Inspection/Auscultation: normal bowel sounds Percussion/Palpation: abdomen soft; abdomen nontender Musculoskeletal: Extremities: extremities normal to inspection Skin: no rashes Neurologic: no focal motor deficits and not confused Psychiatric: Orientation: alert and oriented x 3 Affect: euthymic affect Results & Data ([facility]) Vital Signs (Past 12 Hours) Vital Signs Temp Pulse Resp BP Pulse Ox 02/08/22 09:30 84/54 L 02/08/22 09:00 101/57 L 02/08/22 07:49 36.4 C L 100 H 19 93/57 L 95 02/08/22 05:30 35 C L 94 H 18 99/65 L 95 PG Care Time/CCT Total # of Minutes Spent Total Time Spent with Patient: Total time spent is greater than 50% in coordination of care (as documented) at patient's floor/unit and/or counseling patient: Coding Level of Care Code 82079 Initial Inpt Care Lvl 3 Diagnoses Acute hyperkalemia E87.5 Acute kidney injury superimposed on chronic kidney disease N17.9; N18.9 Cellulitis L03.115 Laterality: right Site of cellulitis: extremity Site of cellulitis of extremity: lower extremity Secondary hyperparathyroidism N25.81 Hypertension I10 (1) Cellulitis Laterality: right Site of cellulitis: extremity Site of cellulitis of extremity: lower extremity Qualified Code(s): L03.115 - Cellulitis of right lower limb
--- NOTE | 2022-02-08 12:28 | Pharmacy Report ---
Pharmacy [facility] Short Note - Date of Service February 08, 2022 - Assessment & Plan Assessment 89 year old F started on vancomycin/zosyn for worsening lower extremity redness/swelling, concern for bilateral extremity cellulitis. Prelim blood cultures with GPC chains. Plan Vancomycin * Patient received loading dose of vancomycin last evening ~2250 mg x 1 * Random vancomycin level this AM ~20 mcg/ml * Scr elevated on admission, hx CKD IV - estimated half life >24 hrs currently. Estimated vancomycin level tomorrow still likely >15 mcg/ml therefore will hold vancomycin dose for today * Plan to order a random level tomorrow AM to assist with further dosing Pharmacy will continue to follow and will adjust dose/frequency as necessary. Thank you.
[2022-02-08] MEDS ORDERED: SODIUM CHLORIDE 0.9% 1000ML 1,000 ML IV SCH (13:45)
[2022-02-08] MEDS: ALBUMIN 25% 100 mL 25 GM/100 ML VIAL IV SCH ×2 (16:00→17:56)
--- NOTE | 2022-02-08 18:07 | Hospitalist Progress Note ---
Date of Service February 08, 2022 Assessment & Plan (1) Cellulitis: Plan: An 89-year-old female who presents 4/5 with worsening right lower extremity redness and swelling and found to have acute kidney injury and hyperkalemia. She is being managed for the following: #. Sepsis POA #. BLE Cellulitis #. GPC bacteremia Admitting vitals with heart rate elevated and WBC also elevated. Sepsis POA secondary to BLE cellulitis 4/ blood culture positive for GPC cocci in chains. Patient started on vancomycin in the ED, continue with vancomycin 02/07 and IV Zosyn 02/08. ID consult, await recommendation. Await MRSA screen. #. Hypotension Patient's blood pressure low normal to low. Likely secondary to sepsis, expect to improve with antibiotic in time Gentle IV fluid hydration, IV albumin, continue to monitor. Hold torsemide for now. #. NILAM over CKD stage IV: Baseline creatinine around 2-2.9, creatinine elevated at admission to 3.1, hold torsemide, follow BMP daily. Nephrology on board. Currently on gentle fluid hydration. #. Other chronic medical conditions: Hypothyroidism/atrial fibrillation/sick sinus syndrome/status post pacer #. Continue with/resume home medications as and when appropriate. #. DVT prophylaxis: On Eliquis Admission and Anticipated Discharge Date Admission Date: February 07, 2022 Subjective Patient seen and examined at bedside as a follow-up of BLE cellulitis and NILAM over CKD stage IV. Patient was sitting up in chair, on room air, not in acute distress, no new acute events overnight. Patient reports some pain over bilateral lower extremity, otherwise feels fine. Patient reports eating okay and moving bowels okay. Patient denies any fever/headache/chills/chest pain/palpitation/palpitation/other review of symptoms. Patient also reports improving swelling of her lower extremity and erythema of her lower extremity. Physical Exam Physical Exam: GENERAL: Alert and oriented x3. NAD, on RA. HEENT: No pallor, no icterus. Pupils equal, round and reactive to light. Oral mucosa moist. NECK: No JVD, no neck masses. HEART: S1 and S2 heard. Regular rate and rhythm. No murmur, no gallop. RESPIRATORY SYSTEM: Normal AP diameter. No accessory muscle use. No wheezing, no crackles. ABDOMEN: Soft, bowel sounds present, nontender, no distention. CENTRAL NERVOUS SYSTEM: No facial droop. Speech is clear. Obeys simple commands. Moves extremities. EXTREMITIES: BLE lymphedema noted, 1+ pitting edema noticed, RLE greater than LLE erythematous. Results & Data Results & Data ([facility]) Vital Signs (Past 12 Hours) Vital Signs Temp Pulse Pulse Resp BP BP Pulse Ox 02/08/22 17:00 93 H 02/08/22 16:15 36.3 C L 85 20 87/58 L 94 02/08/22 15:24 78/51 L 87/54 L 02/08/22 12:40 36.6 C 100 H 19 91/62 L 97 02/08/22 09:30 84/54 L 02/08/22 09:00 101/57 L 02/08/22 08:00 94 H 02/08/22 07:49 36.4 C L 100 H 19 93/57 L 95 (1) Cellulitis Laterality: right Site of cellulitis: extremity Site of cellulitis of extremity: lower extremity Qualified Code(s): L03.115 - Cellulitis of right lower limb
[2022-02-09] MEDS: LEVOTHYROXINE SODIUM 50 MCG TABLET PO SCH (06:08)
--- NOTE | 2022-02-09 06:47 | Electrocardiogram Report ---
Test Reason : Blood Pressure : / mmHG Vent. Rate : 084 BPM Atrial Rate : 085 BPM P-R Int : 000 ms QRS Dur : 140 ms QT Int : 424 ms P-R-T Axes : 000 059 007 degrees QTc Int : 501 ms Poor data quality, interpretation may be adversely affected Atrial fibrillation with premature ventricular or aberrantly conducted complexes Right bundle branch block Abnormal ECG When compared with ECG of 25-JUN-2021 23:13, Atrial fibrillation has replaced Sinus rhythm Confirmed by Marcos Wright ([id number]) on 02/09/2022 6:46:26 AM Referred By: Neel Lopez Confirmed By:Marcos Wright
--- NOTE | 2022-02-09 07:00 | Electrocardiogram Report ---
Test Reason : Blood Pressure : / mmHG Vent. Rate : 087 BPM Atrial Rate : 077 BPM P-R Int : 000 ms QRS Dur : 142 ms QT Int : 406 ms P-R-T Axes : 000 056 018 degrees QTc Int : 488 ms Poor data quality, interpretation may be adversely affected Atrial fibrillation Right bundle branch block Abnormal ECG When compared with ECG of 07-FEB-2022 18:17, (unconfirmed) No significant change Confirmed by Marcos Wright ([id number]) on 02/09/2022 7:00:01 AM Referred By: Neel Lopez Confirmed By:Marcos Wright
[2022-02-09 07:06] LABS: BUN Creatinine Ratio 22.9 (10-20); Calcium 9.4 mg/dl (8.5-10.1); Creatinine Clr Calc Pharmacy 10.7 ml/min; Est GFR (African American) 13.1 ml/min; Est GFR (Non-African American) 11.3 ml/min; Phosphorus 5.4 mg/dl (2.5-4.9); Potassium 4.8 mmol/L (3.5-5.1)
[2022-02-09] MEDS ORDERED: VANCOMYCIN CONSULT ACTIVE PRN (08:19)
[2022-02-09] MEDS: ALBUMIN 25% 100 mL 25 GM/100 ML VIAL IV SCH (08:29)
[2022-02-09] MEDS: METOPROLOL TARTRATE 100 MG TAB PO SCH ×2 (08:31→20:24)
[2022-02-09] MEDS: CALCITRIOL 0.25 MCG CAPSULE PO SCH (08:32)
[2022-02-09] MEDS: APIXABAN 2.5 MG TAB PO SCH ×2 (08:32→20:25)
[2022-02-09] MEDS: PANTOprazole 40 MG TAB PO SCH (08:32)
[2022-02-09] MEDS: allopurinoL 100 MG TAB PO SCH (08:32)
--- NOTE | 2022-02-09 09:07 | Pharmacy Report ---
Pharmacy [facility] Short Note - Date of Service February 09, 2022 - Assessment & Plan Assessment 89 year old F started on vancomycin/zosyn for worsening lower extremity redness/swelling, concern for bilateral extremity cellulitis. Prelim blood cultures with GPC chains. Zosyn changed to rocephin this AM. Day #3 of antimicrobial therapy. Plan Vancomycin * Random vancomycin level this AM therapeutic at ~16.8 mcg/ml * Scr continues to rise more today from 3.23 to 3.41 mg/dL - had held vancomycin doses yesterday. Based upon levels estimated ke~0.009, t1/2 ~76 hrs * Anticipate vancomycin level to drop to <15 mcg/ml in next 24 hrs, therefore will give small supplemental dose of vancomycin today of 500 mg x 1 * Will plan to order random vancomycin level in the AM to assist with further dosing Pharmacy will continue to follow and will adjust dose/frequency as necessary. Thank you.
--- NOTE | 2022-02-09 09:27 | Electrocardiogram Report ---
Test Reason : Blood Pressure : / mmHG Vent. Rate : 104 BPM Atrial Rate : 085 BPM P-R Int : 000 ms QRS Dur : 142 ms QT Int : 398 ms P-R-T Axes : 000 037 013 degrees QTc Int : 523 ms Atrial fibrillation with rapid ventricular response with frequent ventricular-paced complexes and wit h premature ventricular or aberrantly conducted complexes Right bundle branch block Abnormal ECG When compared with ECG of 08-FEB-2022 05:52, Vent. rate has increased BY 17 BPM Confirmed by Gerardo Vaughn ([id number]) on 02/09/2022 9:26:48 AM Referred By: Neel Lopez Confirmed By:Gerardo Vaughn
[2022-02-09] MEDS: cefTRIAXone SODIUM 2,000 MG in DEXTROSE 5% 50 ML IV SCH (09:55)
--- NOTE | 2022-02-09 11:10 | Nephrology Progress Note ---
Date of Service February 09, 2022 Assessment & Plan (1) Acute kidney injury superimposed on chronic kidney disease: (2) Acute hyperkalemia: (3) Cellulitis: (4) Secondary hyperparathyroidism: (5) Hypertension: Plan: 89-year-old female with stage IV CKD, baseline creatinine around 2, secondary to microvascular disease, admitted to the hospital with lower extremity cellulitis with history of lymphedema, noted to have NILAM and hyperkalemia. Creatinine was 3.2 and potassium was 5.9 on admission, renal function stayed relatively stable, potassium improved after receiving 1 dose of Kayexalate. Blood culture came positive for Streptococcus, 2D echo showed both mitral and tricuspid vegetation and severe TR and moderate to severe MR. Renal function continues to worsen, decreased urine output, bladder scan with 110 mL only. Decent oral intake. -- check UA, renal ultrasound -- encourage p.o. intake, low-potassium diet -- continue calcitriol Will follow. Admission and Anticipated Discharge Date Admission Date: February 07, 2022 Subjective Carine was seen and evaluated this morning. Resting, denied SOB, CP. LE edema and erythema slightly improved. urine output has been low. Renal function slowly worsening, creatinine up to 3.4. Hyperkalemia resolved. p.o. intake decent. Blood pressure acceptable. Review of Systems Review of Systems: Detailed review of system was otherwise unremarkable. Physical Exam Constitutional: WD/WN, vitals as above no acute distress Eyes: + anicteric sclerae Respiratory: no respiratory distress Auscultation: lungs clear to auscultation bilaterally Cardiovascular: Rate/Rhythm: regular rate and regular rhythm Skin: + ulcer and + erythema Neurologic: no focal motor deficits and not confused Psychiatric: Orientation: alert and oriented x 3 Affect: euthymic affect Results & Data ([facility] [place]) Vital Signs (Past 12 Hours) Vital Signs Temp Pulse Resp BP Pulse Ox 02/09/22 08:00 36.5 C 86 18 109/68 96 02/09/22 04:04 36.8 C 93 H 20 99/62 L 93 02/09/22 00:13 37.3 C 71 20 92/58 L 96 PG Care Time/CCT Total # of Minutes Spent Total Time Spent with Patient: Total time spent is greater than 50% in coordination of care (as documented) at patient's floor/unit and/or counseling patient: Coding Level of Care Code 04296 Subseq Hosp Care Lvl 3 Diagnoses Acute hyperkalemia E87.5 Acute kidney injury superimposed on chronic kidney disease N17.9; N18.9 Cellulitis L03.115 Laterality: right Site of cellulitis: extremity Site of cellulitis of extremity: lower extremity Secondary hyperparathyroidism N25.81 Hypertension I10 (1) Cellulitis Laterality: right Site of cellulitis: extremity Site of cellulitis of extremity: lower extremity Qualified Code(s): L03.115 - Cellulitis of right lower limb
--- NOTE | 2022-02-09 11:57 | Cardiology Consultation ---
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 As per Hospitalist and ID Suspected che[place]vi valve (tricuspid and mitral) endocarditis. Will likely need 6 weeks of IV antibiotic therapy given left sided vegetation though will await ID recommendations. Repeat TTE/LAURA to be considered if new complications are suspected or occur. Patient has been afebrile throughout her hospitalization. No overt evidence of embolic phenomena. Acute on chronic renal dysfunction. Nephrology on board. Hold torsemide. Increased oral intake advised. Consider IV fluid administration. Lower extremity edema, multifactorial in etiology - cellulitis, lymphedema, hypo albuminemia, renal dysfunction, valvular heart disease, pulmonary hypertension, and diastolic congestive heart failure are all likely playing a part. See above. Atrial fibrillation, persistent. Rates are acceptably controlled for the acute illness. Low likelihood of restoring sinus. 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 Generator exchange on September 27, 2015. Last interrogation was on 10/26/2021 as noted. Outpatient interrogation cancelled due to hospitalization; will need to make arrangements for interrogation as an outpatient. Hypertensive heart disease. Patient hypotensive throughout hospital course. Hold torsemide. Consider IV fluid administration Chronic nocturnal hypoxia, on 2 L of O2 at night, with suspected sleep apnea. Angiographically normal coronary arteries by June 2005 cardiac catheterization. Supervising Physician Co-Signing Physician Notes Patient seen and examined with assessment as above. Patient with recurrent bacteremia/sepsis with possible vegetations. Discussed in detail with patient and family patient would not wish valvular surgery if indicated. Severe mitral sufficiency currently present Despite peripheral edema patient appears volume contracted in association with sepsis. Would recommend IV fluids especially in light of worsening renal function. History of Present Illness Reason for Consultation: Abnormal echocardiogram Requesting Physician: Robby Attending Physician: Robby History of Present Illness Ms. Carine Paniagua is a very pleasant 89 year old female who presented from home to the [facility] ER on 02/07/2022 with complaints of right lower extremity pain, swelling, and significant erythema extending to the groin. Patient with lymphe sury, chronic bilateral lower extremity drainage. WBC count on presentation was 23.83. Chemistry panel revealed acute on chronic renal dysfunction(BUN 73, creatinine 3.12) with associated hyperkalemia (5.9), receiving 1 dose of Kayexalate. Admitted diagnosis was that of bilateral lower extremity cellulitis. Patient prescribed vancomycin in the ED; Zosyn added on 02/08/2022. Blood cultures returned positive for gram positive cocci in chains with Zosyn changed to Ceftriaxone on 02/09/2022. Resting echocardiography on 02/09/2022, as per Dr. Townsend, revealed mitral and tricuspid vegetations, torrential tricuspid regurgitation with a partial flail of the septal leaflet, moderate to severe mitral regurgitation, and mildly reduced LV systolic function with an EF of 45- 50% prompting cardiology consultation. Infectious Disease consultation is pending. Patient notes "My (right) leg got real sore. It hurt to touch it. It felt like a bruise. It got bright red." Patient describes being chronically cold, without overt fevers or rigors. + Decreased appetite. She notes occasional headaches, significantly dry mouth with cracking of the lips, chronic back pain, decreased urine output, chronic bilateral lower extremity swelling and drainage. No cough. No resting dyspnea. Stable exertional dyspnea when ambulating to and from the restroom with a walker. No chest pain. No overt palpitations. At home patient sleeps in a recliner due to chronic left hip pain. No PND. No syncope. No epistaxis. No hemoptysis. No melena. No hematochezia. No hematuria. Allergies Allergy/AdvReac Type Severity Reaction Status Date / Time adhesive Allergy Severe SEVERE Verified 02/07/22 21:14 REDNESS/PAIN amlodipine Allergy Intermediate Rash Verified 02/07/22 21:14 Sulfa (Sulfonamide Allergy Intermediate Rash Verified 02/07/22 21:14 Antibiotics) indomethacin Allergy Unknown Unknown Verified 02/07/22 21:14 Home Medications Medication Instructions Recorded Confirmed Type allopurinol 100 mg tablet 100 mg PO DAILY #90 tab 08/01/19 02/07/22 History levothyroxine 50 mcg tablet 50 mcg PO DAILY #30 tab 08/01/19 02/07/22 History calcitriol 0.25 mcg capsule 0.25 mcg PO DAILY #90 cap 07/22/21 02/07/22 Rx acetaminophen 500 mg tablet 1,000 mg PO BID PRN tab 10/07/21 02/07/22 History (Tylenol Extra Strength) omeprazole 40 mg capsule,delayed 40 mg PO DAILY #30 cap 10/07/21 02/07/22 History release apixaban 2.5 mg tablet (Eliquis) 2.5 mg PO BID 12/10/21 02/07/22 History metoprolol tartrate 100 mg tablet 100 mg PO BID 02/07/22 02/07/22 History torsemide 10 mg tablet 20 mg PO DAILY 02/07/22 02/07/22 History Patient History Medical History Chronic kidney disease, stage 4 (severe) Chronic kidney disease, stage III (moderate) Sick sinus syndrome Skin lesion of cheek Vitamin D deficiency Surgical History S/P cardiac pacemaker procedure S/P hysterectomy Family History Aunt Colorectal cancer Breast cancer Brother Myocardial infarction Denies family history of Ovarian cancer Prostate cancer Social History Smoking Status: Never smoker Second Hand Exposure: No; Do You Dip or Chew Tobacco: No; Hx Alcohol Use: No Hx Substance Use: No Preferred Language: Spanish Communication Ability: Effective Visual Impairment: No Limitations Hearing Ability: Use of Hearing Aid Stone Setter Required: No Beliefs That Will Affect Care: None marital status: / Current Living Situation: Alone current occupational status: retired How many Children do You have: 3 Feels Safe at Home: Yes Safety Concerns: Feels Safe At This Time Dental Care, Regularly: No Physical Activity Frequency: Does not Exercise Seatbelt Use: sometimes Assistive Devices: None Review of Systems Review of Systems: No dental work or evaluations in the past 6 months. Chronic constipation. Otherwise, complete review of systems is as stated above, negative, or noncontributory. Physical Exam Physical Exam: General: Comfortable. Coperative. NAD. Obese. Hard of hearing. HENT: Normocephalic. Atraumatic. Mucous membranes are very dry. Eyes: PER. Conjunctiva pink, sclera clear. Neck: No carotid bruits. No JVD. Back: Mild healing ecchymosis. Heart: Irregularly irregular around 100 bpm. Grade II/ systolic murmur. No diastolic murmur Lungs: Diminished but clear. Abdomen: Obese. +BS. Soft. Nontender. No organomegaly. Extremities: 2-3+ weeping right greater than left lower extremity edema. + Marked erythema of the right lower extremity. + Right lower extremity wounds. No cyanosis. Psych: Normal affect. Limited neurological examination is without focal deficit. Pulses: radial=2/4, posterior tibial=0/4. Results & Data ([facility]) Vital Signs (Past 12 Hours) Vital Signs Temp Pulse Resp BP Pulse Ox 02/09/22 08:00 36.5 C 86 18 109/68 96 02/09/22 04:04 36.8 C 93 H 20 99/62 L 93 02/09/22 00:13 37.3 C 71 20 92/58 L 96 Laboratory Results Laboratory Results - last 24 hr 02/08/22 02/09/22 02/09/22 18:30 06:09 06:09 Sodium 137 Potassium 4.8 Chloride 103 Carbon Dioxide 27 Anion Gap 7 BUN 78 H Creatinine 3.41 H Est Cr Clr Drug Dosing 10.7 Est GFR ( Amer) 13.1 Est GFR (Non-Af Amer) 11.3 BUN/Creatinine Ratio 22.9 H Glucose 99 Calcium 9.4 Phosphorus 5.4 H Albumin 3.0 L Nasal Screen MRSA (PCR) Negative Random Vancomycin 16.8 Diagnostic Findings September 06, 2021 TTE Interpretation Summary (as per Dr. Townsend): LV chamber size with mild concentric LVH. Systolic function without regional wall motion abnormalities. Calculated LV ejection Fraction = 63% (bi-plane method of discs). Grade 3 diastolic dysfunction. Mild aortic valve sclerosis without stenosis. There is moderate mitral annular calcification. Mitral stenosis is absent. There is moderate 2 to 3+ mitral insufficiency. Severe left atrial enlargement. Mild tricuspid regurgitation. Pulmonary hypertension is present. The estimated pulmonary artery systolic pressure is 50mm Hg. Pacemaker interrogation last performed on October 26, 2021 demonstrated appropriate function. Remaining longevity: 4.5 years. Patient lapsed into atrial fibrillation on October 20, 2021, ongoing. February 09, 2022 TTE Interpretation Summary ([facility], Dr. Townsend): Normal LV chamber size and wall thickness. Mildly reduced LV systolic function with mild global hypokinesis, EF 45-50%. Normal RV size. Mildly reduced RV systolic function. Moderate aortic valve sclerosis, without significant aortic valve stenosis. 1.3 x 0.9 cm vegetation on the lateral tricuspid valve leaflet. Severe/torrential TR; partial flail of the septal leaflet. Moderate mitral annular calcification. 1.3 x 0.9 cm nonmobile vegetation present on the lateral mitral valve leaflet. Moderate to severe mitral regurgitation. Compared to previous study from 09/2021, mitral and tricuspid vegetations are now present. Severe tricuspid regurgitation is now present. LV systolic function is mildly reduced. Cannot exclude pacer lead endocarditis. Telemetry: Atrial fibrillation with intermittent ventricular pacing. Heart rates currently in the 90's.
[2022-02-09] MEDS ORDERED: VANCOMYCIN HCL 500 MG in DEXTROSE 5% 100 ML IV ONE (12:00)
[2022-02-09] MEDS ORDERED: SODIUM CHLORIDE 0.9% 500 ML IV SCH (15:15)
--- NOTE | 2022-02-09 16:02 | Ultrasound Report ---
US renal/blad retro comp CLINICAL HISTORY: lissette, oliguria TECHNIQUE: Multiple sonographic real-time images of the kidneys and bladder were obtained. COMPARISON: Comparison is made to CT abdomen pelvis 06/26/2021 and renal ultrasound 07/01/2021 FINDINGS: The right kidney measures 8.8 cm in length, and the left kidney measures 8.7 cm in length. The right kidney is normal in size, contour, cortical thickness, and echogenicity. No hydronephrosis is identified. No renal lesion is identified. No perinephric fluid collection is seen. The left kidney is normal in size, contour, cortical thickness and echogenicity. No hydronephrosis i s identified. Multiple cysts are seen. No perinephric fluid collection is seen. Trace perinephric stranding is seen bilaterally. Incidentally noted, the spleen is enlarged measuring 13.3 mm, with hyperechoic regions noted. The bladder is partially distended. No large intraluminal mass is seen. IMPRESSION: 1. No evidence of hydronephrosis. Mildly atrophic appearance of the bilateral kidneys noted. 2. Splenomegaly and hyperechoic lesions in the spleen are incidentally noted. Of note, these appear new from prior CT. If not previously evaluated, contrast CT or MRI can be performed. ACT 112: Negative or not required by law. Electronically signed by: Montrell Anand M.D. 02/09/2022 4:00 PM
--- NOTE | 2022-02-09 18:05 | Hospitalist Progress Note ---
Date of Service February 09, 2022 Assessment & Plan (1) Cellulitis: Plan: An 89-year-old female who presents 02/07 with worsening right lower extremity redness and swelling and found to have acute kidney injury and hyperkalemia. She is being managed for the following: #. Sepsis POA #. BLE Cellulitis #. GPC bacteremia #. Infective Endocarditis/tunica-biloxi valve Admitting vitals with heart rate elevated and WBC also elevated. Sepsis POA secondary to BLE cellulitis 02/09 ECHO: EF 45-50%, Lateral TV valve w/ 1.3 x 0.9 cm vegetation, Lateral MV w/ 1.3 x 0.9 cm nonmobile vegetation. Severe TR. Mod to severe MR. 02/07 blood culture positive for GPC cocci in chains. 02/09 Blood culture : pending, f/u Patient started on vancomycin in the ED, continue with vancomycin 02/07 and IV Zosyn 02/08 --> Zosyn to rocephin on 02/09 ID consult, await recommendation. Renal ultrasound with splenomegaly and hyperechoic lesions in the spleen, sending MRI abdomen as f/u. Discussed with cardiology, conservative management, patient not willing for valvular surgery if indicated. #. Hypotension Patient's blood pressure low normal to low --> has improved today Likely secondary to sepsis, improving. Gentle IV fluid hydration, continue to monitor. Hold torsemide for now. #. NILAM over CKD stage IV: Baseline creatinine around 2-2.9, creatinine elevated at admission to 3.1, hold torsemide, follow BMP daily. Nephrology on board. Creatinine uptrending, appreciate nephrology recommendation. Currently on gentle fluid hydration. Zosyn discontinued, expect improvement tomorrow. #. Other chronic medical conditions: Hypothyroidism/atrial fibrillation/sick sinus syndrome/status post pacer Continue with/resume home medications as and when appropriate. #. DVT prophylaxis: On Eliquis Admission and Anticipated Discharge Date Admission Date: February 07, 2022 Subjective Patient seen and examined at bedside as a follow-up of BLE cellulitis, GPC bacteremia, infective endocarditis and NILAM over CKD stage IV. Patient was sitting up in chair, on room air, not in acute distress, no new acute events overnight. Patient reports some pain over bilateral lower extremity, feels somewhat tired. Patient reports eating okay and moving bowels okay. Patient denies any fever/headache/chills/chest pain/palpitat ion/palpitation/other review of symptoms. Patient also reports improving swelling of her lower extremity and erythema of her lower extremity. Physical Exam Physical Exam: GENERAL: Alert and oriented x3. NAD, on RA. HEENT: No pallor, no icterus. Pupils equal, round and reactive to light. Oral mucosa moist. NECK: No JVD, no neck masses. HEART: S1 and S2 heard. Regular rate and rhythm. + murmur, no gallop. RESPIRATORY SYSTEM: Normal AP diameter. No accessory muscle use. No wheezing, no crackles. ABDOMEN: Soft, bowel sounds present, nontender, no distention. CENTRAL NERVOUS SYSTEM: No facial droop. Speech is clear. Obeys simple commands. Moves extremities. EXTREMITIES: BLE lymphedema noted, 1+ pitting edema noticed, RLE greater than LLE erythema --> improving Results & Data Results & Data ([facility]) Vital Signs (Past 12 Hours) Vital Signs Temp Pulse Resp BP Pulse Ox 02/09/22 16:00 36.6 C 68 18 124/66 95 02/09/22 12:00 36.5 C 67 18 105/67 67 L 02/09/22 08:00 36.5 C 86 18 109/68 96 (1) Cellulitis Laterality: right Site of cellulitis: extremity Site of cellulitis of extremity: lower extremity Qualified Code(s): L03.115 - Cellulitis of right lower limb
[2022-02-09 20:20] LABS: Appearance Urine Cloudy (Clear); Bacteria Urine Automated Negative (Negative); Bilirubin Urine Negative (Negative); Blood Urine Trace (Negative); Color Urine Yellow; Epithelial Cell Urine Auto >30 /lpf (0-5); Glucose Urine UA Negative (Negative); Ketones Urine Trace (Negative); Leukocyte Esterase Urine 2+ (Negative); Nitrite Urine Negative (Negative); Protein Urine 1+ (Negative); Specific Gravity Urine 1.019 (1.000-1.030); Urobilinogen Urine Negative (Negative); WBC Urine Automated >30 /hpf (0-5)
[2022-02-09 20:44] LABS: RBC Urine Automated 0-4 /hpf (0-4)
[2022-02-09 23:18] LABS: Thyroid Stimulating Hormone 6.108 uIu/ml (0.300-4.500)
[2022-02-09 23:57] LABS: T4 Free Thyroxine 1.29 ng/dl (0.61-1.60)
[2022-02-10] MEDS: LEVOTHYROXINE SODIUM 50 MCG TABLET PO SCH (06:21)
[2022-02-10 06:49] LABS: Hematocrit (blood only) 32.2 % (37-47); Hemoglobin 10.4 g/dL (12.0-16.0); Mean Corpuscular Hemoglobin 30.5 pg (25-34); Mean Corpuscular Hgb Conc 32.3 g/dL (32-36); Mean Corpuscular Volume 94.4 fL (80-100); Mean Platelet Volume 12.5 fL (7.4-10.4); Platelet Count 185 K/uL (130-400); RDW Coefficient of Variation 16.3 % (11.5-14.5); RDW Standard Deviation 55.7 fL (36.4-46.3); Red Blood Count 3.41 M/uL (4.2-5.4); White Blood Count 13.44 K/uL (4.8-10.8)
[2022-02-10 07:10] LABS: Albumin Level 3.2 gm/dl (3.4-5.0); Calcium 9.3 mg/dl (8.5-10.1); Est GFR (African American) 12.9 ml/min; Est GFR (Non-African American) 11.1 ml/min; Magnesium 2.2 mg/dl (1.7-2.4); Phosphorus 5.8 mg/dl (2.5-4.9); Potassium 4.7 mmol/L (3.5-5.1)
[2022-02-10] MEDS: CALCITRIOL 0.25 MCG CAPSULE PO SCH (08:24)
[2022-02-10] MEDS: PANTOprazole 40 MG TAB PO SCH (08:24)
[2022-02-10] MEDS: allopurinoL 100 MG TAB PO SCH (08:24)
[2022-02-10] MEDS: APIXABAN 2.5 MG TAB PO SCH ×2 (08:25→20:27)
[2022-02-10] MEDS: cefTRIAXone SODIUM 2,000 MG in DEXTROSE 5% 50 ML IV SCH (08:30)
[2022-02-10] MEDS: METOPROLOL TARTRATE 100 MG TAB PO SCH ×2 (09:06→20:27)
--- NOTE | 2022-02-10 09:43 | Nephrology Progress Note ---
Date of Service February 10, 2022 Assessment & Plan (1) Acute kidney injury superimposed on chronic kidney disease: (2) Acute hyperkalemia: (3) Cellulitis: (4) Secondary hyperparathyroidism: (5) Hypertension: Plan: 89-year-old female with stage IV CKD, b/l cr around 2.0, secondary to microvascular disease, admitted to the hospital with lower extremity cellulitis with history of lymphedema, noted to have NILAM and hyperkalemia. Creatinine was 3.2 and potassium was 5.9 on admission, renal function stayed relatively stable, potassium improved after receiving 1 dose of Kayexalate. Blood culture came positive for Streptococcus, 2D echo showed both mitral and tricuspid vegetation and severe TR and moderate to severe MR. Renal USG unremarkable. Repeat UA with low grade proteinuria. Blood culture with strep and Echo showed MV and TV vegetation and endocarditis, on Cefepime Renal function continues to worsen, decent urine output. poor oral intake and clinically seems volume contracted. -- start on IV NS at 80 ml/h -- encourage p.o. intake, low-potassium diet -- continue calcitriol -- start on Renvela 1 tab TIDM -- Hb stable at 10.4, will hold off iV iron considering bacteremia, monitor Hb, if <10 will start on RENITA. Will follow. Admission and Anticipated Discharge Date Admission Date: February 07, 2022 Subjective Carine was seen and evaluated this morning. Resting, denied SOB, CP. LE edema and erythema slightly improved. urine output improved. Renal function slowly worsening, creatinine up to 3.5. Hyperkalemia resolved. p.o. intake decent. Blood pressure acceptable. Review of Systems Review of Systems: Detailed review of system was otherwise unremarkable. Physical Exam Constitutional: WD/WN, vitals as above no acute distress Eyes: + anicteric sclerae Respiratory: no respiratory distress Auscultation: lungs clear to auscultation bilaterally Cardiovascular: Rate/Rhythm: regular rate and regular rhythm Skin: + ulcer and + erythema Neurologic: no focal motor deficits and not confused Psychiatric: Orientation: alert and oriented x 3 Affect: euthymic affect Results & Data ([facility]) Vital Signs (Past 12 Hours) Vital Signs Temp Pulse Resp BP BP Pulse Ox 02/10/22 07:00 36.6 C 98 H 19 100/63 90 02/10/22 05:13 36.4 C L 99 H 16 130/75 88 L 02/09/22 23:59 34.7 C L 82 16 105/60 94 02/09/22 22:12 34.3 C L PG Care Time/CCT Total # of Minutes Spent Total Time Spent with Patient: Total time spent is greater than 50% in coordination of care (as documented) at patient's floor/unit and/or counseling patient: Coding Level of Care Code 98784 Subseq Hosp Care Lvl 3 Diagnoses Acute kidney injury superimposed on chronic kidney disease N17.9; N18.9 Acute hyperkalemia E87.5 Cellulitis L03.115 Laterality: right Site of cellulitis: extremity Site of cellulitis of extremity: lower extremity Secondary hyperparathyroidism N25.81 Hypertension I10 (1) Cellulitis Laterality: right Site of cellulitis: extremity Site of cellulitis of extremity: lower extremity Qualified Code(s): L03.115 - Cellulitis of right lower limb
--- NOTE | 2022-02-10 10:41 | Cardiology Progress Note ---
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 Possible tricuspid and mitral valve vegetations/endocarditis. Will likely need 6 weeks of IV antibiotic therapy, awaiting ID recommendations. Patient does not wish valvular surgery if indicated. Acute on chronic renal dysfunction. Nephrology on board. Hold torsemide. Increased oral intake advised. Agree with IV fluid administration as patient appears intravascularly dry. Lower extremity edema, multifactorial in etiology - erysipelas/cellulitis, lymphedema, hypoalbuminemia, renal dysfunction, valvular heart disease, pulmonary hypertension, and diastolic dysfunction as contributing. See above. Atrial fibrillation, persistent. Rates are acceptably controlled for the acute illness. Low likelihood of restoring sinus. 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 Generator exchange on September 27, 2015. Last interrogation was on 10/26/2021 as noted. Outpatient interrogation cancelled due to hospitalization; will need to make arrangements for interrogation as an outpatient. Admission and Anticipated Discharge Date Admission Date: February 07, 2022 Supervising Physician Co-Signing Physician Notes Patient seen and examined. Assessment and plan as above agree with IV hydration in setting of acute sepsis. Patient will require extended antibiotic therapies. Discussed potential involvement of valves and pacemaker leads with infection with patient she does not wish any further surgical intervention Subjective Patient seen and examined. Chart, medications, and telemetry reviewed. Feels about the same. Notes having a vivid nightmare last night. Stable dyspnea. No chest pain. No palpitations. Telemetry: Atrial fibrillation with intermittent pacing, heart rates in the 80's to 100's Review of Systems Review of Systems: Complete review of systems is as stated above, negative, or noncontributory. Physical Exam Physical Exam: General: Comfortable. Coperative. NAD. Obese. Hard of hearing. HENT: Normocephalic. Atraumatic. Mucous membranes are dry. Eyes: PER. Conjunctiva pink, sclera clear. Neck: No carotid bruits. No JVD. Heart: Irregularly irregular around 90 bpm. Grade II/ systolic murmur. No diastolic murmur Lungs: Diminished but clear. Abdomen: Obese. +BS. Soft. Nontender. No organomegaly. Extremities: Lower extremity dressing not removed. Limited neurological examination is without focal deficit. Pulses: radial=2/4, posterior tibial=0/4. Results & Data ([facility]) Vital Signs (Past 12 Hours) Vital Signs Temp Pulse Resp BP BP Pulse Ox 02/10/22 07:00 36.6 C 98 H 19 100/63 90 02/10/22 05:13 36.4 C L 99 H 16 130/75 88 L 02/09/22 23:59 34.7 C L 82 16 105/60 94 Laboratory Results Laboratory Results - last 24 hr 02/09/22 02/09/22 02/10/22 20:04 22:18 05:30 WBC RBC Hgb Hct MCV MCH MCHC RDW Std Deviation RDW Coeff of Lorenzo Plt Count MPV Sodium 135 L Potassium 4.7 Chloride 101 Carbon Dioxide 21 Anion Gap 13 H BUN 76 H Creatinine 3.46 H Est Cr Clr Drug Dosing 11.0 Est GFR ( Amer) 12.9 Est GFR (Non-Af Amer) 11.1 BUN/Creatinine Ratio 22.0 H Glucose 79 Calcium 9.3 Phosphorus 5.8 H Magnesium 2.2 Albumin 3.2 L TSH 6.108 H Free T4 1.29 Urine Color Yellow Urine Appearance Cloudy A Urine pH 5.0 Ur Specific [place] 1.019 Urine Protein 1+ H Urine Glucose (UA) Negative Urine Ketones Trace H Urine Blood Trace H Urine Nitrite Negative Urine Bilirubin Negative Urine Urobilinogen Negative Ur Leukocyte Esterase 2+ H Urine WBC (Auto) >30 H Urine RBC (Auto) 0-4 U Hyaline Cast (Auto) 5-10 H U Epithel Cells (Auto) >30 H Urine Bacteria (Auto) Negative Urine Yeast Budding A Random Vancomycin 02/10/22 02/10/22 05:30 05:30 WBC 13.44 H RBC 3.41 L Hgb 10.4 L Hct 32.2 L MCV 94.4 MCH 30.5 MCHC 32.3 RDW Std Deviation 55.7 H RDW Coeff of Lorenzo 16.3 H Plt Count 185 MPV 12.5 H Sodium Potassium Chloride Carbon Dioxide Anion Gap BUN Creatinine Est Cr Clr Drug Dosing Est GFR ( Amer) Est GFR (Non-Af Amer) BUN/Creatinine Ratio Glucose Calcium Phosphorus Magnesium Albumin TSH Free T4 Urine Color Urine Appearance Urine pH Ur Specific [place] Urine Protein Urine Glucose (UA) Urine Ketones Urine Blood Urine Nitrite Urine Bilirubin Urine Urobilinogen Ur Leukocyte Esterase Urine WBC (Auto) Urine RBC (Auto) U Hyaline Cast (Auto) U Epithel Cells (Auto) Urine Bacteria (Auto) Urine Yeast Random Vancomycin 18.7
[2022-02-10] MEDS: SODIUM CHLORIDE 0.9% 1000ML 1,000 ML IV SCH (12:16)
--- NOTE | 2022-02-10 15:15 | Hospitalist Progress Note ---
Date of Service February 10, 2022 Assessment & Plan (1) Cellulitis: Plan: An 89-year-old female who presents 02/07 with worsening right lower extremity redness and swelling and found to have acute kidney injury and hyperkalemia. She is being managed for the following: #. Sepsis POA #. BLE Cellulitis #. GPC bacteremia #. Infective Endocarditis/osage valve Admitting vitals with heart rate elevated and WBC also elevated. Sepsis POA secondary to BLE cellulitis 02/09 ECHO: EF 45-50%, Lateral TV valve w/ 1.3 x 0.9 cm vegetation, Lateral MV w/ 1.3 x 0.9 cm nonmobile vegetation. Severe TR. Mod to severe MR. 02/07 blood culture positive for GPC cocci in chains. 02/09 Blood culture : pending, NG24H, f/u. WBC trending down, patient has been hypothermic on and off. Use Violeta hugger. Vanc 02/07 and Zosyn 02/08 (to Rocephin 02/09) ---> DC vanc 02/10, c/w rocephin ID evaluated: Recommending LAURA and exchanging pacemaker if with lead infection, IV Rocephin for 6 weeks. Repeat blood culture to document clearance. Renal ultrasound with splenomegaly and hyperechoic lesions in the spleen, sending MRI abdomen --> couldn't be done due pacer not being compatible; CT w/ contrast contraindicated due to NILAM/CKD. Cardiology following, appreciate recommendation Patient not willing for any surgical intervention, wants to proceed with conservative management. Patient will need outpatient cardiology/ID follow-up. #. Hypotension Patient's blood pressure low normal to low --> has improved today Likely secondary to sepsis, improving. Gentle IV fluid hydration, continue to monitor. Hold torsemide for now. #. NILAM over CKD stage IV: Baseline creatinine around 2-2.9, creatinine elevated at admission to 3.1, hold torsemide, follow BMP daily. Nephrology on board. Creatinine uptrending, appreciate nephrology recommendation. Currently on gentle fluid hydration. Zosyn and vanc discontinued, hopeful for improvement. #. Other chronic medical conditions: Hypothyroidism/atrial fibrillation/sick sinus syndrome/status post pacer Continue with/resume home medications as and when appropriate. #. DVT prophylaxis: On Eliquis Disposition: Expect DC in next few days when renal function improves and repeat cultures are negative. Will need PICC line, total of 6 weeks of IV Rocephin, follow-up with ID/PCP/cardiology/nephrology as outpatient. Admission and Anticipated Discharge Date Admission Date: February 07, 2022 Subjective Patient seen and examined at bedside as a follow-up of BLE cellulitis, GPC bacteremia, infective endocarditis and NILAM over CKD stage IV. Patient was lying in bed, on room air, not in acute distress, no new acute events overnight. Pt reports having nightmare overnight. Patient reports eating okay and moving bowels okay. Feels about the same.Pt reports feeling some cold. Patient denies any fever/headache/chills/chest pain/palpitation/palpitation/other review of symptoms. Physical Exam Physical Exam: GENERAL: Alert and oriented x3. NAD, on RA. HEENT: No pallor, no icterus. Pupils equal, round and reactive to light. Oral mucosa moist. NECK: No JVD, no neck masses. HEART: S1 and S2 heard. Regular rate and rhythm. + murmur, no gallop. RESPIRATORY SYSTEM: Normal AP diameter. No accessory muscle use. No wheezing, no crackles. ABDOMEN: Soft, bowel sounds present, nontender, no distention. CENTRAL NERVOUS SYSTEM: No facial droop. Speech is clear. Obeys simple commands. Moves extremities. EXTREMITIES: BLE clean dressing w/o soakage noted. Results & Data Results & Data ([facility]) Vital Signs (Past 12 Hours) Vital Signs Temp Pulse Resp BP BP Pulse Ox 02/10/22 11:12 36.5 C 101 H 18 104/68 93 02/10/22 07:00 36.6 C 98 H 19 100/63 90 02/10/22 05:13 36.4 C L 99 H 16 130/75 88 L (1) Cellulitis Laterality: right Site of cellulitis: extremity Site of cellulitis of extr emity: lower extremity Qualified Code(s): L03.115 - Cellulitis of right lower limb
[2022-02-10] MEDS ORDERED: VANCOMYCIN HCL 500 MG in DEXTROSE 5% 100 ML IV ONE (16:00)
[2022-02-10] MEDS: SEVELAMER HCL 800 MG TABLET PO SCH (17:20)
[2022-02-11] MEDS: LEVOTHYROXINE SODIUM 50 MCG TABLET PO SCH (05:38)
[2022-02-11] MEDS: SODIUM CHLORIDE 0.9% 1000ML 1,000 ML IV SCH ×2 (05:38→17:12)
[2022-02-11 07:17] LABS: Hematocrit (blood only) 34.4 % (37-47); Hemoglobin 11.1 g/dL (12.0-16.0); Mean Corpuscular Hemoglobin 30.4 pg (25-34); Mean Corpuscular Hgb Conc 32.3 g/dL (32-36); Mean Corpuscular Volume 94.2 fL (80-100); Mean Platelet Volume 12.2 fL (7.4-10.4); Platelet Count 173 K/uL (130-400); RDW Coefficient of Variation 16.4 % (11.5-14.5); RDW Standard Deviation 56.3 fL (36.4-46.3); Red Blood Count 3.65 M/uL (4.2-5.4); White Blood Count 13.31 K/uL (4.8-10.8)
[2022-02-11] MEDS: SEVELAMER HCL 800 MG TABLET PO SCH ×3 (07:44→16:55)
[2022-02-11 08:05] LABS: Albumin Level 3.4 gm/dl (3.4-5.0); BUN Creatinine Ratio 22.8 (10-20); Calcium 9.9 mg/dl (8.5-10.1); Creatinine Clr Calc Pharmacy 10.4 ml/min; Est GFR (African American) 12.5 ml/min; Est GFR (Non-African American) 10.8 ml/min; Magnesium 2.4 mg/dl (1.7-2.4); Phosphorus 6.1 mg/dl (2.5-4.9); Potassium 5.1 mmol/L (3.5-5.1)
[2022-02-11] MEDS: allopurinoL 100 MG TAB PO SCH (09:21)
[2022-02-11] MEDS: CALCITRIOL 0.25 MCG CAPSULE PO SCH (09:22)
[2022-02-11] MEDS: APIXABAN 2.5 MG TAB PO SCH ×2 (09:22→20:13)
[2022-02-11] MEDS: PANTOprazole 40 MG TAB PO SCH (09:22)
[2022-02-11] MEDS: METOPROLOL TARTRATE 100 MG TAB PO SCH ×2 (09:22→20:13)
[2022-02-11] MEDS: cefTRIAXone SODIUM 2,000 MG in DEXTROSE 5% 50 ML IV SCH (09:25)
--- NOTE | 2022-02-11 11:11 | Cardiology Progress Note ---
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 Possible tricuspid and mitral valve vegetations/endocarditis. Will likely need 6 weeks of IV antibiotic therapy, awaiting ID recommendations. Patient does not wish valvular surgery if indicated. Acute on chronic renal dysfunction. Nephrology on board. Hold torsemide. Increased oral intake advised. Agree with IV fluid administration as patient appears intravascularly dry. Lower extremity edema, multifactorial in etiology - erysipelas/cellulitis, lymphedema, hypoalbuminemia, renal dysfunction, valvular heart disease, pulmonary hypertension, and diastolic dysfunction as contributing. See above. Atrial fibrillation, persistent. Rates are acceptably controlled for the acute illness. Low likelihood of restoring sinus. 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 Generator exchange on September 27, 2015. Last interrogation was on 10/26/2021 as noted. Outpatient interrogation cancelled due to hospitalization; will need to make arrangements for interrogation as an outpatient. Admission and Anticipated Discharge Date Admission Date: February 07, 2022 Subjective Pt seen and examined, chart reviewed. States that she's feeling a little better today. Review of Systems Review of Systems: All systems reviewed & are unremarkable except as noted in HPI & below Physical Exam Physical Exam: General: Awake, alert and oriented x 3. No acute distress. HEENT: Normocephalic, atraumatic. Pupils equal, round and reactive to light and accommodation. Extraocular muscles are intact. Anicteric sclera. Moist mucous membranes. Neck: No JVD. No bruit. Cardiovascular: Regular. Positive S-4. Normal S-1 and S-2. No S-3. 3/6 holosystolic ejection murmur, left sternal border, mid-clavicular line with radiation to the axilla. No rubs. Pulmonary: Clear to auscultation bilaterally. No rales, rhonchi, or wheezing. Abdomen: Bowel sounds x 4, soft. No rebound, guarding or tenderness. No organomegaly. Extremities: No clubbing, cyanosis or edema. +2 pedal pulses bilaterally. Skin: Warm and dry. Results & Data ([facility]) Vital Signs (Past 12 Hours) Vital Signs Temp Pulse Pulse Resp BP BP Pulse Ox 02/11/22 08:00 93 H 02/11/22 07:21 36.4 C L 101 H 19 115/76 93 02/11/22 03:27 36.3 C L 96 H 20 119/74 96 02/11/22 00:24 84
--- NOTE | 2022-02-11 11:54 | Nephrology Progress Note ---
Date of Service February 11, 2022 Assessment & Plan (1) Acute kidney injury: Plan: I/O's not accurate but non-oliguric. Stinson not required. Remains intravascularly depleted. Creatinine continues to rise. Tolerating IVF saline infusion. Goal is to encourage slightly positive fluid balance. Medications appropriately dosed for kidney dysfunction. Clinical presentation consistent with ATN. Cannot exclude IE or post infectious GN vs AIN. Management remains supportive care. Electrolytes acceptable. No emergent indication for POTATO SPOTTER. Renal - low potassium diet. Patiromer PRN potassium >5.2 mmol/L. Repeat metabolic profile tomorrow AM. (2) Chronic kidney disease, stage 4 (severe): Plan: Followed by Dr. Lopez as outpatient. Prognosis of renal recovery is guarded. Goals of care reviewed. 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 Appreciate cardiology consultation. Remains on IV 0.9% saline to encouraged slightly positive fluid balance. 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 Admission and Anticipated Discharge Date Admission Date: February 07, 2022 Subjective No acute events overnight. No fevers or chills. Resting comfortably in bed. Carine reports fatigue and some weakness. Appetite decreased. Loose bowel movements reported. No melena or hematochezia. I/O's in accurate due to urine mixed with stool. Review of Systems Review of Systems: All systems reviewed & are unremarkable except as noted in HPI & below Physical Exam Constitutional: well developed, + thin and + frail appearing; no acute distress Eyes: + anicteric sclerae ENMT: Mouth: + muffled voice, + dry oral mucous membranes and + dentures Neck: normal visual inspection and trachea midline Respiratory: normal respiratory effort Auscultation: lungs clear to auscultation bilaterally Cardiovascular: Rate/Rhythm: regular rate Heart Sounds: normal S1 and normal S2 Extremities: + edema Musculoskeletal: Extremities: no cyanosis and no clubbing Skin: + turgor decreased LE dressing clean and dry Neurologic: Motor/Sensory: no tremor and no asterixis Psychiatric: Orientation: alert and oriented x 3 Results & Data ([facility]) Vital Signs (Past 12 Hours) Vital Signs Temp Pulse Pulse Resp BP BP Pulse Ox 02/11/22 11:00 35.7 C L 79 18 103/68 95 02/11/22 08:00 93 H 02/11/22 07:21 36.4 C L 101 H 19 115/76 93 02/11/22 03:27 36.3 C L 96 H 20 119/74 96 02/11/22 00:24 84 Laboratory Results Laboratory Results - last 24 hr 02/11/22 02/11/22 06:41 06:41 WBC 13.31 H RBC 3.65 L Hgb 11.1 L Hct 34.4 L MCV 94.2 MCH 30.4 MCHC 32.3 RDW Std Deviation 56.3 H RDW Coeff of Lorenzo 16.4 H Plt Count 173 MPV 12.2 H Sodium 138 Potassium 5.1 Chloride 104 Carbon Dioxide 24 Anion Gap 10 BUN 81 H Creatinine 3.55 H Est Cr Clr Drug Dosing 10.4 Est GFR ( Amer) 12.5 Est GFR (Non-Af Amer) 10.8 BUN/Creatinine Ratio 22.8 H Glucose 73 Calcium 9.9 Phosphorus 6.1 H Magnesium 2.4 Albumin 3.4 PG Care Time/CCT Total # of Minutes Spent Total Time Spent with Patient: Total time spent is greater than 50% in coordination of care (as documented) at patient's floor/unit and/or counseling patient: Coding Level of Care Code 98235 Subseq Hosp Care Lvl 3 Diagnoses Acute kidney injury N17.9 Chronic kidney disease, stage 4 (severe) N18.4 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
--- NOTE | 2022-02-11 15:39 | Hospitalist Progress Note ---
Date of Service February 11, 2022 Assessment & Plan (1) Cellulitis: Plan: An 89-year-old female who presents 02/07 with worsening right lower extremity redness and swelling and found to have acute kidney injury and hyperkalemia. She is being managed for the following: #. Sepsis POA #. BLE Cellulitis #. Grp B Beta Strep Bacteremia #. Infective Endocarditis/[place] valve Admitting vitals with heart rate elevated and WBC also elevated. Sepsis POA secondary to BLE cellulitis 02/09 ECHO: EF 45-50%, Lateral TV valve w/ 1.3 x 0.9 cm vegetation, Lateral MV w/ 1.3 x 0.9 cm nonmobile vegetation. Severe TR. Mod to severe MR. 02/07 blood culture positive for Group B Beta Strp. 02/09 Blood culture : pending, NG48H, f/u. WBC trending down, vitals getting better. Vanc 02/07 and Zosyn 02/08 (to Rocephin 02/09) ---> DC vanc 02/10, c/w rocephin ID evaluated: Recommending LAURA and exchanging pacemaker if with lead infection, IV Rocephin for 6 weeks. Repeat blood culture to document clearance. Renal ultrasound with splenomegaly and hyperechoic lesions in the spleen, sending MRI abdomen --> couldn't be done due pacer not being compatible; CT w/ contrast contraindicated due to NILAM/CKD. Cardiology following, appreciate recommendation Patient not willing for any surgical intervention, wants to proceed with conservative management. Patient will need outpatient cardiology/ID follow-up. #. Hypotension Patient's blood pressure low normal to low --> improving more consistently Likely secondary to sepsis, improving. Gentle IV fluid hydration, continue to monitor. Hold torsemide for now. #. NILAM over CKD stage IV: Baseline creatinine around 2-2.9, creatinine elevated at admission to 3.1, hold torsemide, follow BMP daily. Nephrology on board. Creatinine uptrending, appreciate nephrology recommendation. Currently on gentle fluid hydration. #. Other chronic medical conditions: Hypothyroidism/atrial fibrillation/sick sinus syndrome/status post pacer Continue with/resume home medications as and when appropriate. #. DVT prophylaxis: On Eliquis Disposition: Expect DC in next few days when renal function improves and repeat cultures are negative. Will need PICC line, total of 6 weeks of IV Rocephin, follow-up with ID/PCP/cardiology/nephrology as outpatient. Admission and Anticipated Discharge Date Admission Date: February 07, 2022 Subjective Patient seen and examined at bedside as a follow-up of BLE cellulitis, GPC bacteremia, infective endocarditis and NILAM over CKD stage IV. Patient was sitting up in chair, on room air, not in acute distress, no new acute events overnight. Pt reports eating less today. Feels about the same.Pulse/BP and Temperature getting better on chart review. Patient denies any fever/headache/chills/chest pain/palpitation/palpitation/other review of symptoms. Physical Exam Physical Exam: GENERAL: Alert and oriented x3. NAD, on RA. HEENT: No pallor, no icterus. Pupils equal, round and reactive to light. Oral mucosa moist. NECK: No JVD, no neck masses. HEART: S1 and S2 heard. Regular rate and rhythm. + murmur, no gallop. RESPIRATORY SYSTEM: Normal AP diameter. No accessory muscle use. No wheezing, no crackles. ABDOMEN: Soft, bowel sounds present, nontender, no distention. CENTRAL NERVOUS SYSTEM: No facial droop. Speech is clear. Obeys simple commands. Moves extremities. EXTREMITIES: BLE clean dressing w/o soakage noted. Results & Data Results & Data ([facility]) Vital Signs (Past 12 Hours) Vital Signs Temp Pulse Pulse Resp BP BP Pulse Ox 02/11/22 15:18 36.4 C L 85 18 104/72 91 02/11/22 14:56 94 H 02/11/22 11:50 36.3 C L 02/11/22 11:00 35.7 C L 79 18 103/68 95 02/11/22 08:00 93 H 02/11/22 07:21 36.4 C L 101 H 19 115/76 93 (1) Cellulitis Laterality: right Site of cellulitis: extremity Site of cellulitis of extremity: lower extremity Qualified Code(s): L03.115 - Cellulitis of right lower limb
[2022-02-11] MEDS: ADVANCED PROBIOTIC 1250 MG CAPSULE PO SCH (15:54)
[2022-02-12] MEDS: SODIUM CHLORIDE 0.9% 1000ML 1,000 ML IV SCH (04:54)
[2022-02-12] MEDS: LEVOTHYROXINE SODIUM 50 MCG TABLET PO SCH (06:00)
[2022-02-12 06:35] LABS: Hematocrit (blood only) 34.3 % (37-47); Hemoglobin 11.2 g/dL (12.0-16.0); Mean Corpuscular Hemoglobin 31.1 pg (25-34); Mean Corpuscular Hgb Conc 32.7 g/dL (32-36); Mean Corpuscular Volume 95.3 fL (80-100); Platelet Count 159 K/uL (130-400); RDW Coefficient of Variation 16.3 % (11.5-14.5); White Blood Count 12.09 K/uL (4.8-10.8)
[2022-02-12 07:00] LABS: BUN Creatinine Ratio 23.9 (10-20); Calcium 9.4 mg/dl (8.5-10.1); Creatinine Clr Calc Pharmacy 11.7 ml/min; Est GFR (African American) 14.3 ml/min; Est GFR (Non-African American) 12.3 ml/min; Potassium 4.2 mmol/L (3.5-5.1)
[2022-02-12] MEDS: allopurinoL 100 MG TAB PO SCH (09:11)
[2022-02-12] MEDS: SEVELAMER HCL 800 MG TABLET PO SCH ×3 (09:11→16:51)
[2022-02-12] MEDS: ADVANCED PROBIOTIC 1250 MG CAPSULE PO SCH (09:12)
[2022-02-12] MEDS: APIXABAN 2.5 MG TAB PO SCH ×2 (09:12→20:51)
[2022-02-12] MEDS: CALCITRIOL 0.25 MCG CAPSULE PO SCH (09:12)
[2022-02-12] MEDS: cefTRIAXone SODIUM 2,000 MG in DEXTROSE 5% 50 ML IV SCH (09:13)
[2022-02-12] MEDS: METOPROLOL TARTRATE 100 MG TAB PO SCH ×2 (09:13→20:51)
[2022-02-12] MEDS: PANTOprazole 40 MG TAB PO SCH (09:13)
--- NOTE | 2022-02-12 11:20 | Nephrology Progress Note ---
Date of Service February 12, 2022 Assessment & Plan (1) Acute kidney injury: Plan: Non-oliguric. Volume status improving and appears to be tolerating adequate PO intake. Creatinine stabilizing. Will hold IV saline gtt. Encourage PO intake. Medications appropriately dosed for kidney dysfunction. Clinical presentation consistent with ATN. Cannot exclude IE or post infectious GN vs AIN. Management remains supportive care. Electrolytes acceptable. No emergent indication for BOAT GARNISHER. Renal - low potassium diet. Patiromer PRN potassium >5.2 mmol/L. Repeat metabolic profile tomorrow AM. (2) Chronic kidney disease, stage 4 (severe): Plan: Followed by Dr. Lopez as outpatient. Carine expresses understanding of the advanced nature of her condition. She remains appropriately reserved regarding agressive interventions. 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 Appreciate cardiology consultation. Remains on IV 0.9% saline to encouraged slightly positive fluid balance. 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 Admission and Anticipated Discharge Date Admission Date: February 07, 2022 Subjective No acute events overnight. No fevers or chills. Out of bed to chair. Ambulating in room and to bathroom. Voided ~200 ml mixed with stool this AM. PO intake acceptable. Tolerating adequate fluids. Carine reports more difficulty with ISP today. She endorses fullness in her chest when taking a deep breath. She also continues to describe upsetting dreams and restless sleep. Review of Systems Review of Systems: All systems reviewed & are unremarkable except as noted in HPI & below Physical Exam Constitutional: well developed, + thin and + frail appearing; no acute distress Eyes: + anicteric sclerae ENMT: Mouth: + muffled voice, + dry oral mucous membranes and + dentures Neck: normal visual inspection and trachea midline Respiratory: normal respiratory effort Auscultation: lungs clear to auscultation bilaterally and + wheezes (subtle, expiratory) Cardiovascular: Rate/Rhythm: regular rate Heart Sounds: normal S1 and normal S2 Extremities: + edema Musculoskeletal: Extremities: no cyanosis and no clubbing Skin: + turgor decreased Neurologic: Motor/Sensory: no tremor and no asterixis Psychiatric: Orientation: alert and oriented x 3 Results & Data ([facility]) Vital Signs (Past 12 Hours) Vital Signs Temp Pulse Pulse Pulse Resp BP Pulse Ox 02/12/22 08:00 91 H 02/12/22 07:53 65 119/84 02/12/22 07:06 36.4 C L 106 H 18 145/107 H 90 02/12/22 04:00 36.6 C 113 H 16 129/78 91 02/11/22 23:42 93 H 02/11/22 23:40 36.3 C L 97 H 97 H 20 122/81 92 Laboratory Results Laboratory Results - last 24 hr 02/12/22 02/12/22 06:10 06:10 WBC 12.09 H RBC 3.60 L Hgb 11.2 L Hct 34.3 L MCV 95.3 MCH 31.1 MCHC 32.7 RDW Std Deviation 56.0 H RDW Coeff of Lorenzo 16.3 H Plt Count 159 MPV 12.0 H Sodium 140 Potassium 4.2 Chloride 108 H Carbon Dioxide 20 L Anion Gap 12 H BUN 76 H Creatinine 3.18 H D Est Cr Clr Drug Dosing 11.7 Est GFR ( Amer) 14.3 Est GFR (Non-Af Amer) 12.3 BUN/Creatinine Ratio 23.9 H Glucose 91 Calcium 9.4 PG Care Time/CCT Total # of Minutes Spent Total Time Spent with Patient: Total time spent is greater than 50% in coordination of care (as documented) at patient's floor/unit and/or counseling patient: Coding Level of Care Code 63887 Subseq Hosp Care Lvl 3 Diagnoses Acute kidney injury N17.9 Chronic kidney disease, stage 4 (severe) N18.4 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
--- NOTE | 2022-02-12 16:36 | Hospitalist Progress Note ---
Date of Service February 12, 2022 Assessment & Plan (1) Cellulitis: Plan: An 89-year-old female who presents 02/07 with worsening right lower extremity redness and swelling and found to have acute kidney injury and hyperkalemia. She is being managed for the following: #. Sepsis POA #. BLE Cellulitis #. Grp B Beta Strep Bacteremia #. 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 Sepsis POA secondary to BLE cellulitis 02/09 ECHO: EF 45-50%, Lateral TV valve w/ 1.3 x 0.9 cm vegetation, Lateral MV w/ 1.3 x 0.9 cm nonmobile vegetation. Severe TR. Mod to severe MR. 02/07 blood culture positive for Group B Beta Strp. 02/09 Blood culture : pending, NG48H, f/u. WBC trending down, vitals getting better. Vanc 02/07 and Zosyn 02/08 (to Rocephin 02/09) ---> DC vanc 02/10, c/w rocephin ID evaluated: Recommending LAURA and exchanging pacemaker if with lead infection, IV Rocephin for 6 weeks. Repeat blood culture to document clearance. Renal ultrasound with splenomegaly and hyperechoic lesions in the spleen, sending MRI abdomen --> couldn't be done due pacer not being compatible; CT w/ contrast contraindicated due to NILAM/CKD. Cardiology following, appreciate recommendation Patient not willing for any surgical intervention, wants to proceed with conservative management. Patient will need outpatient cardiology/ID follow-up. #. Hypotension Patient's blood pressure low normal to low --> improving more consistently Likely secondary to sepsis, improving. Gentle IV fluid hydration, continue to monitor. Hold torsemide for now. #. NILAM over CKD stage IV: Baseline creatinine around 2-2.9, creatinine elevated at admission to 3.1, hold torsemide, follow BMP daily. Nephrology on board. Creatinine remains elevated, appreciate nephrology recommendation. Currently on gentle fluid hydration. #. Other chronic medical conditions: Hypothyroidism/atrial fibrillation/sick sinus syndrome/status post pacer Continue with/resume home medications as and when appropriate. #. DVT prophylaxis: On Eliquis Disposition: Expect DC in next few days when renal function improves and repeat cultures are negative. Will need PICC line, total of 6 weeks of IV Rocephin, follow-up with ID/PCP/cardiology/nephrology as outpatient. Admission and Anticipated Discharge Date Admission Date: February 07, 2022 Subjective Patient seen and examined at bedside as a follow-up of BLE cellulitis, GPC bacteremia, infective endocarditis and NILAM over CKD stage IV. Patient was sitting up in chair, on room air, not in acute distress, no new acute events overnight. Pt reports eating less. Feels about the same.Pt reports feeling tired. Patient denies any fever/headache/chills/chest pain /palpitation/palpitation/other review of symptoms. Physical Exam Physical Exam: GENERAL: Alert and oriented x3. NAD, on RA. HEENT: No pallor, no icterus. Pupils equal, round and reactive to light. Oral mucosa moist. NECK: No JVD, no neck masses. HEART: S1 and S2 heard. Regular rate and rhythm. + murmur, no gallop. RESPIRATORY SYSTEM: Normal AP diameter. No accessory muscle use. No wheezing, no crackles. ABDOMEN: Soft, bowel sounds present, nontender, no distention. CENTRAL NERVOUS SYSTEM: No facial droop. Speech is clear. Obeys simple commands. Moves extremities. EXTREMITIES: BLE clean dressing w/o soakage noted. Results & Data Results & Data ([facility]) Vital Signs (Past 12 Hours) Vital Signs Temp Pulse Pulse Resp BP BP Pulse Ox 02/12/22 15:50 97 H 02/12/22 15:22 36.4 C L 117 H 18 113/80 93 02/12/22 11:24 36.4 C L 64 16 125/72 97 02/12/22 08:00 91 H 02/12/22 07:53 65 119/84 02/12/22 07:06 36.4 C L 106 H 18 145/107 H 90 (1) Cellulitis Laterality: right Site of cellulitis: extremity Site of cellulitis of extremity: lower extremity Qualified Code(s): L03.115 - Cellulitis of right lower limb
[2022-02-13] MEDS: LEVOTHYROXINE SODIUM 50 MCG TABLET PO SCH (06:03)
[2022-02-13 06:36] LABS: Hematocrit (blood only) 35.3 % (37-47); Hemoglobin 11.1 g/dL (12.0-16.0); Mean Corpuscular Hemoglobin 30.5 pg (25-34); Mean Corpuscular Hgb Conc 31.4 g/dL (32-36); Mean Platelet Volume 12.2 fL (7.4-10.4); Nucleated RBC # (auto) 0.03 K/uL (0-0); Nucleated RBC % (auto) 0.3 %; Platelet Count 152 K/uL (130-400); RDW Coefficient of Variation 16.5 % (11.5-14.5); RDW Standard Deviation 57.1 fL (36.4-46.3); Red Blood Count 3.64 M/uL (4.2-5.4)
[2022-02-13 06:50] LABS: BUN Creatinine Ratio 23.9 (10-20); Calcium 9.5 mg/dl (8.5-10.1); Creatinine Clr Calc Pharmacy 12.7 ml/min; Est GFR (African American) 15.5 ml/min; Est GFR (Non-African American) 13.4 ml/min; Magnesium 2.3 mg/dl (1.7-2.4); Phosphorus 5.2 mg/dl (2.5-4.9); Potassium 4.1 mmol/L (3.5-5.1)
[2022-02-13] MEDS: APIXABAN 2.5 MG TAB PO SCH ×2 (08:21→21:48)
[2022-02-13] MEDS: CALCITRIOL 0.25 MCG CAPSULE PO SCH (08:21)
[2022-02-13] MEDS: SEVELAMER HCL 800 MG TABLET PO SCH ×3 (08:21→16:54)
[2022-02-13] MEDS: allopurinoL 100 MG TAB PO SCH (08:21)
[2022-02-13] MEDS: ADVANCED PROBIOTIC 1250 MG CAPSULE PO SCH (08:22)
[2022-02-13] MEDS: METOPROLOL TARTRATE 100 MG TAB PO SCH ×2 (08:23→21:48)
[2022-02-13] MEDS: PANTOprazole 40 MG TAB PO SCH (08:27)
[2022-02-13] MEDS: cefTRIAXone SODIUM 2,000 MG in DEXTROSE 5% 50 ML IV SCH (08:28)
[2022-02-13] MEDS: SODIUM BICARBONATE 650 MG TAB PO SCH (08:49)
--- NOTE | 2022-02-13 10:48 | Nephrology Progress Note ---
Date of Service February 13, 2022 Assessment & Plan (1) Acute kidney injury: Plan: Non-oliguric. Creatinine starting to improve. Encourage PO intake. Hold diuretics. Medications appropriately dosed for kidney dysfunction. Clinical presentation consistent with ATN. Cannot exclude IE or post infectious GN vs AIN. Management remains supportive care. Electrolytes acceptable. Renal - low potassium diet. Repeat metabolic profile tomorrow AM. (2) Chronic kidney disease, stage 4 (severe): Plan: Followed by Dr. Lopez as outpatient. Goals of care reviewed. Thankfully, no emergent indication for dialysis at this time. 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 Volume status acceptable. Hold additional IVF. Diuretics held. 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 Admission and Anticipated Discharge Date Admission Date: February 07, 2022 Subjective No acute events overnight. Carine reports feeling well this AM. No fevers or chills. Improved sleep quality and feeling stronger today. Denies shortness of breath. Appetite improving. Review of Systems Review of Systems: All systems reviewed & are unremarkable except as noted in HPI & below Physical Exam Constitutional: well developed, + thin and + frail appearing; no acute distress Eyes: + anicteric sclerae ENMT: Mouth: + muffled voice, + dry oral mucous membranes and + dentures Neck: normal visual inspection and trachea midline Respiratory: normal respiratory effort Auscultation: lungs clear to auscultation bilaterally and + wheezes (subtle, expiratory) Cardiovascular: Rate/Rhythm: regular rate Heart Sounds: normal S1 and normal S2 Extremities: + edema Musculoskeletal: Extremities: no cyanosis and no clubbing Skin: + turgor decreased Neurologic: Motor/Sensory: no tremor and no asterixis Psychiatric: Orientation: alert and oriented x 3 Results & Data ([facility]) Vital Signs (Past 12 Hours) Vital Signs Temp Pulse Pulse Resp BP Pulse Ox 02/13/22 07:45 37.0 C 68 16 142/68 H 99 02/13/22 04:22 36.4 C L 106 H 132/84 95 02/12/22 23:31 73 02/12/22 23:29 36 C L 82 16 141/83 H 94 Laboratory Results Laboratory Results - last 24 hr 02/13/22 02/13/22 05:57 05:57 WBC 11.40 H RBC 3.64 L Hgb 11.1 L Hct 35.3 L MCV 97.0 MCH 30.5 MCHC 31.4 L RDW Std Deviation 57.1 H RDW Coeff of Lorenzo 16.5 H Plt Count 152 MPV 12.2 H Absolute Nucleated RBC 0.03 H Nucleated RBC % (auto) 0.3 Sodium 141 Potassium 4.1 Chloride 110 H Carbon Dioxide 20 L Anion Gap 11 BUN 71 H Creatinine 2.97 H Est Cr Clr Drug Dosing 12.7 Est GFR ( Amer) 15.5 Est GFR (Non-Af Amer) 13.4 BUN/Creatinine Ratio 23.9 H Glucose 91 Calcium 9.5 Phosphorus 5.2 H Magnesium 2.3 PG Care Time/CCT Total # of Minutes Spent Total Time Spent with Patient: Total time spent is greater than 50% in coordination of care (as documented) at patient's floor/unit and/or counseling patient: Coding Level of Care Code 34734 Subseq Hosp Care Lvl 3 Diagnoses Acute kidney injury N17.9 Chronic kidney disease, stage 4 (severe) N18.4 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
--- NOTE | 2022-02-13 15:07 | Hospitalist Progress Note ---
Date of Service February 13, 2022 Assessment & Plan (1) Cellulitis: Plan: An 89-year-old female who presents 02/07 with worsening right lower extremity redness and swelling and found to have acute kidney injury and hyperkalemia. She is being managed for the following: #. Sepsis POA #. BLE Cellulitis #. Grp B Beta Strep Bacteremia #. 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 Sepsis POA secondary to BLE cellulitis 02/09 ECHO: EF 45-50%, Lateral TV valve w/ 1.3 x 0.9 cm vegetation, Lateral MV w/ 1.3 x 0.9 cm nonmobile vegetation. Severe TR. Mod to severe MR. 02/07 blood culture positive for Group B Beta Strp. 02/09 Blood culture : pending, NG48H, f/u. WBC trending down, vitals getting better. Vanc 02/07 and Zosyn 02/08 (to Rocephin 02/09) ---> DC vanc 02/10, c/w rocephin ID evaluated: Recommending LAURA and exchanging pacemaker if with lead infection, IV Rocephin for 6 weeks. Repeat blood culture to document clearance. Renal ultrasound with splenomegaly and hyperechoic lesions in the spleen, sending MRI abdomen --> couldn't be done due pacer not being compatible; CT w/ contrast contraindicated due to NILAM/CKD. Cardiology following, appreciate recommendation Patient not willing for any surgical intervention, wants to proceed with conservative management. Patient will need outpatient cardiology/ID follow-up. #. Hypotension - resolved #. NILAM over CKD stage IV: Baseline creatinine around 2-2.9, creatinine elevated at admission to 3.1, hold torsemide, follow BMP daily. Nephrology on board. Creatinine gradually improving, appreciate nephrology recommendation. #. Other chronic medical conditions: Hypothyroidism/atrial fibrillation/sick sinus syndrome/status post pacer Continue with/resume home medications as and when appropriate. #. DVT prophylaxis: On Eliquis Disposition: Expect DC in next few days when renal function improves and with nephrology recommendation/clearance. Will need PICC line, total of 6 weeks of IV Rocephin, follow-up with ID/PCP/cardiology/nephrology as outpatient. Pt will likely need placement. Admission and Anticipated Discharge Date Admission Date: February 07, 2022 Subjective Patient seen and examined at bedside as a follow-up of BLE cellulitis, GPC bacteremia, infective endocarditis and NILAM over CKD stage IV. Patient was sitting up in chair, on room air, not in acute distress, no new acute events overnight. Pt reports eating less but appetite somewhat improving. Feels about the same.Pt reports feeling tired but reports she always felt tired. Patient denies any fever/headache/chills/chest pain/palpitation/palpitation/other review of symptoms. Physical Exam Physical Exam: GENERAL: Alert and oriented x3. NAD, on RA. HEENT: No pallor, no icterus. Pupils equal, round and reactive to light. Oral mucosa moist. NECK: No JVD, no neck masses. HEART: S1 and S2 heard. Regular rate and rhythm. + murmur, no gallop. RESPIRATORY SYSTEM: Normal AP diameter. No accessory muscle use. No wheezing, no crackles. ABDOMEN: Soft, bowel sounds present, nontender, no distention. CENTRAL NERVOUS SYSTEM: No facial droop. Speech is clear. Obeys simple commands. Moves extremities. EXTREMITIES: BLE clean dressing w/o soakage noted. Results & Data Results & Data ([facility]) Vital Signs (Past 12 Hours) Vital Signs Temp Pulse Resp BP Pulse Ox 02/13/22 07:45 37.0 C 68 16 142/68 H 99 02/13/22 04:22 36.4 C L 106 H 132/84 95 (1) Cellulitis Laterality: right Site of cellulitis: extremity Site of cellulitis of extremity: lower extremity Qualified Code(s): L03.115 - Cellulitis of right lower limb
[2022-02-14] MEDS: LEVOTHYROXINE SODIUM 50 MCG TABLET PO SCH (06:03)
[2022-02-14 06:37] LABS: Hematocrit (blood only) 34.4 % (37-47); Hemoglobin 10.9 g/dL (12.0-16.0); Mean Corpuscular Hemoglobin 30.7 pg (25-34); Mean Corpuscular Hgb Conc 31.7 g/dL (32-36); Mean Corpuscular Volume 96.9 fL (80-100); Mean Platelet Volume 12.4 fL (7.4-10.4); Nucleated RBC # (auto) 0.05 K/uL (0-0); Nucleated RBC % (auto) 0.5 %; Platelet Count 145 K/uL (130-400); RDW Coefficient of Variation 16.5 % (11.5-14.5); RDW Standard Deviation 56.9 fL (36.4-46.3); Red Blood Count 3.55 M/uL (4.2-5.4); White Blood Count 11.83 K/uL (4.8-10.8)
[2022-02-14 07:15] LABS: BUN Creatinine Ratio 24.6 (10-20); Calcium 9.5 mg/dl (8.5-10.1); Creatinine Clr Calc Pharmacy 14.4 ml/min; Est GFR (African American) 18.2 ml/min; Est GFR (Non-African American) 15.7 ml/min; Potassium 4.2 mmol/L (3.5-5.1)
[2022-02-14] MEDS: SEVELAMER HCL 800 MG TABLET PO SCH ×3 (08:12→16:46)
[2022-02-14] MEDS: allopurinoL 100 MG TAB PO SCH (08:13)
[2022-02-14] MEDS: APIXABAN 2.5 MG TAB PO SCH ×2 (08:13→20:16)
[2022-02-14] MEDS: METOPROLOL TARTRATE 100 MG TAB PO SCH ×2 (08:14→20:17)
[2022-02-14] MEDS: CALCITRIOL 0.25 MCG CAPSULE PO SCH (08:14)
[2022-02-14] MEDS: ADVANCED PROBIOTIC 1250 MG CAPSULE PO SCH (08:14)
[2022-02-14] MEDS: SODIUM BICARBONATE 650 MG TAB PO SCH (08:15)
[2022-02-14] MEDS: PANTOprazole 40 MG TAB PO SCH (08:16)
[2022-02-14] MEDS: cefTRIAXone SODIUM 2,000 MG in DEXTROSE 5% 50 ML IV SCH (08:20)
--- NOTE | 2022-02-14 09:52 | Nephrology Progress Note ---
Date of Service February 14, 2022 Assessment & Plan (1) Acute kidney injury: Plan: Non-oliguric. Creatinine improving. Encourage PO intake. Hold diuretics. Medications appropriately dosed for kidney dysfunction. Clinical presentation consistent with ATN. Cannot exclude IE or post infectious GN vs AIN. Management remains supportive care. Electrolytes acceptable. Renal - low potassium diet. Repeat metabolic profile tomorrow AM. (2) Chronic kidney disease, stage 4 (severe): Plan: Followed by Dr. Lopez as outpatient. Goals of care reviewed. Thankfully, no emergent indication for dialysis at this time. 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 Volume status acceptable. Hold additional IVF. Diuretics held. 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 Admission and Anticipated Discharge Date Admission Date: February 07, 2022 Subjective No acute events overnight. Carine was sitting comfortably in her bedside chair this AM. She feels well. Appetite improving. No fevers. Quality of sleep improved. Carine notes that her brain fog is clearing. Review of Systems Review of Systems: All systems reviewed & are unremarkable except as noted in HPI & below Physical Exam Constitutional: well developed, + thin and + frail appearing; no acute distress Eyes: + anicteric sclerae ENMT: Mouth: + dry oral mucous membranes and + dentures Neck: normal visual inspection and trachea midline Respiratory: normal respiratory effort Auscultation: lungs clear to auscultation bilaterally Cardiovascular: Rate/Rhythm: regular rate Heart Sounds: normal S1 and normal S2 Extremities: + edema Musculoskeletal: Extremities: no cyanosis and no clubbing Skin: + turgor decreased Neurologic: Motor/Sensory: no tremor and no asterixis Psychiatric: Orientation: alert and oriented x 3 Results & Data ([facility]) Vital Signs (Past 12 Hours) Vital Signs Temp Pulse Resp BP Pulse Ox 02/14/22 08:04 34.4 C L 91 H 18 139/85 96 02/14/22 04:01 36.6 C 89 18 113/69 93 02/13/22 23:00 36.4 C L 91 H 18 126/92 93 Laboratory Results Laboratory Results - last 24 hr 02/14/22 02/14/22 05:55 05:55 WBC 11.83 H RBC 3.55 L Hgb 10.9 L Hct 34.4 L MCV 96.9 MCH 30.7 MCHC 31.7 L RDW Std Deviation 56.9 H RDW Coeff of Lorenzo 16.5 H Plt Count 145 MPV 12.4 H Absolute Nucleated RBC 0.05 H Nucleated RBC % (auto) 0.5 Sodium 140 Potassium 4.2 Chloride 110 H Carbon Dioxide 22 Anion Gap 8 BUN 64 H Creatinine 2.60 H D Est Cr Clr Drug Dosing 14.4 Est GFR ( Amer) 18.2 Est GFR (Non-Af Amer) 15.7 BUN/Creatinine Ratio 24.6 H Glucose 83 Calcium 9.5 PG Care Time/CCT Total # of Minutes Spent Total Time Spent with Patient: Total time spent is greater than 50% in coordination of care (as documented) at patient's floor/unit and/or counseling patient: Coding Level of Care Code 96127 Subseq Hosp Care Lvl 3 Diagnoses Acute kidney injury N17.9 Chronic kidney disease, stage 4 (severe) N18.4 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
--- NOTE | 2022-02-14 15:11 | XRay Report ---
XR chest 1V portable CLINICAL HISTORY: PICC tip placement TECHNIQUE: Single frontal radiograph of the chest was obtained. Comparison: Comparison is made to chest radiograph 06/28/2021 FINDINGS: Dual lead pacemaker is seen. A right PICC tip is in the cavoatrial junction. Calcified aortic knob is seen. Cardiomegaly is seen. Bilateral lower lung predominant airspace opacities are seen. Mild pulmo nary edema is seen. Small bilateral pleural effusions are seen. IMPRESSION: 1. Bilateral pleural effusions are seen. 2. Small bilateral airspace opacities in the lower lungs may represent atelectasis, pneumonia, and/o r aspiration. Mild pulmonary edema is seen. ACT 112: Negative or not required by law. Electronically signed by: Montrell Anand M.D. 02/14/2022 3:09 PM
--- NOTE | 2022-02-14 16:27 | Hospitalist Progress Note ---
Date of Service February 14, 2022 Assessment & Plan (1) Cellulitis: Plan: An 89-year-old female who presents 02/07 with worsening right lower extremity redness and swelling and found to have acute kidney injury and hyperkalemia. She is being managed for the following: #. Sepsis POA #. BLE Cellulitis #. Grp B Beta Strep Bacteremia #. 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 Sepsis POA secondary to BLE cellulitis 02/09 ECHO: EF 45-50%, Lateral TV w/ 1.3 x 0.9 cm vegetation, Lateral MV w/ 1.3 x 0.9 cm nonmobile vegetation. Severe TR. Mod to severe MR. 02/07 blood culture positive for Group B Beta Strp. 02/09 Blood culture : WBC trending down, vitals getting better. Vanc 02/07 and Zosyn 02/08 (to Rocephin 02/09) ---> DC vanc 02/10, c/w rocephin ID evaluated: Recommending LAURA and exchanging pacemaker if with lead infection, IV Rocephin for 6 weeks. Repeat blood culture to document clearance. Renal ultrasound with splenomegaly and hyperechoic lesions in the spleen, sending MRI abdomen --> couldn't be done due pacer not being compatible; CT w/ contrast contraindicated due to NILAM/CKD. Cardiology following, appreciate recommendation Patient not willing for any surgical intervention, wants to proceed with conservative management. Patient will need outpatient cardiology/ID follow-up. PICC Line today, prescription for iv antibiotic provided. #. Hypotension - resolved #. NILAM over CKD stage IV: Baseline creatinine around 2-2.9, creatinine elevated at admission to 3.1, hold torsemide, follow BMP daily. Nephrology on board. Creatinine gradually improving, appreciate nephrology recommendation. Per Nephro upon DC: hold diuretics. Monitor daily weights with PRN torsemide for weight gain >3lbs in 24 h. Close outpatient follow up with nephrology and cardiology #. Other chronic medical conditions: Hypothyroidism/atrial fibrillation/sick sinus syndrome/status post pacer Continue with/resume home medications as and when appropriate. #. DVT prophylaxis: On Eliquis Disposition: Follow-up with ID/PCP/cardiology/nephrology as outpatient. Likely DC tod to [facility] unless no new issues arises. Admission and Anticipated Discharge Date Admission Date: February 07, 2022 Subjective Patient seen and examined at bedside as a follow-up of BLE cellulitis, GPC bacteremia, infective endocarditis and NILAM over CKD stage IV. Patient was sitting up in chair, on room air, not in acute distress, no new acute events overnight. Pt reports improving appetite and tiredness. Reports feeling better. Patient denies any fever/headache/chills/chest pain/palpitation/palpitation/other review of symptoms. Physical Exam Physical Exam: GENERAL: Alert and oriented x3. NAD, on RA. HEENT: No pallor, no icterus. Pupils equal, round and reactive to light. Oral mucosa moist. NECK: No JVD, no neck masses. HEART: S1 and S2 heard. Regular rate and rhythm. + murmur, no gallop. RESPIRATORY SYSTEM: Normal AP diameter. No accessory muscle use. No wheezing, no crackles. ABDOMEN: Soft, bowel sounds present, nontender, no distention. CENTRAL NERVOUS SYSTEM: No facial droop. Speech is clear. Obeys simple commands. Moves extremities. EXTREMITIES: BLE clean dressing w/o soakage noted. Results & Data Results & Data ([facility]) Vital Signs (Past 12 Hours) Vital Signs Temp Pulse Resp BP Pulse Ox 02/14/22 12:39 36.7 C 74 16 98/63 L 97 02/14/22 08:04 34.4 C L 91 H 18 139/85 96 (1) Cellulitis Laterality: right Site of cellulitis: extremity Site of cellulitis of extremity: lower extremity Qualified Code(s): L03.115 - Cellulitis of right lower limb
[2022-02-15] MEDS: LEVOTHYROXINE SODIUM 50 MCG TABLET PO SCH (05:45)
[2022-02-15 05:55] LABS: Hematocrit (blood only) 34.4 % (37-47); Hemoglobin 10.7 g/dL (12.0-16.0); Mean Corpuscular Hemoglobin 30.6 pg (25-34); Mean Corpuscular Hgb Conc 31.1 g/dL (32-36); Mean Corpuscular Volume 98.3 fL (80-100); Mean Platelet Volume 11.9 fL (7.4-10.4); Platelet Count 119 K/uL (130-400); RDW Coefficient of Variation 16.5 % (11.5-14.5); White Blood Count 11.64 K/uL (4.8-10.8)
[2022-02-15 06:25] LABS: BUN Creatinine Ratio 24.6 (10-20); Calcium 9.6 mg/dl (8.5-10.1); Creatinine Clr Calc Pharmacy 16.3 ml/min; Est GFR (African American) 20.9 ml/min; Magnesium 2.2 mg/dl (1.7-2.4)
[2022-02-15] MEDS: CALCITRIOL 0.25 MCG CAPSULE PO SCH (08:15)
[2022-02-15] MEDS: allopurinoL 100 MG TAB PO SCH (08:15)
[2022-02-15] MEDS: SODIUM BICARBONATE 650 MG TAB PO SCH (08:16)
[2022-02-15] MEDS: SEVELAMER HCL 800 MG TABLET PO SCH ×2 (08:16→11:57)
[2022-02-15] MEDS: PANTOprazole 40 MG TAB PO SCH (08:16)
[2022-02-15] MEDS: ADVANCED PROBIOTIC 1250 MG CAPSULE PO SCH (08:17)
[2022-02-15] MEDS: APIXABAN 2.5 MG TAB PO SCH (08:17)
[2022-02-15] MEDS: METOPROLOL TARTRATE 100 MG TAB PO SCH (08:18)
[2022-02-15] MEDS: cefTRIAXone SODIUM 2,000 MG in DEXTROSE 5% 50 ML IV SCH (08:24)
--- NOTE | 2022-02-15 09:04 | Hospitalist Progress Note ---
Date of Service February 15, 2022 Assessment & Plan (1) Cellulitis: Plan: An 89 yo F who presents 02/07 with worsening right lower extremity redness and swelling and found to have acute kidney injury and hyperkalemia. She is being managed for the following: #. Sepsis POA #. BLE Cellulitis #. Grp B Beta Strep Bacteremia #. 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 Sepsis POA secondary to BLE cellulitis 02/09 ECHO: EF 45-50%, Lateral TV w/ 1.3 x 0.9 cm vegetation, Lateral MV w/ 1.3 x 0.9 cm nonmobile vegetation. Severe TR. Mod to severe MR. 02/07 blood culture positive for Group B Beta Strp. 02/09 Blood culture : 5 WBC trending down, vitals getting better. Vanc 02/07 and Zosyn 02/08 (to Rocephin 02/09) ---> DC vanc 02/10, c/w rocephin ID evaluated: Recommending LAURA and exchanging pacemaker if with lead infection, IV Rocephin for 6 weeks. Repeat blood culture to document clearance. Renal ultrasound with splenomegaly and hyperechoic lesions in the spleen, sending MRI abdomen --> couldn't be done due pacer not being compatible; CT w/ contrast contraindicated due to NILAM/CKD. Cardiology following, appreciate recommendation Patient not willing for any surgical intervention, wants to proceed with conservative management. Patient will need outpatient cardiology/ID follow-up. PICC Line places, prescription for iv antibiotic provided. #. Hypotension - resolved #. NILAM over CKD stage IV: Baseline creatinine around 2-2.9, creatinine elevated at admission to 3.1, hold torsemide, follow BMP daily. Nephrology following. Creatinine gradually improving, appreciate nephrology recommendation. Per Nephro upon DC: hold diuretics. Monitor daily weights with PRN torsemide for weight gain >3lbs in 24 h. Close outpatient follow up with nephrology and cardiology #. Other chronic medical conditions: Hypothyroidism/atrial fibrillation/sick sinus syndrome/status post pacer Continue with/resume home medications as and when appropriate. #. DVT prophylaxis: On Eliquis Disposition: Follow-up with ID/PCP/cardiology/nephrology as outpatient. Plan to DC to [facility] today. Admission and Anticipated Discharge Date Admission Date: February 07, 2022 Subjective Patient seen in follow up of BLE cellulitis, GPC bacteremia, infective endocarditis and NILAM on CKD stage IV. Patient is sitting up in chair, on room air, not in acute distress, no new acute events overnight. Reports feeling better. Patient denies any fever/headache/chills/chest pain/palpitation/palpitation/other review of symptoms. Review of Systems Review of Systems: All systems reviewed & are unremarkable except as noted in Subjective Physical Exam Physical Exam: GENERAL: Alert and oriented x3. NAD, on RA. HEENT: No pallor, no icterus. Pupils equal, round and reactive to light. Oral mucosa moist. NECK: No JVD, no neck masses. HEART: S1 and S2 heard. Regular rate and rhythm. + murmur, no gallop. RESPIRATORY: Normal AP diameter. No accessory muscle use. No wheezing, no crackles. ABDOMEN: Soft, bowel sounds present, nontender, no distention. NEURO: No facial droop. Speech is clear. Obeys simple commands. Moves extremities. EXTREMITIES: LE edema b/l, and erythema, dressings applied Results & Data Results & Data ([facility]) Vital Signs (Past 12 Hours) Vital Signs Temp Pulse Pulse Resp BP BP Pulse Ox 02/15/22 07:30 36.4 C L 99 H 18 121/74 92 02/15/22 04:21 36.3 C L 108 H 18 152/85 H 90 02/14/22 23:40 36.3 C L 82 18 105/71 90 02/14/22 22:20 77 Laboratory Results 02/15/22 02/15/22 Range/Units 05:38 05:38 WBC 11.64 H (4.8-10.8) K/uL RBC 3.50 L (4.2-5.4) M/uL Hgb 10.7 L (12.0-16.0) g/dL Hct 34.4 L (37-47) % MCV 98.3 (80-100) fL MCH 30.6 (25-34) pg MCHC 31.1 L (32-36) g/dL RDW Std Deviation 58.0 H (36.4-46.3) fL RDW Coeff of Lorenzo 16.5 H (11.5-14.5) % Plt Count 119 L (130-400) K/uL MPV 11.9 H (7.4-10.4) fL Sodium 141 (136-145) mmol/L Potassium 4.0 (3.5-5.1) mmol/L Chloride 111 H (98-107) mmol/L Carbon Dioxide 24 (21-32) mmol/L Anion Gap 6 (3-11) BUN 57 H (6-23) mg/dl Creatinine 2.32 H (0.6-1.2) mg/dl Est Cr Clr Drug Dosing 16.3 ml/min Est GFR ( Amer) 20.9 ml/min Est GFR (Non-Af Amer) 18.0 ml/min BUN/Creatinine Ratio 24.6 H (10-20) Glucose 90 (70-99(Fasting)) mg/dl Calcium 9.6 (8.5-10.1) mg/dl Magnesium 2.2 (1.7-2.4) mg/dl Medications Administered Current Inpatient Medications Acetaminophen (Acetaminophen 325 Mg Tab) 650 mg PO Q4H PRN PRN Reason: Pain or Fever Stop: 03/09/22 23:33 Last Admin: 02/09/22 11:39 Dose: 650 mg Documented by: Allopurinol (Allopurinol 100 Mg Tab) 100 mg PO DAILY ELIZA Stop: 03/10/22 08:59 Last Admin: 02/15/22 08:15 Dose: 100 mg Documented by: Apixaban (Apixaban 2.5 Mg Tab) 2.5 mg PO BID [facility] Stop: 03/09/22 23:33 Last Admin: 02/15/22 08:17 Dose: 2.5 mg Documented by: Calcitriol (Calcitriol 0.25 Mcg Capsule) 0.25 mcg PO DAILY ELIZA Stop: 03/10/22 08:59 Last Admin: 02/15/22 08:15 Dose: 0.25 mcg Documented by: Ceftriaxone Sodium 2,000 mg/ (Dextrose) 70 mls @ 100 mls/hr IV DAILY [facility]; Protocol Stop: 02/23/22 08:59 Last Admin: 02/15/22 08:24 Dose: 100 mls/hr Documented by: Lactobacillus Acidophilus (Advanced Probiotic 1250 Mg Capsule) 2 cap PO DAILY [facility] Stop: 03/13/22 15:44 Last Admin: 02/15/22 08:17 Dose: 2 cap Documented by: Levothyroxine Sodium (Levothyroxine Sodium 50 Mcg Tablet) 50 mcg PO DAILYBB [facility] Stop: 03/10/22 06:29 Last Admin: 02/15/22 05:45 Dose: 50 mcg Documented by: Metoprolol Tartrate (Metoprolol Tartrate 100 Mg Tab) 100 mg PO BID ELIZA Stop: 03/10/22 08:59 Last Admin: 02/15/22 08:18 Dose: 100 mg Documented by: Nitroglycerin (Nitroglycerin Sl 0.4 Mg/Tab Tab) 0.4 mg SL UD PRN PRN Reason: Chest Pain Stop: 03/09/22 23:33 Pantoprazole Sodium (Pantoprazole 40 Mg Tab) 40 mg PO DAILY ELIZA Stop: 03/10/22 08:59 Last Admin: 02/15/22 08:16 Dose: 40 mg Documented by: Polyethylene Glycol (Polyethylene (Miralax) 17 Gm Pack) 17 gm PO DAILY PRN PRN Reason: Constipation Stop: 03/09/22 23:33 Sevelamer HCl (Sevelamer Hcl 800 Mg Tablet) 800 mg PO TIDM ELIZA Stop: 03/12/22 16:59 Last Admin: 02/15/22 08:16 Dose: 800 mg Documented by: Sodium Bicarbonate (Sodium Bicarbonate 650 Mg Tab) 1,300 mg PO DAILY [facility] Stop: 03/15/22 08:59 Last Admin: 02/15/22 08:16 Dose: 1,300 mg Documented by: (1) Cellulitis Laterality: right Site of cellulitis: extremity Site of cellulitis of extremity: lower extremity Qualified Code(s): L03.115 - Cellulitis of right lower limb
--- NOTE | 2022-02-15 09:50 | Nephrology Progress Note ---
Date of Service February 15, 2022 Assessment & Plan (1) Acute kidney injury: Plan: Non-oliguric. Creatinine improving. Encourage PO intake. Hold diuretics. Monitor daily weights post discharge. Torsemide 20 mg PRN for weight gain >3 lbs in 24 hours. Close outpatient follow up to be arranged with cardiology and Dr. Lopez. Medications appropriately dosed for kidney dysfunction. Clinical presentation consistent with ATN. Electrolytes acceptable. Renal - low potassium diet. (2) Chronic kidney disease, stage 4 (severe): Plan: Followed by Dr. Lopez as outpatient. Goals of care reviewed. Thankfully, no emergent indication for dialysis at this time. 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 Diuretics PRN to maintain even fluid balance. 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 Admission and Anticipated Discharge Date Admission Date: February 07, 2022 Subjective No acute events overnight. Resting comfortably in bedside chair. No complaints this AM. Review of Systems Review of Systems: All systems reviewed & are unremarkable except as noted in HPI & below Physical Exam Constitutional: well developed and + frail appearing; no acute distress Eyes: + anicteric sclerae ENMT: Mouth: + dentures; oral mucous membranes not dry Neck: normal visual inspection and trachea midline Respiratory: normal respiratory effort Auscultation: lungs clear to auscultation bilaterally Cardiovascular: Rate/Rhythm: regular rate Heart Sounds: normal S1 and normal S2 Extremities: + edema Musculoskeletal: Extremities: no cyanosis and no clubbing Skin: + turgor decreased Neurologic: Motor/Sensory: no tremor and no asterixis Psychiatric: Orientation: alert and oriented x 3 Results & Data ([facility]) Vital Signs (Past 12 Hours) Vital Signs Temp Pulse Pulse Resp BP BP Pulse Ox 02/15/22 07:30 36.4 C L 99 H 18 121/74 92 02/15/22 04:21 36.3 C L 108 H 18 152/85 H 90 02/14/22 23:40 36.3 C L 82 18 105/71 90 02/14/22 22:20 77 Laboratory Results Laboratory Results - last 24 hr 02/15/22 02/15/22 05:38 05:38 WBC 11.64 H RBC 3.50 L Hgb 10.7 L Hct 34.4 L MCV 98.3 MCH 30.6 MCHC 31.1 L RDW Std Deviation 58.0 H RDW Coeff of Lorenzo 16.5 H Plt Count 119 L MPV 11.9 H Sodium 141 Potassium 4.0 Chloride 111 H Carbon Dioxide 24 Anion Gap 6 BUN 57 H Creatinine 2.32 H Est Cr Clr Drug Dosing 16.3 Est GFR ( Amer) 20.9 Est GFR (Non-Af Amer) 18.0 BUN/Creatinine Ratio 24.6 H Glucose 90 Calcium 9.6 Magnesium 2.2 PG Care Time/CCT Total # of Minutes Spent Total Time Spent with Patient: Total time spent is greater than 50% in coordination of care (as documented) at patient's floor/unit and/or counseling patient: Coding Level of Care Code 74687 Subseq Hosp Care Lvl 3 Diagnoses Acute kidney injury N17.9 Chronic kidney disease, stage 4 (severe) N18.4 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
--- NOTE | 2022-02-15 12:59 | Discharge Summary ---
Date of Service February 15, 2022 Admission HPI Per Admitting Provider This is an 89-year-old female with past medical history significant for multinodular goiter; hypothyroidism; sinus node dysfunction; atrial fibrillation, status post pacemaker; hypertension; obesity; chronic kidney disease, stage IV; bilateral lower extremity edema; lymphedema; noncardiac chest pain; who lives alone at home, ambulates with a walker, presents with right lower extremity erythematous changes and pain. The patient has lymphedema because she has been wrapped lower extremity, there is redness noted from friction in right lower extremity upto knee, but the swelling and erythema were spread up to groin region, which prompted her daughter to bring her to the hospital. Leg is also weeping as per daughter. Denies any fevers or chills.Left leg is also swollen with mild erythematous changes present.Has pain in the legs. Denies any other complaints. Takes MiraLax,and bowel movements are okay. Denies black stools. Micturating fine. Denies any abdominal pain. No chest pain. Had short of breath with minimal exertion, no cough, no fevers. She has a headache for the last couple of days on and off. Vision is okay. There is some runny nose from allergies and some sore throat. Appetite is ok ay. The patient is somewhat hard of hearing. Admission Exam Per Admitting Provider GENERAL: The patient is old, not in acute distress. VITAL SIGNS: Temperature 36.9, pulse 92, respiratory rate 18, blood pressure 118/57, oxygen 96% on room air. HEENT: Pupils equal, round and reactive to light. Oral mucosa dry. NECK: No JVD. No neck masses. CARDIOVASCULAR: S1 and S2 heard. Regular rate and rhythm. No murmur, no gallop. RESPIRATORY SYSTEM: Normal AP diameter. No accessory muscle use. No wheezing or crackles. ABDOMEN: Soft, bowel sounds present, no distention. CENTRAL NERVOUS SYSTEM: Cranial nerves II-XII are grossly intact, nonfocal. EXTREMITIES: Bilateral lower extremity lymphedema present, reddish erythematous changes on the right lower extremity up to the knee and somewhat mild erythematous changes and swelling until the groin region. The left lower extremity are swollen and mild erythematous changes seen on the smith region. 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 NAD, on RA. HEENT: No pallor, no icterus. Pupils equal, round and reactive to light. Oral mucosa moist. NECK: No JVD, no neck masses. HEART: S1 and S2 heard. Regular rate and rhythm. + murmur, no gallop. RESPIRATORY: Normal AP diameter. No accessory muscle use. No wheezing, no crackles. ABDOMEN: Soft, bowel sounds present, nontender, no distention. NEURO: No facial droop. Speech is clear. Obeys simple commands. Moves extremities. EXTREMITIES: LE edema b/l, and erythema, dressings applied Discharge Data Allergies Allergy/AdvReac Type Severity Reaction Status Date / Time adhesive Allergy Severe SEVERE Verified 02/07/22 21:14 REDNESS/PAIN amlodipine Allergy Intermediate Rash Verified 02/07/22 21:14 Sulfa (Sulfonamide Allergy Intermediate Rash Verified 02/07/22 21:14 Antibiotics) indomethacin Allergy Unknown Unknown Verified 02/07/22 21:14 Consultations 02/07/22 19:22 ED Decision to Admit Stat 02/08/22 08:00 Consult Nephrology Routine 02/08/22 18:09 Consult Infectious Diseases Routine 02/09/22 17:54 Consult Cardiology Routine Ordered Studies 02/07/22 16:24 US venous doppler LE BI Stat 02/09/22 11:10 US renal/blad retro comp Routine Hospital Course (1) Cellulitis: An 89 yo F who presents 02/07 with worsening right lower extremity redness and swelling and found to have acute kidney injury and hyperkalemia. She is being managed for the following: #. Sepsis POA #. BLE Cellulitis #. Grp B Beta Strep Bacteremia #. 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 Sepsis POA secondary to BLE cellulitis 02/09 ECHO: EF 45-50%, Lateral TV w/ 1.3 x 0.9 cm vegetation, Lateral MV w/ 1.3 x 0.9 cm nonmobile vegetation. Severe TR. Mod to severe MR. 4/5 blood culture positive for Group B Beta Strp. 02/09 Blood culture : NG5 WBC trending down, vitals getting better. Vanc / and Zosyn 02/08 (to Rocephin 02/09) ---> DC vanc 02/10, c/w rocephin ID evaluated: Recommending LAURA and exchanging pacemaker if with lead infection, IV Rocephin for 6 weeks. Repeat blood culture to document clearance. Renal ultrasound with splenomegaly and hyperechoic lesions in the spleen, sending MRI abdomen --> couldn't be done due pacer not being compatible; CT w/ contrast contraindicated due to NILAM/CKD. Cardiology following, appreciate recommendation Patient not willing for any surgical intervention, wants to proceed with conservative management. Patient will need outpatient cardiology/ID follow-up. PICC Line places, prescription for iv antibiotic provided. #. Hypotension - resolved #. NILAM over CKD stage IV: Baseline creatinine around 2-2.9, creatinine elevated at admission to 3.1, hold torsemide, follow BMP daily. Nephrology following. Creatinine gradually improving, appreciate nephrology recommendation. Discharge recommendations Per Nephrology: hold diuretics. Monitor daily weights with PRN torsemide for weight gain >3lbs in 24 h. Close outpatient follow up with nephrology and cardiology #. Other chronic medical conditions: Hypothyroidism/atrial fibrillation/sick sinus syndrome/status post pacer Continue with/resume home medications as and when appropriate. Hypothermia temp on 02/15 - 34.7C, yesterday (02/14) 34.4C (one time reading), then resolved. Other vital signs normal, pt reports clinically feeling well. Discussed to follow up and monitor temp at [facility] #. DVT prophylaxis: On Eliquis Disposition: Follow-up with ID/PCP/cardiology/nephrology as outpatient. Plan to DC to [facility] today. 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 Lower extremity cellulitis Sepsis Activity: Per Instructions section Non-emergency contact: Primary Care Provider, Chemical Lab Supervisor and [employer] Call non-emergency contact if: you have any medication questions and your symptoms worsen Follow-up/Referrals: Neel Lopez MD [Physician] - 02/24/22 1:30 pm ([facility] [address] [facility] [address] ) Amalia Thomas MD [Primary Care Provider] - Soila Griffith CRNP [Nurse Practitioner] - (Date & Time 02/24/2022 11:30 AM Provider LOTTIE Flores Department Cardiology, [facility] ) Diet: Heart Healthy and Low Potassium (2gm) Addtl Attending Provider Instructions: Continue IV antibiotics - ceftriaxone for total of 6 weeks. You will need to follow up with your primary care doctor and infectious disease doctor. Do NOT take torsemide until seen by your store detective (kidney doctor). Monitor daily weights - and only give torsemide as needed - for weight gain > 3 lbs in 24 hrs You will need to closely follow up with your store detective. You will also need to follow up with cardiology. Pending Studies at Discharge: No Stand-Alone Forms: [facility] Skilled Items Patient informed of condition?: Yes DNR: Yes Discharge Level of Care: Acute rehab Communicable Disease: No Discharge Prognosis: Stable Lines: PICC Urinary Catheter: No Medications and DC Order Prescriptions: New sodium bicarbonate 650 mg Tablet 1,300 mg PO DAILY Qty: 30 RF: 0 Advanced Probiotic 625 mg (10 billion cell) Capsule 2 cap PO DAILY Qty: 60 RF: 0 sevelamer HCl [Renagel] 800 mg Tablet 800 mg PO TIDM Qty: 60 RF: 0 Continued calcitriol 0.25 mcg capsule 0.25 mcg PO DAILY Qty: 90 RF: 3 allopurinol 100 mg tablet 100 mg PO DAILY Qty: 90 RF: 0 levothyroxine 50 mcg tablet 50 mcg PO DAILY Qty: 30 RF: 0 omeprazole 40 mg capsule,delayed release(DR/EC) 40 mg PO DAILY Qty: 30 RF: 0 acetaminophen [Tylenol Extra Strength] 500 mg tablet 1,000 mg PO BID PRN (Reason: Pain) RF: 0 Eliquis 2.5 mg tablet 2.5 mg PO BID RF: 0 metoprolol tartrate 100 mg tablet 100 mg PO BID RF: 0 Changed torsemide 10 mg tablet 20 mg PO DAILY PRN (Reason: weight gain > 3lbs in 24 hrs) Qty: 0 RF: 0 Discharge Orders: Discharge Order (Routine); Ordered 02/15/22 Ordered By: Demian Caldwell Admission Data Admit Date/Time: 02/07/22 21:32 Attending Provider: Demian Caldwell Admit Provider: Ibrahima Juan Primary Care Provider: Amalia Thomas Other Providers: Neel Lopez ; Ibrahima Juan ; Syed Friedman ; Lucie Nick ; Shade Dubois I. ; Chavez Campbell II ; Fe Mendoza ; Adolfo Ponce ; Kevin Bauman ; Dwight Rangel ; [facility] ; Kong Bustamante Other Interventions: Discharge Summary Assessment (RN) Last Done: 02/15/22 13:46
== END 2022-02-15 15:48 | DRG 871 ==
LOC: ED 16:01 → SUATTDRO 21:32 → 2S 21:32
DX: Z79.890 Hormone replacement therapy; Z88.2 Allergy status to sulfonamides; N18.4 Chronic kidney disease, stage 4 (severe); E87.5 Hyperkalemia; R68.0 Hypothermia, not associated with low environmental temperature; Z79.01 Long term (current) use of anticoagulants; I48.19 Other persistent atrial fibrillation; E88.09 Other disorders of plasma-protein metabolism, not elsewhere classified; I33.0 Acute and subacute infective endocarditis; Z88.8 Allergy status to other drugs, medicaments and biological substances; I50.41 Acute combined systolic (congestive) and diastolic (congestive) heart failure; N17.0 Acute kidney failure with tubular necrosis; A40.1 Sepsis due to streptococcus, group B; Z95.0 Presence of cardiac pacemaker; I13.0 Hypertensive heart and chronic kidney disease with heart failure and stage 1 through stage 4 chronic kidney disease, or unspecified chronic kidney disease; L03.116 Cellulitis of left lower limb; L03.115 Cellulitis of right lower limb; I49.5 Sick sinus syndrome; E03.9 Hypothyroidism, unspecified; I08.1 Rheumatic disorders of both mitral and tricuspid valves